=== PATIENT | female | born 1965 | race Hispanic/Latino ===

== ENCOUNTER 2017-09-20 16:29 | Emergency (ER) | payer MEDICARE ==
[~2017-09-20] VITALS: Ht 160 cm; Wt 117.9 kg
[2017-09-20] MEDS ORDERED: METHYLPREDNISOLONE SOD SUCC 125 MG/2ML VIAL IV STA (16:34)
[2017-09-20] MEDS ORDERED: SODIUM CHLORIDE 0.9% 1000ML 1,000 ML IV STA (16:34)
[2017-09-20] MEDS ORDERED: ALBUTEROL/IPRATROPIUM 3 ML NEB NEB ONE (16:45)
[2017-09-20] MEDS ORDERED: ALBUTEROL SULF 0.083% NEB SOLN 3 ML NEB NEB NR (16:45)
[2017-09-20 17:16] LABS: BASOPHILS # (AUTO) 0.1 (0.0-0.1); BASOPHILS % 0.6 % (0.0-1.0); EOSINOPHILS # (AUTO) 0.1 (0.0-0.4); HEMATOCRIT 42.7 % (34.2-44.1); HEMOGLOBIN 13.6 g/dL (12.0-16.0); LYMPHOCYTES # (AUTO) 5.1 (1.0-3.2); LYMPHOCYTES % 44.5 % (18.0-39.1); MEAN CORPUSCULAR HEMOGLOBIN 26.7 pg (28-32); MEAN CORPUSCULAR HGB CONC 31.9 g/dL (31-35); MEAN CORPUSCULAR VOLUME 83.7 fL (81-99); MONOCYTES # (AUTO) 0.9 (0.2-0.8); MONOCYTES % 7.8 % (4.4-11.3); NEUTROPHILS # (AUTO) 5.3 (2.1-6.9); NEUTROPHILS % 45.8 % (38.7-80.0); PLATELET COUNT 332 x10e3/uL (140-360); RED CELL DISTRIBUTION WIDTH 15.5 % (11.7-14.4)
[2017-09-20 17:26] LABS: INR 1.02; PROTHROMBIN TIME 12.6 seconds (11.9-14.5)
[2017-09-20 17:27] LABS: PARTIAL THROMBOPLASTIN TIME 33.5 seconds (23.8-35.5)
[2017-09-20 17:34] LABS: ALANINE AMINOTRANSFERASE 72 IU/L (0-55); ALBUMIN 3.8 g/dL (3.5-5.0); ALBUMIN/GLOBULIN RATIO 0.9 (0.8-2.0); ALKALINE PHOSPHATASE 172 IU/L (40-150); ANION GAP 19.5 mmol/L (8-16); BLOOD UREA NITROGEN 12 mg/dL (7-26); BUN/CREATININE RATIO 13 (6-25); CALCIUM 9.5 mg/dL (8.4-10.2); CARBON DIOXIDE 20 mmol/L (22-29); CHLORIDE 103 mmol/L (98-107); CREATINE KINASE 127 IU/L (29-168); CREATININE, SERUM 0.94 mg/dL (0.57-1.11); EST GLOMERULAR FILTRATION RATE > 60 ML/MIN (60-); GLUCOSE 208 mg/dL (74-118); POTASSIUM 3.5 mmol/L (3.5-5.1); SODIUM 139 mmol/L (136-145)
--- NOTE | 2017-09-20 18:03 | Diagnostic Imaging Report ---
PROCEDURE: A single AP view of the chest. COMPARISON: None. INDICATIONS: SUDDEN ONSET SHORTNESS OF BREATH, HX OF CHF FINDINGS: Lines/tubes: None. Lungs: Limited by body habitus, slight rotation, and low lung volumes. Right midlung linear opacities, likely atelectasis/scaring. Mild central vascular congestion. Pleura: There is no pleural effusion or pneumothorax. Heart and mediastinum: The cardiac silhouette is enlarged on this AP view. Median sternotomy wires. Bones: No acute bony abnormality. IMPRESSION: Limited study as above. Right midlung linear opacities are possibly atelectasis/scarring. Enlarged cardiac silhouette with mild central vascular congestion, accentuated by low lung volumes. Dictated by: Tushar Gonzalez M.D. on 09/20/2017 at 18:07 Electronically approved by: Tushar Gonzalez M.D. on 09/20/2017 at 18:07
[2017-09-20 18:13] LABS: ANISOCYTOSIS SLIGHT; EOSINOPHILS % (MANUAL) 1 % (0-7); LYMPHOCYTES % (MANUAL) 37 % (19-48); MONOCYTES % (MANUAL) 7 % (3.4-9.0); NEUTROPHILS % (MANUAL) 51 % (40-74); PLATELET ESTIMATE ADEQUATE; PLATELET MORPHOLOGY COMMENT NORMAL; POIKILOCYTOSIS SLIGHT; RBC MORPHOLOGY COMMENT NORMAL; STOMATOCYTES SLIGHT
[2017-09-20] MEDS ORDERED: ONDANSETRON HCL INJ 2 MG/ML VIAL IV STA (18:26)
[2017-09-20 19:19] VITALS: BP 130/64
== END 2017-09-20 19:28 | disposition home or self-care (01) ==
LOC: ER 16:33
DX: R06.00 Dyspnea, unspecified (principal); J45.51 Severe persistent asthma with (acute) exacerbation; E11.9 Type 2 diabetes mellitus without complications; I50.9 Heart failure, unspecified; I25.10 Atherosclerotic heart disease of native coronary artery without angina pectoris; Z95.1 Presence of aortocoronary bypass graft
CPT/HCPCS: 36415; 71045; 80053; 82550; 82553; 83880; 84484; 85025; 85610; 85730; 93005; 94640; 99284; J2405; J2930; J7030

== ENCOUNTER 2018-10-21 09:47 | Inpatient (IN) | payer MEDICARE ==
[~2018-10-21] VITALS: Ht 154.9 cm; Wt 106.2 kg
--- OUTSIDE RECORDS SUMMARY | 2018-10-21 09:53 | XMS REPORT | Continuity of Care Document ---
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 Name Role Phone [employer] [facility] Unavailable Unavailable Problems Problem Status Onset Date Classification Date Reported Comments Source Morbid obesity with BMI of 45.0-49.9, adult Active 11/13/2016 Problem 12/13/2017 [facility] Asthma, severe persistent Active 11/13/2016 Problem 12/13/2017 [facility] STEPHEN on CPAP Active 11/13/2016 Problem 12/13/2017 [facility] Controlled type 2 diabetes mellitus without complication, without long-term current use of insulin Active 11/13/2016 Problem 12/13/2017 [facility] Diverticulosis of large intestine without hemorrhage Active 01/23/2016 Problem 11/30/2017 [facility] Diverticulosis of large intestine without hemorrhage Active 01/23/2016 Problem 12/13/2017 [facility] H. pylori infection Active 01/15/2016 Problem 12/13/2017 [facility] Hepatic steatosis Active 07/31/2015 Problem 12/13/2017 [facility] Pleuritic chest pain Active 07/12/2013 Problem 12/13/2017 [facility] ASD , sinus venosus defect - 01/19/2013 Active 08/15/2012 Problem 12/13/2017 [facility] Pulmonary hypertension Active 08/15/2012 Problem 12/13/2017 [facility] CHF Active 08/14/2012 Problem 12/13/2017 [facility] Cardiomyopathy Active 05/27/2012 Problem 12/13/2017 [facility] S/P laparoscopic cholecystectomy Active 10/05/2008 Problem 12/13/2017 [facility] Bronchopulmonary aspergillosis Active Problem 12/13/2017 [facility] Other cirrhosis of liver Active Problem 10/07/2018 [facility] History of heart surgery Active Problem 10/07/2018 [facility] Obstructive sleep apnea (pediatric) Active Problem 10/07/2018 [facility] Congestive heart disease Active Problem 10/07/2018 [facility] RUQ pain Active Diagnosis 06/03/2018 [facility] Claudication Active Problem 10/07/2018 [facility] Pulmonary HTN Active Problem 10/07/2018 [facility] Dependence on other enabling machines and devices Active Problem 10/07/2018 [facility] Severe obesity Active Problem 10/07/2018 [facility] Pancreatitis, recurrent Active Problem 10/07/2018 [facility] Severe persistent asthma without complication Active Problem 10/07/2018 [facility] Pain of left calf Active Diagnosis 06/03/2018 [facility] Rahman''s esophagus without dysplasia Active Problem 10/07/2018 [facility] BMI 45.0-49.9, adult Active Problem 10/07/2018 [facility] Gastroesophageal reflux disease without esophagitis Active Problem 10/07/2018 [facility] Mixed hyperlipidemia Active Problem 10/07/2018 [facility] Chronic obstructive pulmonary disease, unspecified COPD type Active Problem 10/07/2018 [facility] Type 2 diabetes mellitus with diabetic chronic kidney disease Active Problem 10/07/2018 [facility] Intractable vomiting with nausea, unspecified vomiting type Active Problem 10/07/2018 [facility] Left leg pain Active Diagnosis 06/04/2018 [facility] Chest pain, unspecified type Active Diagnosis 06/22/2018 [facility] Abnormal CBC Active Diagnosis 04/09/2018 [facility] Anxiety Active Problem 10/07/2018 [facility] Cough Active Diagnosis 04/21/2018 [facility] Nausea and vomiting, intractability of vomiting not specified, unspecified vomiting type Active Diagnosis 09/08/2018 [facility] Chronic fatigue Active Problem 10/07/2018 [facility] Weakness Active Problem 10/07/2018 [facility] Intractable cyclical vomiting without nausea Active Problem 10/07/2018 [facility] Medications Medication Details Route Status Patient Instructions Ordering Provider Order Date Source Naproxen 1 tablet with food or milk as needed Orally Active 375 MG Orally every 12 hrs PRN David 06/20/2018 [facility] Dicyclomine HCl not defined Oral Active 10 MG Oral [place] 06/17/2018 [facility] PredniSONE TK 2 T PO DAILY Oral Active 20 MG Oral David 06/17/[address] [facility] Keflex 1 capsule Orally Active 500 mg Orally every 12 hrs [place] 06/01/[address] [facility] Medrol (Ruy) as directed Orally Active 4 mg Orally as directed [place] 04/19/[address] [facility] Benzonatate 1 capsule Orally Active 200 MG Orally Q8 PRN [place] 04/19/[address] [facility] Diflucan 1 tablet Orally Active 150 MG Orally [place] 03/25/[address] [facility] Macrobid 1 capsule with food Orally Active 100 mg Orally every 12 hrs [place] 03/22/[address] [facility] Ondansetron 1 tablet on the tongue and allow to dissolve Orally Active 8 MG Orally every 8 hrs PRN [place] 03/16/[address] [facility] Fluticasone Propionate 2 spray in each nostril Nasally Active 50 MCG/ACT Nasally Once a day 12/29/[address] [facility] Metformin 500 Mg Tablet Take 1 tablet by mouth 2 times daily (with meals) Please see PCP for further refills. Oral Active 11/09/2017 [facility] Accu-Chek SmartView as directed In Vitro Active - In Vitro use TID dx: E11.65 10/27/[address] [facility] Accu-Chek FastClix Lancets DRUM in vitro Active - in vitro use tid dx: E11.65 10/27/[address] [facility] Accu-Chek Julia SmartView as directed in vitro Active w/Device in vitro use TID dx: E11.65 10/27/[address] [facility] Novofine 31 as directed SQ, E11.2 Active 31G X 6 MM SQ, E11.2 three times a day (tid) df10/20/[address] [facility] NovoLog Flexpen up to 12 units( per sliding scale), max 36 units a day Subcutaneous Active 100 UNIT/ML Subcutaneous three times a day (tid) [place] 10/19/[address] [facility] Lisinopril 1 tablet by mouth Active 5 MG by mouth Once a day [place] 09/23/[address] [facility] Jardiance 1 tablet Orally Active 10 mg Orally Once a day David 09/23/[address] [facility] Lisinopril 1 tablet Orally Active 2.5 MG Orally Once a day David 09/23/[address] [facility] Digox 125 McG Tablet TAKE 1 TABLET BY MOUTH EVERY DAY FOR HEART Active 09/22/2017 [facility] Amoxicillin 875 Mg-Potassium Clavulanate 125 Mg Tablet Augmentin 875 Mg-125 Mg Tablet Take 1 tablet by mouth 2 times daily for 10 days. Oral No Longer Active 05/28/2017 [facility] Cetirizine 10 Mg Tablet Zyrtec 10 Mg Tablet Take 1 tablet by mouth daily. Oral Active 05/28/2017 [facility] Fluticasone 50 McG/Actuation Nasal [place],Suspension Use 1 [place] in each nostril daily. Active 05/28/2017 [facility] Benzonatate 100 Mg Capsule Tessalon Perles 100 Mg Capsule Take 2 capsules by mouth 3 times daily as needed for up to 7 days for Cough. Oral No Longer Active 05/28/2017 [facility] Ofloxacin 0.3 % Eye Drops Ocuflox 0.3 % Eye Drops Instill 5 drops to each ear daily for 10 days. Ok for pharmacist to dispense eye solution for ear treatment.. Active 05/28/2017 [facility] methylPREDNISolone sodium succinate (SOLU-MEDROL) injection 80 mg IV Push Inactive 05/12/2017 [facility] Albuterol Sulfate 2.5 Mg/3 Ml (0.083 %) Solution For Nebulization Inhalation Inactive 05/12/2017 [facility] Albuterol Sulfate Hfa 90 McG/Actuation Aerosol Inhaler Inhale 2 Puffs by mouth 4 times daily as needed for Wheezing or Shortness of Breath. Inhalation Active 05/12/2017 [facility] Codeine 10 Mg-Guaifenesin 100 Mg/5 Ml Oral Liquid Cheratussin Ac 10 Mg-100 Mg/5 Ml Oral Liquid Take 5 mL by mouth 3 times daily as needed for Cough. Oral Active 05/12/2017 [facility] Montelukast 10 Mg Tablet Singulair 10 Mg Tablet Take 1 tablet by mouth at bedtime nightly. Oral Active 05/12/2017 [facility] Levofloxacin 500 Mg Tablet Levaquin 500 Mg Tablet Take 1 tablet by mouth daily for 10 days. Oral No Longer Active 05/12/2017 [facility] Metformin 500 Mg Tablet TAKE 1 TABLET BY MOUTH TWICE DAILY Active 04/23/2017 [facility] Montelukast 10 Mg Tablet TAKE 1 TABLET BY MOUTH EVERY DAY Active 03/26/2017 [facility] Miscellaneous Medical Supply Misc by [facility]Non-Drug; Combo Route) route Hospital bed. No Longer Active 02/26/2017 [facility] Furosemide 20 Mg Tablet TAKE 2 TABLETS BY MOUTH DAILY Oral Active 02/24/2017 [facility] Albuterol Sulfate Hfa 90 McG/Actuation Aerosol Inhaler Inhale 2 Puffs by mouth 4 times daily as needed for Wheezing. Inhalation Active 02/23/2017 [facility] Amoxicillin 500 Mg-Potassium Clavulanate 125 Mg Tablet Augmentin 500 Mg-125 Mg Tablet Take 1 tablet by mouth 3 times daily for 10 days. Oral No Longer Active 02/23/2017 [facility] Potassium Chloride Er 10 Meq Tablet,Extended Release(Part/Cryst) Klor-Con M10 Meq Tablet,Extended Release Take 1 tablet by mouth daily. Oral Active 02/23/2017 [facility] Furosemide 20 Mg Tablet Lasix 20 Mg Tablet Take 2 tablets by mouth daily. Oral No Longer Active 01/25/2017 [facility] Clotrimazole 1 % Topical Cream Apply to affected area 2 times daily. Topical Inactive 12/31/2016 [facility] Atorvastatin 40 Mg Tablet Lipitor 40 Mg Tablet Take tablet (20mg) by mouth at bedtime nightly. Oral Inactive 12/31/2016 [facility] Furosemide 20 Mg Tablet Lasix 20 Mg Tablet Take 2 tablets by mouth daily. Oral No Longer Active 12/31/2016 [facility] Metformin 500 Mg Tablet Glucophage 500 Mg Tablet Take 1 tablet by mouth 2 times daily (with meals) For diabetes. Oral No Longer Active 11/23/2016 [facility] Furosemide 20 Mg Tablet Lasix 20 Mg Tablet Take 1 tablet by mouth daily. Oral No Longer Active 11/23/2016 [facility] Digoxin 125 McG Tablet Lanoxin 125 McG Tablet Take 1 tablet by mouth daily For heart. Oral No Longer Active 11/23/2016 [facility] Montelukast 10 Mg Tablet Take 1 tablet by mouth daily (autosubstitute from accolate). Oral No Longer Active 11/23/2016 [facility] Advair Diskus 500 McG-50 McG/Dose Powder For Inhalation Inhale 1 Puff by mouth 2 times daily. Inhalation Active 11/23/2016 [facility] Lancets by MISCELLANEOUS route 2 times weekly USE TO CHECK BLOOD SUGARS. Active 11/23/2016 [facility] Blood Sugar Diagnostic Strips Precision Xtra Test Strips use 2 times weekly USE TO CHECK BLOOD SUGARS. Active 11/23/2016 [facility] Tramadol 50 Mg Tablet Ultram 50 Mg Tablet Take 1 tablet by mouth every 8 hours as needed for Pain (MAY CAUSE DROWSINESS). Oral Active 11/23/2016 [facility] Ipratropium [place] 0.02 % Solution For Inhalation Inhalation Inactive 11/13/2016 [facility] methylPREDNISolone sodium succinate (SOLU-MEDROL) injection 125 mg Intramuscular Inactive 11/13/2016 [facility] Albuterol Sulfate 2.5 Mg/3 Ml (0.083 %) Solution For Nebulization Inhalation Inactive 11/13/2016 [facility] Prednisone 20 Mg Tablet One tablet twice daily ( 8 am and 3 pm) x 5 days, then one tablet daily x 5 days. No Longer Active 11/13/2016 [facility] Albuterol Sulfate 2.5 Mg/3 Ml (0.083 %) Solution For Nebulization Inhalation Inactive 10/29/2016 [facility] Prednisone 50 Mg Tablet Take 1 tablet by mouth daily. Oral No Longer Active 10/29/2016 [facility] Benzonatate 100 Mg Capsule Tessalon Perles 100 Mg Capsule Take 1 capsule by mouth 3 times daily as needed for Cough. Oral No Longer Active 10/29/2016 [facility] Miscellaneous Medical Supply Misc by [facility].(Non-Drug; Combo Route) route Sleep studyDx. Obstructive sleep apnea. No Longer Active 10/29/2016 [facility] Ketorolac 30 Mg/Ml (1 Ml) Injection Solution Intramuscular Inactive 10/23/2016 [facility] Tramadol 50 Mg Tablet Ultram 50 Mg Tablet Take 1 tablet by mouth every 8 hours as needed for Pain (MAY CAUSE DROWSINESS). Oral No Longer Active 10/23/2016 [facility] triamcinolone acetonide (KENALOG-40) injection 80 mg Intramuscular Inactive 10/01/2016 [facility] Ketorolac 60 Mg/2 Ml Intramuscular Solution Intramuscular Inactive 10/01/2016 [facility] Nebulizer And Compressor 1 Device by [facility].(Non-Drug; Combo Route) route 4 times daily. Active 10/01/2016 [facility] Albuterol Sulfate 2.5 Mg/3 Ml (0.083 %) Solution For Nebulization Inhale 3 mL by mouth every 4 hours as needed for Wheezing or Shortness of Breath. Inhalation Active 10/01/2016 [facility] Triamcinolone Acetonide 0.1 % Topical Cream Triderm 0.1 % Topical Cream Apply to affected area 2 times daily. Topical Active 08/27/2016 [facility] Fluconazole 150 Mg Tablet Diflucan 150 Mg Tablet 1 tab po weekly x 3 weeks. No Longer Active 08/27/2016 [facility] Pantoprazole 40 Mg Tablet,Delayed Release Protonix 40 Mg Tablet,Delayed Release Take 1 tablet by mouth daily. Oral Active 07/31/2016 [facility] Blood Sugar Diagnostic Strips Precision Xtra Test Strips use 2 times weekly USE TO CHECK BLOOD SUGARS. No Longer Active 07/30/2016 [facility] Lancets by MISCELLANEOUS route 2 times weekly USE TO CHECK BLOOD SUGARS. No Longer Active 07/30/2016 [facility] Metformin 500 Mg Tablet Glucophage 500 Mg Tablet Take 1 tablet by mouth 2 times daily (with meals) For diabetes. Oral No Longer Active 07/30/2016 [facility] Furosemide 20 Mg Tablet Lasix 20 Mg Tablet Take 1 tablet by mouth daily. Oral No Longer Active 07/30/2016 [facility] Digoxin 125 McG Tablet Lanoxin 125 McG Tablet Take 1 tablet by mouth daily For heart. Oral No Longer Active 07/30/2016 [facility] Montelukast 10 Mg Tablet Take 1 tablet by mouth daily (autosubstitute from accolate). Oral No Longer Active 07/30/2016 [facility] Albuterol Sulfate Hfa 90 McG/Actuation Aerosol Inhaler Inhale 2 Puffs by mouth 4 times daily as needed for Wheezing. Inhalation No Longer Active 07/30/2016 [facility] Advair Diskus 500 McG-50 McG/Dose Powder For Inhalation Inhale 1 Puff by mouth 2 times daily. Inhalation No Longer Active 07/30/2016 [facility] Ipratropium [place] 0.02 % Solution For Inhalation Inhale 2.5 mL by mouth 4 times daily. Inhalation Active 07/30/2016 [facility] Benzonatate 100 Mg Capsule Tessalon Perles 100 Mg Capsule Take 1 capsule by mouth 3 times daily as needed for Cough. Oral No Longer Active 07/20/2016 [facility] Azelastine 0.05 % Eye Drops Instill 1 Drop in each eye 2 times daily. No Longer Active 10/28/2015 [facility] Blood-Glucose Meter Precision Xtra Glucometer Use as directed.. No Longer Active 06/10/2015 [facility] Lancets 28 Gauge 2 times weekly. No Longer Active 06/10/2015 [facility] Nebulizer And Compressor 1 Device by [facility].(Non-Drug; Combo Route) route 4 times daily NEEDING NEBULIZER DEVICE FOR REFRACTORY ASTHMA AND EXACERBATION. No Longer Active 04/25/2015 [facility] Polyethylene Glycol 17 grams by mouth Active 1000 by mouth as needed (prn) Trista [facility] Aspirin 1 tablet Orally Active 81 MG Orally Once a day [facility] Furosemide 2 tablets po qd NA Active 20 [facility] Atorvastatin Calcium tk 1/2 t po qhs Oral Active 40 mg [facility] Potassium Chloride [place] [facility] 3 tabs by mouth Active 20 MEQ by mouth Once a day [facility] Cetirizine HCl tk 1 t po qd Oral Active 10 mg [facility] Montelukast Sodium 1 tablet Oral Active 10 mg Oral once a day [facility] Spiriva HandiHaler 1 capsule Inhalation Active 18 MCG Inhalation Once a day [facility] Ventolin HFA INHALE 2 PUFFS PO QID PRN FOR WHEEZING OR SOB Inhalation Active 108 (90 Base) MCG/ACT Inhalation [facility] Metolazone not defined Oral Active 5 MG Oral David [facility] Metformin HCl 2 tablets Oral Active 500 mg Oral bid with meals Trista [facility] Albuterol Sulfate 3 ml as needed Inhalation Active (2.5 MG/3ML) 0.083% Inhalation Three times a day [facility] Pantoprazole Sodium 1 tablet orally Active 40 mg orally twice a day (bid) Nathenpatt [facility] Nasonex 2 sprays in each nostril Nasally Active 50 MCG/ACT Nasally Once a day David [facility] Furosemide TK 2 TS PO QD Oral Active 20 MG Oral David [facility] Montelukast Sodium TK 1 T PO QD Oral Active 10 MG Oral [address] [facility] Ondansetron 1 tablet on the tongue and allow to dissolve as needed Orally Active 4 mg Orally three times a day (tid) Jacob [facility] Potassium Chloride [place] ER TK 2 TS PO D Oral Active 20 MEQ Oral David [facility] Jardiance 1 tablet Orally Active 10 Orally Once a day Trista [facility] Bumetanide as directed Orally Active 1 MG Orally Trista [facility] PredniSONE 1 tablet Orally Active 10 MG Orally Once a day Trista [facility] Ceftin 1 tablet Orally Active 250 MG Orally every [address] [facility] Allergies, Adverse Reactions, Alerts Substance Category Reaction Severity Reaction type Status Date Reported Comments Source Latex Rash Propensity to adverse reactions to drug Active 10/03/2008 [facility] Sulfa (Sulfonamide Antibiotics) Rash Propensity to adverse reactions to drug Active 10/03/2008 [facility] Iodine Adverse Reaction anaphylaxis Adverse Reaction Active 10/03/[address] [facility] cipro Adverse Reaction rash Adverse Reaction Active 10/03/[address] [facility] sulfa Adverse Reaction rash Adverse Reaction Active 10/03/[address] [facility] Immunizations Immunization Date Given Site Status Last Updated Comments Source Influenza, Seasonal, Injectable 05/28/2017 Not Given Deferred: Other - cold symptoms [facility] Influenza Vaccine, Seasonal, Injectable 01/25/2017 Not Given Deferred: Patient already had this immunization [facility] TDap (Tetanus Toxoid, Reduced Diphtheria Toxoid And Acellular Pertussis, Absorbed) 11/23/2016 completed [facility] PNEUMOCOCCAL 23-VALPS VACCINE 25 MCG/0.5 ML INJECTION 07/20/2016 Not Given Deferred: Patient Refused [facility] Influenza Vaccine 05/15/2015 Not Given Deferred: Other - Patient ill in clinic [facility] Pneumococcal 7-valent conj 0.5 mL injection 08/16/2011 completed [facility] Hepatitis B Vaccine 07/21/2011 completed [facility] Results Order Name Results Value Reference Range Date Interpretation Comments Source Activated partial thromboplastin time (aPTT) in platelet poor plasma bycoagulation assay Activated partial thromboplastin time (aPTT) in platelet poor plasma bycoagulation assay 33.5 23.8 - 35.5 09/20/2017 [facility] Automated blood basophil count (count/volume) Automated blood basophil count (count/volume) 0.1 0.0 - 0.1 09/20/2017 [facility] Automated blood basophil count as percentage of total leukocytes Automated blood basophil count as percentage of total leukocytes 0.6 0.0 - 1.0 09/20/2017 [facility] Automated blood eosinophil count Automated blood eosinophil count 0.1 0.0 - 0.4 09/20/2017 [facility] Automated blood eosinophil count as percentage of total leukocytes Automated blood eosinophil count as percentage of total leukocytes 1.0 0.0 - 6.0 09/20/2017 [facility] Automated blood hematocrit (volume fraction) Automated blood hematocrit (volume fraction) 42.7 34.2 - 44.1 09/20/2017 [facility] Automated blood lymphocyte count as percentage ot total leukocytes Automated blood lymphocyte count as percentage ot total leukocytes 44.5 18.0 - 39.1 09/20/2017 [facility] Automated blood monocyte count as percentage of total leukocytes Automated blood monocyte count as percentage of total leukocytes 7.8 4.4 - 11.3 09/20/2017 [facility] Automated blood neutrophil count Automated blood neutrophil count 5.3 2.1 - 6.9 09/20/2017 [facility] Automated blood platelet count (count/volume) Automated blood platelet count (count/volume) 332 140 - 360 09/20/2017 [facility] Automated blood segmented neutrophil count as percentage of total leukocytes Automated blood segmented neutrophil count as percentage of total leukocytes 45.8 38.7 - 80.0 09/20/2017 [facility] Automated erythrocyte mean corpuscular hemoglobin (mass per erythrocyte) Automated erythrocyte mean corpuscular hemoglobin (mass per erythrocyte) 26.7 28 - 32 09/20/2017 [facility] Automated erythrocyte mean corpuscular hemoglobin concentration measurement (mass/volume) Automated erythrocyte mean corpuscular hemoglobin concentration measurement (mass/volume) 31.9 31 - 35 09/20/2017 [facility] Automated erythrocyte mean corpuscular volume Automated erythrocyte mean corpuscular volume 83.7 81 - 99 09/20/2017 [facility] Blood anisocytosis detection by light microscopy Blood anisocytosis detection by light microscopy SLIGHT 09/20/2017 [facility] Blood erythrocytes automated count (number/volume) Blood erythrocytes automated count (number/volume) 5.10 3.6 - 5.1 09/20/2017 [facility] Blood hemoglobin measurement (moles/volume) Blood hemoglobin measurement (moles/volume) 13.6 12.0 - 16.0 09/20/2017 [facility] Blood leukocytes automated count (number/volume) Blood leukocytes automated count (number/volume) 11.44 4.8 - 10.8 09/20/2017 [facility] Blood lymphocytes count (number/volume) Blood lymphocytes count (number/volume) 5.1 1.0 - 3.2 09/20/2017 [facility] Blood lymphocytes variant count (number/volume) Blood lymphocytes variant count (number/volume) 4 09/20/2017 [facility] Blood monocytes automated count (number/volume) Blood monocytes automated count (number/volume) 0.9 0.2 - 0.8 09/20/2017 [facility] Blood platelets count by estimate (number/volume) Blood platelets count by estimate (number/volume) ADEQUATE 09/20/2017 [facility] Blood poikilocytosis detection by light microscopy Blood poikilocytosis detection by light microscopy SLIGHT 09/20/2017 [facility] Blood stomatocytes detection by light microscopy Blood stomatocytes detection by light microscopy SLIGHT 09/20/2017 [facility] Estimated glomerular filtration rate (GFR) determination Estimated glomerular filtration rate (GFR) determination >60 60 09/20/2017 [facility] Glucose measurement Glucose measurement 208 74 - 118 09/20/2017 [facility] INR in Platelet poor plasma by Coagulation assay INR in Platelet poor plasma by Coagulation assay 1.02 09/20/2017 [facility] Manual blood eosinophil count as percentage of total leukocytes Manual blood eosinophil count as percentage of total leukocytes 1 0 - 7 09/20/2017 [facility] Manual blood lymphocytes/100 leukocytes Manual blood lymphocytes/100 leukocytes 37 19 - 48 09/20/2017 [facility] Manual blood monocytes/100 leukocytes Manual blood monocytes/100 leukocytes 7 3.4 - 9.0 09/20/2017 [facility] Manual blood neutrophils/100 leukocytes Manual blood neutrophils/100 leukocytes 51 40 - 74 09/20/2017 [facility] Plasma globulin measurement (mass/volume) Plasma globulin measurement (mass/volume) 4.1 2.3 - 3.5 09/20/2017 [facility] Platelet morphology Platelet morphology NORMAL 09/20/2017 [facility] Prothrombin time (PT) in platelet poor plasma by coagulation assay Prothrombin time (PT) in platelet poor plasma by coagulation assay 12.6 11.9 - 14.5 09/20/2017 [facility] RBC morphology RBC morphology NORMAL 09/20/2017 [facility] Serum or plasma alanine aminotransferase measurement (enzymatic activity/volume) Serum or plasma alanine aminotransferase measurement (enzymatic activity/volume) 72 0 - 55 09/20/2017 [facility] Serum or plasma albumin measurement (mass/volume) Serum or plasma albumin measurement (mass/volume) 3.8 3.5 - 5.0 09/20/2017 [facility] Serum or plasma albumin/globulin mass ratio Serum or plasma albumin/globulin mass ratio 0.9 0.8 - 2.0 09/20/2017 [facility] Serum or plasma alkaline phosphatase measurement (enzymatic activity/volume) Serum or plasma alkaline phosphatase measurement (enzymatic activity/volume) 172 40 - 150 09/20/2017 [facility] Serum or plasma anion gap Serum or plasma anion gap 19.5 8 - 16 09/20/2017 [facility] Serum or plasma calcium measurement (mass/volume) Serum or plasma calcium measurement (mass/volume) 9.5 8.4 - 10.2 09/20/2017 [facility] Serum or plasma carbon dioxide, total measurement (moles/volume) Serum or plasma carbon dioxide, total measurement (moles/volume) 20 22 - 29 09/20/2017 [facility] Serum or plasma chloride measurement (moles/volume) Serum or plasma chloride measurement (moles/volume) 103 98 - 107 09/20/2017 [facility] Serum or plasma creatine kinase MB measurement (mass/volume) Serum or plasma creatine kinase MB measurement (mass/volume) 2.00 0 - 5.0 09/20/2017 [facility] Serum or plasma creatine kinase measurement (enzymatic activity/volume) Serum or plasma creatine kinase measurement (enzymatic activity/volume) 127 29 - 168 09/20/2017 [facility] Serum or plasma creatinine measurement (mass/volume) Serum or plasma creatinine measurement (mass/volume) 0.94 0.57 - 1.11 09/20/2017 [facility] Serum or plasma potassium measurement (moles/volume) Serum or plasma potassium measurement (moles/volume) 3.5 3.5 - 5.1 09/20/2017 [facility] Serum or plasma protein measurement (mass/volume) Serum or plasma protein measurement (mass/volume) 7.9 6.5 - 8.1 09/20/2017 [facility] Serum or plasma sodium measurement (moles/volume) Serum or plasma sodium measurement (moles/volume) 139 136 - 145 09/20/2017 [facility] Serum or plasma total bilirubin measurement (mass/volume) Serum or plasma total bilirubin measurement (mass/volume) 0.7 0.2 - 1.2 09/20/2017 [facility] Serum or plasma urea nitrogen measurement (mass/volume) Serum or plasma urea nitrogen measurement (mass/volume) 12 7 - 26 09/20/2017 [facility] Serum or plasma urea nitrogen/creatinine mass ratio Serum or plasma urea nitrogen/creatinine mass ratio 13 6 - 25 09/20/2017 [facility] Troponin I measurement by highly sensitive enzyme immunoassay Troponin I measurement by highly sensitive enzyme immunoassay 0.006 0 - 0.300 09/20/2017 [facility] Red Cell Distribution Width 15.5 11.7 - 14.4 09/20/2017 [facility] IM GRANULOCYTES % 0.3 0.0 - 1.0 09/20/2017 [facility] Absolute Immature Granulocyte (auto 0.03 0 - 0.1 09/20/2017 [facility] Differential Total Cells Counted 100 09/20/2017 [facility] Aspartate Amino Transf (AST/SGOT) 81 5 - 34 09/20/2017 [facility] B-Type Natriuretic Peptide 48.4 0 - 100 09/20/2017 [facility] DIABETIC FOOT EXAM <p>oLren Gregg NP :14 PM</p><p>Diabetic Foot Exam was performed at 05/28/2017 7:10 PM.Right foot </p><p>sensation is normal, right foot pulses are normal, right foot appearance </p><p>is normal.Left foot sensation is normal,left foot pulses are normal,</p><p>left foot appearance is normal. </p><p> </p><p> </p> Loren Gregg NP :14 PMDiabetic Foot Exam was performed at 05/28/2017 7:10 PM.Right foot sensation is normal, right foot pulses are normal, right foot appearance is normal.Left foot sensation is normal,left foot pulses are normal,left foot appearance is normal. 05/29/2017 [facility] DIABETIC FOOT EXAM <p>Loren Gregg NP :14 PM</p><p>Diabetic Foot Exam was performed at 05/28/2017 7:10 PM.Right foot </p><p>sensation is normal, right foot pulses are normal, right foot appearance </p><p>is normal.Left foot sensation is normal,left foot pulses are normal,</p><p>left foot appearance is normal. </p><p> </p><p> </p> Loren Gregg NP :14 PMDiabetic Foot Exam was performed at 05/28/2017 7:10 PM.Right foot sensation is normal, right foot pulses are normal, right foot appearance is normal.Left foot sensation is normal,left foot pulses are normal,left foot appearance is normal. 05/28/2017 [facility] POC RAPID FLU Rapid Flu A POC Neg Neg 05/12/2017 [facility] POC RAPID FLU Rapid Flu B POC Neg Neg 05/12/2017 [facility] POC RAPID FLU Rapid Flu Con POC Pass Pass 05/12/2017 [facility] POC RAPID FLU Lab Interpretation Normal 05/12/2017 [facility] POC GROUP A STREP SCREEN Group A Strep POC Neg Neg 05/12/2017 [facility] POC GROUP A STREP SCREEN GAS (Contr) Pass Pass 05/12/2017 [facility] POC GROUP A STREP SCREEN Lab Interpretation Normal 05/12/2017 [facility] POC RAPID FLU Rapid Flu A POC Neg Neg 05/12/2017 [facility] POC RAPID FLU Rapid Flu B POC Neg Neg 05/12/2017 [facility] POC RAPID FLU Rapid Flu Con POC Pass Pass 05/12/2017 [facility] POC RAPID FLU Lab Interpretation Normal 05/12/2017 [facility] POC GROUP A STREP SCREEN Group A Strep POC Neg Neg 05/12/2017 [facility] POC GROUP A STREP SCREEN GAS (Contr) Pass Pass 05/12/2017 [facility] POC GROUP A STREP SCREEN Lab Interpretation Normal 05/12/2017 [facility] TREADMILL STRESS-TRACING ONLY Stress Test [facility] Test Date:2017-04-27 Pat Name: NIKKO SULLIVAN Department: : Gender: Female Caul Puller: XANDER :1965 Requested By: Order Number:[place] MD: Sonu Miller Interpretive Statements WORKLOAD: The patient exercised according to the JOHNNIE protocol for 03:32 min:s, achieving a work level of 5.10 METS. HEART RATE/BLOOD PRESSURE: The resting heart rate of 94 bpm carlos to a maximal heart rate of 134 bpm, representing 80% of the maximal, age-predicted heart rate. The resting blood pressure of 145/88 mmHg increased to a maximum blood pressure of 244/91 mmHg. Within 4 minutes of starting the test, the patient started to develop severe shortness of breath associated with wheezing. She was taken off the treadmill and placed on the stretcher sitting up and was administered her home beta-2 agonist rescue inhalers and her symptoms improved along with her blood pressure. TERMINATION OF TEST: The exercise test was stopped at patient request - she became short of breath. ELECTROCARDIOGRAM: Baseline ECG showed normal sinus rhythm with right bundl branch block and non-specific ST-segment and T-wave abnormalities with poor R-wave progression (consider anterior myocardial infarction, old or of indeterminate age). There was no change from the baseline ECG following exercise. ARRHYTHMIAS: No ventricular arrhythmias were detected during exercise or in the recovery period. CONCLUSION: 1. Abnormal exercise stress test due to the development of shortness of breath 2. Exaggerated hemodynamic response following exercise. 3. Non-diagnostic electrographic stress test due to baseline ST-T abnormalities and inability to achieve 85% of maximum predicted heart rate. RECOMMENDATIONS: 1. Consider alternative coronary artery/myocardial perfusion modalities to assess patient for possible myocardial ischemia. Electronically Signed On 04-27-17 18:18:36 [employer] DIRECTOR by Sonu Miller 04/28/2017 [facility] TREADMILL STRESS-TRACING ONLY [facility]:2017-[facility]27 Pat Name: NIKKO SULLIVAN Department: : Gender: Female Caul Puller: XANDER :1965 Requested By: Order Number:Reading MD: Sonu Miller Interpretive Statements WORKLOAD: The patient exercised according to the JOHNNIE protocol for 03:32 min:s, achieving a work level of 5.10 METS. HEART RATE/BLOOD PRESSURE: The resting heart rate of 94 bpm carlos to a maximal heart rate of 134 bpm, representing 80% of the maximal, age-predicted heart rate. The resting blood pressure of 145/88 mmHg increased to a maximum blood pressure of 244/91 mmHg. Within 4 minutes of starting the test, the patient started to develop severe shortness of breath associated with wheezing. She was taken off the treadmill and placed on the stretcher sitting up and was administered her home beta-2 agonist rescue inhalers and her symptoms improved along with her blood pressure. TERMINATION OF TEST: The exercise test was stopped at patient request - she became short of breath. ELECTROCARDIOGRAM: Baseline ECG showed normal sinus rhythm with right bundl branch block and non-specific ST-segment and T-wave abnormalities with poor R-wave progression (consider anterior myocardial infarction, old or of indeterminate age). There was no change from the baseline ECG following exercise. ARRHYTHMIAS: No ventricular arrhythmias were detected during exercise or in the recovery period. CONCLUSION: 1. Abnormal exercise stress test due to the development of shortness of breath 2. Exaggerated hemodynamic response following exercise. 3. Non-diagnostic electrographic stress test due to baseline ST-T abnormalities and inability to achieve 85% of maximum predicted heart rate. RECOMMENDATIONS: 1. Consider alternative coronary artery/myocardial perfusion modalities to assess patient for possible myocardial ischemia. Electronically Signed On 04-27-17 18:18:36 [employer] PROGRAM DIRECTOR by Sonu Miller 04/27/2017 [facility] TTE FOLLOW UP ECHO HEART XTHORACIC,LIMITED Transthoracic Echo Report NIKKO SULLIVAN Age:51 Gender: F :1965 Exam Date: 04/15/2017 10:51 Exam Location: [facility] Echo Ordering Phys: EKERUO AMARILIS A Referring Phys:EKERUO AMARILIS Bryson Reading Phys:Luis M Goodson MD Fellow Phys: Fellow Phys: Physical Metallurgist: Michelle Barreto Reason For Exam: Indications:dyspnea ICD-9 Codes: Exam Type: TTE FOLLOW UP Procedure CPT:36320 Addtional CPT: Ht (in): 63 BSA: 2.38HR: Rhythm: Sinus rhythm Wt (lb): 265BP: 131/ 71 Technical Quality: Very technically difficult study History: MEASUREMENTS(Male / Female) Normal Values 2D ECHO LV Diastolic Diameter PLAX4.2 cm4.2 - 5.9 / 3.9 - 5.3 cm LV Systolic Diameter PLAX 2.7 cm2.1 - 4.0 cm LV Fractional Shortening PLAX 35.1 %25 - 46% IVS Diastolic Thickness 0.9 cm IVS Systolic Thickness1.3 cm LVPW Diastolic Thickness0.93 cm LVPW Systolic Thickness 1.3 cm LV Relative Wall Thickness0.44 LVOT Diameter 2.1 cm Aortic Root Diameter3.3 cm LA Volume 61.2 cm18 - 58 / 22 - 52 cm DOPPLER AV Peak Douynpui292 cm/s AV Peak Gradient8.6 mmHg AV Mean Qcdlksle26.3 cm/s AV Mean Gradient4.2 mmHg AV Velocity Time Integral 30.7 cm LVOT Peak Dobyqhnb502 cm/s LVOT Peak Gradient5.5 mmHg LVOT Mean Bridkvmm40.3 cm/s LVOT Mean Gradient2.9 mmHg LVOT Velocity Time Integral 26.3 cm LVOT Stroke Gelhkp50.1 cm AV Area Cont Eq vti 2.9 cm AV Area Cont Eq pk2.7 cm Mitral E Point Velocity 94.1 cm/s Mitral A Point Velocity 116 cm/s Mitral E to A Ratio 0.81 MV Deceleration [place] 399 cm/s MV Deceleration Nblt184 ms TR Peak Qulmgwmm340 cm/s TR Peak Sibmyxfb84.8 mmHg PV Peak Duuxbboc36.1 cm/s PV Peak Gradient3.9 mmHg PV Mean Ljqfegga12.7 cm/s PV Mean Gradient2.3 mmHg PV Velocity Time Integral 20.6 cm LV E' Lateral Mghhqhap16.2 cm/s Mitral E to LV E' Lateral Ratio 6.6 LV E' Septal Velocity 8.1 cm/s Mitral E to LV E' Septal Ratio11.6 FINDINGS Left Ventricle Ultrasound contrast was used for LV opacification. The left ventricle is normal in size. Upper-normal LV wall thickness. Hyperdynamic left ventricular systolic function. Left ventricular ejection fraction is greater than 70%. Abnormal (paradoxical) septal motion consistent with postoperative state. Otherwise there are no regional wall motion abnormalities.There is impaired LV relaxation for age with normal filling pressures. Right Ventricle Right ventricle not well visualized, but appears at the upper limit of normal in size,grossly normal right ventricular systolic function, by TAPSE 1.7 cm and S' 14 cm/s.. Right Atrium Right atrium not well visualized. Grossly normal right atrial size. Left Atrium Normal left atrial size. Grossly normal left atrial size. IAS Mitral Valve Structurally normal mitral valve without significant stenosis or prolapse. There is no mitral regurgitation. Aortic Valve Aortic valve is not well visualized in the short axis to discern the number of cusps, appears to open well. There is no aortic stenosis or regurgitation by Doppler evaluation. Tricuspid Valve Structurally normal tricuspid valve without significant stenosis. There is trace tricuspid regurgitation.Incomplete TR jet, but estimated pulmonary artery systolic pressure estimated to be at least 32 mmHg plus RA pressure. Pulmonic Valve Pulmonic valve not well visualized. No significant pulmonic stenosis or regurgitation by Doppler assessment. Pericardium No pericardial effusion. Aorta Normal aortic root for body surface area. IVC IVC is not optimally visualized. CONCLUSIONS Very technically difficult study, ultrasound contrast was used for LV opacification. Hyperdynamic left ventricular systolic function, ejection fraction is greater than 70%. Abnormal (paradoxical) septal motion consistent with postoperative state. Otherwise there are no regional wall motion abnormalities. There is impaired LV relaxation for age with normal filling pressures. Right ventricle not well visualized, but appears at the upper limit of normal in size,grossly normal right ventricular systolic function, by TAPSE 1.7 cm and S' 14 cm/s. Grossly normal right and left atria. Incomplete TR jet, but estimated pulmonary artery systolic pressure estimated to be at least 32 mmHg plus RA pressure. atrial size. No other significant abnormalities noted. Compared to the prior study dated1, no significant changes but both studies are technically limited. Luis M Goodson MD (Electronically Signed) Final Date:15 April 2017 14:00 2D ECHO LV Diastolic Diameter PLAX4.2 cm4.2 - 5.9 / 3.9 - 5.3 cm LV Systolic Diameter PLAX 2.7 cm2.1 - 4.0 cm LV Fractional Shortening PLAX 35.1 %25 - 46% IVS Diastolic Thickness 0.9 cm IVS Systolic Thickness1.3 cm LVPW Diastolic Thickness0.93 cm LVPW Systolic Thickness 1.3 cm LV Relative Wall Thickness0.44 LVOT Diameter 2.1 cm Aortic Root Diameter3.3 cm LA Volume 61.2 cm18 - 58 / 22 - 52 cm DOPPLER AV Peak Jvnaekvp443 cm/s AV Peak Gradient8.6 mmHg AV Mean Lsrdytlq35.3 cm/s AV Mean Gradient4.2 mmHg AV Velocity Time Integral 30.7 cm LVOT Peak Hubjeclf733 cm/s LVOT Peak Gradient5.5 mmHg LVOT Mean Jociyyia35.3 cm/s LVOT Mean Gradient2.9 mmHg LVOT Velocity Time Integral 26.3 cm LVOT Stroke Yuercj89.1 cm AV Area Cont Eq vti 2.9 cm AV Area Cont Eq pk2.7 cm Mitral E Point Velocity 94.1 cm/s Mitral A Point Velocity 116 cm/s Mitral E to A Ratio 0.81 MV Deceleration [place] 399 cm/s MV Deceleration Guel292 ms TR Peak Apcwdifv925 cm/s TR Peak Jxneiceg00.8 mmHg PV Peak Zccvsfvp73.1 cm/s PV Peak Gradient3.9 mmHg PV Mean Mbnumkgb78.7 cm/s PV Mean Gradient2.3 mmHg PV Velocity Time Integral 20.6 cm LV E' Lateral Opmjdxpb69.2 cm/s Mitral E to LV E' Lateral Ratio 6.6 LV E' Septal Velocity 8.1 cm/s Mitral E to LV E' Septal Ratio11.6 04/15/2017 [facility] TTE FOLLOW UP ECHO HEART XTHORACIC,LIMITED Transthoracic Echo Report NIKKO SULLIVAN Age:51 Gender: F :1965 Exam Date: 04/15/2017 10:51 Exam Location: [facility] Echo Ordering Phys: AMARILIS AGGARWAL Referring Phys:AMARILIS AGGARWAL Reading Phys:Luis M Goodson MD Fellow Phys: Fellow Phys: Physical Metallurgist: Michelle Barreto Reason For Exam: Indications:dyspnea ICD-9 Codes: Exam Type: TTE FOLLOW UP Procedure CPT:81534 Addtional CPT: Ht (in): 63 BSA: 2.38HR: Rhythm: Sinus rhythm Wt (lb): 265BP: 131/ 71 Technical Quality: Very technically difficult study History: MEASUREMENTS(Male / Female) Normal Values 2D ECHO LV Diastolic Diameter PLAX4.2 cm4.2 - 5.9 / 3.9 - 5.3 cm LV Systolic Diameter PLAX 2.7 cm2.1 - 4.0 cm LV Fractional Shortening PLAX 35.1 %25 - 46% IVS Diastolic Thickness 0.9 cm IVS Systolic Thickness1.3 cm LVPW Diastolic Thickness0.93 cm LVPW Systolic Thickness 1.3 cm LV Relative Wall Thickness0.44 LVOT Diameter 2.1 cm Aortic Root Diameter3.3 cm LA Volume 61.2 cm18 - 58 / 22 - 52 cm DOPPLER AV Peak Cylnwvrz523 cm/s AV Peak Gradient8.6 mmHg AV Mean Momztoci21.3 cm/s AV Mean Gradient4.2 mmHg AV Velocity Time Integral 30.7 cm LVOT Peak Fgnbzjlo538 cm/s LVOT Peak Gradient5.5 mmHg LVOT Mean Zidprqxt00.3 cm/s LVOT Mean Gradient2.9 mmHg LVOT Velocity Time Integral 26.3 cm LVOT Stroke Jgjtma01.1 cm AV Area Cont Eq vti 2.9 cm AV Area Cont Eq pk2.7 cm Mitral E Point Velocity 94.1 cm/s Mitral A Point Velocity 116 cm/s Mitral E to A Ratio 0.81 MV Deceleration [place] 399 cm/s MV Deceleration Kfmj230 ms TR Peak Efkqevgw572 cm/s TR Peak Uzdstrmw05.8 mmHg PV Peak Opyuocfp55.1 cm/s PV Peak Gradient3.9 mmHg PV Mean Zmbxnmmz41.7 cm/s PV Mean Gradient2.3 mmHg PV Velocity Time Integral 20.6 cm LV E' Lateral Axgxiqxz69.2 cm/s Mitral E to LV E' Lateral Ratio 6.6 LV E' Septal Velocity 8.1 cm/s Mitral E to LV E' Septal Ratio11.6 FINDINGS Left Ventricle Ultrasound contrast was used for LV opacification. The left ventricle is normal in size. Upper-normal LV wall thickness. Hyperdynamic left ventricular systolic function. Left ventricular ejection fraction is greater than 70%. Abnormal (paradoxical) septal motion consistent with postoperative state. Otherwise there are no regional wall motion abnormalities.There is impaired LV relaxation for age with normal filling pressures. Right Ventricle Right ventricle not well visualized, but appears at the upper limit of normal in size,grossly normal right ventricular systolic function, by TAPSE 1.7 cm and S' 14 cm/s.. Right Atrium Right atrium not well visualized. Grossly normal right atrial size. Left Atrium Normal left atrial size. Grossly normal left atrial size. IAS Mitral Valve Structurally normal mitral valve without significant stenosis or prolapse. There is no mitral regurgitation. Aortic Valve Aortic valve is not well visualized in the short axis to discern the number of cusps, appears to open well. There is no aortic stenosis or regurgitation by Doppler evaluation. Tricuspid Valve Structurally normal tricuspid valve without significant stenosis. There is trace tricuspid regurgitation.Incomplete TR jet, but estimated pulmonary artery systolic pressure estimated to be at least 32 mmHg plus RA pressure. Pulmonic Valve Pulmonic valve not well visualized. No significant pulmonic stenosis or regurgitation by Doppler assessment. Pericardium No pericardial effusion. Aorta Normal aortic root for body surface area. IVC IVC is not optimally visualized. CONCLUSIONS Very technically difficult study, ultrasound contrast was used for LV opacification. Hyperdynamic left ventricular systolic function, ejection fraction is greater than 70%. Abnormal (paradoxical) septal motion consistent with postoperative state. Otherwise there are no regional wall motion abnormalities. There is impaired LV relaxation for age with normal filling pressures. Right ventricle not well visualized, but appears at the upper limit of normal in size,grossly normal right ventricular systolic function, by TAPSE 1.7 cm and S' 14 cm/s. Grossly normal right and left atria. Incomplete TR jet, but estimated pulmonary artery systolic pressure estimated to be at least 32 mmHg plus RA pressure. atrial size. No other significant abnormalities noted. Compared to the prior study dated1, no significant changes but both studies are technically limited. Luis M Goodson MD (Electronically Signed) Final Date:15 April 2017 14:00 2D ECHO LV Diastolic Diameter PLAX4.2 cm4.2 - 5.9 / 3.9 - 5.3 cm LV Systolic Diameter PLAX 2.7 cm2.1 - 4.0 cm LV Fractional Shortening PLAX 35.1 %25 - 46% IVS Diastolic Thickness 0.9 cm IVS Systolic Thickness1.3 cm LVPW Diastolic Thickness0.93 cm LVPW Systolic Thickness 1.3 cm LV Relative Wall Thickness0.44 LVOT Diameter 2.1 cm Aortic Root Diameter3.3 cm LA Volume 61.2 cm18 - 58 / 22 - 52 cm DOPPLER AV Peak Eqmmkzga214 cm/s AV Peak Gradient8.6 mmHg AV Mean Epyowcff35.3 cm/s AV Mean Gradient4.2 mmHg AV Velocity Time Integral 30.7 cm LVOT Peak Hfqsodge885 cm/s LVOT Peak Gradient5.5 mmHg LVOT Mean Wyegadai18.3 cm/s LVOT Mean Gradient2.9 mmHg LVOT Velocity Time Integral 26.3 cm LVOT Stroke Xyocjb81.1 cm AV Area Cont Eq vti 2.9 cm AV Area Cont Eq pk2.7 cm Mitral E Point Velocity 94.1 cm/s Mitral A Point Velocity 116 cm/s Mitral E to A Ratio 0.81 MV Deceleration [place] 399 cm/s MV Deceleration Rvzi334 ms TR Peak Htrgrjyu679 cm/s TR Peak Zytiymsg27.8 mmHg PV Peak Hwistphk29.1 cm/s PV Peak Gradient3.9 mmHg PV Mean Yzztiskj70.7 cm/s PV Mean Gradient2.3 mmHg PV Velocity Time Integral 20.6 cm LV E' Lateral Aesydkjr96.2 cm/s Mitral E to LV E' Lateral Ratio 6.6 LV E' Septal Velocity 8.1 cm/s Mitral E to LV E' Septal Ratio11.6 04/15/2017 [facility] 12 LEAD EKG 12 LEAD EKG FOR [facility] Test Date:2017-04-05 Pat Name: NIKKO SULLIVAN Department: : Gender: FTechnician: [id number] :1965 Requested By: Order Number:[place] CORTÉS: Sonu Miller Measurements IntervalsAxis Rate: 78 P:10 WV: 154QRS:-13 QRSD: 101T:30 QT: 379 QTc:432 Interpretive Statements SINUS RHYTHM LOW QRS VOLTAGE IN PRECORDIAL LEADS [QRS DEFLECTION < 1.0 mV IN CHEST LEADS] POOR R WAVE PROGRESSION NON SPECIFIC T WAVE ABNORMALITY ABNORMAL ECG Electronically Signed On 04-07-17 14:20:19 [employer] DIRECTOR by Sonu Miller 04/07/2017 [facility] COMPREHENSIVE METABOLIC PANEL(DBIL NOT INCLUDED) Albumin 3.8 3.4 - 5 04/05/2017 [facility] COMPREHENSIVE METABOLIC PANEL(DBIL NOT INCLUDED) Calcium 9.1 8.5 - 10.2 04/05/2017 [facility] COMPREHENSIVE METABOLIC PANEL(DBIL NOT INCLUDED) CO2 27 21 - 32 04/05/2017 [facility] COMPREHENSIVE METABOLIC PANEL(DBIL NOT INCLUDED) Chloride 104 98 - 107 04/05/2017 [facility] COMPREHENSIVE METABOLIC PANEL(DBIL NOT INCLUDED) Creatinine 0.59 0.6 - 1.3 04/05/2017 [facility] COMPREHENSIVE METABOLIC PANEL(DBIL NOT INCLUDED) Glucose 97 70 - 99 04/05/2017 [facility] COMPREHENSIVE METABOLIC PANEL(DBIL NOT INCLUDED) Alk Phos 162 45 - 117 04/05/2017 [facility] COMPREHENSIVE METABOLIC PANEL(DBIL NOT INCLUDED) Potassium 4.2 3.5 - 5.1 04/05/2017 [facility] COMPREHENSIVE METABOLIC PANEL(DBIL NOT INCLUDED) Sodium 140 136 - 145 04/05/2017 [facility] COMPREHENSIVE METABOLIC PANEL(DBIL NOT INCLUDED) ALT 37 12 - 78 04/05/2017 [facility] COMPREHENSIVE METABOLIC PANEL(DBIL NOT INCLUDED) AST 40 15 - 37 04/05/2017 [facility] COMPREHENSIVE METABOLIC PANEL(DBIL NOT INCLUDED) Urea Nitrogen 13 7 - 18 04/05/2017 [facility] COMPREHENSIVE METABOLIC PANEL(DBIL NOT INCLUDED) T Bilirubin 0.4 0.2 - 1 04/05/2017 [facility] COMPREHENSIVE METABOLIC PANEL(DBIL NOT INCLUDED) T Protein 7.6 6.4 - 8.2 04/05/2017 [facility] COMPREHENSIVE METABOLIC PANEL(DBIL NOT INCLUDED) GFR, Estimated >60 mL/min/1.73 m2 04/05/2017 [facility] METABOLIC PANEL(DBIL NOT INCLUDED) GFR, Estim, Afr-Am >60 mL/min/1.73 m2 04/05/2017 [facility] COMPREHENSIVE METABOLIC PANEL(DBIL NOT INCLUDED) Anion Gap 9 04/05/2017 [facility] METABOLIC PANEL(DBIL NOT INCLUDED) Lab Interpretation Abnormal 04/05/2017 [facility] CBC/DIFF WBC 10.7 4.5 - 11 04/05/2017 [facility] CBC/DIFF RBC 4.89 4.20 - 5.40 04/05/2017 [facility] CBC/DIFF Hemoglobin 13.3 12 - 16 04/05/2017 [facility] CBC/DIFF Hematocrit 46.0 37 - 47 04/05/2017 [facility] CBC/DIFF MCV 94 82 - 92 04/05/2017 [facility] CBC/DIFF MCH 27.2 27 - 32 04/05/2017 [facility] CBC/DIFF MCHC 28.9 32 - 36 04/05/2017 [facility] CBC/DIFF RDW 46.8 36.4 - 46.3 04/05/2017 [facility] CBC/DIFF Platelet 300 150 - 400 04/05/2017 [facility] CBC/DIFF Mean Platelet Volume 11.3 9.4 - 12.4 04/05/2017 [facility] CBC/DIFF Percent NRBC 0.0 04/05/2017 [facility] CBC/DIFF Absolute NRBC 0.00 04/05/2017 [facility] CBC/DIFF Neutrophil 57.0 34 - 70 04/05/2017 [facility] CBC/DIFF Lymphocyte 34.6 20 - 50 04/05/2017 [facility] CBC/DIFF Monocyte 6.7 5 - 12 04/05/2017 [facility] CBC/DIFF Eosinophil 0.7 0.7 - 5 04/05/2017 [facility] CBC/DIFF Basophil 0.5 0.1 - 1.2 04/05/2017 [facility] CBC/DIFF Pct Immat Gran 0.5 0.0 - 0.5 04/05/2017 [facility] CBC/DIFF Neutrophil, Abs 6.10 1.56 - 6.13 04/05/2017 [facility] CBC/DIFF Lymphocyte, Abs 3.69 1.18 - 3.74 04/05/2017 [facility] CBC/DIFF Monocyte, Abs 0.71 0.24 - 0.36 04/05/2017 [facility] CBC/DIFF Eosinophil, Abs 0.07 0.04 - 0.36 04/05/2017 [facility] CBC/DIFF Basophil, Abs 0.05 0.01 - 0.08 04/05/2017 [facility] CBC/DIFF Absol Immat Gran 0.05 0 - 0.03 04/05/2017 [facility] CBC/DIFF Lab Interpretation Abnormal 04/05/2017 [facility] CBC/DIFF WBC 10.7 4.5 - 11 04/05/2017 [facility] CBC/DIFF RBC 4.89 M/uL 4.20 - 5.40 04/05/2017 [facility] CBC/DIFF Hemoglobin 13.3 12 - 16 04/05/2017 [facility] CBC/DIFF Hematocrit 46.0 37 - 47 04/05/2017 [facility] CBC/DIFF MCV 94 82 - 92 04/05/2017 High [facility] CBC/DIFF MCH 27.2 27 - 32 04/05/2017 [facility] CBC/DIFF MCHC 28.9 32 - 36 04/05/2017 Low [facility] CBC/DIFF RDW 46.8 36.4 - 46.3 04/05/2017 [facility] CBC/DIFF Platelet 300 150 - 400 04/05/2017 [facility] CBC/DIFF Mean Platelet Volume 11.3 9.4 - 12.4 04/05/2017 [facility] CBC/DIFF Percent NRBC 0.0 04/05/2017 [facility] CBC/DIFF Absolute NRBC 0.00 04/05/2017 [facility] CBC/DIFF Neutrophil 57.0 34 - 70 04/05/2017 [facility] CBC/DIFF Lymphocyte 34.6 20 - 50 04/05/2017 [facility] CBC/DIFF Monocyte 6.7 5 - 12 04/05/2017 [facility] CBC/DIFF Eosinophil 0.7 0.7 - 5 04/05/2017 [facility] CBC/DIFF Basophil 0.5 0.1 - 1.2 04/05/2017 [facility] CBC/DIFF Pct Immat Gran 0.5 0.0 - 0.5 04/05/2017 [facility] CBC/DIFF Neutrophil, Abs 6.10 1.56 - 6.13 04/05/2017 [facility] CBC/DIFF Lymphocyte, Abs 3.69 1.18 - 3.74 04/05/2017 [facility] CBC/DIFF Monocyte, Abs 0.71 0.24 - 0.36 04/05/2017 [facility] CBC/DIFF Eosinophil, Abs 0.07 0.04 - 0.36 04/05/2017 [facility] CBC/DIFF Basophil, Abs 0.05 0.01 - 0.08 04/05/2017 [facility] CBC/DIFF Absol Immat Gran 0.05 0 - 0.03 04/05/2017 [facility] CBC/DIFF Lab Interpretation Abnormal 04/05/2017 [facility] COMPREHENSIVE METABOLIC PANEL(DBIL NOT INCLUDED) Albumin 3.8 3.4 - 5 04/05/2017 [facility] COMPREHENSIVE METABOLIC PANEL(DBIL NOT INCLUDED) Calcium 9.1 8.5 - 10.2 04/05/2017 [facility] COMPREHENSIVE METABOLIC PANEL(DBIL NOT INCLUDED) CO2 27 21 - 32 04/05/2017 [facility] COMPREHENSIVE METABOLIC PANEL(DBIL NOT INCLUDED) Chloride 104 98 - 107 04/05/2017 [facility] COMPREHENSIVE METABOLIC PANEL(DBIL NOT INCLUDED) Creatinine 0.59 0.6 - 1.3 04/05/2017 Low [facility] METABOLIC PANEL(DBIL NOT INCLUDED) Glucose 97 70 - 99 04/05/2017 [facility] COMPREHENSIVE METABOLIC PANEL(DBIL NOT INCLUDED) Alk Phos 162 45 - 117 04/05/2017 High [facility] COMPREHENSIVE METABOLIC PANEL(DBIL NOT INCLUDED) Potassium 4.2 3.5 - 5.1 04/05/2017 [facility] COMPREHENSIVE METABOLIC PANEL(DBIL NOT INCLUDED) Sodium 140 136 - 145 04/05/2017 [facility] COMPREHENSIVE METABOLIC PANEL(DBIL NOT INCLUDED) ALT 37 12 - 78 04/05/2017 [facility] COMPREHENSIVE METABOLIC PANEL(DBIL NOT INCLUDED) AST 40 15 - 37 04/05/2017 High [facility] METABOLIC PANEL(DBIL NOT INCLUDED) Urea Nitrogen 13 7 - 18 04/05/2017 [facility] METABOLIC PANEL(DBIL NOT INCLUDED) T Bilirubin 0.4 0.2 - 1 04/05/2017 [facility] COMPREHENSIVE METABOLIC PANEL(DBIL NOT INCLUDED) T Protein 7.6 6.4 - 8.2 04/05/2017 [facility] METABOLIC PANEL(DBIL NOT INCLUDED) GFR, Estimated >60 mL/min/1.73 m2 04/05/2017 [facility] METABOLIC PANEL(DBIL NOT INCLUDED) GFR, Estim, Afr-Am >60 mL/min/1.73 m2 04/05/2017 [facility] METABOLIC PANEL(DBIL NOT INCLUDED) Anion Gap 9 04/05/2017 [facility] COMPREHENSIVE METABOLIC PANEL(DBIL NOT INCLUDED) Lab Interpretation Abnormal 04/05/2017 [facility] 12 LEAD EKG 12 LEAD EKG FOR [facility] Test Date:2017-04-05 Pat Name: NIKKO SULLIVAN Department: : Gender: FTechnician: [id number] :1965 Requested By: Order Number:[place] CORTÉS: Sonu Miller Measurements IntervalsAxis Rate: 78 P:10 WV: 154QRS:-13 QRSD: 101T:30 QT: 379 QTc:432 Interpretive Statements SINUS RHYTHM LOW QRS VOLTAGE IN PRECORDIAL LEADS [QRS DEFLECTION < 1.0 mV IN CHEST LEADS] POOR R WAVE PROGRESSION NON SPECIFIC T WAVE ABNORMALITY ABNORMAL ECG Electronically Signed On 04-07-17 14:20:19 [employer] PROGRAM DIRECTOR by Sonu Miller 04/05/2017 [facility] B NATRIURETIC PEPT B Natriuretic Pept 100 0 - 100 01/26/2017 [facility] MAGNESIUM Magnesium 2.1 1.8 - 2.4 01/26/2017 [facility] 12 LEAD EKG 12 LEAD EKG FOR [facility] Test Date:2017-01-25 Pat Name: NIKKO SULLIVAN Department: : Gender: FTechnician: [id number] :1965 Requested By: Order Number:[place] MD: Paola Burden M.D. Measurements IntervalsAxis Rate: 78 P:-3 WV: 138QRS:-8 QRSD: 80 T:16 QT: 368 QTc:419 Interpretive Statements Normal sinus rhythm Normal ECG Electronically Signed On 01-25-17 18:59:32 [employer] PROGRAM DIRECTOR by Paola Burden M.D. 01/26/[address] [facility] POC TCO2 POC - 01/25/[address] [facility] POC Chloride POC 106 98 - 107 01/25/[address] [facility] POC Potassium POC 3.4 3.5 - 5.1 01/25/[address] [facility] POC Sodium POC 139 136 - 145 01/25/[address] [facility] POC Glucose POC 138 74 - 106 01/25/[address] [facility] POC Urea Nitrogen POC 11 7 - 18 01/25/[address] [facility] POC Creatinine POC 0.7 0.6 - 1.3 01/25/[address] [facility] POC Ionized Calcium POC 0.99 1.15 - 1.29 01/25/[address] [facility] POC GFR, Estimated >60 mL/min/1.73 m2 01/25/[address] [facility] POC GFR, Estim, Afr-Am >60 mL/min/1.73 m2 01/25/[address] [facility] POC Lab Interpretation Abnormal 01/25/[address] [facility] POC TCO2 POC - 32 01/25/[address] [facility] POC Chloride POC 106 98 - 107 01/25/[address] [facility] POC Potassium POC 3.4 3.5 - 5.1 01/25/[address] [facility] POC Sodium POC 139 136 - 145 01/25/[address] [facility] POC Glucose POC 138 74 - 106 01/25/[address] [facility] POC Urea Nitrogen POC 11 7 - 18 01/25/[address] [facility] POC Creatinine POC 0.7 0.6 - 1.3 01/25/[address] [facility] POC Ionized Calcium POC 0.99 1.15 - 1.29 01/25/[address] [facility] POC GFR, Estimated >60 mL/min/1.73 m2 01/25/[address] [facility] POC GFR, Estim, Afr-Am >60 mL/min/1.73 m2 01/25/[address] [facility] POC Lab Interpretation Abnormal 01/25/2017 [facility] B NATRIURETIC PEPT B Natriuretic Pept 100 0 - 100 01/25/2017 [facility] MAGNESIUM Magnesium 2.1 1.8 - 2.4 01/25/2017 [facility] HEP BE AB Hep Be Ab Negative Reference range: Negative 01/01/2017 [facility] 12 LEAD EKG [facility]:2016-12-30 Pat Name: NIKKO USLLIVAN Department: : Gender: FTechnician: [id number] :1965 Requested By: Order Number:[place] MD: Sonu Miller Measurements IntervalsAxis Rate: 69 P:6 WV: 161QRS:-13 QRSD: 99 T:27 QT: 382 QTc:411 Interpretive Statements SINUS RHYTHM LOW QRS VOLTAGE IN PRECORDIAL LEADS [QRS DEFLECTION < 1.0 mV IN CHEST LEADS] PATTERN CONSISTENT WITH PULMONARY DISEASE POOR R WAVE PROGRESSION ABNORMAL ECG Electronically Signed On 12-31-16 19:10:32 CDT by Sonu Miller 01/01/2017 [facility] BASIC METABOLIC PANEL CO2 29 21 - 32 12/31/2016 [facility] BASIC METABOLIC PANEL Chloride 102 98 - 107 12/31/2016 [facility] BASIC METABOLIC PANEL Potassium 4.1 3.5 - 5.1 12/31/2016 [facility] BASIC METABOLIC PANEL Sodium 140 136 - 145 12/31/2016 [facility] BASIC METABOLIC PANEL Glucose 112 70 - 99 12/31/2016 [facility] BASIC METABOLIC PANEL Urea Nitrogen 15 7 - 18 12/31/2016 [facility] [employer] METABOLIC PANEL Creatinine 0.63 0.6 - 1.3 12/31/2016 [facility] BASIC METABOLIC PANEL Anion Gap 9 12/31/2016 [facility] BASIC METABOLIC PANEL Calcium 9.0 8.5 - 10.2 12/31/2016 [facility] BASIC METABOLIC PANEL GFR, Estimated >60 mL/min/1.73 m2 12/31/2016 [facility] BASIC METABOLIC PANEL GFR, Estim, Afr-Am >60 mL/min/1.73 m2 12/31/2016 [facility] BASIC METABOLIC PANEL Lab Interpretation Abnormal 12/31/2016 [facility] GLUCOSE POC Glucose POC 140 74 - 106 12/31/2016 [facility] GLUCOSE POC Lab Interpretation Abnormal 12/31/2016 [facility] GLUCOSE POC Glucose POC 140 74 - 106 12/31/2016 High [facility] GLUCOSE POC Lab Interpretation Abnormal 12/31/2016 [facility] BASIC METABOLIC PANEL CO2 29 21 - 32 12/31/2016 [facility] BASIC METABOLIC PANEL Chloride 102 98 - 107 12/31/2016 [facility] BASIC METABOLIC PANEL Potassium 4.1 3.5 - 5.1 12/31/2016 [facility] BASIC METABOLIC PANEL Sodium 140 136 - 145 12/31/2016 [facility] BASIC METABOLIC PANEL Glucose 112 70 - 99 12/31/2016 High [facility] BASIC METABOLIC PANEL Urea Nitrogen 15 7 - 18 12/31/2016 [facility] BASIC METABOLIC PANEL Creatinine 0.63 0.6 - 1.3 12/31/2016 [facility] BASIC METABOLIC PANEL Anion Gap 9 12/31/2016 [facility] BASIC METABOLIC PANEL Calcium 9.0 8.5 - 10.2 12/31/2016 [facility] BASIC METABOLIC PANEL GFR, Estimated >60 mL/min/1.73 m2 12/31/2016 [facility] BASIC METABOLIC PANEL GFR, Estim, Afr-Am >60 mL/min/1.73 m2 12/31/2016 [facility] BASIC METABOLIC PANEL Lab Interpretation Abnormal 12/31/2016 [facility] UA CHEMISTRIES Color Juliette 12/30/2016 [facility] UA CHEMISTRIES Clarity Hazy 12/30/2016 [facility] UA CHEMISTRIES Spec Heber 1.028 1.001 - 1.035 12/30/2016 [facility] UA CHEMISTRIES pH 5.0 5 - 8 12/30/2016 [facility] UA CHEMISTRIES Protein 1+ NEG 12/30/2016 [facility] UA CHEMISTRIES Glucose Negative NEG 12/30/2016 [facility] UA CHEMISTRIES Ketone Trace NEG 12/30/2016 [facility] UA CHEMISTRIES Bilirubin Negative NEG 12/30/2016 [facility] UA CHEMISTRIES Nitrate Negative NEG 12/30/2016 [facility] UA CHEMISTRIES Urobilinogen <1.0 0.2 - 1 12/30/2016 [facility] UA CHEMISTRIES Leukocyte Negative NEG 12/30/2016 [facility] UA CHEMISTRIES Blood Negative NEG 12/30/2016 [facility] UA CHEMISTRIES RBC 1 0 - 4 12/30/2016 [facility] UA CHEMISTRIES WBC 2 0 - 5 12/30/2016 [facility] UA CHEMISTRIES Epithelial Cell 8 /HPF 12/30/2016 [facility] UA CHEMISTRIES Mucous Present 12/30/2016 [facility] UA CHEMISTRIES Lab Interpretation Abnormal 12/30/2016 [facility] UA CHEMISTRIES Color Juliette 12/30/2016 [facility] UA CHEMISTRIES Clarity Hazy 12/30/2016 [facility] UA CHEMISTRIES Spec Heber 1.028 1.001 - 1.035 12/30/2016 [facility] UA CHEMISTRIES pH 5.0 5 - 8 12/30/2016 [facility] UA CHEMISTRIES Protein 1+ NEG 12/30/2016 Abnormal [facility] UA CHEMISTRIES Glucose Negative NEG 12/30/2016 [facility] UA CHEMISTRIES Ketone Trace NEG 12/30/2016 Abnormal [facility] UA CHEMISTRIES Bilirubin Negative NEG 12/30/2016 [facility] UA CHEMISTRIES Nitrate Negative NEG 12/30/2016 [facility] UA CHEMISTRIES Urobilinogen <1.0 0.2 - 1 12/30/2016 [facility] UA CHEMISTRIES Leukocyte Negative NEG 12/30/2016 [facility] UA CHEMISTRIES Blood Negative NEG 12/30/2016 [facility] UA CHEMISTRIES RBC 1 /HPF 0 - 4 12/30/2016 [facility] UA CHEMISTRIES WBC 2 /HPF 0 - 5 12/30/2016 [facility] UA CHEMISTRIES Epithelial Cell 8 /HPF 12/30/2016 [facility] UA CHEMISTRIES Mucous Present 12/30/2016 [facility] UA CHEMISTRIES Lab Interpretation Abnormal 12/30/2016 [facility] TRANSTHORACIC ECHO (TTE) TRANSTHORACIC ECHO (TTE) Transthoracic Echo Report NIKKO SULLIVAN Age:51 Gender: F :1965 Exam Date: 12/30/2016 08:50 Exam Location: [facility] Echo Ordering Phys: KEIKO ANDERS Referring Phys: Reading Phys:Sarah Carter Fellow Phys: Fellow Phys: Physical Metallurgist: Vinh Munoz Reason For Exam: Indications:Chest Pain ICD-9 Codes: R06.89 Exam Type: Transthoracic Echo Procedure CPT:41768 Addtional CPT: Ht (in): 63 BSA: 2.35HR: 93 Rhythm: Sinus rhythm Wt (lb): 259BP: 125/ 85 Technical Quality: Technically difficult study History: Previous history of ASD, s/p repair, now chest pain and possible CHF MEASUREMENTS(Male / Female) Normal Values 2D ECHO LV Diastolic Diameter PLAX4.6 cm4.2 - 5.9 / 3.9 - 5.3 cm LV Systolic Diameter PLAX 2.5 cm2.1 - 4.0 cm LV Fractional Shortening PLAX 44.9 %25 - 46% IVS Diastolic Thickness 0.92 cm IVS Systolic Thickness1.3 cm LVPW Diastolic Thickness0.92 cm LVPW Systolic Thickness 1.6 cm LV Relative Wall Thickness0.4 LVOT Diameter 2.1 cm Aortic Root Diameter3.3 cm LA Systolic Diameter LX 4 cm3.0 - 4.0 / 2.7 - 3.8 cm LA Ao Ratio 1.2 LA Area 4C View 12 cm70%. Abnormal septal motion likely consistent with postoperative state. There are no other regional wall motion abnormalities.There is impaired LV relaxation with normal filling pressures. Right Ventricle Right ventricle not optimally visualized.In limited views, the right ventricle is borderline dilated with borderline reduced systolic function. Right Atrium The right atrium is dilated. Left Atrium The left atrium is normal in size. IAS Mitral Valve Structurally normal mitral valve without significant stenosis or prolapse. There is no mitral regurgitation. Aortic Valve The aortic valve is trileaflet and structurally normal. There is no aortic stenosis. There is no aortic regurgitation. Tricuspid Valve Grossly normal tricuspid valve without significant stenosis. There is trace tricuspid regurgitation.Insufficient TR jet to estimate pulmonary artery systolic pressure. Pulmonic Valve Pulmonic valve not well visualized. There is trace pulmonic regurgitation. Pericardium No pericardial effusion. Aorta Normal aortic root for body surface area. IVC IVC is not optimally visualized. CONCLUSIONS Technically difficult study. 1. The left ventricle is normal in size.LV systolic function is hyperdynamic. LVEF is >70%. Abnormal septal motion likely consistent with postoperative state. There are no other regional wall motion abnormalities.There is impaired LV relaxation with normal filling pressures. 2. Right ventricle not optimally visualized.In limited views, the right ventricle is borderline dilated with borderline reduced systolic function. 3. The right atrium is dilated. The left atrium is normal in size. 4. No hemodynamically significant valvular abnormality. 5. Insufficient TR jet to estimate pulmonary artery systolic pressure. 6. No pericardial effusion. Reviewed prior study of July 2013. In both studies rhe RA/ RV are not optimally visualized, hence adequate comparison cannot be made.Grossly, the right atrium and ventricle appear borderline dilated, with borderline reduced RV systolic function in the current study. No other significant changes noted. Sarah Carter (Electronically Signed) Final Date:30 December 2016 10:57 2D ECHO LV Diastolic Diameter PLAX4.6 cm4.2 - 5.9 / 3.9 - 5.3 cm LV Systolic Diameter PLAX 2.5 cm2.1 - 4.0 cm LV Fractional Shortening PLAX 44.9 %25 - 46% IVS Diastolic Thickness 0.92 cm IVS Systolic Thickness1.3 cm LVPW Diastolic Thickness0.92 cm LVPW Systolic Thickness 1.6 cm LV Relative Wall Thickness0.4 LVOT Diameter 2.1 cm Aortic Root Diameter3.3 cm LA Systolic Diameter LX 4 cm3.0 - 4.0 / 2.7 - 3.8 cm LA Ao Ratio 1.2 LA Area 4C View 12 cm<=20 cm LA Length 4C1.1 cm LA Area 2C View 11.3 cm<=20 cm LA Length 2C0.97 cm LA Volume MOD 2C21.9 cm18 - 58 / 22 - 52 cm LA Volume MOD 4C26.7 cm18 - 58 / 22 - 52 cm DOPPLER AV Peak Mqumgqen000 cm/s AV Peak Gradient4.3 mmHg AV Mean Hruxzhoj60.8 cm/s AV Mean Gradient3 mmHg AV Velocity Time Integral 19.8 cm LVOT Peak Cukewodw57 cm/s LVOT Peak Gradient3.2 mmHg LVOT Mean Iyihhqvl98.6 cm/s LVOT Mean Gradient2 mmHg LVOT Velocity Time Integral 16 cm LVOT Stroke Mvdtnv27.4 cm AV Area Cont Eq vti 2.8 cm AV Area Cont Eq pk3 cm Mitral E Point Velocity 70.3 cm/s Mitral A Point Velocity 80.5 cm/s Mitral E to A Ratio 0.87 MV Deceleration [place] 260 cm/s MV Pressure Half Time 79 ms MV Area PHT 2.8 cm PV Peak Sosemqam62.7 cm/s PV Peak Gradient2.2 mmHg RVOT Peak Eskkqsne34 cm/s RVOT Peak Gradient0.96 mmHg LV E' Lateral Velocity7.8 cm/s Mitral E to LV E' Lateral Ratio 9 LV E' Septal Velocity 6 cm/s Mitral E to LV E' Septal Ratio11.8 12/30/2016 [facility] MYOGLOBIN, SER Myoglobin, Ser 33 14 - 106 12/30/2016 [facility] SYPHILIS SCREEN FOR INFECTION Treponemal Ab Negative 12/30/2016 [facility] SYPHILIS SCREEN FOR INFECTION Final Report Negative 12/30/2016 [facility] HEP A VIR AB IGM HAV, IgM Negative NEG 12/30/2016 [facility] HEP A VIRUS AB IGG Hep A Vir Ab IgG Positive NEG 12/30/2016 [facility] HEP A VIRUS AB IGG Lab Interpretation Abnormal 12/30/2016 [facility] HEP B COR AB TOT Hep B Cor Ab Tot Negative NEG 12/30/2016 [facility] HEP B AB AG HBsAg Negative NEG 12/30/2016 [facility] HEP C VIR AB IGG HCV IgG Negative NEG 12/30/2016 [facility] RAPID INFLUENZA SCREEN Spec Description Nasopharyngeal swab 12/30/2016 [facility] RAPID INFLUENZA SCREEN Order Comments None 12/30/2016 [facility] RAPID INFLUENZA SCREEN Direct Exam Negative for Influenza A and B by EIA 12/30/2016 [facility] RAPID INFLUENZA SCREEN Report Status Final 12/30/2016 12/30/2016 [facility] TRANSTHORACIC ECHO (TTE) TRANSTHORACIC ECHO (TTE) Transthoracic Echo Report NIKKO SULLIVAN Age:51 Gender: F :1965 Exam Date: 12/30/2016 08:50 Exam Location: [facility] Echo Ordering Phys: KEIKO ANDERS Referring Phys: Reading Phys:Sarah Carter Fellow Phys: Fellow Phys: Physical Metallurgist: Vinh Munoz Reason For Exam: Indications:Chest Pain ICD-9 Codes: R06.89 Exam Type: Transthoracic Echo Procedure CPT:37003 Addtional CPT: Ht (in): 63 BSA: 2.35HR: 93 Rhythm: Sinus rhythm Wt (lb): 259BP: 125/ 85 Technical Quality: Technically difficult study History: Previous history of ASD, s/p repair, now chest pain and possible CHF MEASUREMENTS(Male / Female) Normal Values 2D ECHO LV Diastolic Diameter PLAX4.6 cm4.2 - 5.9 / 3.9 - 5.3 cm LV Systolic Diameter PLAX 2.5 cm2.1 - 4.0 cm LV Fractional Shortening PLAX 44.9 %25 - 46% IVS Diastolic Thickness 0.92 cm IVS Systolic Thickness1.3 cm LVPW Diastolic Thickness0.92 cm LVPW Systolic Thickness 1.6 cm LV Relative Wall Thickness0.4 LVOT Diameter 2.1 cm Aortic Root Diameter3.3 cm LA Systolic Diameter LX 4 cm3.0 - 4.0 / 2.7 - 3.8 cm LA Ao Ratio 1.2 LA Area 4C View 12 cm70%. Abnormal septal motion likely consistent with postoperative state. There are no other regional wall motion abnormalities.There is impaired LV relaxation with normal filling pressures. Right Ventricle Right ventricle not optimally visualized.In limited views, the right ventricle is borderline dilated with borderline reduced systolic function. Right Atrium The right atrium is dilated. Left Atrium The left atrium is normal in size. IAS Mitral Valve Structurally normal mitral valve without significant stenosis or prolapse. There is no mitral regurgitation. Aortic Valve The aortic valve is trileaflet and structurally normal. There is no aortic stenosis. There is no aortic regurgitation. Tricuspid Valve Grossly normal tricuspid valve without significant stenosis. There is trace tricuspid regurgitation.Insufficient TR jet to estimate pulmonary artery systolic pressure. Pulmonic Valve Pulmonic valve not well visualized. There is trace pulmonic regurgitation. Pericardium No pericardial effusion. Aorta Normal aortic root for body surface area. IVC IVC is not optimally visualized. CONCLUSIONS Technically difficult study. 1. The left ventricle is normal in size.LV systolic function is hyperdynamic. LVEF is >70%. Abnormal septal motion likely consistent with postoperative state. There are no other regional wall motion abnormalities.There is impaired LV relaxation with normal filling pressures. 2. Right ventricle not optimally visualized.In limited views, the right ventricle is borderline dilated with borderline reduced systolic function. 3. The right atrium is dilated. The left atrium is normal in size. 4. No hemodynamically significant valvular abnormality. 5. Insufficient TR jet to estimate pulmonary artery systolic pressure. 6. No pericardial effusion. Reviewed prior study of July 2013. In both studies rhe RA/ RV are not optimally visualized, hence adequate comparison cannot be made.Grossly, the right atrium and ventricle appear borderline dilated, with borderline reduced RV systolic function in the current study. No other significant changes noted. Sarah Carter (Electronically Signed) Final Date:30 December 2016 10:57 2D ECHO LV Diastolic Diameter PLAX4.6 cm4.2 - 5.9 / 3.9 - 5.3 cm LV Systolic Diameter PLAX 2.5 cm2.1 - 4.0 cm LV Fractional Shortening PLAX 44.9 %25 - 46% IVS Diastolic Thickness 0.92 cm IVS Systolic Thickness1.3 cm LVPW Diastolic Thickness0.92 cm LVPW Systolic Thickness 1.6 cm LV Relative Wall Thickness0.4 LVOT Diameter 2.1 cm Aortic Root Diameter3.3 cm LA Systolic Diameter LX 4 cm3.0 - 4.0 / 2.7 - 3.8 cm LA Ao Ratio 1.2 LA Area 4C View 12 cm<=20 cm LA Length 4C1.1 cm LA Area 2C View 11.3 cm<=20 cm LA Length 2C0.97 cm LA Volume MOD 2C21.9 cm18 - 58 / 22 - 52 cm LA Volume MOD 4C26.7 cm18 - 58 / 22 - 52 cm DOPPLER AV Peak Mevtwbbe896 cm/s AV Peak Gradient4.3 mmHg AV Mean Shqjqgwi41.8 cm/s AV Mean Gradient3 mmHg AV Velocity Time Integral 19.8 cm LVOT Peak Aayewhkg67 cm/s LVOT Peak Gradient3.2 mmHg LVOT Mean Egihbhfg41.6 cm/s LVOT Mean Gradient2 mmHg LVOT Velocity Time Integral 16 cm LVOT Stroke Wiunjn37.4 cm AV Area Cont Eq vti 2.8 cm AV Area Cont Eq pk3 cm Mitral E Point Velocity 70.3 cm/s Mitral A Point Velocity 80.5 cm/s Mitral E to A Ratio 0.87 MV Deceleration [place] 260 cm/s MV Pressure Half Time 79 ms MV Area PHT 2.8 cm PV Peak Ljdbgnff10.7 cm/s PV Peak Gradient2.2 mmHg RVOT Peak Pzaogqyp70 cm/s RVOT Peak Gradient0.96 mmHg LV E' Lateral Velocity7.8 cm/s Mitral E to LV E' Lateral Ratio 9 LV E' Septal Velocity 6 cm/s Mitral E to LV E' Septal Ratio11.8 12/30/2016 [facility] CK, TOTAL CK, Total 84 30 - 200 12/30/2016 CKMB not performed if CK <100, if CKMB is required, please notify laboratory
immediately.

[facility] TROPONIN I Troponin I <0.015 0 - 0.045 12/30/2016 [facility] CKMB, REFLEX CK-MB 1.4 0 - 3.6 12/30/2016 [facility] CKMB, REFLEX CKMB Index 1.4 0 - 2.5 12/30/2016 [facility] DIGOXIN Digoxin 0.9 0.8 - 2 12/30/2016 [facility] RAPID INFLUENZA SCREEN Spec Description Nasopharyngeal swab 12/30/2016 [facility] RAPID INFLUENZA SCREEN Order Comments None 12/30/2016 [facility] RAPID INFLUENZA SCREEN Direct Exam Negative for Influenza A and B by EIA 12/30/2016 [facility] RAPID INFLUENZA SCREEN Report Status Final 12/30/2016 12/30/2016 [facility] URINE DRUG SCREEN Amphetamine Negative NEG 12/30/2016 Calibrated Standard: D-Methamphetamine
Positive if urine level >gh=0605 ng/mL

[facility] URINE DRUG SCREEN Barbiturate Negative NEG 12/30/2016 Calibrated Standard: Secobarbital
Positive if urine level is >xd=798 ng/mL

[facility] URINE DRUG SCREEN Benzodiazepine Negative NEG 12/30/2016 Calibrated Standard: Lormethazepam
Positive if urine level is >zg=844 ng/mL

[facility] URINE DRUG SCREEN Cannabinoid Negative NEG 12/30/2016 Calibrated Standard: 11 nor-delta(9)-THC carboxylic a
Positive if urine level >or=50

[facility] URINE DRUG SCREEN Cocaine Negative NEG 12/30/2016 Calibrated Standard: Benzoylecgonine
Positive if urine level >bh=120

[facility] URINE DRUG SCREEN Opiate, Ur Negative NEG 12/30/2016 Calibrated Standard: Morphine
Positive if urine level >rp=509

[facility] URINE DRUG SCREEN PCP Negative NEG 12/30/2016 Calibrated Standard: Phencyclidine
Positive if urine level >or=25
Urine Toxicology Screen results are to be used only for Medical purposes.

[facility] PT/INR PT 12.8 11.8 - 15.0 12/30/2016 [facility] PT/INR INR 1.0 SUGGESTED THERAPEUTIC RANGES: INR 2.0-3.0 for MODERATE INTENSITY ANTICOAGULATION INR 2.5-3.5 for HIGH INTENSITY ANTICOAGULATION 12/30/2016 [facility] PTT PTT 36.5 23.6 - 36.4 12/30/2016 [facility] PTT Lab Interpretation Abnormal 12/30/2016 [facility] CALCIUM, IONIZED Calcium, Ionized 1.08 1.15 - 1.29 12/30/2016 [facility] CALCIUM, IONIZED Lab Interpretation Abnormal 12/30/2016 [facility] CK, TOTAL CK, Total 84 30 - 200 12/30/2016 CKMB not performed if CK <100, if CKMB is required, please notify laboratory
immediately.

[facility] MYOGLOBIN, SER Myoglobin, Ser 33 14 - 106 12/30/2016 [facility] TROPONIN I Troponin I <0.015 0 - 0.045 12/30/2016 [facility] 12 LEAD EKG 12 LEAD [facility]:2016-[facility]29 Pat Name: NIKKO SULLIVAN Department: : Gender: FTechnician: :1965 Requested By: Order Number:Reading MD: Sonu Miller Measurements IntervalsAxis Rate: 86 P:14 WV: 159QRS:-27 QRSD: 84 T:37 QT: 345 QTc:413 Interpretive Statements SINUS RHYTHM POSSIBLE LEFT ATRIAL ENLARGEMENT LOW QRS VOLTAGE IN PRECORDIAL LEADS POOR R WAVE PROGRESSION: POSSIBLE ANTERIOR MYOCARDIAL INFARCTION, PROBABLY OLD ABNORMAL ECG Electronically Signed On 12-29-16 18:48:49 CDT by Sonu Miller 12/30/2016 [facility] CALCIUM, IONIZED Calcium, Ionized 1.08 1.15 - 1.29 12/29/2016 Low [facility] CALCIUM, IONIZED Lab Interpretation Abnormal 12/29/2016 [facility] CKMB, REFLEX CK-MB 1.4 0 - 3.6 12/29/2016 [facility] CKMB, REFLEX CKMB Index 1.4 0 - 2.5 12/29/2016 [facility] DIGOXIN Digoxin 0.9 0.8 - 2 12/29/2016 [facility] HEP A VIR AB IGM HAV, IgM Negative NEG 12/29/2016 [facility] HEP A VIRUS AB IGG Hep A Vir Ab IgG Positive NEG 12/29/2016 Abnormal [facility] HEP A VIRUS AB IGG Lab Interpretation Abnormal 12/29/2016 [facility] HEP B COR AB TOT Hep B Cor Ab Tot Negative NEG 12/29/2016 [facility] HEP B AB AG HBsAg Negative NEG 12/29/2016 [facility] HEP BE AB Hep Be Ab Negative Reference range: Negative 12/29/2016 [facility] HEP C VIR AB IGG HCV IgG Negative NEG 12/29/2016 [facility] PT/INR PT 12.8 Seconds 11.8 - 15.0 12/29/2016 [facility] PT/INR INR 1.0 SUGGESTED THERAPEUTIC RANGES: INR 2.0-3.0 for MODERATE INTENSITY ANTICOAGULATION INR 2.5-3.5 for HIGH INTENSITY ANTICOAGULATION 12/29/2016 [facility] PTT PTT 36.5 Seconds 23.6 - 36.4 12/29/2016 High [facility] PTT Lab Interpretation Abnormal 12/29/2016 [facility] SYPHILIS SCREEN FOR INFECTION Treponemal Ab Negative 12/29/2016 [facility] SYPHILIS SCREEN FOR INFECTION Final Report Negative 12/29/[address] [facility] POC CO2 POC 27 21 - 32 12/29/[address] [facility] POC Chloride POC 105 98 - 107 12/29/[address] [facility] POC Potassium POC 5.2 3.5 - 5.1 12/29/[address] [facility] POC Sodium POC 141 136 - 145 12/29/[address] [facility] POC Glucose POC 115 74 - 106 12/29/[address] [facility] POC Urea Nitrogen POC 17 7 - 18 12/29/[address] [facility] POC Creatinine POC 0.8 0.6 - 1.3 12/29/[address] [facility] POC Calcium Ionized POC 1.03 1.15 - 1.29 12/29/[address] [facility] POC Hemoglobin POC 16.7 12 - 16 12/29/[address] [facility] POC Hematocrit POC 49.0 37 - 47 12/29/[address] [facility] POC GFR, Estimated >60 mL/min/1.73 m2 12/29/[address] [facility] POC GFR, Estim, Afr-Am >60 mL/min/1.73 m2 12/29/[address] [facility] POC Lab Interpretation Abnormal 12/29/2016 [facility] TROPONIN I POC Troponin POC 0.00 0 - 0.08 12/29/2016 [facility] URINE DRUG SCREEN Amphetamine Negative NEG 12/29/2016 Calibrated Standard: D-Methamphetamine
Positive if urine level >sx=3066 ng/mL

[facility] URINE DRUG SCREEN Barbiturate Negative NEG 12/29/2016 Calibrated Standard: Secobarbital
Positive if urine level is >tj=160 ng/mL

[facility] URINE DRUG SCREEN Benzodiazepine Negative NEG 12/29/2016 Calibrated Standard: Lormethazepam
Positive if urine level is >am=174 ng/mL

[facility] URINE DRUG SCREEN Cannabinoid Negative NEG 12/29/2016 Calibrated Standard: 11 nor-delta(9)-THC carboxylic a
Positive if urine level >or=50

[facility] URINE DRUG SCREEN Cocaine Negative NEG 12/29/2016 Calibrated Standard: Benzoylecgonine
Positive if urine level >kf=034

[facility] URINE DRUG SCREEN Opiate, Ur Negative NEG 12/29/2016 Calibrated Standard: Morphine
Positive if urine level >ra=238

[facility] URINE DRUG SCREEN PCP Negative NEG 12/29/2016 Calibrated Standard: Phencyclidine
Positive if urine level >or=25
Urine Toxicology Screen results are to be used only for Medical purposes.

[facility] POC CO2 POC 27 21 - 32 12/29/[address] [facility] POC Chloride POC 105 98 - 107 12/29/[address] [facility] POC Potassium POC 5.2 3.5 - 5.1 12/29/[address] [facility] POC Sodium POC 141 136 - 145 12/29/[address] [facility] POC Glucose POC 115 74 - 106 12/29/2016 [facility] POC Urea Nitrogen POC 17 7 - 18 12/29/[address] [facility] POC Creatinine POC 0.8 0.6 - 1.3 12/29/[address] [facility] POC Calcium Ionized POC 1.03 1.15 - 1.29 12/29/[address] [facility] POC Hemoglobin POC 16.7 12 - 16 12/29/[address] [facility] POC Hematocrit POC 49.0 37 - 47 12/29/[address] [facility] POC GFR, Estimated >60 mL/min/1.73 m2 12/29/[address] [facility] POC GFR, Estim, Afr-Am >60 mL/min/1.73 m2 12/29/[address] [facility] POC Lab Interpretation Abnormal 12/29/2016 [facility] TROPONIN I POC Troponin POC 0.00 0 - 0.08 12/29/2016 [facility] HEMOGLOBIN A1C Hemoglobin A1c 7.2 4.3 - 6.1 11/28/2016 [facility] HEMOGLOBIN A1C Est Average Gluc 159.9 11/28/2016 [facility] HEMOGLOBIN A1C Lab Interpretation Abnormal 11/28/2016 [facility] LIPID PROFILE Cholesterol 172 <200 11/28/2016 REFERENCE RANGE:
Desirable: <200 mg/dL
Borderline: 200-240 mg/dL
High Risk: >240 mg/dL

[facility] LIPID PROFILE Triglyceride 105 <150 11/28/2016 REFERENCE RANGE:
Normal: <150 mg/dL
Borderline High: 150-199 mg/dL
High: 200-499 mg/dL
Very High: >yr=868 mg/dL

[facility] LIPID PROFILE HDL 65 40 - 60 11/28/2016 Increased CHD risk: <40 mg/dL
Decreased CHD risk: >60 mg/dL

[facility] LIPID PROFILE LDL 86 11/28/2016 REFERENCE RANGE:
Optimal: <100 mg/dL
Near Optimal: 100-129 mg/dL
Borderline High: 130-159 mg/dL
High: 160-189 mg/dL
Very High: >ma=041 mg/dL

[facility] LIPID PROFILE Lab Interpretation Abnormal 11/28/2016 [facility] LIVER PROFILE T Protein 7.2 6.4 - 8.2 11/28/2016 [facility] LIVER PROFILE Albumin 3.8 3.4 - 5 11/28/2016 [facility] LIVER PROFILE T Bilirubin 0.5 0.2 - 1 11/28/2016 [facility] LIVER PROFILE Alk Phos 129 45 - 117 11/28/2016 [facility] LIVER PROFILE AST 57 15 - 37 11/28/2016 [facility] LIVER PROFILE ALT 67 12 - 78 11/28/2016 [facility] LIVER PROFILE D Bilirubin 0.2 0 - 0.2 11/28/2016 [facility] LIVER PROFILE Lab Interpretation Abnormal 11/28/2016 [facility] HEMOGLOBIN A1C Hemoglobin A1c 7.2 4.3 - 6.1 11/27/2016 High [facility] HEMOGLOBIN A1C Est Average Gluc 159.9 11/27/2016 [facility] HEMOGLOBIN A1C Lab Interpretation Abnormal 11/27/2016 [facility] LIPID PROFILE Cholesterol 172 <200 11/27/2016 REFERENCE RANGE:
Desirable: <200 mg/dL
Borderline: 200-240 mg/dL
High Risk: >240 mg/dL

[facility] LIPID PROFILE Triglyceride 105 <150 11/27/2016 REFERENCE RANGE:
Normal: <150 mg/dL
Borderline High: 150-199 mg/dL
High: 200-499 mg/dL
Very High: >tl=155 mg/dL

[facility] LIPID PROFILE HDL 65 40 - 60 11/27/2016 High Increased CHD risk: <40 mg/dL
Decreased CHD risk: >60 mg/dL

[facility] LIPID PROFILE LDL 86 11/27/2016 REFERENCE RANGE:
Optimal: <100 mg/dL
Near Optimal: 100-129 mg/dL
Borderline High: 130-159 mg/dL
High: 160-189 mg/dL
Very High: >ue=299 mg/dL

[facility] LIPID PROFILE Lab Interpretation Abnormal 11/27/2016 [facility] LIVER PROFILE T Protein 7.2 6.4 - 8.2 11/27/2016 [facility] LIVER PROFILE Albumin 3.8 3.4 - 5 11/27/2016 [facility] LIVER PROFILE T Bilirubin 0.5 0.2 - 1 11/27/2016 [facility] LIVER PROFILE Alk Phos 129 45 - 117 11/27/2016 High [facility] LIVER PROFILE AST 57 15 - 37 11/27/2016 High [facility] LIVER PROFILE ALT 67 12 - 78 11/27/2016 [facility] LIVER PROFILE D Bilirubin 0.2 0 - 0.2 11/27/2016 [facility] LIVER PROFILE Lab Interpretation Abnormal 11/27/2016 [facility] Pathology Reports No Data Provided for This Section Diagnostic Reports Report Value Date Source XRAY CHEST 2 VIEWS IMPRESSION: Elevation of the right hemidiaphragm with linear opacity of the rightmidlung suggestive of volume loss and scarring, unchanged.No acute thoracic abnormality. A "PRELIMINARY" report was made available via [facility] at the time ofdictation by the resident indicated below. If the report is "FINALIZED"it indicates that the attending/staff radiologist has reviewed theimages and agrees with the resident's interpretation. Dictated By: Shabbir Latham DO, 01/25/2017 1:38 PM I have reviewed the study and agree with the findings in this report. Signed By: Tushar Gonzalez MD, 01/25/2017 4:28 PM EXAMINATION:XRAY CHEST 2 VIEWS INDICATION: chest pain, h/o CHF COMPARISON:Chest x-ray 12/29/2016. FINDINGS:PA and lateral views TUBES and LINES:Median sternotomy wires are intact. HEART AND MEDIASTINUM:The cardiomediastinal silhouette isunremarkable. LUNGS:Linear scarring overlying the right midlung, unchanged sinceprevious exam.Lungs are clear. There is no evidence of pneumonia orpulmonary edema. Unchanged elevation of the right hemidiaphragm. PLEURA:No pleural effusion or pneumothorax. BONES AND SOFT TISSUES:No acute osseous lesion. Mild degenerativechanges of the thoracic spine. Soft tissues are unremarkable. UPPER ABDOMEN: No free air under the diaphragm. Cholecystectomy clipsare seen in the right upper quadrant. Interface, Rad/Mammog In - 01/25/2017 4:33 PM CSTEXAMINATION: XRAY CHEST 2 VIEWS INDICATION: chest pain, h/o CHF COMPARISON: Chest x-ray 12/29/2016. FINDINGS: PA and lateral views TUBES and LINES: Median sternotomy wires are intact. HEART AND MEDIASTINUM: The cardiomediastinal silhouette is unremarkable. LUNGS: Linear scarring overlying the right midlung, unchanged since previous exam. Lungs are clear. There is no evidence of pneumonia or pulmonary edema. Unchanged elevation of the right hemidiaphragm. PLEURA: No pleural effusion or pneumothorax. BONES AND SOFT TISSUES: No acute osseous lesion. Mild degenerative changes of the thoracic spine. Soft tissues are unremarkable. UPPER ABDOMEN: No free air under the diaphragm. Cholecystectomy clips are seen in the right upper quadrant. IMPRESSION IMPRESSION: Elevation of the right hemidiaphragm with linear opacity of the right midlung suggestive of volume loss and scarring, unchanged. No acute thoracic abnormality. A "PRELIMINARY" report was made available via [facility] at the time of dictation by the resident indicated below. If the report is "FINALIZED" it indicates that the attending/staff radiologist has reviewed the images and agrees with the resident's interpretation. Dictated By: Shabbir Latham DO, 01/25/2017 1:38 PM I have reviewed the study and agree with the findings in this report. Signed By: Tushar Gonzalez MD, 01/25/2017 4:28 PM 01/25/2017 [facility] XRAY CHEST 2 VIEWS IMPRESSION: Elevation of the right hemidiaphragm with linear opacity of the rightmidlung suggestive of volume loss and scarring, unchanged.No acute thoracic abnormality. A "PRELIMINARY" report was made available via [facility] at the time ofdictation by the resident indicated below. If the report is "FINALIZED"it indicates that the attending/staff radiologist has reviewed theimages and agrees with the resident's interpretation. Dictated By: Shabbir Latham DO, 01/25/2017 1:38 PM I have reviewed the study and agree with the findings in this report. Signed By: Tushar Gonzalez MD, 01/25/2017 4:28 PM EXAMINATION:XRAY CHEST 2 VIEWS INDICATION: chest pain, h/o CHF COMPARISON:Chest x-ray 12/29/2016. FINDINGS:PA and lateral views TUBES and LINES:Median sternotomy wires are intact. HEART AND MEDIASTINUM:The cardiomediastinal silhouette isunremarkable. LUNGS:Linear scarring overlying the right midlung, unchanged sinceprevious exam.Lungs are clear. There is no evidence of pneumonia orpulmonary edema. Unchanged elevation of the right hemidiaphragm. PLEURA:No pleural effusion or pneumothorax. BONES AND SOFT TISSUES:No acute osseous lesion. Mild degenerativechanges of the thoracic spine. Soft tissues are unremarkable. UPPER ABDOMEN: No free air under the diaphragm. Cholecystectomy clipsare seen in the right upper quadrant. Interface, Rad/Mammog In - 01/25/2017 4:33 PM CSTEXAMINATION: XRAY CHEST 2 VIEWS INDICATION: chest pain, h/o CHF COMPARISON: Chest x-ray 12/29/2016. FINDINGS: PA and lateral views TUBES and LINES: Median sternotomy wires are intact. HEART AND MEDIASTINUM: The cardiomediastinal silhouette is unremarkable. LUNGS: Linear scarring overlying the right midlung, unchanged since previous exam. Lungs are clear. There is no evidence of pneumonia or pulmonary edema. Unchanged elevation of the right hemidiaphragm. PLEURA: No pleural effusion or pneumothorax. BONES AND SOFT TISSUES: No acute osseous lesion. Mild degenerative changes of the thoracic spine. Soft tissues are unremarkable. UPPER ABDOMEN: No free air under the diaphragm. Cholecystectomy clips are seen in the right upper quadrant. IMPRESSION IMPRESSION: Elevation of the right hemidiaphragm with linear opacity of the right midlung suggestive of volume loss and scarring, unchanged. No acute thoracic abnormality. A "PRELIMINARY" report was made available via [facility] at the time of dictation by the resident indicated below. If the report is "FINALIZED" it indicates that the attending/staff radiologist has reviewed the images and agrees with the resident's interpretation. Dictated By: Shabbir Latham DO, 01/25/2017 1:38 PM I have reviewed the study and agree with the findings in this report. Signed By: Tushar Gonzalez MD, 01/25/2017 4:28 PM 01/25/2017 [facility] Consultation Notes No Data Provided for This Section Discharge Summaries No Data Provided for This Section History and Physicals No Data Provided for This Section Vital Signs Vital Sign Value Date Comments Source Weight 225 10/03/2018 [facility] Height 61 10/03/2018 [facility] Heart Rate 95 10/03/2018 [facility] Diastolic (mm Hg) 70 10/03/2018 [facility] Systolic (mm Hg) 100 10/03/2018 [facility] Weight 226 09/07/2018 [facility] Height 61 09/07/2018 [facility] Temperature Oral (F) 98.2 F 09/07/2018 [facility] Heart Rate 108 09/07/2018 [facility] Diastolic (mm Hg) 66 09/07/2018 [facility] Systolic (mm Hg) 90 09/07/2018 [facility] Weight 235 07/20/2018 [facility] Height 61 07/20/2018 [facility] Heart Rate 94 07/20/2018 [facility] Diastolic (mm Hg) 66 07/20/2018 [facility] Systolic (mm Hg) 90 07/20/2018 [facility] Weight 234 06/20/2018 [facility] Height 61 06/20/2018 [facility] Heart Rate 77 06/20/2018 [facility] Diastolic (mm Hg) 72 06/20/2018 [facility] Systolic (mm Hg) 138 06/20/2018 [facility] Weight 235 06/01/2018 [facility] Height 61 06/01/2018 [facility] Heart Rate 94 06/01/2018 [facility] Diastolic (mm Hg) 66 06/01/2018 [facility] Systolic (mm Hg) 102 06/01/2018 [facility] Weight 239 04/19/2018 [facility] Height 61 04/19/2018 [facility] Heart Rate 90 04/19/2018 [facility] Diastolic (mm Hg) 74 04/19/2018 [facility] Systolic (mm Hg) 102 04/19/2018 [facility] Weight 232 03/16/2018 [facility] Height 61 03/16/2018 [facility] Temperature Oral (F) 98.3 F 03/16/2018 [facility] Heart Rate 106 03/16/2018 [facility] Diastolic (mm Hg) 82 03/16/2018 [facility] Systolic (mm Hg) 115 03/16/2018 [facility] Systolic (mm Hg) 116 05/28/2017 [facility] Diastolic (mm Hg) 58 05/28/2017 [facility] Heart Rate 94 05/28/2017 [facility] Temperature Oral (F) 37.17 Lina 05/28/2017 [facility] Respitory Rate 20 05/28/2017 [facility] Height 160 cm 05/28/2017 [facility] Weight 120.203 05/28/2017 [facility] BMI Calculated 46.94 05/28/2017 [facility] Encounters Location Location Details Encounter Type Encounter Number Reason For Visit Attending Provider ADM Date DC Date Status Source Pulmonary [place] Office Visit [id number] Asthmatic bronchitis, severe persistent, with acute exacerbation Asthma exacerbation SOB (shortness of breath) Rib pain on right side Chest wall pain Obstructive sleep apnea syndrome Dario Slater MD 10/01/2016 10/01/2016 [facility] Same Day Same Day [id number] Rib pain on right side Rediate Jake 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 DIRECTOR 10/23/2016 10/23/2016 [facility] [place] Office Visit [id number] Asthma exacerbation Sleep-related breathing disorder Obstructive sleep apnea Acute on chronic congestive heart failure, unspecified congestive heart failure type Type 2 diabetes mellitus without complication, without long-term current use of insulin Dario Sabillon MD 10/29/2016 10/29/2016 [facility] Shyla Larsen Same Day Office Visit [id number] Moderate persistent asthma with acute exacerbation Hearing loss of left ear due to cerumen impaction Dysfunction of Eustachian tube, left Deepthi Johns MD 11/13/2016 11/13/2016 [facility] [place] Office Visit [id number] Type 2 diabetes mellitus without complication, without long-term current use of insulin Need for Tdap vaccination Chronic congestive heart failure, unspecified congestive heart failure type Mild intermittent asthma with acute exacerbation Rib pain on right side Dario Sabillon MD 11/23/2016 11/23/2016 [facility] [place] Telephone [id number] Tori Ruiz PURNIMA 11/30/2016 [facility] Observation [facility] [id number] Chest pain in adult Chronic congestive heart failure, unspecified congestive heart failure type ASD (atrial septal defect), sinus venosus defect Rosi Duran DO 12/29/2016 12/31/2016 [facility] Pharmacy [facility] [id number] 12/31/2016 [facility] Cardiology [facility] Telephone [id number] [place] Caity 01/06/2017 [facility] [place] Office Visit [id number] Chronic congestive heart failure, unspecified congestive heart failure type Flu vaccine need Controlled type 2 diabetes mellitus without complication, without long-term current use of insulin Hospital discharge follow-up Bilateral leg edema Chest pain, unspecified type Ankita Kenny DO 01/25/2017 01/25/2017 [facility] Radiology [place] Ancillary Procedure [id number] Dario Sabillon MD 01/25/2017 01/25/2017 [facility] [place] Refill [id number] Chronic congestive heart failure, unspecified congestive heart failure type Ankita Kenny DO 02/19/2017 [facility] [place] Office Visit [id number] Type 2 diabetes mellitus without complication, without long-term current use of insulin Gastroesophageal reflux disease without esophagitis Chronic congestive heart failure, unspecified congestive heart failure type Mild intermittent asthma with acute exacerbation Acute bronchitis, unspecified organism Sleep apnea, unspecified type Hypokalemia Hyperlipidemia, unspecified hyperlipidemia type Dario Sabillon MD 02/23/2017 02/23/2017 [facility] [place] Clinical Case Mgt [id number] Isrrael Dukes RN 02/24/2017 [facility] [place] Orders Only [id number] Chronic congestive heart failure, unspecified congestive heart failure type Dario Sabillon MD 02/26/2017 [facility] [place] Refill [id number] Mild intermittent asthma with acute exacerbation Dario Sabillon MD 03/26/2017 [facility] Cardiology [facility] [place] Orders Only [id number] Palpitations ASD (atrial septal defect), sinus venosus defect Shortness of breath Amarilis Aggarwal MD 04/05/2017 [facility] [place] [id number] Palpitations ASD (atrial septal defect), sinus venosus defect Shortness of breath Amarilis Aggarwal MD 04/05/2017 04/05/2017 [facility] [place] Hospital En[place] [id number] Palpitations ASD (atrial septal defect), sinus venosus defect Shortness of breath Dario Sabillon MD 04/05/2017 04/06/2017 [facility] CARDIOLOGY [facility] Hospital Encounter [id number] Amarilis Aggarwal MD 04/15/2017 04/16/2017 [facility] [place] Refill [id number] Type 2 diabetes mellitus without complication, without long-term current use of insulin Dario Sabillon MD 04/23/2017 [facility] CARDIOLOGY [facility] Hospital Encounter [id number] Amarilis Aggarwal MD 04/27/2017 04/28/2017 [facility]iology [facility] [place] Office Visit [id number] 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), sinus venosus defect Pulmonary hypertension Amarilis Aggarwal MD 05/03/2017 05/03/2017 [facility] Same Day Same Day [id number] Acute bronchitis, unspecified organism Cough Type 2 diabetes mellitus without complication, without long-term current use of insulin Loren Cristino 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 CHAIN DIRECTOR 05/12/2017 05/12/2017 [facility] Same Day Same Day [id number] Acute sinusitis, recurrence not specified, unspecified location Bilateral acute serous otitis media, recurrence not specified Cough Type 2 diabetes mellitus without complication, without long-term current use of insulin Loren Cristino 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 CHAIN DIRECTOR 05/28/2017 05/28/2017 [facility] [place] Clinical Case Mgt [id number] Jackeline Aranda 07/02/2017 [facility] [place] Telephone [id number] Faith Giles RN 07/02/2017 [facility] [place] Telephone [id number] Faith Giles RN 07/06/2017 [facility] Departed Emergency Room [id number] ANCELMO MELISSA MD 09/20/2017 09/20/2017 [facility] [place] Refill [id number] Chronic congestive heart failure Dario Sabillon MD 09/21/2017 [facility] [place] Refill [id number] Type 2 diabetes mellitus without complication, without long-term current use of insulin Dario Sabillon MD 11/07/2017 [facility] Refill [id number] Rib pain on right side Alicia Forte PASTE UP WORKER 11/11/2017 [facility] Procedures Procedure Code Date Perfomer Comments Source DIABETIC FOOT EXAM 05/29/2017 [facility] POC RAPID FLU 28160 05/12/2017 [facility] POC GROUP A STREP SCREEN 81512 05/12/2017 [facility] TREADMILL STRESS-TRACING ONLY 22899 04/27/2017 [facility] TTE FOLLOW UP 83856 04/15/2017 [facility] COMPREHENSIVE METABOLIC PANEL(DBIL NOT INCLUDED) 30501 04/05/2017 [facility] CBC/DIFF 47776 04/05/2017 [facility] 12 LEAD EKG 17358 04/05/2017 [facility] BMP POC 65096 01/25/2017 [facility] XRAY CHEST 2 VIEWS 65382 01/25/2017 [facility] B NATRIURETIC PEPT 70754 01/25/2017 [facility] MAGNESIUM 51962 01/25/2017 [facility] GLUCOSE POC 94424 12/31/2016 [facility] BASIC METABOLIC PANEL 24060 12/31/2016 [facility] UA CHEMISTRIES 47434 12/30/2016 [facility] TRANSTHORACIC ECHO (TTE) 84322 12/30/2016 [facility] UA CHEMISTRIES 17827 12/30/2016 [facility] RAPID INFLUENZA SCREEN 29269 12/30/2016 [facility] CK, TOTAL 15710 12/30/2016 [facility] TROPONIN I 13724 12/30/2016 [facility] MYOGLOBIN, SER 78789 12/30/2016 [facility] CALCIUM, IONIZED 15065 12/30/2016 [facility] PT/INR 06360 12/30/2016 [facility] PTT 42350 12/30/2016 [facility] HEP A VIR AB IGM 11152 12/30/2016 [facility] HEP A VIRUS AB IGG 65210 12/30/2016 [facility] HEP B COR AB TOT 48831 12/30/2016 [facility] HEP B AB AG 75476 12/30/2016 [facility] [place] [address] 12/30/2016 [facility] HEP C VIR AB IGG 49396 12/30/2016 [facility] SYPHILIS SCREEN FOR INFECTION 39838 12/30/2016 [facility] DIGOXIN 29573 12/30/2016 [facility] CKMB, REFLEX 13755 12/30/2016 [facility] URINE DRUG SCREEN 93959 12/30/2016 [facility] TROPONIN I POC 78459 12/29/2016 [facility] HEMOGLOBIN A1C 55846 11/27/2016 [facility] LIPID PROFILE 20159 11/27/2016 [facility] LIVER PROFILE 77767 11/27/2016 [facility] THRPY PROPH/DX INJ INTRAMUSCLR 94711 11/13/2016 [facility] Assessment and Plan No Data Provided for This Section Plan of Care Plan of Care Date Source Colonoscopy 10yr 01/12/2026 [facility] Cervical Cancer Scrn (3 Yrs) 08/28/2019 [facility] DM Foot Exam (Yearly) 05/28/2018 [facility] DM Microalbumin Urine Scrn (Yearly) 12/30/2017 [facility] DM HGBA1C (Yearly) 11/27/2017 [facility] Discharge Date 09/20/17 7:28pm Disposition HOME, SELF-CARE Condition at Discharge Improved Instructions/Education Provided Asthma - Adult Forms Provided Work/School Excuse Prescriptions See Medication Section Referrals FAITH ESTEBAN DO Order Date: Call for an appointment Address: [id number] [place] [address] [place] [address] Additional Instructions/Education Take medications as directed: -Duo-neb one neb treatment every 4-6hrs as needed for shortness of breath. -Prednisone 20mg three tabs by mouth x2days, then 2tabs by mouth x2days. Follow up with Primary Care Provider. Return to ER as needed. 09/20/2017 [facility] Breast Cancer Scrn (Yearly) 08/27/2017 [facility] DM Retinal Exam (Yearly) 07/30/2017 [facility] Social History Social History Date Source Smoking Status Start Date Stop Date Never Smoker 09/20/2017 [facility] Tobacco UseTypesPacks/DayYears UsedDate Never Smoker Smokeless Tobacco: Never Used Tobacco Cessation: Counseling Given: No Alcohol UseDrinks/Weekoz/WeekComments No Sex Assigned at BirthDate Recorded Not on file 05/28/2017 [facility] Family History Value Date Source Medical HistoryRelationNameComments Diabetes Maternal Aunt x 7 Diabetes Maternal Grandmother Diabetes Mother Diabetes Sister RelationNameStatusComments Father work accident Maternal Aunt Maternal Grandmother Mother Alive Sister 12/13/2017 [facility] Medical HistoryRelationNameComments Diabetes Maternal Aunt x 7 Diabetes Maternal Grandmother Diabetes Mother Diabetes Sister RelationNameStatusComments Father work accident Maternal Aunt Maternal Grandmother Mother Alive Sister 12/09/2017 [facility] Medical HistoryRelationNameComments Diabetes Maternal Aunt x 7 Diabetes Maternal Grandmother Diabetes Mother Diabetes Sister RelationNameStatusComments Father work accident Maternal Aunt Maternal Grandmother Mother Alive Sister 11/30/2017 [facility] Medical HistoryRelationNameComments Diabetes Maternal Aunt x 7 Diabetes Maternal Grandmother Diabetes Mother Diabetes Sister RelationNameStatusComments Father work accident Maternal Aunt Maternal Grandmother Mother Alive Sister 11/23/2017 [facility] Medical HistoryRelationNameComments Diabetes Maternal Aunt x 7 Diabetes Maternal Grandmother Diabetes Mother Diabetes Sister RelationNameStatusComments Father work accident Maternal Aunt Maternal Grandmother Mother Alive Sister 11/12/2017 [facility] Medical HistoryRelationNameComments Diabetes Maternal Aunt x 7 Diabetes Maternal Grandmother Diabetes Mother Diabetes Sister RelationNameStatusComments Father work accident Maternal Aunt Maternal Grandmother Mother Alive Sister 10/29/2017 [facility] Medical HistoryRelationNameComments Diabetes Maternal Aunt x 7 Diabetes Maternal Grandmother Diabetes Mother Diabetes Sister RelationNameStatusComments Father work accident Maternal Aunt Maternal Grandmother Mother Alive Sister 10/14/2017 [facility] Medical HistoryRelationNameComments Diabetes Maternal Aunt x 7 Diabetes Maternal Grandmother Diabetes Mother Diabetes Sister RelationNameStatusComments Father work accident Maternal Aunt Maternal Grandmother Mother Alive Sister 09/29/2017 [facility] Medical HistoryRelationNameComments Diabetes Maternal Aunt x 7 Diabetes Maternal Grandmother Diabetes Mother Diabetes Sister RelationNameStatusComments Father work accident Maternal Aunt Maternal Grandmother Mother Alive Sister 09/27/2017 [facility] Advance Directives Order Name Results Value Date Source Advance Directives Advance Directives Directive Response Recorded Date/Time Does the patient have an advance directive? No 09/20/17 5:13pm If yes, is advance directive on file with [facility]? No 09/20/17 5:14pm If not on file with [facility] will patient provide a copy? No 09/20/17 5:13pm Do you have a Directive to Physician? No 09/20/17 5:13pm Do you have a Medical Power of Telecommunications Technician? No 09/20/17 5:13pm Do you have an out of hospital Do Not Resuscitate Order? No 09/20/17 5:13pm Do you have any special needs we should be aware of? No 09/20/17 5:13pm Do you have a support person here with you today? Yes 09/20/17 5:14pm Did patient receive Notice of Privacy Practices? Yes 09/20/17 5:14pm Did patient receive patient rights and responsibilities? Yes 09/20/17 5:14pm 09/20/2017 [facility] Functional Status No Data Provided for This Section
[2018-10-21] MEDS ORDERED: SODIUM CHLORIDE 0.9% 1000ML 1,000 ML IV STA (09:54)
--- OUTSIDE RECORDS SUMMARY | 2018-10-21 09:54 | XMS REPORT | Clinical Summary ---
Author Author [facility] Organization [facility] Address Unknown Phone Unavailable Care Team Providers Care Chopper Gun Operator Name Role Phone Dario Sabillon MD PCP Allergies Active Allergy Reactions Severity Noted Date Comments Latex Rash 10/03/2008 Sulfa (Sulfonamide Rash 10/03/2008 Antibiotics) Current Medications Prescription Sig. Disp. Refills Start End Date Status Date ipratropium (ATROVENT) Inhale 2.5 mL by mouth 4 250 mL 4 07/31/19 Active 0.02 % nebulizer times daily. 17 solutionIndications: Mild intermittent asthma with acute exacerbation pantoprazole (PROTONIX) Take 1 tablet by mouth 90 tablet 1 08/01/19 Active 40 mg delayed release daily. 17 tabletIndications: Gastroesophageal reflux disease without esophagitis triamcinolone (TRIDERM) Apply to affected area 2 80 g 1 08/28/19 Active 0.1 % topical times daily. 17 creamIndications: Vaginal itching, Intertrigo Nebulizer & Compressor 1 Device by 1 Device 0 10/02/19 Active For Neb DeviIndications: Misc.(Non-Drug; Combo 17 Asthmatic bronchitis, Route) route 4 times severe persistent, with daily. acute exacerbation, Asthma exacerbation albuterol (PROVENTIL) 2.5 Inhale 3 mL by mouth 300 mL 3 10/02/19 Active mg /3 mL (0.083 %) every 4 hours as needed 17 nebulizer for Wheezing or Shortness solutionIndications: of Breath. Asthmatic bronchitis, severe persistent, with acute exacerbation, Asthma exacerbation fluticasone-salmeterol Inhale 1 Puff by mouth 2 180 Each 3 11/24/19 Active (ADVAIR DISKUS) 500-50 times daily. 17 mcg/dose diskus inhalerIndications: Mild intermittent asthma with acute exacerbation lancetsIndications: Type by MISCELLANEOUS route 2 50 Each 5 11/24/19 Active 2 diabetes mellitus times weekly USE TO CHECK 17 without complication, BLOOD SUGARS. without long-term current use of insulin blood glucose (PRECISION use 2 times weekly USE TO 50 Each 5 11/24/19 Active XTRA TEST STRIPS) test CHECK BLOOD SUGARS. 17 stripsIndications: Type 2 diabetes mellitus without complication, without long-term current use of insulin traMADol (ULTRAM) 50 mg Take 1 tablet by mouth 60 tablet 0 11/24/19 Active tabletIndications: Rib every 8 hours as needed 17 pain on right side for Pain (MAY CAUSE DROWSINESS). atorvastatin (LIPITOR) 40 Take tablet (20mg) by 30 tablet 3 01/01/20 Active mg tablet mouth at bedtime nightly. 17 clotrimazole (LOTRIMIN) 1 Apply to affected area 2 30 g 0 01/01/20 Active % topical cream times daily. 17 furosemide (LASIX) 20 mg TAKE 2 TABLETS BY MOUTH 180 tablet 1 02/25/20 Active tabletIndications: DAILY 17 Chronic congestive heart failure, unspecified congestive heart failure type albuterol (VENTOLIN Inhale 2 Puffs by mouth 4 6.7 g 3 02/24/20 Active HFA,PROVENTIL HFA,PROAIR times daily as needed for 17 HFA) 90 mcg/actuation Wheezing. inhalerIndications: Mild intermittent asthma with acute exacerbation potassium chloride Take 1 tablet by mouth 90 tablet 1 02/24/20 Active (KLOR-CON M10) 10 mEq daily. 17 extended release tabletIndications: Chronic congestive heart failure, unspecified congestive heart failure type montelukast (SINGULAIR) TAKE 1 TABLET BY MOUTH 90 tablet 0 03/26/19 Active 10 mg tabletIndications: EVERY DAY 18 Mild intermittent asthma with acute exacerbation metFORMIN (GLUCOPHAGE) TAKE 1 TABLET BY MOUTH 180 tablet 2 04/23/19 Active 500 mg tabletIndications: TWICE DAILY 18 Type 2 diabetes mellitus without complication, without long-term current use of insulin albuterol (VENTOLIN Inhale 2 Puffs by mouth 4 1 Month 0 05/13/19 Active HFA,PROVENTIL HFA,PROAIR times daily as needed for Supply 18 HFA) 90 mcg/actuation Wheezing or Shortness of inhalerIndications: Acute Breath. bronchitis, unspecified organism codeine-guaiFENesin Take 5 mL by mouth 3 120 mL 0 05/13/19 Active (CHERATUSSIN AC) 10-100 times daily as needed for 18 mg/5 mL syrupIndications: Cough. Cough montelukast (SINGULAIR) Take 1 tablet by mouth at 30 tablet 0 05/13/19 Active 10 mg tabletIndications: bedtime nightly. 18 Acute bronchitis, unspecified organism cetirizine (ZYRTEC) 10 mg Take 1 tablet by mouth 30 tablet 0 05/29/19 Active tabletIndications: Acute daily. 18 sinusitis, recurrence not specified, unspecified location fluticasone (FLONASE) 50 Use 1 [place] in each 16 g 0 05/29/19 Active mcg/actuation nasal nostril daily. 18 sprayIndications: Acute sinusitis, recurrence not specified, unspecified location ofloxacin (OCUFLOX) 0.3 % Instill 5 drops to each 5 mL 0 05/29/19 Active ophthalmic ear daily for 10 days. Ok 18 solutionIndications: for pharmacist to Bilateral acute serous dispense eye solution for otitis media, recurrence ear treatment.. not specified DIGOX 125 mcg TAKE 1 TABLET BY MOUTH 90 tablet 0 09/23/19 Active tabletIndications: EVERY DAY FOR HEART 18 Chronic congestive heart failure Nebulizer & Compressor 1 Device by 1 Device 0 04/25/19 10/24/19 Discontin For Neb DeviIndications: Misc.(Non-Drug; Combo 16 17 ued Extrinsic asthma with Route) route 4 times exacerbation, severe daily NEEDING NEBULIZER persistent DEVICE FOR REFRACTORY ASTHMA AND EXACERBATION. blood glucose meter Use as directed.. 1 Kit 0 06/10/19 10/24/19 Discontin (PRECISION XTRA 16 17 ued GLUCOMETER)Indications: Type 2 diabetes mellitus without complication lancets 28 2 times weekly. 100 Each 5 06/10/19 10/24/19 Discontin gaugeIndications: Type 2 16 17 ued diabetes mellitus without complication azelastine (OPTIVAR) 0.05 Instill 1 Drop in each 6 mL 5 10/28/19 04/05/19 Discontin % ophthalmic eye 2 times daily. 16 18 ued solutionIndications: Other chronic allergic conjunctivitis benzonatate (TESSALON Take 1 capsule by mouth 3 45 capsule 0 07/21/19 10/24/19 Discontin PERLES) 100 mg times daily as needed for 17 17 ued capsuleIndications: Cough. Extrinsic asthma with exacerbation, mild intermittent blood glucose (PRECISION use 2 times weekly USE TO 50 Each 5 07/31/19 11/24/19 Discontin XTRA TEST STRIPS) test CHECK BLOOD SUGARS. 17 17 ued stripsIndications: Type 2 diabetes mellitus without complication, without long-term current use of insulin lancetsIndications: Type by MISCELLANEOUS route 2 50 Each 5 07/31/19 11/24/19 Discontin 2 diabetes mellitus times weekly USE TO CHECK 17 17 ued without complication, BLOOD SUGARS. without long-term current use of insulin metFORMIN (GLUCOPHAGE) Take 1 tablet by mouth 2 180 tablet 1 07/31/19 11/24/19 Discontin 500 mg tabletIndications: times daily (with meals) 17 17 ued Type 2 diabetes mellitus For diabetes. without complication, without long-term current use of insulin furosemide (LASIX) 20 mg Take 1 tablet by mouth 90 tablet 2 07/31/19 11/24/19 Discontin tabletIndications: daily. 17 17 ued Chronic congestive heart failure, unspecified congestive heart failure type digoxin (LANOXIN) 125 mcg Take 1 tablet by mouth 90 tablet 1 07/31/19 11/24/19 Discontin tabletIndications: daily For heart. 17 17 ued Chronic congestive heart failure, unspecified congestive heart failure type montelukast (SINGULAIR) Take 1 tablet by mouth 90 tablet 1 07/31/19 11/24/19 Discontin 10 mg tabletIndications: daily (autosubstitute 17 17 ued Mild intermittent asthma from accolate). with acute exacerbation albuterol (VENTOLIN Inhale 2 Puffs by mouth 4 6.7 g 3 07/31/19 02/24/20 Discontin HFA,PROVENTIL HFA,PROAIR times daily as needed for 17 17 ued HFA) 90 mcg/actuation Wheezing. inhalerIndications: Mild intermittent asthma with acute exacerbation fluticasone-salmeterol Inhale 1 Puff by mouth 2 180 Each 3 07/31/19 11/24/19 Discontin (ADVAIR DISKUS) 500-50 times daily. 17 17 ued mcg/dose diskus inhalerIndications: Mild intermittent asthma with acute exacerbation fluconazole (DIFLUCAN) 1 tab po weekly x 3 1 tablet 2 08/28/19 10/30/19 Discontin 150 mg tabletIndications: weeks. 17 17 ued Vaginal itching, Intertrigo traMADol (ULTRAM) 50 mg Take 1 tablet by mouth 60 tablet 0 10/24/19 11/24/19 Discontin tabletIndications: Rib every 8 hours as needed 17 17 ued pain on right side for Pain (MAY CAUSE DROWSINESS). predniSONE (DELTASONE) 50 Take 1 tablet by mouth 5 tablet 0 10/30/19 01/01/20 Discontin mg tablet daily. 17 17 ued benzonatate (TESSALON Take 1 capsule by mouth 3 20 capsule 0 10/30/19 04/05/19 Discontin PERLES) 100 mg capsule times daily as needed for 17 18 ued Cough. Miscellaneous Medical by [facility].(Non-Drug; Combo 1 Each 0 10/30/19 04/05/19 Discontin Supply MiscIndications: Route) route Sleep study 17 18 ued Obstructive sleep apnea Dx. Obstructive sleep apnea. predniSONE (DELTASONE) 20 One tablet twice daily ( 15 tablet 0 11/14/19 01/01/20 Discontin mg tabletIndications: 8 am and 3 pm) x 5 days, 17 17 ued Moderate persistent then one tablet daily x 5 asthma with acute days. exacerbation, Dysfunction of Eustachian tube, left metFORMIN (GLUCOPHAGE) Take 1 tablet by mouth 2 180 tablet 1 11/24/19 04/23/19 Discontin 500 mg tabletIndications: times daily (with meals) 17 18 ued Type 2 diabetes mellitus For diabetes. without complication, without long-term current use of insulin furosemide (LASIX) 20 mg Take 1 tablet by mouth 90 tablet 2 11/24/19 01/01/20 Discontin tabletIndications: daily. 17 17 ued Chronic congestive heart failure, unspecified congestive heart failure type digoxin (LANOXIN) 125 mcg Take 1 tablet by mouth 90 tablet 1 11/24/19 09/22/19 Discontin tabletIndications: daily For heart. 17 18 ued Chronic congestive heart failure, unspecified congestive heart failure type montelukast (SINGULAIR) Take 1 tablet by mouth 90 tablet 1 11/24/19 03/26/19 Discontin 10 mg tabletIndications: daily (autosubstitute 17 18 ued Mild intermittent asthma from accolate). with acute exacerbation clotrimazole (LOTRIMIN) 1 Apply to affected area 2 30 g 0 01/01/20 01/01/20 Discontin % topical cream times daily. 17 17 ued atorvastatin (LIPITOR) 40 Take tablet (20mg) by 30 tablet 3 01/01/20 01/01/20 Discontin mg tablet mouth at bedtime nightly. 17 17 ued furosemide (LASIX) 20 mg Take 2 tablets by mouth 90 tablet 2 01/01/20 01/26/20 Discontin tabletIndications: daily. 17 17 ued Chronic congestive heart failure, unspecified congestive heart failure type furosemide (LASIX) 20 mg Take 2 tablets by mouth 180 tablet 1 01/26/20 02/20/20 Discontin tabletIndications: daily. 17 17 ued Chronic congestive heart failure, unspecified congestive heart failure type amoxicillin-clavulanate Take 1 tablet by mouth 3 30 tablet 0 02/24/20 03/05/20 (AUGMENTIN) 500-125 mg times daily for 10 days. 17 17 per tabletIndications: Acute bronchitis, unspecified organism Miscellaneous Medical by [facility].(Non-Drug; Combo 1 Each 0 02/27/20 04/05/19 Discontin Supply MiscIndications: Route) route Hospital 17 18 ued Chronic congestive heart bed. failure, unspecified congestive heart failure type levoFLOXacin (LEVAQUIN) Take 1 tablet by mouth 10 tablet 0 05/13/19 05/23/19 500 mg tabletIndications: daily for 10 days. 18 18 Acute bronchitis, unspecified organism amoxicillin-clavulanate Take 1 tablet by mouth 2 20 tablet 0 05/29/19 06/08/19 (AUGMENTIN) 875-125 mg times daily for 10 days. 18 18 per tabletIndications: Acute sinusitis, recurrence not specified, unspecified location, Bilateral acute serous otitis media, recurrence not specified benzonatate (TESSALON Take 2 capsules by mouth 20 capsule 0 05/29/19 06/05/19 PERLES) 100 mg 3 times daily as needed 18 18 capsuleIndications: Cough for up to 7 days for Cough. Hospital, Clinic, or Ordered Dose Route Frequency Start End Date Status Other Facility Date Administered Medication triamcinolone acetonide 80 mg IM ONCE 07/27/20 07/27/20 Ended (KENALOG-40) injection 80 17 17 mgIndications: Rib pain on right side, Chest wall pain ketorolac (TORADOL) 60 60 mg IM ONCE 10/02/19 10/02/19 Ended mg/2 mL injection 60 17 17 mgIndications: Rib pain on right side, Chest wall pain ketorolac (TORADOL) 30 mg IM ONCE 10/24/19 10/24/19 Ended injection 30 17 17 mgIndications: Rib pain on right side albuterol (PROVENTIL) 2.5 2.5 mg IN ONCE 10/30/19 10/30/19 Ended mg /3 mL (0.083 %) 17 17 nebulized solution 2.5 mgIndications: Asthma exacerbation ipratropium (ATROVENT) 0.5 mg IN ONCE 11/14/19 11/14/19 Ended nebulized solution 0.5 17 17 mgIndications: Moderate persistent asthma with acute exacerbation methylPREDNISolone sodium 125 mg IM ONCE 11/14/19 11/14/19 Ended succinate (SOLU-MEDROL) 17 17 injection 125 mgIndications: Moderate persistent asthma with acute exacerbation albuterol (PROVENTIL) 2.5 2.5 mg IN ONCE 11/14/19 11/14/19 Ended mg /3 mL (0.083 %) 17 17 nebulized solution 2.5 mgIndications: Moderate persistent asthma with acute exacerbation methylPREDNISolone sodium 80 mg IV PUSH ONCE 05/13/19 05/13/19 Ended succinate (SOLU-MEDROL) 18 18 injection 80 mgIndications: Cough albuterol (PROVENTIL) 2.5 2.5 mg IN ONCE 05/13/19 05/13/19 Ended mg /3 mL (0.083 %) 18 18 nebulized solution 2.5 mgIndications: Cough Active Problems Problem Noted Date Morbid obesity with BMI of 45.0-49.9, adult 11/13/2016 Asthma, severe persistent 11/13/2016 STEPHEN on CPAP 11/13/2016 Controlled type 2 diabetes mellitus without complication, without long-term 11/13/2016 current use of insulin Diverticulosis of large intestine without hemorrhage 01/23/2016 H. pylori infection 01/15/2016 Hepatic steatosis 07/31/2015 Pleuritic chest pain 07/12/2013 ASD (atrial septal defect), sinus venosus defect - 01/19/2013 08/15/2012 Pulmonary hypertension 08/15/2012 CHF (congestive heart failure) 08/14/2012 Cardiomyopathy 05/27/2012 Overview: 05/27/12 - Received request for outside patient service (Heart MRI) from Dr. Paola Burden. Pending approval from grounds caretaker. 05/30/12 - approved by Dr. James Valdez for outsourcing @ [facility]. Physician order, demographics & clinical information faxed to [facility]. Date & time: 2012 @ 10:30 am. 06/17/12 - received MRI report today & being placed in the Media tab of this record. Dr. Burden/Margarita García included in the e-mail. Images to be placed in PACS as soon as obtained from [facility]. Faith Molina RN # [id number] S/P laparoscopic cholecystectomy 10/05/2008 Bronchopulmonary aspergillosis Resolved Problems Problem Noted Date Resolved Date Chest pain in adult 12/29/2016 12/31/2016 Asthma, moderate persistent 11/13/2016 11/13/2016 Type 2 diabetes mellitus without complication 07/31/2015 11/13/2016 Cyanosis 07/12/2013 11/13/2016 Aspiration into lower respiratory tract 07/12/2013 12/29/2016 Cough 12/28/2012 12/29/2016 Chest pain at rest 08/15/2012 11/13/2016 CHF exacerbation 08/14/2012 11/13/2016 Fatigue 07/29/2012 12/29/2016 Obstructive sleep apnea 12/28/2011 11/13/2016 Asthma exacerbation 06/04/2011 11/13/2016 Sleep-related breathing disorder 06/04/2011 12/29/2016 SOB (shortness of breath) 06/01/2011 11/13/2016 Fever 06/01/2011 11/13/2016 Persistent vomiting 05/20/2009 12/29/2016 Encounters Date Type Specialty Care Team Description 09/21/2017 Refill Family Practice Dario Sabillon III, MD Chronic congestive heart failure 07/06/2017 Telephone Family Practice Faith Giles, RN Information Only 07/02/2017 Clinical Case Social Work Jackeline Aranda 07/02/2017 Telephone Family Practice Faith Giles, RN Information Only 05/28/2017 Same Day Family Practice Loren Gregg NP Acute sinusitis, recurrence not specified, unspecified location (Primary Dx); Bilateral acute serous otitis media, recurrence not specified; Cough; Type 2 diabetes mellitus without complication, without long-term current use of insulin 05/12/2017 Same Day [facility] Loren Gregg NP Acute bronchitis, unspecified organism (Primary Dx); Cough; Type 2 diabetes mellitus without complication, without long-term current use of insulin 05/03/2017 Office Visit Cardiology Amarilis Aggarwal MD Partial anomalous pulmonary venous return (PAPVR) (Primary Dx); ASD (atrial septal defect), sinus venosus defect; Pulmonary hypertension 04/27/2017 Hospital Amarilis Aggarwal MD Encounter 04/23/[address] [facility] Dario Sabillon III, MD Type 2 diabetes mellitus without complication, without long-term current use of insulin 04/15/2017 Hospital Amarilis Aggarwal MD Encounter 04/05/2017 Hospital Lab Dario Sabillon III, MD Palpitations; Encounter ASD (atrial septal defect), sinus venosus defect - 01/19/2013; Shortness of breath 04/05/2017 Office Visit Cardiology Amarilis Aggarwal MD Palpitations (Primary Dx); ASD (atrial septal defect), sinus venosus defect - 01/19/2013; Shortness of breath 04/05/2017 Orders Only Cardiology Amarilis Aggarwal MD Palpitations; ASD (atrial septal defect), sinus venosus defect - 01/19/2013; Shortness of breath 03/26/[address] [facility] Dario Sabillon III, MD Mild intermittent asthma with acute exacerbation 02/26/[address] [facility] Dario Sabillon III, MD Chronic congestive heart failure, unspecified congestive heart failure type (Primary Dx) 02/24/2017 Clinical Case Social Work Isrrael Dukes RN Mgt 02/23/[address] [facility] Dario Sabillon III, MD Type 2 diabetes mellitus without complication, without long-term current use of insulin (Primary Dx); Gastroesophageal reflux disease without esophagitis; Chronic congestive heart failure, unspecified congestive heart failure type; Mild intermittent asthma with acute exacerbation; Acute bronchitis, unspecified organism; Sleep apnea, unspecified type; Hypokalemia; Hyperlipidemia, unspecified hyperlipidemia type 02/19/2017 Refill [facility] Ankita Cox Physician Chronic congestive heart failure, unspecified congestive heart failure type 01/25/2017 Ancillary Radiology Dario Sabillon III, MD Procedure 01/25/2017 Office Visit Family [facility] Ankita Cox Physician Chronic congestive heart failure, unspecified congestive heart failure type (Primary Dx); Flu vaccine need; Controlled type 2 diabetes mellitus without complication, without long-term current use of insulin; Hospital discharge follow-up; Bilateral leg edema; Chest pain, unspecified type 01/06/2017 Telephone Cardiology [place] Appointment Related Questions (pt needs appt with neil ) 12/31/2016 Pharmacy Visit 12/29/2016 Emergency Rosi Duran, Chest pain in adult - [facility], (Primary Dx); 12/31/2016 MD [place] Chronic congestive heart failure, unspecified congestive heart failure type; ASD (atrial septal defect), sinus venosus defect - 01/19/2013 11/30/[address] [facility] Tori Ruiz, Information Only COMM[employer]ITY [employer]GAN[employer]ER 11/23/[address] [facility] Dario Sabillon III, MD Type 2 diabetes mellitus Yael Galeana NP without complication, without long-term current use of insulin (Primary Dx); Need for Tdap vaccination; Chronic congestive heart failure, unspecified congestive heart failure type; Mild intermittent asthma with acute exacerbation; Rib pain on right side 11/13/[address] [facility] Deepthi Johns MD Moderate persistent asthma with acute exacerbation (Primary Dx); Hearing loss of left ear due to cerumen impaction; Dysfunction of eustachian tube, left 10/29/[address] [facility] Dario Sabillon III, MD Acute on chronic congestive heart failure, unspecified congestive heart failure type (Primary Dx); Asthma exacerbation; Sleep-related breathing disorder; Obstructive sleep apnea; Type 2 diabetes mellitus without complication, without long-term current use of insulin 10/23/2016 Same Day [facility] Heidi Joseph NP Rib pain on right side (Primary Dx) 10/01/2016 Office Visit Pulmonology Dario Slater MD Asthmatic bronchitis, severe persistent, with acute exacerbation (Primary Dx); Asthma exacerbation; SOB (shortness of breath); Rib pain on right side; Chest wall pain; Obstructive sleep apnea syndrome after 09/28/2016 Immunizations Name Dates Previously Given Next Due Hepatitis B Vaccine 07/21/2011 Influenza Vaccine 05/15/2015 (Deferred: Other - Patient ill in clinic) Influenza Vaccine, 01/25/2017 (Deferred: Patient already had this Seasonal, Injectable immunization) Influenza, Seasonal, 05/28/2017 (Deferred: Other - cold symptoms) Injectable PNEUMOCOCCAL 23-VALPS 07/20/2016 (Deferred: Patient Refused) VACCINE 25 MCG/0.5 ML INJECTION Pneumococcal 7-valent 08/16/2011 conj 0.5 mL injection TDap (Tetanus Toxoid, 11/23/2016 Reduced Diphtheria Toxoid And Acellular Pertussis, Absorbed) Family History Medical History Relation Name Comments Diabetes Maternal Aunt x 7 Diabetes Maternal Grandmother Diabetes Mother Diabetes Sister Relation Name Status Comments Father work accident Maternal Aunt Maternal Grandmother Mother Alive Sister Social History Tobacco Use Types Packs/Day Years Used Date Never Smoker Smokeless Tobacco: Never Used Tobacco Cessation: Counseling Given: No Alcohol Use Drinks/Week oz/Week Comments No Sex Assigned at Date Recorded Not on file Last Filed Vital Signs Vital Sign Reading Time Taken Blood Pressure 116/58 05/28/2017 9:21 AM CDT Pulse 94 05/28/2017 9:21 AM CDT Temperature 37.2 C (98.9 F) 05/28/2017 9:21 AM CDT Respiratory Rate 20 05/28/2017 9:21 AM CDT Oxygen Saturation 97% 05/28/2017 9:21 AM CDT Inhaled Oxygen - - Concentration Weight 120.2 kg (265 lb) 05/28/2017 9:21 AM CDT Height 160 cm (5' 3") 05/28/2017 9:21 AM CDT Body Mass Index 46.94 05/28/2017 9:21 AM CDT Plan of Treatment Health Maintenance Due Date Last Done Comments DM Retinal Exam (Yearly) 07/30/2017 07/30/2016, 06/29/2013 (Declined) Breast Cancer Scrn 08/27/2017 08/27/2016, 05/20/2015, 07/19/2013 (Yearly) DM HGBA1C (Yearly) 11/27/2017 11/27/2016, 07/30/2016, 01/24/2016, Additional history exists DM Microalbumin Urine 12/30/2017 12/30/2016, 12/30/2016, 07/30/2016, Scrn (Yearly) Additional history exists DM Foot Exam (Yearly) 05/28/2018 05/28/2017, 05/12/2017, 11/23/2016, Additional history exists Cervical Cancer Scrn (3 08/28/2019 08/27/2016, 08/15/2013 Yrs) Colonoscopy 10yr 01/12/2026 01/13/2016 Goals Patient Goal Type Goal Recent Progress Patient-Stat Author ed? Diet Reduce salt intake to 2 No [place], grams per day or less Yael Radha, LD Diet Decrease tea intake by No [place], half Yael Radha, LD Diet Have 3 meals a day + HS No [place], Snack Yael Radha, 3 portion controlled, low LD sodium meals + 1 HS snack Procedures Procedure Name Priority Date/Time Associated Diagnosis Comments THRPY PROPH/DX INJ Routine 11/13/2016 Moderate persistent INTRAMUSCLR 11:06 AM CDT asthma with acute exacerbation after 09/28/2016 Results * DIABETIC FOOT EXAM (05/28/2017 7:09 PM) Only the most recent of 4 results within the time period is included. Narrative Loren Gregg, KAIA 05/28/20177:14 PM Diabetic Foot Exam was performed at 05/28/2017 7:10 PM.Right foot sensation is normal, right foot pulses are normal, right foot appearance is normal.Left foot sensation is normal,left foot pulses are normal, left foot appearance is normal. * POC RAPID FLU (05/12/2017 2:15 PM) Component Value Ref Range Rapid Flu A POC Neg Neg - Neg Rapid Flu B POC Neg Neg - Neg Rapid Flu Con POC Pass Pass - Pass Specimen Performing Laboratory Nose * POC GROUP A STREP SCREEN (05/12/2017 2:11 PM) Component Value Ref Range Group A Strep POC Neg Neg - Neg GAS (Contr) Pass Pass - Pass Specimen Performing Laboratory Throat * TREADMILL STRESS-TRACING ONLY (04/27/2017 8:43 AM) Component Value Ref Range Stress Test [facility] Test Date:2017-04-27 Pat Name: MARILEE SULLIVAN Department: : Gender: Female Claims Adjuster: XANDER :1965 Requested By: Order Number: [id number] MD: Sonu Miller Interpretive Statements WORKLOAD: The [...] myocardial ischemia. Electronically Signed On 04-27-17 18:18:36 BRISTLE MACHINE OPERATOR by Sonu Miller Specimen Performing Laboratory SMS * TTE FOLLOW UP (04/15/2017 10:51 AM) Component Value Ref Range ECHO HEART Transthoracic XTHORACIC,LIMITED Echo Report MARILEE SULLIVAN Age:51 Gender: F :1965 Exam Date: 04/15/2017 10:51 Exam Location: [facility] Echo Ordering Phys: AMARILIS AGGARWAL Referring Phys:AMARILIS AGGARWAL Reading Phys:Luis M Goodson MD Fellow Phys: Fellow Phys: Handle Lathe Operator: Michelle Barreto Reason For Exam: Indications:dyspnea ICD-9 Codes: Exam Type: TTE FOLLOW UP Procedure CPT:33048 Addtional CPT: Ht (in): 63 BSA: 2.38HR: [...] 22 - 52 cm DOPPLER AV Peak Pqwkumtt428 cm/s AV Peak Gradient8.6 mmHg AV Mean Ncojunmq48.3 cm/s AV Mean Gradient4.2 mmHg AV Velocity Time Integral 30.7 cm LVOT Peak Wmnotlhd772 cm/s LVOT Peak Gradient5.5 mmHg LVOT Mean Wllhlmsi95.3 cm/s LVOT Mean Gradient2.9 mmHg LVOT Velocity Time Integral 26.3 cm LVOT Stroke Rilixr61.1 cm AV Area Cont Eq vti 2.9 cm AV Area Cont Eq pk2.7 cm Mitral E Point Velocity 94.1 cm/s Mitral A Point Velocity 116 cm/s Mitral E to A Ratio 0.81 MV Deceleration [place] 399 cm/s MV Deceleration Kfuq375 ms TR Peak Crqncxbw305 cm/s TR Peak Pkbeclmg22.8 mmHg PV Peak Ouimtavj47.1 cm/s PV Peak Gradient3.9 mmHg PV Mean Aghysfwo55.7 cm/s PV Mean Gradient2.3 mmHg PV Velocity Time Integral 20.6 cm LV E' Lateral Jickyblu46.2 cm/s Mitral E to LV E' Lateral [...] 22 - 52 cm DOPPLER AV Peak Ouhscmxq817 cm/s AV Peak Gradient8.6 mmHg AV Mean Nobqdmvs87.3 cm/s AV Mean Gradient4.2 mmHg AV Velocity Time Integral 30.7 cm LVOT Peak Zfxhocjy955 cm/s LVOT Peak Gradient5.5 mmHg LVOT Mean Diuajzoh54.3 cm/s LVOT Mean Gradient2.9 mmHg LVOT Velocity Time Integral 26.3 cm LVOT Stroke Ietfra93.1 cm AV Area Cont Eq vti 2.9 cm AV Area Cont Eq pk2.7 cm Mitral E Point Velocity 94.1 cm/s Mitral A Point Velocity 116 cm/s Mitral E to A Ratio 0.81 MV Deceleration [place] 399 cm/s MV Deceleration Orit837 ms TR Peak Joxsunpo417 cm/s TR Peak Pvgxraya46.8 mmHg PV Peak Ixpsdrri06.1 cm/s PV Peak Gradient3.9 mmHg PV Mean Tsdmwfwt04.7 cm/s PV Mean Gradient2.3 mmHg PV Velocity Time Integral 20.6 cm LV E' Lateral Edxxamii68.2 cm/s Mitral E to LV E' Lateral Ratio 6.6 LV E' Septal Velocity 8.1 cm/s Mitral E to LV E' Septal Ratio11.6 Specimen Performing Laboratory SMS * COMPREHENSIVE METABOLIC PANEL(DBIL NOT INCLUDED) (04/05/2017 2:43 PM) Only the most recent of 2 results within the time period is included. Component Value Ref Range Albumin 3.8 3.4 - 5.0 g/dL Calcium 9.1 8.50 - 10.20 mg/dL CO2 27 21 - 32 mmol/L Chloride 104 98 - 107 mmol/L Creatinine 0.59 (L) 0.60 - 1.30 mg/dL Glucose 97 70 - 99 mg/dL Alk Phos 162 (H) 45 - 117 U/L Potassium 4.2 3.50 - 5.10 mmol/L Sodium 140 136 - 145 mmol/L ALT 37 12 - 78 U/L AST 40 (H) 15 - 37 U/L Urea Nitrogen 13 7 - 18 mg/dL T Bilirubin 0.4 0.2 - 1.0 mg/dL T Protein 7.6 6.4 - 8.2 g/dL GFR, Estimated >60 mL/min/1.73 m2 GFR, Estim, Afr-Am >60 mL/min/1.73 m2 Anion Gap 9 Specimen Performing Laboratory Blood MISYS * CBC/DIFF (04/05/2017 2:43 PM) Only the most recent of 4 results within the time period is included. Component Value Ref Range WBC 10.7 4.5 - 11.0 K/uL RBC 4.89 4.20 - 5.40 M/uL Hemoglobin 13.3 12.0 - 16.0 g/dL Hematocrit 46.0 37.0 - 47.0 % MCV 94 (H) 82 - 92 fL MCH 27.2 27.0 - 32.0 pg MCHC 28.9 (L) 32.0 - 36.0 g/dL RDW 46.8 (H) 36.4 - 46.3 fL Platelet 300 150 - 400 K/uL Mean Platelet Volume 11.3 9.4 - 12.4 fL Percent NRBC 0.0 Absolute NRBC 0.00 Neutrophil 57.0 34.0 - 70.0 % Lymphocyte 34.6 20.0 - 50.0 % Monocyte 6.7 5.0 - 12.0 % Eosinophil 0.7 0.7 - 5.0 % Basophil 0.5 0.1 - 1.2 % Pct Immat Gran 0.5 0.0 - 0.5 Neutrophil, Abs 6.10 1.56 - 6.13 K/uL Lymphocyte, Abs 3.69 1.18 - 3.74 K/uL Monocyte, Abs 0.71 (H) 0.24 - 0.36 K/uL Eosinophil, Abs 0.07 0.04 - 0.36 K/uL Basophil, Abs 0.05 0.01 - 0.08 K/uL Absol Immat Gran 0.05 (H) 0.00 - 0.03 K/uL Specimen Performing Laboratory Blood MISYS * 12 LEAD EKG (04/05/2017 1:58 PM) Only the most recent of 4 results within the time period is included. 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1965 Requested By: Order Number: [id number] CORTÉS: Sonu Miller Measurements Intervals [place] Rate: 78 P:10 MS: 154QRS :-13 QRSD: 101T: 30 QT: 379 QTc:432 Interpretive Statements SINUS RHYTHM LOW QRS VOLTAGE IN PRECORDIAL LEADS [QRS DEFLECTION < 1.0 mV IN CHEST LEADS] POOR R WAVE PROGRESSION NON SPECIFIC T WAVE ABNORMALITY ABNORMAL ECG Electronically Signed On 04-07-17 14:20:19 BRISTLE MACHINE OPERATOR by Sonu Miller Specimen Performing Laboratory SMS * BMP POC (01/25/2017 11:43 AM) Component Value Ref Range TCO2 POC 26 21 - 32 mmol/L Chloride POC 106 98 - 107 mmol/L Potassium POC 3.4 (L) 3.50 - 5.10 mmol/L Sodium POC 139 136 - 145 mmol/L Glucose POC 138 (H) 74 - 106 mg/dL Urea Nitrogen POC 11 7 - 18 mg/dL Creatinine POC 0.7 0.6 - 1.3 mg/dL Ionized Calcium POC 0.99 (L) 1.15 - 1.29 mmol/L GFR, Estimated >60 mL/min/1.73 m2 GFR, Estim, Afr-Am >60 mL/min/1.73 m2 Specimen Performing Laboratory MISYS * XRAY CHEST 2 VIEWS (01/25/2017 11:25 AM) Only the most recent of 2 results within the time period is included. Specimen Performing Laboratory SMS Impressions IMPRESSION: Elevation of the right hemidiaphragm with linear opacity of the right midlung suggestive of volume loss and scarring, unchanged. No acute thoracic abnormality. A "PRELIMINARY" report was made available via [employer] at the time of dictation by the resident indicated below. If the report is "FINALIZED" it indicates that the attending/staff radiologist has reviewed the images and agrees with the resident's interpretation. Dictated By: Shabbir Latham DO, 01/25/2017 1:38 PM I have reviewed the study and agree with the findings in this report. Signed By: Tushar Gonzalez MD, 01/25/2017 4:28 PM Narrative EXAMINATION:XRAY CHEST 2 VIEWS INDICATION: chest pain, h/o CHF COMPARISON:Chest x-ray 12/29/2016. FINDINGS:PA and lateral views TUBES and LINES:Median sternotomy wires are intact. HEART AND MEDIASTINUM:The cardiomediastinal silhouette is unremarkable. LUNGS:Linear scarring overlying the right midlung, unchanged since previous exam.Lungs are clear. There is no evidence of pneumonia or pulmonary edema. Unchanged elevation of the right hemidiaphragm. PLEURA:No pleural effusion or pneumothorax. BONES AND SOFT TISSUES:No acute osseous lesion. Mild degenerative changes of the thoracic spine. Soft tissues are unremarkable. UPPER ABDOMEN: No free air under the diaphragm. Cholecystectomy clips are seen in the right upper quadrant. Procedure Note Interface, Rad/Mammog In - 01/25/2017 4:33 PM BRISTLE MACHINE OPERATOR EXAMINATION: XRAY CHEST 2 VIEWS INDICATION: chest pain, [...] A "PRELIMINARY" report was made available via [employer] at the time of dictation by the resident indicated below. If the report is "FINALIZED" it indicates that the attending/staff radiologist has reviewed the images and agrees with the resident's interpretation. Dictated By: Shabbir Latham DO, 01/25/2017 1:38 PM I have reviewed the study and agree with the findings in this report. Signed By: Tushar Gonzalez MD, 01/25/2017 4:28 PM * B NATRIURETIC PEPT (01/25/2017 11:25 AM) Only the most recent of 2 results within the time period is included. Component Value Ref Range B Natriuretic Pept 100 0 - 100 pg/mL Specimen Performing Laboratory Blood MISYS * MAGNESIUM (01/25/2017 11:25 AM) Component Value Ref Range Magnesium 2.1 1.8 - 2.4 mg/dL Specimen Performing Laboratory Blood MISYS * GLUCOSE POC (12/31/2016 7:19 AM) Only the most recent of 7 results within the time period is included. Component Value Ref Range Glucose POC 140 (H) 74 - 106 mg/dL Specimen Performing Laboratory MISYS * BASIC METABOLIC PANEL (12/31/2016 5:00 AM) Only the most recent of 3 results within the time period is included. Component Value Ref Range CO2 29 21 - 32 mmol/L Chloride 102 98 - 107 mmol/L Potassium 4.1 3.50 - 5.10 mmol/L Sodium 140 136 - 145 mmol/L Glucose 112 (H) 70 - 99 mg/dL Urea Nitrogen 15 7 - 18 mg/dL Creatinine 0.63 0.60 - 1.30 mg/dL Anion Gap 9 Calcium 9.0 8.50 - 10.20 mg/dL GFR, Estimated >60 mL/min/1.73 m2 GFR, Estim, Afr-Am >60 mL/min/1.73 m2 Specimen Performing Laboratory Blood MISYS * UA CHEMISTRIES (12/30/2016 4:05 PM) Only the most recent of 2 results within the time period is included. Component Value Ref Range Color [place]te Clarity Hazy Spec [place] 1.028 1.001 - 1.035 pH 5.0 5 - 8 Protein 1+ (A) NEG Glucose Negative NEG Ketone Trace (A) NEG Bilirubin Negative NEG Nitrate Negative NEG Urobilinogen <1.0 0.2 - 1.0 EU/dL Leukocyte Negative NEG Blood Negative NEG RBC 1 0 - 4 /HPF WBC 2 0 - 5 /HPF Epithelial Cell 8 /HPF Mucous Present Specimen Performing Laboratory MISYS * TRANSTHORACIC ECHO (TTE) (12/30/2016 8:50 AM) Component Value Ref Range TRANSTHORACIC ECHO (TTE) Transthoracic Echo Report MARILEE SULLIVAN Age:51 Gender: F :1965 Exam Date: 12/30/2016 08:50 Exam Location: [facility] Echo Ordering Phys: ETIENNE ANDERS Referring Phys: Reading Phys:Sarah Carter Fellow Phys: Fellow Phys: Handle Lathe Operator: Vinh Munoz Reason For Exam: Indications:Chest Pain ICD-9 Codes: R06.89 Exam Type: Transthoracic Echo Procedure CPT:78620 Addtional CPT: Ht (in): 63 BSA: 2.35HR: [...] 22 - 52 cm DOPPLER AV Peak Fbzsrumn162 cm/s AV Peak Gradient4.3 mmHg AV Mean Zhrhsueo54.8 cm/s AV Mean Gradient3 mmHg AV Velocity Time Integral 19.8 cm LVOT Peak Qvkfengd48 cm/s LVOT Peak Gradient3.2 mmHg LVOT Mean Ghfdznol29.6 cm/s LVOT Mean Gradient2 mmHg LVOT Velocity Time Integral 16 cm LVOT Stroke Gfqxfa65.4 cm AV Area Cont Eq vti 2.8 cm AV Area Cont Eq pk3 cm Mitral E Point Velocity 70.3 cm/s Mitral A Point Velocity 80.5 cm/s Mitral E to A Ratio 0.87 MV Deceleration [place] 260 cm/s MV Pressure Half Time 79 ms MV Area PHT 2.8 cm PV Peak Dbmgxhsq27.7 cm/s PV Peak Gradient2.2 mmHg RVOT Peak Vnynkztr81 cm/s RVOT Peak Gradient0.96 mmHg LV E' Lateral Velocity7.8 cm/s Mitral E to LV E' Lateral Ratio 9 LV E' Septal Velocity 6 cm/s Mitral E to LV E' Septal Ratio11.8 FINDINGS Left Ventricle The left ventricle is normal in size. Normal LV wall thickness. LV systolic function is hyperdynamic. LVEF is >70%. [...] 22 - 52 cm DOPPLER AV Peak Siggxovt269 cm/s AV Peak Gradient4.3 mmHg AV Mean Lwhgelcy50.8 cm/s AV Mean Gradient3 mmHg AV Velocity Time Integral 19.8 cm LVOT Peak Vesfruic82 cm/s LVOT Peak Gradient3.2 mmHg LVOT Mean Qsfhgsab83.6 cm/s LVOT Mean Gradient2 mmHg LVOT Velocity Time Integral 16 cm LVOT Stroke Ckrlql42.4 cm AV Area Cont Eq vti 2.8 cm AV Area Cont Eq pk3 cm Mitral E Point Velocity 70.3 cm/s Mitral A Point Velocity 80.5 cm/s Mitral E to A Ratio 0.87 MV Deceleration [place] 260 cm/s MV Pressure Half Time 79 ms MV Area PHT 2.8 cm PV Peak Eppddxuq25.7 cm/s PV Peak Gradient2.2 mmHg RVOT Peak Jooloyzs69 cm/s RVOT Peak Gradient0.96 mmHg LV E' Lateral Velocity7.8 cm/s Mitral E to LV E' Lateral Ratio 9 LV E' Septal Velocity 6 cm/s Mitral E to LV E' Septal Ratio11.8 Specimen Performing Laboratory SMS * RAPID INFLUENZA SCREEN (12/30/2016 3:40 AM) Component Value Ref Range Spec Description Nasopharyngeal swab Order Comments None Direct Exam Negative for Influenza A and B by EIA Report Status Final 12/30/2016 Specimen Performing Laboratory Nasopharyngeal - MISYS Nasopharyngeal Swab * MYOGLOBIN, SER (12/30/2016 2:00 AM) Only the most recent of 2 results within the time period is included. Component Value Ref Range Myoglobin, Ser 33 14 - 106 ng/mL Specimen Performing Laboratory Blood MISYS * TROPONIN I (12/30/2016 2:00 AM) Only the most recent of 2 results within the time period is included. Component Value Ref Range Troponin I <0.015 0.000 - 0.045 ng/mL Specimen Performing Laboratory Blood MISYS * CK, TOTAL (12/30/2016 2:00 AM) Only the most recent of 2 results within the time period is included. Component Value Ref Range CK, Total 84 30 - 200 U/L Comment: CKMB not performed if CK <100, if CKMB is required, please notify laboratory immediately. Specimen Performing Laboratory Blood MISYS * HEP A VIRUS AB IGG (12/29/2016 9:34 PM) Component Value Ref Range Hep A Vir Ab IgG Positive (A) NEG Specimen Performing Laboratory [facility] * SYPHILIS SCREEN FOR INFECTION (12/29/2016 9:34 PM) Component Value Ref Range Treponemal Ab Negative Final Report Negative Specimen Performing Laboratory M[facility] * HEP BE AB (12/29/2016 9:34 PM) Component Value Ref Range Hep Be Ab Negative Reference range: Negative Specimen Performing Laboratory Blood MISYS * HEP B COR AB TOT (12/29/2016 9:34 PM) Component Value Ref Range Hep B Cor Ab Tot Negative NEG Specimen Performing Laboratory Blood MISYS * CKMB, REFLEX (12/29/2016 9:34 PM) Component Value Ref Range CK-MB 1.4 0.0 - 3.6 ng/mL CKMB Index 1.4 0 - 2.5 Specimen Performing Laboratory MIS[facility] * HEP B AB AG (12/29/2016 9:34 PM) Component Value Ref Range HBsAg Negative NEG Specimen Performing Laboratory Blood MISYS * PTT (12/29/2016 9:34 PM) Component Value Ref Range PTT 36.5 (H) 23.6 - 36.4 Seconds Specimen Performing Laboratory Blood MIS[facility] * PT/INR (12/29/2016 9:34 PM) Component Value Ref Range PT 12.8 11.8 - 15.0 Seconds INR 1.0 SUGGESTED THERAPEUTIC RANGES: INR 2.0-3.0 for MODERATE INTENSITY ANTICOAGULATION INR 2.5-3.5 for HIGH INTENSITY ANTICOAGULATION Specimen Performing Laboratory Blood MISYS * CALCIUM, IONIZED (12/29/2016 9:34 PM) Component Value Ref Range Calcium, Ionized 1.08 (L) 1.15 - 1.29 mmol/L Specimen Performing Laboratory Blood MISYS * HEP C VIR AB IGG (12/29/2016 9:34 PM) Component Value Ref Range HCV IgG Negative NEG Specimen Performing Laboratory Blood MIS[facility] * DIGOXIN (12/29/2016 9:34 PM) Component Value Ref Range Digoxin 0.9 0.80 - 2.00 ng/mL Specimen Performing Laboratory M[facility] * HEP A VIR AB IGM (12/29/2016 9:34 PM) Component Value Ref Range HAV, IgM Negative NEG Specimen Performing Laboratory Blood MISYS * URINE DRUG SCREEN (12/29/2016 9:17 PM) Component Value Ref Range Amphetamine Negative NEG Comment: Calibrated Standard: D-Methamphetamine Positive if urine level >ik=9968 ng/mL Barbiturate Negative NEG Comment: Calibrated Standard: Secobarbital Positive if urine level is >cx=318 ng/mL Benzodiazepine Negative NEG Comment: Calibrated Standard: Lormethazepam Positive if urine level is >gy=191 ng/mL Cannabinoid Negative NEG Comment: Calibrated Standard: 11 nor-delta(9)-THC carboxylic a Positive if urine level >or=50 Cocaine Negative NEG Comment: Calibrated Standard: Benzoylecgonine Positive if urine level >bu=236 Opiate, Ur Negative NEG Comment: Calibrated Standard: Morphine Positive if urine level >uj=307 PCP Negative NEG Comment: Calibrated Standard: Phencyclidine Positive if urine level >or=25 Urine Toxicology Screen results are to be used only for Medical purposes. Specimen Performing Laboratory Urine MISYS * BMP POC (12/29/2016 4:12 PM) Component Value Ref Range CO2 POC 27 21 - 32 mmol/L Chloride POC 105 98 - 107 mmol/L Potassium POC 5.2 (H) 3.50 - 5.10 mmol/L Sodium POC 141 136 - 145 mmol/L Glucose POC 115 (H) 74 - 106 mg/dL Urea Nitrogen POC 17 7 - 18 mg/dL Creatinine POC 0.8 0.6 - 1.3 mg/dL Calcium Ionized POC 1.03 (L) 1.15 - 1.29 mmol/L Hemoglobin POC 16.7 (H) 12.0 - 16.0 g/dL Hematocrit POC 49.0 (H) 37.0 - 47.0 % GFR, Estimated >60 mL/min/1.73 m2 GFR, Estim, Afr-Am >60 mL/min/1.73 m2 Specimen Performing Laboratory MISYS * TROPONIN I POC (12/29/2016 4:10 PM) Component Value Ref Range Troponin POC 0.00 0.00 - 0.08 ng/mL Specimen Performing Laboratory M[facility] * HEMOGLOBIN A1C (11/27/2016 8:56 AM) Component Value Ref Range Hemoglobin A1c 7.2 (H) 4.3 - 6.1 % Est Average Gluc 159.9 mg/dL Specimen Performing Laboratory Blood MISYS * LIVER PROFILE (11/27/2016 8:56 AM) Component Value Ref Range T Protein 7.2 6.4 - 8.2 g/dL Albumin 3.8 3.4 - 5.0 g/dL T Bilirubin 0.5 0.2 - 1.0 mg/dL Alk Phos 129 (H) 45 - 117 U/L AST 57 (H) 15 - 37 U/L ALT 67 12 - 78 U/L D Bilirubin 0.2 0.0 - 0.2 mg/dL Specimen Performing Laboratory Blood MISYS * LIPID PROFILE (11/27/2016 8:56 AM) Component Value Ref Range Cholesterol 172 <200 mg/dL Comment: REFERENCE RANGE: Desirable: <200 mg/dL Borderline: 200-240 mg/dL High Risk: >240 mg/dL Triglyceride 105 <150 mg/dL Comment: REFERENCE RANGE: Normal: <150 mg/dL Borderline High: 150-199 mg/dL High: 200-499 mg/dL Very High: >pj=221 mg/dL HDL 65 (H) 40 - 60 mg/dL Comment: Increased CHD risk: <40 mg/dL Decreased CHD risk: >60 mg/dL LDL 86 mg/dL Comment: REFERENCE RANGE: Optimal: <100 mg/dL Near Optimal: 100-129 mg/dL Borderline High: 130-159 mg/dL High: 160-189 mg/dL Very High: >ie=852 mg/dL Specimen Performing Laboratory Blood MISYS after 09/28/2016
--- OUTSIDE RECORDS SUMMARY | 2018-10-21 09:54 | XMS REPORT | Clinical Summary ---
Author Author [facility] Organization [facility] Address Unknown Phone Unavailable Care Team Providers Care Retail Buyer Name Role Phone Dario Sabillon MD PCP [...] unspecified location fluticasone (FLONASE) 50 Use 1 [place] in each 16 g 0 05/29/19 Active [...] 18 ued Cough. Miscellaneous Medical by [facility] [place].(Non-Drug; Combo 1 Each 0 10/30/19 04/05/19 Discontin [...] bronchitis, unspecified organism Miscellaneous Medical by [facility] [place].(Non-Drug; Combo 1 Each 0 02/27/20 04/05/19 Discontin [...] from Dr. Paola Burden. Pending approval from control operator. 05/30/12 - approved by Dr. James Valdez for outsourcing @ [facility]. Physician order, demographics & clinical information faxed to [facility]. Date & time: 2012 @ 10:30 am. 06/17/12 - received MRI report today & being placed in the Media tab of this record. Dr. Burden/Margarita García included in the e-mail. Images to be placed in PACS as soon as obtained from [facility]. Faith Molina RN # [id number] S/P laparoscopic cholecystectomy 10/05/2008 Bronchopulmonary aspergillosis Resolved [...] current use of insulin 05/12/2017 Same Day [facility] Loren Gregg NP Acute bronchitis, unspecified organism (Primary Dx); Cough; Type 2 diabetes mellitus without complication, without long-term current use of insulin 05/03/2017 Office Visit Cardiology Amarilis Aggarwal MD Partial anomalous pulmonary venous return (PAPVR) (Primary Dx); ASD (atrial septal defect), sinus venosus defect; Pulmonary hypertension 04/27/2017 Hospital Amarilis Aggarwal MD Encounter 04/23/2017 Refill [facility] Dario Sabillon III, MD Type 2 diabetes [...] - 01/19/2013; Shortness of breath 03/26/2017 Refill [facility] Dario Sabillon III, MD Mild intermittent asthma with acute exacerbation 02/26/2017 Orders Only [facility] Dario Sabillon III, MD Chronic congestive heart failure, unspecified congestive heart failure type (Primary Dx) 02/24/2017 Clinical Case Social Work Isrrael Dukes RN Mgt 02/23/2017 Office Visit [facility] Dario Sabillon III, MD Type 2 diabetes mellitus without complication, without long-term current use of insulin (Primary Dx); Gastroesophageal reflux disease without esophagitis; Chronic congestive heart failure, unspecified congestive heart failure type; Mild intermittent asthma with acute exacerbation; Acute bronchitis, unspecified organism; Sleep apnea, unspecified type; Hypokalemia; Hyperlipidemia, unspecified hyperlipidemia type 02/19/2017 Refill [facility] Ankita Cox Physician Chronic congestive heart failure, unspecified congestive heart failure type 01/25/2017 Ancillary Radiology Dario Sabillon III, MD Procedure 01/25/2017 Office Visit Family [facility] Ankita Cox Physician Chronic congestive heart [...] Rosi Duran, Chest pain in adult - [facility], (Primary Dx); 12/31/2016 MD Caridad Chronic congestive heart failure, unspecified congestive heart failure type; ASD (atrial septal defect), sinus venosus defect - 01/19/2013 11/30/2016 Telephone [facility] Tori Ruiz, Information Only [facility]TER 11/23/2016 Office Visit [facility] Dario Sabillon III, MD Type 2 diabetes mellitus Yael Galeana NP without complication, without long-term current use of insulin (Primary Dx); Need for Tdap vaccination; Chronic congestive heart failure, unspecified congestive heart failure type; Mild intermittent asthma with acute exacerbation; Rib pain on right side 11/13/2016 Office Visit [facility] Deepthi Johns MD Moderate persistent asthma with acute exacerbation (Primary Dx); Hearing loss of left ear due to cerumen impaction; Dysfunction of eustachian tube, left 10/29/2016 Office Visit [facility] Dario Sabillon III, MD Acute on chronic congestive heart failure, unspecified congestive heart failure type (Primary Dx); Asthma exacerbation; Sleep-related breathing disorder; Obstructive sleep apnea; Type 2 diabetes mellitus without complication, without long-term current use of insulin 10/23/2016 [facility] Heidi Joseph NP Rib pain on right side (Primary Dx) 10/01/2016 Office Visit Pulmonology Dario Slater MD Asthmatic bronchitis, severe persistent, with acute exacerbation (Primary Dx); Asthma exacerbation; SOB (shortness of breath); Rib pain on right side; Chest wall pain; Obstructive sleep apnea syndrome after 09/26/2016 Immunizations Name Dates Previously Given Next Due [...] LD Diet Decrease tea intake by No Duncan, half Yael Radha, LD Diet Have 3 meals a day + HS No Sharmaine, Snack Yael Radha, 3 portion controlled, low LD sodium meals + 1 HS snack Procedures Procedure Name Priority Date/Time Associated Diagnosis Comments THRPY PROPH/DX INJ Routine 11/13/2016 Moderate persistent INTRAMUSCLR 11:06 AM CDT asthma with acute exacerbation after 09/26/2016 Results * DIABETIC FOOT EXAM (05/28/2017 7:09 [...] AM) Component Value Ref Range Stress Test [facility] Test Date:2017-04-27 Pat Name: MARILEE SULLIVAN Department: : Gender: Female Rural Route Carrier: XANDER :1965 Requested By: Order Number: [id number] [...] myocardial ischemia. Electronically Signed On 04-27-17 18:18:36 EAP CONSULTANT by Sonu Miller Specimen Performing Laboratory SMS * TTE FOLLOW UP (04/15/2017 10:51 AM) Component Value Ref Range ECHO HEART Transthoracic XTHORACIC,LIMITED Echo Report MARILEE SULLIVAN Age:51 Gender: F :1965 Exam Date: 04/15/2017 10:51 Exam Location: [facility] Echo Ordering Phys: AMARILIS AGGARWAL Referring Phys:AMARILIS AGGARWAL Reading Phys:Luis M Goodson MD Fellow Phys: Fellow Phys: Charge Account Authorizer: Michelle Barreto Reason For Exam: Indications:dyspnea ICD-9 Codes: Exam Type: TTE FOLLOW UP Procedure CPT:71152 Addtional CPT: Ht (in): 63 BSA: 2.38HR: [...] 22 - 52 cm DOPPLER AV Peak Wxmiinwi497 cm/s AV Peak Gradient8.6 mmHg AV Mean Gkxolsbo87.3 cm/s AV Mean Gradient4.2 mmHg AV Velocity Time Integral 30.7 cm LVOT Peak Yfuymsyg663 cm/s LVOT Peak Gradient5.5 mmHg LVOT Mean Binmvwpd49.3 cm/s LVOT Mean Gradient2.9 mmHg LVOT Velocity Time Integral 26.3 cm LVOT Stroke Dtmmvz53.1 cm AV Area Cont Eq vti 2.9 cm AV Area Cont Eq pk2.7 cm Mitral E Point Velocity 94.1 cm/s Mitral A Point Velocity 116 cm/s Mitral E to A Ratio 0.81 MV Deceleration Motley 399 cm/s MV Deceleration Mkon172 ms TR Peak Qtcingps524 cm/s TR Peak Lzmhvzvi17.8 mmHg PV Peak Ueajljwa16.1 cm/s PV Peak Gradient3.9 mmHg PV Mean Cdzivwue49.7 cm/s PV Mean Gradient2.3 mmHg PV Velocity Time Integral 20.6 cm LV E' Lateral Csmimsku69.2 cm/s Mitral E to LV E' Lateral [...] 22 - 52 cm DOPPLER AV Peak Emhqurwh616 cm/s AV Peak Gradient8.6 mmHg AV Mean Asvthhlw31.3 cm/s AV Mean Gradient4.2 mmHg AV Velocity Time Integral 30.7 cm LVOT Peak Xovgjbme189 cm/s LVOT Peak Gradient5.5 mmHg LVOT Mean Nxyujntx21.3 cm/s LVOT Mean Gradient2.9 mmHg LVOT Velocity Time Integral 26.3 cm LVOT Stroke Ypisza94.1 cm AV Area Cont Eq vti 2.9 cm AV Area Cont Eq pk2.7 cm Mitral E Point Velocity 94.1 cm/s Mitral A Point Velocity 116 cm/s Mitral E to A Ratio 0.81 MV Deceleration Motley 399 cm/s MV Deceleration Wiie433 ms TR Peak Kssnhyot208 cm/s TR Peak Lvwhdarl01.8 mmHg PV Peak Nsclksde36.1 cm/s PV Peak Gradient3.9 mmHg PV Mean Crdhmryb59.7 cm/s PV Mean Gradient2.3 mmHg PV Velocity Time Integral 20.6 cm LV E' Lateral Xcivpnhp55.2 cm/s Mitral E to LV E' Lateral [...] Value Ref Range 12 LEAD EKG FOR [facility] Test Date:2017-04-05 Pat Name: MARILEE SULLIVAN Department: : 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: [id number] :1965 Requested By: Order Number: [id number] CORTÉS: Sonu Miller Measurements Intervals [place] Rate: 78 P:10 FL: 154QRS :-13 QRSD: 101T: 30 QT: 379 QTc:432 Interpretive Statements SINUS RHYTHM LOW QRS VOLTAGE IN PRECORDIAL LEADS [QRS DEFLECTION < 1.0 mV IN CHEST LEADS] POOR R WAVE PROGRESSION NON SPECIFIC T WAVE ABNORMALITY ABNORMAL ECG Electronically Signed On 04-07-17 14:20:19 EAP CONSULTANT by Sonu Miller Specimen Performing Laboratory SMS [...] A "PRELIMINARY" report was made available via [employer] at the time of dictation by the [...] Interface, Rad/Mammog In - 01/25/2017 4:33 PM EAP CONSULTANT EXAMINATION: XRAY CHEST 2 VIEWS INDICATION: chest [...] A "PRELIMINARY" report was made available via [employer] at the time of dictation by the [...] Ref Range Color Juliette Clarity Hazy Spec [place] 1.028 1.001 - 1.035 pH 5.0 5 [...] :1965 Exam Date: 12/30/2016 08:50 Exam Location: [facility] Echo Ordering Phys: ETIENNE ANDERS Referring Phys: Reading Phys:Sarah Carter Fellow Phys: Fellow Phys: Charge Account Authorizer: Vinh Munoz Reason For Exam: Indications:Chest Pain ICD-9 Codes: R06.89 Exam Type: Transthoracic Echo Procedure CPT:43783 Addtional CPT: Ht (in): 63 BSA: 2.35HR: [...] 22 - 52 cm DOPPLER AV Peak Nzwknaqb488 cm/s AV Peak Gradient4.3 mmHg AV Mean Fgzmxmeo84.8 cm/s AV Mean Gradient3 mmHg AV Velocity Time Integral 19.8 cm LVOT Peak Xjrrkpbh62 cm/s LVOT Peak Gradient3.2 mmHg LVOT Mean Sjldtsdg33.6 cm/s LVOT Mean Gradient2 mmHg LVOT Velocity Time Integral 16 cm LVOT Stroke Rhhtqn62.4 cm AV Area Cont Eq vti 2.8 cm AV Area Cont Eq pk3 cm Mitral E Point Velocity 70.3 cm/s Mitral A Point Velocity 80.5 cm/s Mitral E to A Ratio 0.87 MV Deceleration Motley 260 cm/s MV Pressure Half Time 79 ms MV Area PHT 2.8 cm PV Peak Ydksvoab38.7 cm/s PV Peak Gradient2.2 mmHg RVOT Peak Bybndyeh11 cm/s RVOT Peak Gradient0.96 mmHg LV E' [...] 22 - 52 cm DOPPLER AV Peak Fflemziv139 cm/s AV Peak Gradient4.3 mmHg AV Mean Wovyyxfs42.8 cm/s AV Mean Gradient3 mmHg AV Velocity Time Integral 19.8 cm LVOT Peak Vfcgtayl93 cm/s LVOT Peak Gradient3.2 mmHg LVOT Mean Ozdcrgdx57.6 cm/s LVOT Mean Gradient2 mmHg LVOT Velocity Time Integral 16 cm LVOT Stroke Cweyvr04.4 cm AV Area Cont Eq vti 2.8 cm AV Area Cont Eq pk3 cm Mitral E Point Velocity 70.3 cm/s Mitral A Point Velocity 80.5 cm/s Mitral E to A Ratio 0.87 MV Deceleration Motley 260 cm/s MV Pressure Half Time 79 ms MV Area PHT 2.8 cm PV Peak Kejkfhbc45.7 cm/s PV Peak Gradient2.2 mmHg RVOT Peak Xguttshv25 cm/s RVOT Peak Gradient0.96 mmHg LV E' [...] Calibrated Standard: D-Methamphetamine Positive if urine level >cr=1456 ng/mL Barbiturate Negative NEG Comment: Calibrated Standard: Secobarbital Positive if urine level is >hd=353 ng/mL Benzodiazepine Negative NEG Comment: Calibrated Standard: Lormethazepam Positive if urine level is >vk=325 ng/mL Cannabinoid Negative NEG Comment: Calibrated Standard: 11 nor-delta(9)-THC carboxylic a Positive if urine level >or=50 Cocaine Negative NEG Comment: Calibrated Standard: Benzoylecgonine Positive if urine level >hi=678 Opiate, Ur Negative NEG Comment: Calibrated Standard: Morphine Positive if urine level >wz=414 PCP Negative NEG Comment: Calibrated Standard: Phencyclidine [...] 150-199 mg/dL High: 200-499 mg/dL Very High: >ob=208 mg/dL HDL 65 (H) 40 - 60 mg/dL Comment: Increased CHD risk: <40 mg/dL Decreased CHD risk: >60 mg/dL LDL 86 mg/dL Comment: REFERENCE RANGE: Optimal: <100 mg/dL Near Optimal: 100-129 mg/dL Borderline High: 130-159 mg/dL High: 160-189 mg/dL Very High: >tt=858 mg/dL Specimen Performing Laboratory Blood MISYS after 09/26/2016
--- OUTSIDE RECORDS SUMMARY | 2018-10-21 09:55 | XMS REPORT | Clinical Summary ---
Author Author [facility] Organization [facility] Address Unknown Phone Unavailable Care Team Providers Care Electronics Warfare Technician Name Role Phone Dario Sabillon MD PCP [...] unspecified location fluticasone (FLONASE) 50 Use 1 [place] in each 16 g 0 05/29/19 Active [...] FOR HEART 18 Chronic congestive heart failure azelastine (OPTIVAR) 0.05 Instill 1 Drop in each 6 mL 5 10/28/19 04/05/19 Discontin % ophthalmic eye 2 times daily. 16 18 ued solutionIndications: Other chronic allergic conjunctivitis blood glucose (PRECISION use 2 times weekly [...] 17 18 ued Cough. Miscellaneous Medical by [facility] [place]Non-Drug; Combo 1 Each 0 10/30/19 04/05/19 Discontin [...] Acute bronchitis, unspecified organism Miscellaneous Medical by [facility] [place]Non-Drug; Combo 1 Each 0 02/27/20 04/05/19 Discontin [...] Date Status Other Facility Date Administered Medication albuterol (PROVENTIL) 2.5 2.5 mg IN ONCE [...] from Dr. Paola Burden. Pending approval from scout sniper. 05/30/12 - approved by Dr. James Valdez for outsourcing @ [facility]. Physician order, demographics & clinical information faxed to [facility]. Date & time: 2012 @ 10:30 am. 06/17/12 - received MRI report today & being placed in the Media tab of this record. Dr. Burden/Margarita García included in the e-mail. Images to be placed in PACS as soon as obtained from [facility]. Faith Molina RN # [id number] S/P laparoscopic cholecystectomy 10/05/2008 Bronchopulmonary aspergillosis Resolved [...] Type Specialty Care Team Description 09/21/2017 Refill [facility] Dario Sabillon III, MD Chronic congestive heart failure 07/06/2017 Telephone [facility] Faith Giles, RN Information Only 07/02/2017 Clinical Case Social Work Manoj Jackeline Mgmargaret 07/02/2017 Telephone [facility] Faith Giles, RN Information Only 05/28/2017 [facility] Loren Gregg NP Acute sinusitis, recurrence not specified, unspecified location (Primary Dx); Bilateral acute serous otitis media, recurrence not specified; Cough; Type 2 diabetes mellitus without complication, without long-term current use of insulin 05/12/2017 [facility] Loren Gregg NP Acute bronchitis, unspecified organism (Primary Dx); Cough; Type 2 diabetes mellitus without complication, without long-term current use of insulin 05/03/2017 Office Visit Cardiology Amarilis Aggarwal MD Partial anomalous pulmonary venous return (PAPVR) (Primary Dx); ASD (atrial septal defect), sinus venosus defect; Pulmonary hypertension 04/27/2017 Hospital Amarilis Aggarwal MD Encounter 04/23/2017 Refill [facility] Dario Sabillon III, MD Type 2 diabetes mellitus without complication, without long-term current use of insulin 04/15/2017 Amarilis Callejas MD Encounter 04/05/2017 Hospital Lab Dario Sabillon III, MD Palpitations; Encounter ASD (atrial septal defect), sinus venosus defect - 01/19/2013; Shortness of breath 04/05/2017 Office Visit Amarilis Augustine MD Palpitations (Primary Dx); ASD (atrial septal defect), sinus venosus defect - 01/19/2013; Shortness of breath 04/05/2017 Orders Only Cardiology Amarilis Aggarwal MD Palpitations; ASD (atrial septal defect), sinus venosus defect - 01/19/2013; Shortness of breath 03/26/2017 Refill [facility] Dario Sabillon III, MD Mild intermittent asthma with acute exacerbation 02/26/2017 Orders Only [facility] Dario Sabillon III, MD Chronic congestive heart failure, unspecified congestive heart failure type (Primary Dx) 02/24/2017 Clinical Case Social Work Isrrael Dukes, RN Mgt 02/23/2017 Office Visit [facility] Dario Sabillon III, MD Type 2 diabetes mellitus without complication, without long-term current use of insulin (Primary Dx); Gastroesophageal reflux disease without esophagitis; Chronic congestive heart failure, unspecified congestive heart failure type; Mild intermittent asthma with acute exacerbation; Acute bronchitis, unspecified organism; Sleep apnea, unspecified type; Hypokalemia; Hyperlipidemia, unspecified hyperlipidemia type 02/19/2017 Refill [facility] Ankita Cox, Physician Chronic congestive heart failure, unspecified congestive heart failure type 01/25/2017 Ancillary Radiology Dario Sabillon III, MD Procedure 01/25/2017 Office Visit [facility] Ankita Cox, Physician Chronic congestive heart failure, unspecified congestive heart failure type (Primary Dx); Flu vaccine need; Controlled type 2 diabetes mellitus without complication, without long-term current use of insulin; Hospital discharge follow-up; Bilateral leg edema; Chest pain, unspecified type 01/06/2017 Telephone Cardiology [place] Appointment Related Questions (pt needs appt with neil ) 12/31/2016 Pharmacy Visit 12/29/2016 Emergency Rosi Duran DO Chest pain in adult - [facility], (Primary Dx); 12/31/2016 MD Keiko Chronic congestive heart failure, unspecified congestive heart failure type; ASD (atrial septal defect), sinus venosus defect - 01/19/2013 11/30/2016 Telephone [facility] Tori Ruiz, Information Only 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 11/23/2016 Office Visit [facility] Dario Sabillon III, MD Type 2 diabetes mellitus Yael Galeana NP without complication, without long-term current use of insulin (Primary Dx); Need for Tdap vaccination; Chronic congestive heart failure, unspecified congestive heart failure type; Mild intermittent asthma with acute exacerbation; Rib pain on right side 11/13/2016 Office Visit [facility] Deepthi Johns MD Moderate persistent asthma with acute exacerbation (Primary Dx); Hearing loss of left ear due to cerumen impaction; Dysfunction of eustachian tube, left 10/29/2016 Office Visit Family Practice Dario Sabillon III, MD Acute on chronic congestive heart failure, unspecified congestive heart failure type (Primary Dx); Asthma exacerbation; Sleep-related breathing disorder; Obstructive sleep apnea; Type 2 diabetes mellitus without complication, without long-term current use of insulin after 10/28/2016 Immunizations Name Dates Previously Given Next Due [...] Diet Reduce salt intake to 2 No [place], grams per day or less Yael Radha, LD Diet Decrease tea intake by No [place], half Yael Radha, LD Diet Have 3 meals a day + HS No [place], Snack Yael Radha, 3 portion controlled, low LD sodium meals + 1 HS snack Procedures Procedure Name Priority Date/Time Associated Diagnosis Comments DIABETIC FOOT EXAM Routine 05/28/2017 Type 2 diabetes mellitus Results for this 7:09 PM CDT without complication, procedure are in the without long-term current results section. use of insulin POC RAPID FLU Routine 05/12/2017 Cough Results for this 2:15 PM DIGITAL MARKETING ASSOCIATE procedure are in the results section. POC GROUP A STREP SCREEN Routine 05/12/2017 Cough Results for this 2:11 PM DIGITAL MARKETING ASSOCIATE procedure are in the results section. DIABETIC FOOT EXAM Routine 05/12/2017 Type 2 diabetes mellitus Results for this 1:57 PM DIGITAL MARKETING ASSOCIATE without complication, procedure are in the without long-term current results section. use of insulin TREADMILL STRESS-TRACING Routine 04/27/2017 Palpitations Results for this ONLY 8:43 AM DIGITAL MARKETING ASSOCIATE ASD (atrial septal procedure are in the defect), sinus venosus results section. defect - 01/19/2013 Shortness of breath TTE FOLLOW UP Routine 04/15/2017 Palpitations Results for this 10:51 AM DIGITAL MARKETING ASSOCIATE ASD (atrial septal procedure are in the defect), sinus venosus results section. defect - 01/19/2013 Shortness of breath CBC/DIFF Routine 04/05/2017 Palpitations Results for this 2:43 PM DIGITAL MARKETING ASSOCIATE ASD (atrial septal procedure are in the defect), sinus venosus results section. defect - 01/19/2013 Shortness of breath COMPREHENSIVE METABOLIC Routine 04/05/2017 Palpitations Results for this PANEL(DBIL NOT INCLUDED) 2:43 PM DIGITAL MARKETING ASSOCIATE ASD (atrial septal procedure are in the defect), sinus venosus results section. defect - 01/19/2013 Shortness of breath 12 LEAD EKG Routine 04/05/2017 Palpitations Results for this 1:58 PM DIGITAL MARKETING ASSOCIATE procedure are in the results section. 12 LEAD EKG Routine 01/25/2017 Chest pain, unspecified Results for this 11:51 AM DIGITAL MARKETING ASSOCIATE type procedure are in the results section. BMP POC Routine 01/25/2017 Results for this 11:43 AM DIGITAL MARKETING ASSOCIATE procedure are in the results section. XRAY CHEST 2 VIEWS CLEMENTINE 01/25/2017 Chest pain, unspecified Results for this 11:25 AM DIGITAL MARKETING ASSOCIATE type procedure are in the results section. MAGNESIUM Routine 01/25/2017 Chronic congestive heart Results for this 11:25 AM DIGITAL MARKETING ASSOCIATE failure, unspecified procedure are in the congestive heart failure results section. type CBC/DIFF Routine 01/25/2017 Chronic congestive heart Results for this 11:25 AM DIGITAL MARKETING ASSOCIATE failure, unspecified procedure are in the congestive heart failure results section. type B NATRIURETIC PEPT Routine 01/25/2017 Chronic congestive heart Results for this 11:25 AM DIGITAL MARKETING ASSOCIATE failure, unspecified procedure are in the congestive heart failure results section. type GLUCOSE POC Routine 12/31/2016 Results for this 7:19 AM CDT procedure are in the results section. BASIC METABOLIC PANEL Routine 12/31/2016 Results for this 5:00 AM CDT procedure are in the results section. GLUCOSE POC Routine 12/30/2016 Results for this 8:39 PM CDT procedure are in the results section. UA CHEMISTRIES Routine 12/30/2016 Results for this 4:05 PM CDT procedure are in the results section. GLUCOSE POC Routine 12/30/2016 Results for this 4:03 PM CDT procedure are in the results section. GLUCOSE POC Routine 12/30/2016 Results for this 11:16 AM CDT procedure are in the results section. TRANSTHORACIC ECHO (TTE) 12/30/2016 Results for this 8:50 AM CDT procedure are in the results section. GLUCOSE POC Routine 12/30/2016 Results for this 7:12 AM CDT procedure are in the results section. UA CHEMISTRIES Routine 12/30/2016 Results for this 3:50 AM CDT procedure are in the results section. RAPID INFLUENZA SCREEN Routine 12/30/2016 Results for this 3:40 AM CDT procedure are in the results section. 12 LEAD EKG Routine 12/30/2016 Results for this 2:30 AM CDT procedure are in the results section. CBC/DIFF Routine 12/30/2016 Results for this 2:00 AM CDT procedure are in the results section. BASIC METABOLIC PANEL Routine 12/30/2016 Results for this 2:00 AM CDT procedure are in the results section. MYOGLOBIN, SER Routine 12/30/2016 Results for this 2:00 AM CDT procedure are in the results section. TROPONIN I Routine 12/30/2016 Results for this 2:00 AM CDT procedure are in the results section. CK, TOTAL Routine 12/30/2016 Results for this 2:00 AM CDT procedure are in the results section. CKMB, REFLEX Routine 12/29/2016 Results for this 9:34 PM CDT procedure are in the results section. DIGOXIN Routine 12/29/2016 Results for this 9:34 PM CDT procedure are in the results section. SYPHILIS SCREEN FOR Routine 12/29/2016 Results for this INFECTION 9:34 PM CDT procedure are in the results section. HEP C VIR AB IGG Routine 12/29/2016 Results for this 9:34 PM CDT procedure are in the results section. HEP BE AB Routine 12/29/2016 Results for this 9:34 PM CDT procedure are in the results section. HEP B AB AG Routine 12/29/2016 Results for this 9:34 PM CDT procedure are in the results section. HEP B COR AB TOT Routine 12/29/2016 Results for this 9:34 PM CDT procedure are in the results section. HEP A VIRUS AB IGG Routine 12/29/2016 Results for this 9:34 PM CDT procedure are in the results section. HEP A VIR AB IGM Routine 12/29/2016 Results for this 9:34 PM CDT procedure are in the results section. MYOGLOBIN, SER Routine 12/29/2016 Results for this 9:34 PM CDT procedure are in the results section. TROPONIN I Routine 12/29/2016 Results for this 9:34 PM CDT procedure are in the results section. CK, TOTAL Routine 12/29/2016 Results for this 9:34 PM CDT procedure are in the results section. B NATRIURETIC PEPT Routine 12/29/2016 Results for this 9:34 PM CDT procedure are in the results section. PTT Routine 12/29/2016 Results for this 9:34 PM CDT procedure are in the results section. PT/INR Routine 12/29/2016 Results for this 9:34 PM CDT procedure are in the results section. CALCIUM, IONIZED Routine 12/29/2016 Results for this 9:34 PM CDT procedure are in the results section. COMPREHENSIVE METABOLIC Routine 12/29/2016 Results for this PANEL(DBIL NOT INCLUDED) 9:34 PM CDT procedure are in the results section. URINE DRUG SCREEN Routine 12/29/2016 Results for this 9:17 PM CDT procedure are in the results section. GLUCOSE POC Routine 12/29/2016 Results for this 8:50 PM CDT procedure are in the results section. XRAY CHEST 2 VIEWS STAT 12/29/2016 Chest pain in adult Results for this 4:35 PM CDT procedure are in the results section. BMP POC Routine 12/29/2016 Results for this 4:12 PM CDT procedure are in the results section. TROPONIN I POC Routine 12/29/2016 Results for this 4:10 PM CDT procedure are in the results section. CBC/DIFF STAT 12/29/2016 Results for this 4:06 PM CDT procedure are in the results section. 12 LEAD EKG Routine 12/29/2016 Results for this 2:09 PM CDT procedure are in the results section. GLUCOSE POC Routine 12/29/2016 Results for this 2:03 PM CDT procedure are in the results section. LIVER PROFILE Routine 11/27/2016 Type 2 diabetes mellitus Results for this 8:56 AM CDT without complication, procedure are in the without long-term current results section. use of insulin LIPID PROFILE Routine 11/27/2016 Type 2 diabetes mellitus Results for this 8:56 AM CDT without complication, procedure are in the without long-term current results section. use of insulin HEMOGLOBIN A1C Routine 11/27/2016 Type 2 diabetes mellitus Results for this 8:56 AM CDT without complication, procedure are in the without long-term current results section. use of insulin BASIC METABOLIC PANEL Routine 11/27/2016 Type 2 diabetes mellitus Results for this 8:56 AM CDT without complication, procedure are in the without long-term current results section. use of insulin DIABETIC FOOT EXAM Routine 11/23/2016 Type 2 diabetes mellitus Results for this 5:01 PM CDT without complication, procedure are in the without long-term current results section. use of insulin THRPY PROPH/DX INJ Routine 11/13/2016 Moderate persistent INTRAMUSCLR 11:06 AM CDT asthma with acute exacerbation after 10/28/2016 Results * DIABETIC FOOT EXAM (05/28/2017 7:09 PM) Only the most recent of 3 results within the time period is included. Narrative Performed At Loren Gregg NP 05/28/20177:14 PM Diabetic Foot Exam was performed at 05/28/2017 7:10 PM.Right foot sensation is normal, right foot pulses are normal, right foot appearance is normal.Left foot sensation is normal,left foot pulses are normal, left foot appearance is normal. 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 Electronically Signed On 04-27-17 18:18:36 DIGITAL MARKETING ASSOCIATE by Sonu Miller Performing Organization Address City/State/Zipcode Phone Number SMS * TTE FOLLOW UP (04/15/2017 10:51 AM) ECHO HEART Transthoracic SMS XTHORACIC,LIMITED Echo Report MARILEE SULLIVAN Age:51 Gender: F :1965 Exam Date: 04/15/2017 10:51 Exam Location: [facility] Echo Ordering Phys: AMARILIS AGGARWAL Referring Phys:AMARILIS AGGARWAL Reading Phys:Luis M Goodson MD Fellow Phys: Fellow Phys: Early Morning: Michelle Barreto Reason For Exam: Indications: dyspnea ICD-9 Codes: Exam Type: TTE FOLLOW UP Procedure CPT:00126 Addtional CPT: Ht (in): 63 BSA: 2.38HR: Rhythm: Sinus rhythm Wt (lb): 265BP: 131/ 71 Technical Quality: Very technically difficult study History: MEASUREMENTS(Male / Female) Normal Values 2D ECHO LV Diastolic Diameter PLAX4.2 cm 4.2 - 5.9 / 3.9 - 5.3 cm LV Systolic Diameter PLAX 2.7 cm 2.1 - 4.0 cm LV Fractional Shortening PLAX 35.1 % 25 - 46% IVS Diastolic Thickness 0.9 cm IVS Systolic Thickness 1.3 cm LVPW Diastolic Thickness0 .93 cm LVPW Systolic Thickness 1.3 cm LV Relative Wall Thickness0.44 LVOT Diameter 2.1 cm Aortic Root Diameter 3.3 cm LA Volume 61.2 cm 18 - 58 / 22 - 52 cm DOPPLER AV Peak Velocity 146 cm/s AV Peak Gradient 8.6 mmHg AV Mean Velocity 96.3 cm/s AV Mean Gradient 4.2 mmHg AV Velocity Time Integral 30.7 cm LVOT Peak Velocity 117 cm/s LVOT Peak Gradient 5.5 mmHg LVOT Mean Velocity 78.3 cm/s LVOT Mean Gradient 2.9 mmHg LVOT Velocity Time Integral 26.3 cm LVOT Stroke Volume 90.1 cm AV Area Cont Eq vti 2.9 cm AV Area Cont Eq pk 2.7 cm Mitral E Point Velocity 94.1 cm/s Mitral A Point Velocity 116 cm/s Mitral E to A Ratio 0.81 MV Deceleration [place] 399 cm/s MV Deceleration Time 236 ms TR Peak Velocity 286 cm/s TR Peak Gradient 32.8 mmHg PV Peak Velocity 99.1 cm/s PV Peak Gradient 3.9 mmHg PV Mean Velocity 72.7 cm/s PV Mean Gradient 2.3 mmHg PV Velocity Time Integral 20.6 cm LV E' Lateral Velocity 14.2 cm/s Mitral E to LV E' Lateral [...] abnormalities noted. Compared to the prior study date12/30/16, no significant changes but both studies are technically limited. Luis M Goodson MD (Electronically Signed) Final Date:15 April 2017 14:00 2D ECHO LV Diastolic Diameter PLAX4.2 cm 4.2 - 5.9 / 3.9 - 5.3 cm LV Systolic Diameter PLAX 2.7 cm 2.1 - 4.0 cm LV Fractional Shortening PLAX 35.1 % 25 - 46% IVS Diastolic Thickness 0.9 cm IVS Systolic Thickness 1.3 cm LVPW Diastolic Thickness0 .93 cm LVPW Systolic Thickness 1.3 cm LV Relative Wall Thickness0.44 LVOT Diameter 2.1 cm Aortic Root Diameter 3.3 cm LA Volume 61.2 cm 18 - 58 / 22 - 52 cm DOPPLER AV Peak Velocity 146 cm/s AV Peak Gradient 8.6 mmHg AV Mean Velocity 96.3 cm/s AV Mean Gradient 4.2 mmHg AV Velocity Time Integral 30.7 cm LVOT Peak Velocity 117 cm/s LVOT Peak Gradient 5.5 mmHg LVOT Mean Velocity 78.3 cm/s LVOT Mean Gradient 2.9 mmHg LVOT Velocity Time Integral 26.3 cm LVOT Stroke Volume 90.1 cm AV Area Cont Eq vti 2.9 cm AV Area Cont Eq pk 2.7 cm Mitral E Point Velocity 94.1 cm/s Mitral A Point Velocity 116 cm/s Mitral E to A Ratio 0.81 MV Deceleration [place] 399 cm/s MV Deceleration Time 236 ms TR Peak Velocity 286 cm/s TR Peak Gradient 32.8 mmHg PV Peak Velocity 99.1 cm/s PV Peak Gradient 3.9 mmHg PV Mean Velocity 72.7 cm/s PV Mean Gradient 2.3 mmHg PV Velocity Time Integral 20.6 cm LV E' Lateral Velocity 14.2 cm/s Mitral E to LV E' Lateral Ratio 6.6 LV E' Septal Velocity 8.1 cm/s Mitral E to LV E' Septal Ratio11.6 Performing Organization Address [facility] Phone Number SMS * COMPREHENSIVE METABOLIC PANEL(DBIL NOT INCLUDED) (04/05/2017 2:43 PM) Only the most recent of 2 results within the time period is included. Albumin 3.8 3.4 - 5.0 g/dL [facility] Calcium 9.1 8.50 - 10.20 mg/dL [facility] CO2 27 21 - 32 mmol/L [facility] Chloride 104 98 - 107 mmol/L [facility] Creatinine 0.59 (L) 0.60 - 1.30 mg/dL [facility] Glucose 97 70 - 99 mg/dL [facility] Alk Phos 162 (H) 45 - 117 U/L [facility] Potassium 4.2 3.50 - 5.10 mmol/L [facility] Sodium 140 136 - 145 mmol/L [facility] ALT 37 12 - 78 U/L [facility] AST 40 (H) 15 - 37 U/L [facility] Urea Nitrogen 13 7 - 18 mg/dL [facility] T Bilirubin 0.4 0.2 - 1.0 mg/dL [facility] T Protein 7.6 6.4 - 8.2 g/dL [facility] GFR, Estimated >60 mL/min/1.73 m2 [facility] GFR, Estim, Afr-Am >60 mL/min/1.73 m2 [facility] Anion Gap 9 [facility] Specimen Blood Performing Organization Address [facility] Phone Number [facility] * CBC/DIFF (04/05/2017 2:43 PM) Only the most recent of 4 results within the time period is included. WBC 10.7 4.5 - 11.0 K/uL [facility] RBC 4.89 4.20 - 5.40 M/uL [facility] Hemoglobin 13.3 12.0 - 16.0 g/dL [facility] 2 Hematocrit 46.0 37.0 - 47.0 % [facility] 2 MCV 94 (H) 82 - 92 fL [facility] MCH 27.2 27.0 - 32.0 pg [facility] 2 MCHC 28.9 (L) 32.0 - 36.0 g/dL [facility] 2 RDW 46.8 (H) 36.4 - 46.3 fL [facility] 2 Platelet 300 150 - 400 K/uL [facility] 2 Mean Platelet Volume 11.3 9.4 - 12.4 fL [facility] 2 Percent NRBC 0.0 [facility] 2 Absolute NRBC 0.00 [facility] 2 Neutrophil 57.0 34.0 - 70.0 % [facility] 2 Lymphocyte 34.6 20.0 - 50.0 % [facility] Monocyte 6.7 5.0 - 12.0 % [facility] Eosinophil 0.7 0.7 - 5.0 % [facility] Basophil 0.5 0.1 - 1.2 % [facility] Pct Immat Gran 0.5 0.0 - 0.5 [facility] Neutrophil, Abs 6.10 1.56 - 6.13 K/uL [facility] Lymphocyte, Abs 3.69 1.18 - 3.74 K/uL [facility] Monocyte, Abs 0.71 (H) 0.24 - 0.36 K/uL [facility] Eosinophil, Abs 0.07 0.04 - 0.36 K/uL [facility] Basophil, Abs 0.05 0.01 - 0.08 K/uL [facility] 2 Absol Immat Gran 0.05 (H) 0.00 - 0.03 K/uL [facility] 2 Specimen Blood Performing Organization Address City/State/Zipcode Phone Number MISYS [facility] * 12 LEAD EKG (04/05/2017 1:58 PM) [address] 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 :[birth year] Requested By: Order Number: Dasha conner MD: Sonu Miller Measurements Intervals [place] Rate: 78 P:10 MA: 154 QRS: -13 QRSD: 101 T: 30 QT: 379 QTc:432 Interpretive Statements SINUS RHYTHM LOW QRS VOLTAGE IN PRECORDIAL LEADS [QRS DEFLECTION < 1.0 mV IN CHEST LEADS] POOR R WAVE PROGRESSION NON SPECIFIC T WAVE ABNORMALITY ABNORMAL ECG Electronically Signed On 04-07-17 14:20:19 DIGITAL MARKETING ASSOCIATE by Sonu Miller Performing Organization Address City/[facility] Phone Number [facility] * 12 LEAD EKG (01/25/2017 11:51 AM) 12 LEAD EKG FOR [facility] Test Date:2017-01-25 Pat Name: MARILEE SULLIVAN Department: Room: Gender: 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 Measurements Intervals [place] Rate: 78 P:-3 MA: 138 QRS: -8 QRSD: 80 T:16 QT: 368 QTc:419 Interpretive Statements Normal sinus rhythm Normal ECG Electronically Signed On 01-25-17 18:59:32 [employer]ITAL MARKETING ASSOCIATE by Paola Burden M.D. Performing Organization Address City/[facility] Phone Number [facility] * BMP POC (01/25/2017 11:43 AM) TCO2 POC 26 21 - 32 mmol/L [facility] Chloride POC 106 98 - 107 mmol/L [facility] Potassium POC 3.4 (L) 3.50 - 5.10 mmol/L [facility] Sodium POC 139 136 - 145 mmol/L [facility] Glucose POC 138 (H) 74 - 106 mg/dL [facility] Urea Nitrogen POC 11 7 - 18 mg/dL [facility] Creatinine POC 0.7 0.6 - 1.3 mg/dL [facility] Ionized Calcium POC 0.99 (L) 1.15 - 1.29 mmol/L [facility] GFR, Estimated >60 mL/min/1.73 m2 [facility] GFR, Estim, Afr-Am >60 mL/min/1.73 m2 [facility] Performing Organization Address City/State/Zipcode Phone Number ANOOP [facility] * XRAY CHEST 2 VIEWS (01/25/2017 11:25 AM) Only the most recent of 2 results within the time period is included. Impressions Performed At IMPRESSION: SMS Elevation of the right hemidiaphragm with linear opacity of the right midlung suggestive of volume loss and scarring, unchanged. No acute thoracic abnormality. A "PRELIMINARY" report was made available via Helpa at the time of dictation by the resident indicated below. If the report is "FINALIZED" it indicates that the attending/staff radiologist has reviewed the images and agrees with the resident's interpretation. Dictated By: Shabbir Latham DO, 01/25/2017 1:38 PM I have reviewed the study and agree with the findings in this report. Signed By: Tushar Gonzalez MD, 01/25/2017 4:28 PM Narrative Performed At EXAMINATION:XRAY CHEST 2 VIEWS SMS INDICATION: chest pain, h/o CHF COMPARISON:Chest x-ray [...] Interface, Rad/Mammog In - 01/25/2017 4:33 PM DIGITAL MARKETING ASSOCIATE EXAMINATION: XRAY CHEST 2 VIEWS INDICATION: chest [...] A "PRELIMINARY" report was made available via Helpa at the time of dictation by the resident indicated below. If the report is "FINALIZED" it indicates that the attending/staff radiologist has reviewed the images and agrees with the resident's interpretation. Dictated By: Shabbir Latham DO, 01/25/2017 1:38 PM I have reviewed the study and agree with the findings in this report. Signed By: Tushar Gonzalez MD, 01/25/2017 4:28 PM Performing Organization Address [facility] Phone Number SMS * B NATRIURETIC PEPT (01/25/2017 11:25 AM) Only the most recent of 2 results within the time period is included. B Natriuretic Pept 100 0 - 100 pg/mL [facility]IN-ST[facility] 3 Specimen Blood Performing Organization Address [facility] Phone Number MISYS [facility]-ST[facility] 3 * MAGNESIUM (01/25/2017 11:25 AM) Magnesium 2.1 1.8 - 2.4 mg/dL [facility]-ST[facility] 3 Specimen Blood Performing Organization Address [facility] Phone Number [facility] 3 * GLUCOSE POC (12/31/2016 7:19 AM) Only the most recent of 7 results within the time period is included. Glucose POC 140 (H) 74 - 106 mg/dL [facility] MAIN-STATION 1 Performing Organization Address [facility] Phone Number MISYS [facility] MAIN-STATION 1 * BASIC METABOLIC PANEL (12/31/2016 5:00 AM) Only the most recent of 3 results within the time period is included. CO2 29 21 - 32 mmol/L [facility] Chloride 102 98 - 107 mmol/L [facility] Potassium 4.1 3.50 - 5.10 mmol/L [facility] Sodium 140 136 - 145 mmol/L [facility] Glucose 112 (H) 70 - 99 mg/dL [facility] Urea Nitrogen 15 7 - 18 mg/dL [facility] Creatinine 0.63 0.60 - 1.30 mg/dL [facility] Anion Gap 9 [facility] Calcium 9.0 8.50 - 10.20 mg/dL [facility] GFR, Estimated >60 mL/min/1.73 m2 [facility] GFR, Estim, Afr-Am >60 mL/min/1.73 m2 [facility] Specimen Blood Performing Organization Address City/[facility] Phone Number [facility] * UA CHEMISTRIES (12/30/2016 4:05 PM) Only the most recent of 2 results within the time period is included. Color Juliette [facility] 2 Clarity Hazy [facility] 2 Spec [place] 1.028 1.001 - 1.035 [facility] 2 pH 5.0 5 - 8 [facility] 2 Protein 1+ (A) NEG [facility] 2 Glucose Negative NEG [facility] 2 Ketone Trace (A) NEG [facility] 2 Bilirubin Negative NEG [facility] 2 Nitrate Negative NEG [facility] 2 Urobilinogen <1.0 0.2 - 1.0 EU/dL [facility] 2 Leukocyte Negative NEG [facility] 2 Blood Negative NEG [facility] 2 RBC 1 0 - 4 /HPF [facility] 2 WBC 2 0 - 5 /HPF [facility] 2 Epithelial Cell 8 /HPF [facility] 2 Mucous Present [facility] 2 Performing Organization Address [facility] Phone Number MISYS [facility] * TRANSTHORACIC ECHO (TTE) (12/30/2016 8:50 AM) TRANSTHORACIC ECHO (TTE) Transthoracic SMS Echo Report LAURIEMARILEE Age:51 Gender: F :1965 Exam Date: 12/30/2016 08:50 Exam Location: [facility] Echo Ordering Phys: KEIKO ANDERS Referring Phys: Reading Phys:Sarah Carter Fellow Phys: Fellow Phys: Early Morning: Vinh Munoz Reason For Exam: Indications: Chest Pain ICD-9 Codes: R06.89 Exam Type: Transthoracic Echo Procedure CPT:73562 Addtional CPT: Ht (in): 63 BSA: 2.35HR: 93 Rhythm: Sinus rhythm Wt (lb): 259BP: 125/ 85 Technical Quality: Technically difficult study History: Previous history of ASD, s/p repair, now chest pain and possible CHF MEASUREMENTS(Male / Female) Normal Values 2D ECHO LV Diastolic Diameter PLAX4.6 cm 4.2 - 5.9 / 3.9 - 5.3 cm LV Systolic Diameter PLAX 2.5 cm 2.1 - 4.0 cm LV Fractional Shortening PLAX 44.9 % 25 - 46% IVS Diastolic Thickness 0.92 cm IVS Systolic Thickness 1.3 cm LVPW Diastolic Thickness0 .92 cm LVPW Systolic Thickness 1.6 cm LV Relative Wall Thickness0.4 LVOT Diameter 2.1 cm Aortic Root Diameter 3.3 cm LA Systolic Diameter LX 4 cm 3.0 - 4.0 / 2.7 - 3.8 cm LA Ao Ratio 1.2 LA Area 4C View 12 cm <=20 cm LA Length 4C 1.1 cm LA Area 2C View 11.3 cm <=20 cm LA Length 2C 0.97 cm LA Volume MOD 2C 21.9 cm 18 - 58 / 22 - 52 cm LA Volume MOD 4C 26.7 cm 18 - 58 / 22 - 52 cm DOPPLER AV Peak Velocity 104 cm/s AV Peak Gradient 4.3 mmHg AV Mean Velocity 78.8 cm/s AV Mean Gradient 3 mmHg AV Velocity Time Integral 19.8 cm LVOT Peak Velocity 90 cm/s LVOT Peak Gradient 3.2 mmHg LVOT Mean Velocity 56.6 cm/s LVOT Mean Gradient 2 mmHg LVOT Velocity Time Integral 16 cm LVOT Stroke Volume 55.4 cm AV Area Cont Eq vti 2.8 cm AV Area Cont Eq pk 3 cm Mitral E Point Velocity 70.3 cm/s Mitral A Point Velocity 80.5 cm/s Mitral E to A Ratio 0.87 MV Deceleration [place] 260 cm/s MV Pressure Half Time 79 ms MV Area PHT 2.8 cm PV Peak Velocity 74.7 cm/s PV Peak Gradient 2.2 mmHg RVOT Peak Velocity 49 cm/s RVOT Peak Gradient 0.96 mmHg LV E' Lateral Velocity 7.8 cm/s Mitral E to LV E' Lateral [...] 10:57 2D ECHO LV Diastolic Diameter PLAX4.6 cm 4.2 - 5.9 / 3.9 - 5.3 cm LV Systolic Diameter PLAX 2.5 cm 2.1 - 4.0 cm LV Fractional Shortening PLAX 44.9 % 25 - 46% IVS Diastolic Thickness 0.92 cm IVS Systolic Thickness 1.3 cm LVPW Diastolic Thickness0 .92 cm LVPW Systolic Thickness 1.6 cm LV Relative Wall Thickness0.4 LVOT Diameter 2.1 cm Aortic Root Diameter 3.3 cm LA Systolic Diameter LX 4 cm 3.0 - 4.0 / 2.7 - 3.8 cm LA Ao Ratio 1.2 LA Area 4C View 12 cm <=20 cm LA Length 4C 1.1 cm LA Area 2C View 11.3 cm <=20 cm LA Length 2C 0.97 cm LA Volume MOD 2C 21.9 cm 18 - 58 / 22 - 52 cm LA Volume MOD 4C 26.7 cm 18 - 58 / 22 - 52 cm DOPPLER AV Peak Velocity 104 cm/s AV Peak Gradient 4.3 mmHg AV Mean Velocity 78.8 cm/s AV Mean Gradient 3 mmHg AV Velocity Time Integral 19.8 cm LVOT Peak Velocity 90 cm/s LVOT Peak Gradient 3.2 mmHg LVOT Mean Velocity 56.6 cm/s LVOT Mean Gradient 2 mmHg LVOT Velocity Time Integral 16 cm LVOT Stroke Volume 55.4 cm AV Area Cont Eq vti 2.8 cm AV Area Cont Eq pk 3 cm Mitral E Point Velocity 70.3 cm/s Mitral A Point Velocity 80.5 cm/s Mitral E to A Ratio 0.87 MV Deceleration [place] 260 cm/s MV Pressure Half Time 79 ms MV Area PHT 2.8 cm PV Peak Velocity 74.7 cm/s PV Peak Gradient 2.2 mmHg RVOT Peak Velocity 49 cm/s RVOT Peak Gradient 0.96 mmHg LV E' Lateral Velocity 7.8 cm/s Mitral E to LV E' Lateral Ratio 9 LV E' Septal Velocity 6 cm/s Mitral E to LV E' Septal Ratio11.8 Performing Organization Address City/[facility] Phone Number [facility] * RAPID INFLUENZA SCREEN (12/30/2016 3:40 AM) Spec Description Nasopharyngeal swab [facility] Order Comments None [facility] Direct Exam Negative for [facility] Influenza A and B by EIA Report Status Final 12/30/2016 [facility]CRO[facility] Specimen Nasopharyngeal - Nasopharyngeal Swab Performing Organization Address City/[facility] Phone Number MISYS [facility] MAIN-STATION 1 J MAIN-STATION 2 J MICROBIOLOG[facility] * 12 LEAD EKG (12/30/2016 2:30 AM) 12 LEAD [facility] Test Date:2016-12-30 Pat Name: MARILEE SULLIVAN Department: Room: 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 Requested By: Order Number: Dasha conner MD: Sonu Miller Measurements Intervals [place] Rate: 69 P:6 MA: 161 QRS: -13 QRSD: 99 T:27 QT: 382 QTc:411 Interpretive Statements SINUS RHYTHM LOW QRS VOLTAGE IN PRECORDIAL LEADS [QRS DEFLECTION < 1.0 mV IN CHEST LEADS] PATTERN CONSISTENT WITH PULMONARY DISEASE POOR R WAVE PROGRESSION ABNORMAL ECG Electronically Signed On 12-31-16 19:10:32 CDT by Sonu Miller Performing Organization Address [facility] Phone Number SMS * MYOGLOBIN, SER (12/30/2016 2:00 AM) Only the most recent of 2 results within the time period is included. Myoglobin, Ser 33 14 - 106 ng/mL [facility] 3 Specimen Blood Performing Organization Address [facility] Phone Number [facility] 3 * TROPONIN I (12/30/2016 2:00 AM) Only the most recent of 2 results within the time period is included. Troponin I <0.015 0.000 - 0.045 ng/mL [facility] MAIN-STATION 1 Specimen Blood Performing Organization Address [facility] Phone Number [facility]IN-STATION 1 * CK, TOTAL (12/30/2016 2:00 AM) Only the most recent of 2 results within the time period is included. CK, Total 84 30 - 200 U/L [facility] MAIN-STATION 1 Comment: CKMB not performed if CK <100, if CKMB is required, please notify laboratory immediately. Specimen Blood Performing Organization Address [facility] Phone Number MISYS [facility]IN-STATION 1 * HEP A VIRUS AB IGG (12/29/2016 9:34 PM) Hep A Vir Ab IgG Positive (A) NEG [facility]IN[facility]STATION 4 Performing Organization Address [facility] Phone Number [facility]STATION 4 * SYPHILIS SCREEN FOR INFECTION (12/29/2016 9:34 PM) Treponemal Ab Negative [facility] Final Report Negative [facility] Performing Organization Address [facility] Phone Number [facility] * HEP BE AB (12/29/2016 9:34 PM) Hep Be Ab Negative LABORATORY Reference range: Negative [facility] [place] Specimen Blood Performing Organization Address [facility] Phone Number [facility] [address] [place] [address] [place] 145 * HEP B COR AB TOT (12/29/2016 9:34 PM) Hep B Cor Ab Tot Negative NEG [facility]IN-STATION 4 Specimen Blood Performing Organization Address [facility] Phone Number [facility] 4 * CKMB, REFLEX (12/29/2016 9:34 PM) CK-MB 1.4 0.0 - 3.6 ng/mL [facility] MAIN-STATION 2 CKMB Index 1.4 0 - 2.5 [facility] MAIN-STATION 2 Performing Organization Address [facility] Phone Number [facility] MAIN-STATION 2 * HEP B AB AG (12/29/2016 9:34 PM) HBsAg Negative NEG [facility]IN[facility]STATION 4 Specimen Blood Performing Organization Address [facility] Phone Number ANOOP [facility]IN-STATION 4 * PTT (12/29/2016 9:34 PM) PTT 36.5 (H) 23.6 - 36.4 Seconds [facility] MAIN-STATION 2 Specimen Blood Performing Organization Address [facility] Phone Number [facility]IN-STATION 2 * PT/INR (12/29/2016 9:34 PM) PT 12.8 11.8 - 15.0 Seconds [facility] MAIN-STATION 2 INR 1.0 [facility] MAIN-STATION 2 SUGGESTED THERAPEUTIC RANGES: INR 2.0-3.0 for MODERATE INTENSITY ANTICOAGULATION INR 2.5-3.5 for HIGH INTENSITY ANTICOAGULATION Specimen Blood Performing Organization Address [facility] Phone Number [facility] MAIN-STATION 2 * CALCIUM, IONIZED (12/29/2016 9:34 PM) Calcium, Ionized 1.08 (L) 1.15 - 1.29 mmol/L [facility] MAIN-STATION 2 Specimen Blood Performing Organization Address [facility] Phone Number [facility] MAIN-STATION 2 * HEP C VIR AB IGG (12/29/2016 9:34 PM) HCV IgG Negative NEG MAIN-STATION 4 Specimen Blood Performing Organization Address [facility] Phone Number [facility] 4 * DIGOXIN (12/29/2016 9:34 PM) Digoxin 0.9 0.80 - 2.00 ng/mL [facility] MAIN-STATION 2 Performing Organization Address [facility] Phone Number [facility] MAIN-STATION 2 * HEP A VIR AB IGM (12/29/2016 9:34 PM) HAV, IgM Negative NEG [facility]IN-STATION 4 Specimen Blood Performing Organization Address [facility] Phone Number [facility] * URINE DRUG SCREEN (12/29/2016 9:17 PM) Amphetamine Negative NEG [facility] MAIN-STATION 2 Comment: Calibrated Standard: D-Methamphetamine Positive if urine level >xm=0468 ng/mL Barbiturate Negative NEG [facility] MAIN-STATION 2 Comment: Calibrated Standard: Secobarbital Positive if urine level is >jd=359 ng/mL Benzodiazepine Negative NEG [facility] MAIN-STATION 2 Comment: Calibrated Standard: Lormethazepam Positive if urine level is >ox=390 ng/mL Cannabinoid Negative NEG [facility] MAIN-STATION 2 Comment: Calibrated Standard: 11 nor-delta(9)-THC carboxylic a Positive if urine level >or=50 Cocaine Negative NEG [facility] MAIN-STATION 2 Comment: Calibrated Standard: Benzoylecgonine Positive if urine level >yi=444 Opiate, Ur Negative NEG [facility] MAIN-STATION 2 Comment: Calibrated Standard: Morphine Positive if urine level >kb=047 PCP Negative NEG [facility] MAIN-STATION 2 Comment: Calibrated Standard: Phencyclidine Positive if urine level >or=25 Urine Toxicology Screen results are to be used only for Medical purposes. Specimen Urine Performing Organization Address [facility] Phone Number [facility] MAIN-STATION 2 * BMP POC (12/29/2016 4:12 PM) CO2 POC 27 21 - 32 mmol/L [facility] MAIN-STATION 1 Chloride POC 105 98 - 107 mmol/L [facility] MAIN-STATION 1 Potassium POC 5.2 (H) 3.50 - 5.10 mmol/L [facility] MAIN-STATION 1 Sodium POC 141 136 - 145 mmol/L [facility] MAIN-STATION Glucose POC 115 (H) 74 - 106 mg/dL [facility] MAIN-STATION Urea Nitrogen POC 17 7 - 18 mg/dL [facility] 1 Creatinine POC 0.8 0.6 - 1.3 mg/dL [facility] MAIN-STATION 1 Calcium Ionized POC 1.03 (L) 1.15 - 1.29 mmol/L [facility] MAIN-STATION 1 Hemoglobin POC 16.7 (H) 12.0 - 16.0 g/dL [facility] 1 Hematocrit POC 49.0 (H) 37.0 - 47.0 % [facility] MAIN-STATION 1 GFR, Estimated >60 mL/min/1.73 m2 [facility] MAIN-STATION 1 GFR, Estim, Afr-Am >60 mL/min/1.73 m2 [facility] 1 Performing Organization Address [facility] Phone Number MISYS [facility] MAINSTATION 1 * TROPONIN I POC (12/29/2016 4:10 PM) Troponin POC 0.00 0.00 - 0.08 ng/mL [facility] 1 Performing Organization Address [facility] Phone Number MISYS [facility] 1 * 12 LEAD EKG (12/29/2016 2:09 PM) 12 LEAD EKG FOR CHP [facility] Test Date:2016-12-29 Pat Name: MARILEE SULLIVAN Department: Room: 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 Requested By: Order Number: Dasha conner MD: Sonu Miller Measurements Intervals [place] Rate: 86 P:14 MA: 159 QRS: -27 QRSD: 84 T:37 QT: 345 QTc:413 Interpretive Statements SINUS RHYTHM POSSIBLE LEFT ATRIAL ENLARGEMENT LOW QRS VOLTAGE IN PRECORDIAL LEADS POOR R WAVE PROGRESSION: POSSIBLE ANTERIOR MYOCARDIAL INFARCTION, PROBABLY OLD ABNORMAL ECG Electronically Signed On 12-29-16 18:48:49 CDT by Sonu Miller Performing Organization Address City/[facility] Phone Number [facility] * HEMOGLOBIN A1C (11/27/2016 8:56 AM) Hemoglobin A1c 7.2 (H) 4.3 - 6.1 % [facility] Est Average Gluc 159.9 mg/dL [facility] Specimen Blood Performing Organization Address [facility] Phone Number [facility] * LIVER PROFILE (11/27/2016 8:56 AM) T Protein 7.2 6.4 - 8.2 g/dL [facility]IN-STATION 3 Albumin 3.8 3.4 - 5.0 g/dL [facility]IN-STATION 3 T Bilirubin 0.5 0.2 - 1.0 mg/dL [facility]IN-STATION 3 Alk Phos 129 (H) 45 - 117 U/L [facility]IN-STATION 3 AST 57 (H) 15 - 37 U/L [facility]IN-STATION 3 ALT 67 12 - 78 U/L [facility]IN-STATION 3 D Bilirubin 0.2 0.0 - 0.2 mg/dL [facility]IN-STATION 3 Specimen Blood Performing Organization Address [facility] Phone Number MISYS [facility] MAIN-STATION 3 * LIPID PROFILE (11/27/2016 8:56 AM) Cholesterol 172 <200 mg/dL [facility] MAIN-STATION 3 Comment: REFERENCE RANGE: Desirable: <200 mg/dL Borderline: 200-240 mg/dL High Risk: >240 mg/dL Triglyceride 105 <150 mg/dL [facility] MAIN-STATION 3 Comment: REFERENCE RANGE: Normal: <150 mg/dL Borderline High: 150-199 mg/dL High: 200-499 mg/dL Very High: >yh=781 mg/dL HDL 65 (H) 40 - 60 mg/dL [facility] MAIN-STATION 3 Comment: Increased CHD risk: <40 mg/dL Decreased CHD risk: >60 mg/dL LDL 86 mg/dL [facility] MAIN-STATION 3 Comment: REFERENCE RANGE: Optimal: <100 mg/dL Near Optimal: 100-129 mg/dL Borderline High: 130-159 mg/dL High: 160-189 mg/dL Very High: >sz=900 mg/dL Specimen Blood Performing Organization Address [facility] Phone Number MISYS [facility] MAIN-STATION 3 after 10/28/2016
--- OUTSIDE RECORDS SUMMARY | 2018-10-21 09:55 | XMS REPORT | Clinical Summary ---
Author Author [facility] Organization [facility] Address Unknown Phone Unavailable Care Team Providers Care Mass Spectrometry Manager Name Role Phone Dario Sabillon MD PCP [...] unspecified location fluticasone (FLONASE) 50 Use 1 [place] in each 16 g 0 05/29/19 Active [...] 17 18 ued Cough. Miscellaneous Medical by [facility] [place]Non-D[place]; Combo 1 Each 0 10/30/19 04/05/19 Discontin [...] Acute bronchitis, unspecified organism Miscellaneous Medical by [facility] [place]Non-Drug; Combo 1 Each 0 02/27/20 04/05/19 Discontin [...] Date Status Other Facility Date Administered Medication ketorolac (TORADOL) 30 mg IM ONCE 10/24/19 [...] from Dr. Paola Burden. Pending approval from manager of development. 05/30/12 - approved by Dr. aJmes Valdez for outsourcing @ [facility]. Physician order, demographics & clinical information faxed to [facility]. Date & time: 2012 @ 10:30 am. 06/17/12 - received MRI report today & being placed in the Media tab of this record. Dr. Burden/Margarita García included in the e-mail. Images to be placed in PACS as soon as obtained from [facility]. Faith Molina RN # [id number] S/P laparoscopic cholecystectomy 10/05/2008 Bronchopulmonary aspergillosis Resolved [...] MD Chronic congestive heart failure 07/06/2017 Telephone [facility] Faith Giles, RN Information Only 07/02/2017 Clinical Case Social Work Jackeline Aranda Mgmargaret 07/02/2017 Telephone [facility] Faith Giles, RN Information Only 05/28/2017 [facility] Loren Gregg NP Acute sinusitis, recurrence not specified, unspecified location (Primary Dx); Bilateral acute serous otitis media, recurrence not specified; Cough; Type 2 diabetes mellitus without complication, without long-term current use of insulin 05/12/2017 [facility] Loren Gregg NP Acute bronchitis, unspecified organism (Primary Dx); Cough; Type 2 diabetes mellitus without complication, without long-term current use of insulin 05/03/2017 Office Visit Cardiology Amarilis Aggarwal MD Partial anomalous pulmonary venous return (PAPVR) (Primary Dx); ASD (atrial septal defect), sinus venosus defect; Pulmonary hypertension 04/27/2017 Hospital Amarilis Aggarwal MD Encounter 04/23/2017 Refill [facility] Dario Giordano III, MD Type 2 diabetes mellitus without [...] - 01/19/2013; Shortness of breath 03/26/2017 Refill [facility] Dario Giordano III, MD Mild intermittent asthma with acute exacerbation 02/26/2017 Orders Only [facility] Dario Giordano III, MD Chronic congestive heart failure, unspecified congestive heart failure type (Primary Dx) 02/24/2017 Clinical Case Social Work Isrrael Dukes RN Mgt 02/23/2017 Office Visit [facility] Dario Giordano III, MD Type 2 diabetes mellitus without complication, without long-term current use of insulin (Primary Dx); Gastroesophageal reflux disease without esophagitis; Chronic congestive heart failure, unspecified congestive heart failure type; Mild intermittent asthma with acute exacerbation; Acute bronchitis, unspecified organism; Sleep apnea, unspecified type; Hypokalemia; Hyperlipidemia, unspecified hyperlipidemia type 02/19/2017 Refill [facility] Ankita Robertson Physician Chronic congestive heart failure, unspecified congestive heart failure type 01/25/2017 Ancillary Radiology Dario Sabillon III, MD Procedure 01/25/2017 Office Visit [facility] Ankita Robertson Physician Chronic congestive heart failure, unspecified congestive [...] Rosi Duran, Chest pain in adult - [facility], (Primary Dx); 12/31/2016 MD Caridad Chronic congestive heart failure, unspecified congestive heart failure type; ASD (atrial septal defect), sinus venosus defect - 01/19/2013 11/30/2016 Telephone [facility] Tori Ruiz, Information Only 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 Dario Sabillon III, MD Type 2 diabetes mellitus Yael Galeana NP without complication, without long-term current use of insulin (Primary Dx); Need for Tdap vaccination; Chronic congestive heart failure, unspecified congestive heart failure type; Mild intermittent asthma with acute exacerbation; Rib pain on right side 11/13/[address] [facility] Deepthi Johns MD Moderate persistent asthma with acute exacerbation (Primary Dx); Hearing loss of left ear due to cerumen impaction; Dysfunction of eustachian tube, left 10/29/[address] [facility] Dario Sabillon III, MD Acute on chronic congestive heart failure, unspecified congestive heart failure type (Primary Dx); Asthma exacerbation; Sleep-related breathing disorder; Obstructive sleep apnea; Type 2 diabetes mellitus without complication, without long-term current use of insulin 10/23/[address] [facility] Heidi Joseph NP Rib pain on right side (Primary Dx) after 10/13/2016 Immunizations Name Dates Previously Given Next Due [...] No Sharmaine, grams per day or less JEY Vyas Diet Decrease tea intake by No [place], half JEY Vyas Diet Have 3 meals a day + HS No Sharmaine, Snack Yael Garcia, 3 portion controlled, low LD sodium meals + 1 HS snack Procedures Procedure Name Priority Date/Time Associated Diagnosis Comments THRPY PROPH/DX INJ Routine 11/13/2016 Moderate persistent INTRAMUSCLR 11:06 AM CDT asthma with acute exacerbation after 10/13/2016 Results * DIABETIC FOOT EXAM (05/28/2017 7:09 PM) Only the most recent of 4 results within the time period is included. 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 Electronically Signed On 04-27-17 18:18:36 CASH REGISTER REPAIRER by Sonu Miller Specimen Performing Laboratory SMS * TTE FOLLOW UP (04/15/2017 10:51 AM) Component Value Ref Range ECHO HEART Transthoracic XTHORACIC,LIMITED Echo Report MARILEE SULLIVAN Age:51 Gender: F :1965 Exam Date: 04/15/2017 10:51 Exam Location: [facility] Echo Ordering Phys: AMARILIS AGGARWAL Referring Phys:AMARILIS AGGARWAL Reading Phys:Luis M Goodson MD Fellow Phys: Fellow Phys: Barrel Raiser Helper: Michelle Barreto Reason For Exam: Indications:dyspnea ICD-9 Codes: Exam Type: TTE FOLLOW UP Procedure CPT:78654 Addtional CPT: Ht (in): 63 BSA: 2.38HR: [...] 22 - 52 cm DOPPLER AV Peak Klbanjgy658 cm/s AV Peak Gradient8.6 mmHg AV Mean Jupidpaa23.3 cm/s AV Mean Gradient4.2 mmHg AV Velocity Time Integral 30.7 cm LVOT Peak Eulgbkqv573 cm/s LVOT Peak Gradient5.5 mmHg LVOT Mean Vwdutevt01.3 cm/s LVOT Mean Gradient2.9 mmHg LVOT Velocity Time Integral 26.3 cm LVOT Stroke Vvbmmz14.1 cm AV Area Cont Eq vti 2.9 cm AV Area Cont Eq pk2.7 cm Mitral E Point Velocity 94.1 cm/s Mitral A Point Velocity 116 cm/s Mitral E to A Ratio 0.81 MV Deceleration Potter 399 cm/s MV Deceleration Gsbe722 ms TR Peak Sotzjntk758 cm/s TR Peak Oqvfjfrs11.8 mmHg PV Peak Omhvfpcg62.1 cm/s PV Peak Gradient3.9 mmHg PV Mean Flvpxivc37.7 cm/s PV Mean Gradient2.3 mmHg PV Velocity Time Integral 20.6 cm LV E' Lateral Cnghrmcg48.2 cm/s Mitral E to LV E' Lateral [...] 22 - 52 cm DOPPLER AV Peak Wdlsujti021 cm/s AV Peak Gradient8.6 mmHg AV Mean Dwkbuujs43.3 cm/s AV Mean Gradient4.2 mmHg AV Velocity Time Integral 30.7 cm LVOT Peak Ayzfmlya731 cm/s LVOT Peak Gradient5.5 mmHg LVOT Mean Bzzmcgiy89.3 cm/s LVOT Mean Gradient2.9 mmHg LVOT Velocity Time Integral 26.3 cm LVOT Stroke Yqsssr23.1 cm AV Area Cont Eq vti 2.9 cm AV Area Cont Eq pk2.7 cm Mitral E Point Velocity 94.1 cm/s Mitral A Point Velocity 116 cm/s Mitral E to A Ratio 0.81 MV Deceleration Potter 399 cm/s MV Deceleration Lfpr671 ms TR Peak Nrtggsdh519 cm/s TR Peak Hnocmepk91.8 mmHg PV Peak Zvgwjtoh44.1 cm/s PV Peak Gradient3.9 mmHg PV Mean Yrfybmky54.7 cm/s PV Mean Gradient2.3 mmHg PV Velocity Time Integral 20.6 cm LV E' Lateral Fwnpcbcb83.2 cm/s Mitral E to LV E' Lateral [...] Ref Range 12 LEAD EKG FOR [facility] Test Date:2017-04-05 Pat Name: MARILEE SULLIVAN Department: : 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: 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 :1965 Requested By: Order Number: Reading MD: Sonu Miller Measurements Intervals [place] Rate: 78 P:10 AR: 154QRS :-13 QRSD: 101T: 30 QT: 379 QTc:432 Interpretive Statements SINUS RHYTHM LOW QRS VOLTAGE IN PRECORDIAL LEADS [QRS DEFLECTION < 1.0 mV IN CHEST LEADS] POOR R WAVE PROGRESSION NON SPECIFIC T WAVE ABNORMALITY ABNORMAL ECG Electronically Signed On 04-07-17 14:20:19 CASH REGISTER REPAIRER by Sonu Miller Specimen Performing Laboratory SMS [...] A "PRELIMINARY" report was made available via [employer] at the time of dictation by the [...] Interface, Rad/Mammog In - 01/25/2017 4:33 PM CASH REGISTER REPAIRER EXAMINATION: XRAY CHEST 2 VIEWS INDICATION: chest [...] A "PRELIMINARY" report was made available via [employer] at the time of dictation by the [...] Ref Range Color Juliette Clarity Hazy Spec [place] 1.028 1.001 - 1.035 pH 5.0 5 [...] Range TRANSTHORACIC ECHO (TTE) Transthoracic Echo Report LAURIEMARILEE Age:51 Gender: F :1965 Exam Date: 12/30/2016 08:50 Exam Location: [facility] Echo Ordering Phys: ETIENNE ANDERS Referring Phys: Reading Phys:Sarah Carter Fellow Phys: Fellow Phys: Barrel Raiser Helper: Vinh Munoz Reason For Exam: Indications:Chest Pain ICD-9 Codes: R06.89 Exam Type: Transthoracic Echo Procedure CPT:09852 Addtional CPT: Ht (in): 63 BSA: 2.35HR: [...] 22 - 52 cm DOPPLER AV Peak Gosonuzm361 cm/s AV Peak Gradient4.3 mmHg AV Mean Lbdcdlth67.8 cm/s AV Mean Gradient3 mmHg AV Velocity Time Integral 19.8 cm LVOT Peak Vreghxgo99 cm/s LVOT Peak Gradient3.2 mmHg LVOT Mean Bwxmzrme99.6 cm/s LVOT Mean Gradient2 mmHg LVOT Velocity Time Integral 16 cm LVOT Stroke Qmufut23.4 cm AV Area Cont Eq vti 2.8 cm AV Area Cont Eq pk3 cm Mitral E Point Velocity 70.3 cm/s Mitral A Point Velocity 80.5 cm/s Mitral E to A Ratio 0.87 MV Deceleration Potter 260 cm/s MV Pressure Half Time 79 ms MV Area PHT 2.8 cm PV Peak Yxxxnpre18.7 cm/s PV Peak Gradient2.2 mmHg RVOT Peak Drgugzpw29 cm/s RVOT Peak Gradient0.96 mmHg LV E' [...] 22 - 52 cm DOPPLER AV Peak Iiirqtzc928 cm/s AV Peak Gradient4.3 mmHg AV Mean Wyfqpere38.8 cm/s AV Mean Gradient3 mmHg AV Velocity Time Integral 19.8 cm LVOT Peak Bydqjjnr85 cm/s LVOT Peak Gradient3.2 mmHg LVOT Mean Vtaeqgnw35.6 cm/s LVOT Mean Gradient2 mmHg LVOT Velocity Time Integral 16 cm LVOT Stroke Vcpzci40.4 cm AV Area Cont Eq vti 2.8 cm AV Area Cont Eq pk3 cm Mitral E Point Velocity 70.3 cm/s Mitral A Point Velocity 80.5 cm/s Mitral E to A Ratio 0.87 MV Deceleration Potter 260 cm/s MV Pressure Half Time 79 ms MV Area PHT 2.8 cm PV Peak Zwcevyzt40.7 cm/s PV Peak Gradient2.2 mmHg RVOT Peak Wnfjnadi42 cm/s RVOT Peak Gradient0.96 mmHg LV E' [...] Calibrated Standard: D-Methamphetamine Positive if urine level >un=1532 ng/mL Barbiturate Negative NEG Comment: Calibrated Standard: Secobarbital Positive if urine level is >ja=266 ng/mL Benzodiazepine Negative NEG Comment: Calibrated Standard: Lormethazepam Positive if urine level is >id=572 ng/mL Cannabinoid Negative NEG Comment: Calibrated Standard: 11 nor-delta(9)-THC carboxylic a Positive if urine level >or=50 Cocaine Negative NEG Comment: Calibrated Standard: Benzoylecgonine Positive if urine level >kc=983 Opiate, Ur Negative NEG Comment: Calibrated Standard: Morphine Positive if urine level >bp=788 PCP Negative NEG Comment: Calibrated Standard: Phencyclidine [...] 150-199 mg/dL High: 200-499 mg/dL Very High: >um=950 mg/dL HDL 65 (H) 40 - 60 mg/dL Comment: Increased CHD risk: <40 mg/dL Decreased CHD risk: >60 mg/dL LDL 86 mg/dL Comment: REFERENCE RANGE: Optimal: <100 mg/dL Near Optimal: 100-129 mg/dL Borderline High: 130-159 mg/dL High: 160-189 mg/dL Very High: >hb=262 mg/dL Specimen Performing Laboratory Blood MISYS after 10/13/2016
--- OUTSIDE RECORDS SUMMARY | 2018-10-21 09:56 | XMS REPORT | Clinical Summary ---
Author Author [facility] Organization [facility] Address Unknown Phone Unavailable Care Team Providers Care Purse Seiner Name Role Phone Dario Sabillon MD PCP [...] unspecified location fluticasone (FLONASE) 50 Use 1 [place] in each 16 g 0 05/29/19 Active [...] FOR HEART 18 Chronic congestive heart failure metFORMIN (GLUCOPHAGE) Take 1 tablet by mouth 2 60 tablet 0 11/10/19 Active 500 mg tabletIndications: times daily (with meals) 18 Type 2 diabetes mellitus Please see PCP for without complication, further refills. without long-term current use of insulin azelastine (OPTIVAR) 0.05 Instill 1 Drop in [...] inhalerIndications: Mild intermittent asthma with acute exacerbation traMADol (ULTRAM) 50 mg Take 1 tablet [...] 18 ued Cough. Miscellaneous Medical by [facility]Non-Drug; Combo 1 Each 0 10/30/19 04/05/19 Discontin [...] bronchitis, unspecified organism Miscellaneous Medical by [facility]Non-Drug; Combo 1 Each 0 02/27/20 04/05/19 Discontin [...] Date Status Other Facility Date Administered Medication ipratropium (ATROVENT) 0.5 mg IN ONCE 11/14/19 [...] from Dr. Paola Burden. Pending approval from health and safety advisor. 05/30/12 - approved by Dr. James Valdez for outsourcing @ [facility]. Physician order, demographics & clinical information faxed to [facility]. Date & time: 2012 @ 10:30 am. 06/17/12 - received MRI report today & being placed in the Media tab of this record. Dr. Burden/Margarita García included in the e-mail. Images to be placed in PACS as soon as obtained from [facility]. Faith Molina RN # [id number] S/P laparoscopic cholecystectomy 10/05/2008 Bronchopulmonary aspergillosis Resolved [...] Encounters Date Type Specialty Care Team Description 11/11/2017 Refill [facility] Alicia Forte LVN Rib pain on right side 11/07/2017 Refill [facility] Dario Sabillon III, MD Type 2 diabetes mellitus without complication, without long-term current use of insulin 09/21/2017 Refill [facility] Dario Sabillon III, MD Chronic congestive heart failure 07/06/2017 Telephone [facility] Faith Giles, JOE Information Only 07/02/2017 Clinical Case Social Work Manoj Jackeline Mgmargaret 07/02/2017 Telephone [facility] Faith Giles, RN Information Only 05/28/2017 Same Day [facility] Loren Gregg NP Acute sinusitis, recurrence not specified, unspecified location (Primary Dx); Bilateral acute serous otitis media, recurrence not specified; Cough; Type 2 diabetes mellitus without complication, without long-term current use of insulin 05/12/2017 Same Day [facility] Loren Gregg NP Acute bronchitis, unspecified organism (Primary Dx); Cough; Type 2 diabetes mellitus without complication, without long-term current use of insulin 05/03/2017 Office Visit Cardiology Amarilis Aggarwal MD Partial anomalous pulmonary venous return (PAPVR) (Primary Dx); ASD (atrial septal defect), sinus venosus defect; Pulmonary hypertension 04/27/2017 Hospital Amarilis Aggarwal MD Encounter 04/23/2017 Refill [facility] Dario Sabillon III, MD Type 2 [...] - 01/19/2013; Shortness of breath 03/26/2017 Refill [facility] Dario Sabillon III, MD Mild intermittent asthma with acute exacerbation 02/26/2017 Orders Only [facility] Dario Sabillon III, MD Chronic congestive heart failure, unspecified congestive heart failure type (Primary Dx) 02/24/2017 Clinical Case Social Work Isrrael Dukes RN Mgt 02/23/2017 Office Visit [facility] Dario Sabillon III, MD Type 2 diabetes mellitus without complication, without long-term current use of insulin (Primary Dx); Gastroesophageal reflux disease without esophagitis; Chronic congestive heart failure, unspecified congestive heart failure type; Mild intermittent asthma with acute exacerbation; Acute bronchitis, unspecified organism; Sleep apnea, unspecified type; Hypokalemia; Hyperlipidemia, unspecified hyperlipidemia type 02/19/2017 Refill [facility] Ankita Cox, Physician Chronic congestive heart failure, unspecified congestive heart failure type 01/25/2017 Ancillary Radiology Dario Sabillon III, MD Procedure 01/25/2017 Office Visit [facility] Ankita Cox, Physician Chronic congestive heart [...] Rosi Duran DO Chest pain in adult [facility], (Primary Dx); 12/31/2016 MD Keiko Chronic congestive heart failure, unspecified congestive heart failure type; ASD (atrial septal defect), sinus venosus defect - 01/19/2013 11/30/2016 Telephone [facility] Tori Ruiz, Information Only STOP 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 11/23/2016 Office Visit [facility] Dario Giordano III, MD Type 2 diabetes mellitus Yael Galeana NP without complication, without long-term current use of insulin (Primary Dx); Need for Tdap vaccination; Chronic congestive heart failure, unspecified congestive heart failure type; Mild intermittent asthma with acute exacerbation; Rib pain on right side 11/13/2016 Office Visit [facility] Deepthi Johns MD Moderate persistent asthma with acute exacerbation (Primary Dx); Hearing loss of left ear due to cerumen impaction; Dysfunction of eustachian tube, left after 11/11/2016 Immunizations Name Dates Previously Given Next Due [...] LD Diet Decrease tea intake by No Sharmaine, half Yael Radha, LD Diet Have 3 meals a day + HS No [place], Snack Yael Radha, 3 portion controlled, low LD sodium meals + 1 HS snack Procedures Procedure Name Priority Date/Time Associated Diagnosis Comments DIABETIC FOOT EXAM Routine 05/28/2017 Type 2 diabetes mellitus Results for this 7:09 PM CDT without complication, procedure are in the without long-term current results section. use of insulin POC RAPID FLU Routine 05/12/2017 Cough Results for this 2:15 PM [employer] procedure are in the results section. POC GROUP A STREP SCREEN Routine 05/12/2017 Cough Results for this 2:11 PM [employer] procedure are in the results section. DIABETIC FOOT EXAM Routine 05/12/2017 Type 2 diabetes mellitus Results for this 1:57 PM [employer] without complication, procedure are in the without long-term current results section. use of insulin TREADMILL STRESS-TRACING Routine 04/27/2017 Palpitations Results for this ONLY 8:43 AM [employer] ASD (atrial septal procedure are in the defect), sinus venosus results section. defect - 01/19/2013 Shortness of breath TTE FOLLOW UP Routine 04/15/2017 Palpitations Results for this 10:51 AM [employer] ASD (atrial septal procedure are in the defect), sinus venosus results section. defect - 01/19/2013 Shortness of breath CBC/DIFF Routine 04/05/2017 Palpitations Results for this 2:43 PM [employer] ASD (atrial septal procedure are in the defect), sinus venosus results section. defect - 01/19/2013 Shortness of breath COMPREHENSIVE METABOLIC Routine 04/05/2017 Palpitations Results for this PANEL(DBIL NOT INCLUDED) 2:43 PM [employer] ASD (atrial septal procedure are in the defect), sinus venosus results section. defect - 01/19/2013 Shortness of breath 12 LEAD EKG Routine 04/05/2017 Palpitations Results for this 1:58 PM [employer] procedure are in the results section. 12 LEAD EKG Routine 01/25/2017 Chest pain, unspecified Results for this 11:51 AM [employer] type procedure are in the results section. BMP POC Routine 01/25/2017 Results for this 11:43 AM [employer] procedure are in the results section. XRAY CHEST 2 VIEWS CLEMENTINE 01/25/2017 Chest pain, unspecified Results for this 11:25 AM [employer] type procedure are in the results section. MAGNESIUM Routine 01/25/2017 Chronic congestive heart Results for this 11:25 AM [employer] failure, unspecified procedure are in the congestive heart failure results section. type CBC/DIFF Routine 01/25/2017 Chronic congestive heart Results for this 11:25 AM [employer] failure, unspecified procedure are in the congestive heart failure results section. type B NATRIURETIC PEPT Routine 01/25/2017 Chronic congestive heart Results for this 11:25 AM [employer] failure, unspecified procedure are in the congestive [...] AM CDT asthma with acute exacerbation after 11/11/2016 Results * DIABETIC FOOT EXAM (05/28/2017 7:09 [...] STRESS-TRACING ONLY (04/27/2017 8:43 AM) Stress Test [facility] Test Date:2017-04-27 Pat Name: MARILEE SULLIVAN Department: Room: Gender: Female Political Cartoonist: XANDER :1966-0 - Requested By: Order Number: [id number] [email or web address] CORTÉS: Sonu Miller Interpretive Statements WORKLOAD: The patient [...] myocardial ischemia. Electronically Signed On 04-27-17 18:18:36 [employer] HEL[employer] by Sonu Miller Performing Organization Address City/State/Zipcode Phone Number SMS * TTE FOLLOW UP (04/15/2017 10:51 AM) ECHO HEART Transthoracic SMS XTHORACIC,LIMITED Echo Report MARILEE SULLIVAN Age:51 Gender: F :1965 Exam Date: 04/15/2017 10:51 Exam Location: [facility] Echo Ordering Phys: AMARILIS AGGARWAL Referring Phys:AMARILIS AGGARWAL Reading Phys:Luis M Goodson MD Fellow Phys: Fellow Phys: Glass Robot Operator: Michelle Barreto Reason For Exam: Indications: dyspnea ICD-9 Codes: Exam Type: TTE FOLLOW UP Procedure CPT:17608 Addtional CPT: Ht (in): 63 BSA: 2.38HR: [...] E to A Ratio 0.81 MV Deceleration [place] 399 cm/s MV Deceleration Time 236 ms [...] E to A Ratio 0.81 MV Deceleration [place] 399 cm/s MV Deceleration Time 236 ms [...] LV E' Septal Ratio11.6 Performing Organization Address [facility] Phone Number SMS * COMPREHENSIVE METABOLIC PANEL(DBIL NOT INCLUDED) (04/05/2017 2:43 PM) Only the most recent of 2 results within the time period is included. Albumin 3.8 3.4 - 5.0 g/dL [facility] Calcium 9.1 8.50 - 10.20 mg/dL [facility] CO2 27 21 - 32 mmol/L [facility] Chloride 104 98 - 107 mmol/L [facility] Creatinine 0.59 (L) 0.60 - 1.30 mg/dL [facility] Glucose 97 70 - 99 mg/dL [facility] Alk Phos 162 (H) 45 - 117 U/L [facility] Potassium 4.2 3.50 - 5.10 mmol/L [facility] Sodium 140 136 - 145 mmol/L [facility] ALT 37 12 - 78 U/L [facility] AST 40 (H) 15 - 37 U/L [facility] Urea Nitrogen 13 7 - 18 mg/dL [facility] T Bilirubin 0.4 0.2 - 1.0 mg/dL [facility] T Protein 7.6 6.4 - 8.2 g/dL [facility] GFR, Estimated >60 mL/min/1.73 m2 [facility] GFR, Estim, Afr-Am >60 mL/min/1.73 m2 [facility] Anion Gap 9 [facility] Specimen Blood Performing Organization Address [facility] Phone Number MISYS [facility] * CBC/DIFF (04/05/2017 2:43 PM) Only the most recent of 4 results within the time period is included. WBC 10.7 4.5 - 11.0 K/uL [facility] 2 RBC 4.89 4.20 - 5.40 M/uL [facility] 2 Hemoglobin 13.3 12.0 - 16.0 g/dL [facility] 2 Hematocrit 46.0 37.0 - 47.0 % [facility] 2 MCV 94 (H) 82 - 92 fL [facility] MCH 27.2 27.0 - 32.0 pg [facility] 2 MCHC 28.9 (L) 32.0 - 36.0 g/dL [facility] 2 RDW 46.8 (H) 36.4 - 46.3 fL [facility] 2 Platelet 300 150 - 400 K/uL [facility] 2 Mean Platelet Volume 11.3 9.4 - 12.4 fL [facility] 2 Percent NRBC 0.0 [facility] 2 Absolute NRBC 0.00 [facility] 2 Neutrophil 57.0 34.0 - 70.0 % [facility] 2 Lymphocyte 34.6 20.0 - 50.0 % [facility] 2 Monocyte 6.7 5.0 - 12.0 % [facility] 2 Eosinophil 0.7 0.7 - 5.0 % [facility] 2 Basophil 0.5 0.1 - 1.2 % [facility] 2 Pct Immat Gran 0.5 0.0 [...] Performing Organization Address City/State/Zipcode Phone Number MISYS [facility] * 12 LEAD EKG (04/05/2017 1:58 PM) 12 LEAD EKG FOR [facility] Test Date:2017-04-05 Pat Name: MARILEE LAURIE Department: Room: Gender: F Political Cartoonist: [id number] :[birth year] Requested By: Order Number: Dasha conner MD: Sonu Miller Measurements Intervals [place] Rate: 78 P:10 NV: 154 QRS: -13 QRSD: 101 T: 30 QT: 379 QTc:432 Interpretive Statements SINUS RHYTHM LOW QRS VOLTAGE IN PRECORDIAL LEADS [QRS DEFLECTION < 1.0 mV IN CHEST LEADS] POOR R WAVE PROGRESSION NON SPECIFIC T WAVE ABNORMALITY ABNORMAL ECG Electronically Signed On 04-07-17 14:20:19 [employer] HEL[employer] by Sonu Miller Performing Organization Address [facility] Phone Number SMS * 12 LEAD EKG (01/25/2017 11:51 AM) 12 LEAD EKG FOR [facility] Test Date:2017-01-25 Pat Name: MARILEE SULLIVAN Department: Room: Gender: F Political Cartoonist: [id number] :[birth year] Requested By: Order Number: [id number] conner MD: Paola Burden M.D. Measurements Intervals [place] Rate: 78 P:-3 NV: 138 QRS: -8 QRSD: 80 T:16 QT: 368 QTc:419 Interpretive Statements Normal sinus rhythm Normal ECG Electronically Signed On 01-25-17 18:59:32 [employer] P[employer] HELPER by Paola Burden M.D. Performing Organization Address [facility] Phone Number [facility] * BMP POC (01/25/2017 11:43 AM) TCO2 [...] mL/min/1.73 m2 [facility] Performing Organization Address [facility] Phone Number MISYS [facility] * XRAY CHEST 2 VIEWS (01/25/2017 11:25 AM) Only the most recent of 2 results within the time period is included. Impressions Performed At IMPRESSION: SMS Elevation of the right hemidiaphragm with linear opacity of the right midlung suggestive of volume loss and scarring, unchanged. No acute thoracic abnormality. A "PRELIMINARY" report was made available via [employer] at the time of dictation by the [...] Interface, Rad/Mammog In - 01/25/2017 4:33 PM [employer] HELPER EXAMINATION: XRAY CHEST 2 VIEWS INDICATION: chest [...] A "PRELIMINARY" report was made available via [employer] at the time of dictation by the resident indicated below. If the report is "FINALIZED" it indicates that the attending/staff radiologist has reviewed the images and agrees with the resident's interpretation. Dictated By: Shabbir Latham DO, 01/25/2017 1:38 PM I have reviewed the study and agree with the findings in this report. Signed By: Tushar Gonzalez MD, 01/25/2017 4:28 PM Performing Organization Address City/[facility] Phone Number SMS * B NATRIURETIC PEPT (01/25/2017 11:25 AM) Only the most recent of 2 results within the time period is included. B Natriuretic Pept 100 0 - 100 pg/mL [facility] 3 Specimen Blood Performing Organization Address [facility] Phone Number MISYS [facility] * MAGNESIUM (01/25/2017 11:25 AM) Magnesium 2.1 1.8 - 2.4 mg/dL [facility] 3 Specimen Blood Performing Organization Address [facility] Phone Number MISYS [facility] * GLUCOSE POC (12/31/2016 7:19 AM) Only the most recent of 7 results within the time period is included. Glucose POC 140 (H) 74 - 106 mg/dL [facility] 1 Performing Organization Address [facility] Phone Number MISYS [facility] 1 * BASIC METABOLIC PANEL [...] [facility] Specimen Blood Performing Organization Address City/[facility] Phone Number ANOOP [facility] * UA CHEMISTRIES (12/30/2016 4:05 PM) Only the most recent of 2 results within the time period is included. Color Juliette [facility] 2 Clarity Hazy [facility] 2 Spec [place] 1.028 1.001 - 1.035 [facility] [...] Present [facility] 2 Performing Organization Address [facility] Phone Number ANOOP [facility] * TRANSTHORACIC ECHO (TTE) (12/30/2016 8:50 AM) TRANSTHORACIC ECHO (TTE) Transthoracic SMS Echo Report LAURIEMARILEE Age:51 Gender: F :1965 Exam Date: 12/30/2016 08:50 Exam Location: [facility] Echo Ordering Phys: KEIKO ANDERS Referring Phys: Reading Phys:Sarah Carter Fellow Phys: Fellow Phys: Glass Robot Operator: Vinh Munoz Reason For Exam: Indications: Chest Pain ICD-9 Codes: R06.89 Exam Type: Transthoracic Echo Procedure CPT:16311 Addtional CPT: Ht (in): 63 BSA: 2.35HR: [...] E to A Ratio 0.87 MV Deceleration [place] 260 cm/s MV Pressure Half Time 79 [...] E to A Ratio 0.87 MV Deceleration [place] 260 cm/s MV Pressure Half Time 79 ms MV Area PHT 2.8 cm PV Peak Velocity 74.7 cm/s PV Peak Gradient 2.2 mmHg RVOT Peak Velocity 49 cm/s RVOT Peak Gradient 0.96 mmHg LV E' Lateral Velocity 7.8 cm/s Mitral E to LV E' Lateral Ratio 9 LV E' Septal Velocity 6 cm/s Mitral E to LV E' Septal Ratio11.8 Performing Organization Address [facility] Phone Number SMS * RAPID INFLUENZA SCREEN (12/30/2016 3:40 AM) Spec Description Nasopharyngeal swab [facility] Order Comments None [facility] Direct Exam Negative for [facility] Influenza A and B by EIA Report Status Final 12/30/2016 [facility] Specimen Nasopharyngeal - Nasopharyngeal Swab Performing Organization Address [facility] Phone Number MISYS [facility] 1 [facility] 2 [facility] * 12 LEAD EKG (12/30/2016 2:30 AM) 12 LEAD EKG FOR [facility] Test Date:2016-12-30 Pat Name: MARILEE SULLIVAN Department: Room: Gender: F Political Cartoonist: [id number] :1966-0 06-24 Requested By: Order Number: Dasha conner MD: Sonu Miller Measurements Intervals [place] Rate: 69 P:6 NV: 161 QRS: -13 QRSD: 99 T:27 QT: 382 QTc:411 Interpretive Statements SINUS RHYTHM LOW QRS VOLTAGE IN PRECORDIAL LEADS [QRS DEFLECTION < 1.0 mV IN CHEST LEADS] PATTERN CONSISTENT WITH PULMONARY DISEASE POOR R WAVE PROGRESSION ABNORMAL ECG Electronically Signed On 12-31-16 19:10:32 CDT by Sonu Miller Performing Organization Address [facility] Phone Number SMS * MYOGLOBIN, SER (12/30/2016 2:00 AM) Only the most recent of 2 results within the time period is included. Myoglobin, Ser 33 14 - 106 ng/mL [facility] 3 Specimen Blood Performing Organization Address [facility] Phone Number MISYS [facility] * TROPONIN I (12/30/2016 2:00 AM) Only the most recent of 2 results within the time period is included. Troponin I <0.015 0.000 - 0.045 ng/mL [facility] 1 Specimen Blood Performing Organization Address [facility] Phone Number MISYS [facility] 1 * CK, TOTAL (12/30/2016 2:00 AM) Only the most recent of 2 results within the time period is included. CK, Total 84 30 - 200 U/L [facility] 1 Comment: CKMB not performed if CK <100, if CKMB is required, please notify laboratory immediately. Specimen Blood Performing Organization Address [facility] Phone Number MISYS [facility] 1 * HEP A VIRUS AB IGG (12/29/2016 9:34 PM) Hep A Vir Ab IgG Positive (A) NEG [facility] 4 Performing Organization Address [facility] Phone Number MISYS [facility] 4 * SYPHILIS SCREEN FOR INFECTION (12/29/2016 9:34 PM) Treponemal Ab Negative [facility] DIAGNOSTIC IMMUNOLOGY Final Report Negative [facility] DIAGNOSTIC IMMUNOLOGY Performing Organization Address [facility] Phone Number MISYS [facility] DIAGNOSTIC IMMUNOLOGY * HEP BE AB (12/29/2016 9:34 PM) Hep Be Ab Negative LABORATORY Reference range: Negative [facility] [employer] Specimen Blood Performing Organization Address [facility]/Zipcode Phone Number [place] OF [address] [facility] [place] [address] ELIZABETH 145 * HEP B COR AB TOT (12/29/2016 9:34 PM) Hep B Cor Ab Tot Negative NEG [facility] 4 Specimen Blood Performing Organization Address [facility] Phone Number Punctil [facility] 4 * CKMB, REFLEX (12/29/2016 9:34 PM) CK-MB 1.4 0.0 - 3.6 ng/mL [facility] 2 CKMB Index 1.4 0 - 2.5 [facility] 2 Performing Organization Address [facility] Phone Number Punctil [facility] 2 * HEP B AB AG (12/29/2016 9:34 PM) HBsAg Negative NEG BT [facility] 4 Specimen Blood Performing Organization Address [facility] Phone Number Punctil [facility]-STATION 4 * PTT (12/29/2016 9:34 PM) PTT 36.5 (H) 23.6 - 36.4 Seconds [facility] 2 Specimen Blood Performing Organization Address [facility] Phone Number [employer] [facility] 2 * PT/INR (12/29/2016 9:34 PM) PT 12.8 11.8 - 15.0 Seconds [facility] 2 INR 1.0 [facility] 2 SUGGESTED THERAPEUTIC RANGES: INR 2.0-3.0 for MODERATE INTENSITY ANTICOAGULATION INR 2.5-3.5 for HIGH INTENSITY ANTICOAGULATION Specimen Blood Performing Organization Address [facility] Phone Number Punctil [facility] * CALCIUM, IONIZED (12/29/2016 9:34 PM) Calcium, Ionized 1.08 (L) 1.15 - 1.29 mmol/L [facility] 2 Specimen Blood Performing Organization Address [facility] Phone Number Punctil [facility] * HEP C VIR AB IGG (12/29/2016 9:34 PM) HCV IgG Negative NEG BT MAIN-STATION 4 Specimen Blood Performing Organization Address [facility] [place] Number Punct[place] MAIN-STATION 4 * DIGOXIN (12/29/2016 9:34 PM) Digoxin 0.9 0.80 - 2.00 ng/mL [facility] MAIN-STATION 2 Performing Organization Address [facility] Phone [facility] MAIN-STATION 2 * HEP A VIR AB IGM (12/29/2016 9:34 PM) HAV, IgM Negative NEG MAIN-STATION 4 Specimen Blood Performing Organization Address [facility] Phone Number [facility] * URINE DRUG SCREEN (12/29/2016 9:17 PM) Amphetamine Negative NEG [facility] MAIN-STATION 2 Comment: Calibrated Standard: D-Methamphetamine Positive if urine level >lg=2643 ng/mL Barbiturate Negative NEG [facility] 2 Comment: Calibrated Standard: Secobarbital Positive if urine level is >su=938 ng/mL Benzodiazepine Negative NE[facility] Comment: Calibrated Standard: Lormethazepam Positive if urine level is >db=482 ng/mL Cannabinoid Negative NEG [facility] 2 Comment: Calibrated Standard: 11 nor-delta(9)-THC carboxylic a Positive if urine level >or=50 Cocaine Negative NEG [facility] 2 Comment: Calibrated Standard: Benzoylecgonine Positive if urine level >ll=628 Opiate, Ur Negative NEG [facility] 2 Comment: Calibrated Standard: Morphine Positive if urine level >zn=522 PCP Negative NEG [facility] Comment: Calibrated Standard: Phencyclidine Positive if urine level >or=25 Urine Toxicology Screen results are to be used only for Medical purposes. Specimen Urine Performing Organization Address [facility] Phone Number ANOOP [facility] MAIN-STATION 2 * BMP POC (12/29/2016 4:12 PM) CO2 POC 27 21 - 32 mmol/L [facility] MAIN-STATION 1 Chloride POC 105 98 - 107 mmol/L [facility] MAIN-STATION 1 Potassium POC 5.2 (H) 3.50 - 5.10 mmol/L [facility] MAIN-STATION 1 Sodium POC 141 136 - 145 mmol/L [facility] MAIN-STATION 1 Glucose POC 115 (H) 74 - 106 mg/dL [facility] MAIN-STATION 1 Urea Nitrogen POC 17 7 - 18 mg/dL [facility] MAIN-STATION 1 Creatinine POC 0.8 0.6 - 1.3 mg/dL [facility] MAIN-STATION 1 Calcium Ionized POC 1.03 (L) 1.15 - 1.29 mmol/L [facility] MAIN-STATION 1 Hemoglobin POC 16.7 (H) 12.0 - 16.0 g/dL [facility] MAIN-STATION 1 Hematocrit POC 49.0 (H) 37.0 - 47.0 % [facility] MAIN-STATION 1 GFR, Estimated >60 mL/min/1.73 m2 [facility] MAIN-STATION 1 GFR, Estim, Afr-Am >60 mL/min/1.73 m2 [facility] MAIN-STATION 1 Performing Organization Address [facility] Phone [facility] MAIN-STATION 1 * TROPONIN I POC (12/29/2016 4:10 PM) Troponin POC 0.00 0.00 - 0.08 ng/mL [facility] MAIN-STATION 1 Performing Organization Address [facility] Phone Number [facility] MAIN-STATION 1 * 12 LEAD EKG (12/29/2016 2:09 PM) 12 LEAD EKG FOR [facility] Test Date:2016-12-29 Pat Name: MARILEE SULLIVAN Department: Room: Gender: Political Cartoonist: :[id number] - Requested By: Order Number: [id number] [id number] MD: Sonu Miller Measurements Intervals [place] Rate: 86 P:14 NV: 159 QRS: -27 QRSD: 84 T:37 QT: 345 QTc:413 Interpretive Statements SINUS RHYTHM POSSIBLE LEFT ATRIAL ENLARGEMENT LOW QRS VOLTAGE IN PRECORDIAL LEADS POOR R WAVE PROGRESSION: POSSIBLE ANTERIOR MYOCARDIAL INFARCTION, PROBABLY OLD ABNORMAL ECG Electronically Signed On 12-29-16 18:48:49 CDT by Sonu Miller Performing Organization Address [facility] Phone Number SMS * HEMOGLOBIN A1C (11/27/2016 8:56 AM) Hemoglobin A1c 7.2 (H) 4.3 - 6.1 % [facility]NOSTIC IMMUNOLOGY Est Average Gluc 159.9 mg/dL [facility]NO[facility] IMMUNOLOGY Specimen Blood Performing Organization Address [place]/[facility] Phone Number MISYS [facility] DIAGNOSTIC IMMUNOLOGY * [...] MAIN-STATION 3 Specimen Blood Performing Organization Address [facility] Phone Number MISYS BT MAIN-STATION 3 * LIPID PROFILE (11/27/2016 8:56 AM) Cholesterol 172 <200 mg/dL BT MAIN-STATION 3 Comment: REFERENCE RANGE: Desirable: <200 mg/dL Borderline: 200-240 mg/dL High Risk: >240 mg/dL Triglyceride 105 <150 mg/dL BT MAIN-STATION 3 Comment: REFERENCE RANGE: Normal: <150 mg/dL Borderline High: 150-199 mg/dL High: 200-499 mg/dL Very High: >pb=371 mg/dL HDL 65 (H) 40 - 60 mg/dL BT MAIN-STATION 3 Comment: Increased CHD risk: <40 mg/dL Decreased CHD risk: >60 mg/dL LDL 86 mg/dL BT MAIN-STATION 3 Comment: REFERENCE RANGE: Optimal: <100 mg/dL Near Optimal: 100-129 mg/dL Borderline High: 130-159 mg/dL High: 160-189 mg/dL Very High: >fd=372 mg/dL Specimen Blood Performing Organization Address [facility] Phone [place] MISYS BT MAIN-STATION 3 after 11/11/2016
--- OUTSIDE RECORDS SUMMARY | 2018-10-21 09:57 | XMS REPORT | Clinical Summary ---
Author Author [facility] Organization [facility] Address Unknown Phone Unavailable Care Team Providers Care Therapy Manager Name Role Phone Dario Sabillon MD [...] unspecified location fluticasone (FLONASE) 50 Use 1 [facility] in each 16 g 0 05/29/19 Active [...] 17 18 ued Cough. Miscellaneous Medical by [facility].(Non-Drug; Combo 1 Each 0 10/30/19 04/05/19 Discontin [...] Acute bronchitis, unspecified organism Miscellaneous Medical by [facility].(Non-Drug; Combo 1 Each 0 02/27/20 04/05/19 Discontin [...] Date Status Other Facility Date Administered Medication methylPREDNISolone sodium 80 mg IV PUSH ONCE [...] from Dr. Paola Burden. Pending approval from replanting machine operator. 05/30/12 - approved by Dr. James Valdez for outsourcing @ [facility]. Physician order, demographics & clinical information faxed to [facility]. Date & time: 2012 @ 10:30 am. 06/17/12 - received MRI report today & being placed in the Media tab of this record. Dr. Burden/Margarita García included in the e-mail. Images to be placed in PACS as soon as obtained from [facility]. Faith Molina RN # [id number] S/P laparoscopic cholecystectomy 10/05/2008 Bronchopulmonary aspergillosis Resolved Problems Problem Noted Date Resolved Date Chest pain in adult 12/29/2016 12/31/2016 Aspiration into lower respiratory tract 07/12/2013 12/29/2016 Cough 12/28/2012 12/29/2016 Fatigue 07/29/2012 12/29/2016 Sleep-related breathing disorder 06/04/2011 12/29/2016 Persistent vomiting 05/20/2009 12/29/2016 Encounters Date Type Specialty Care Team Description 11/11/2017 Refill Family Practice Alicia Forte LVN Rib pain on right side 11/07/2017 Refill Family Practice Dario Sabillon III, MD Type 2 diabetes mellitus without complication, without long-term current use of insulin 09/21/2017 Refill Family Practice Dario Sabillon III, [...] MD Encounter 04/23/2017 Refill [facility] Dario Sabillon III, MD Type 2 [...] - 01/19/2013; Shortness of breath 03/26/2017 [facility]ill [facility] Dario Giordano III, MD Mild intermittent asthma with acute exacerbation 02/26/2017 Orders Only [facility] Dario Giordano III, MD Chronic congestive heart failure, unspecified congestive heart failure type (Primary Dx) 02/24/2017 Clinical Case Social Work Isrrael Dukes RN Mgt 02/23/2017 Office [facility] Dario Giordano III, MD Type 2 diabetes mellitus without complication, without long-term current use of insulin (Primary Dx); Gastroesophageal reflux disease without esophagitis; Chronic congestive heart failure, unspecified congestive heart failure type; Mild intermittent asthma with acute exacerbation; Acute bronchitis, unspecified organism; Sleep apnea, unspecified type; Hypokalemia; Hyperlipidemia, unspecified hyperlipidemia type 02/19/2017 [facility]ill [facility] Ankita Robertson, Physician Chronic congestive heart failure, unspecified congestive heart failure type 01/25/2017 Ancillary Radiology Dario Sabillon III, MD Procedure 01/25/2017 Office [facility] Ankita Robertson Physician Chronic congestive heart [...] Duran DO Chest pain in adult - [facility], (Primary Dx); 12/31/2016 MD Keiko Chronic congestive heart failure, unspecified congestive heart failure type; ASD (atrial septal defect), sinus venosus defect - 01/19/2013 11/30/2016 Telephone Family Practice Tori Ruiz, Information Only TRANSPORTATION OFFICER 11/23/2016 Office Visit Family Practice Dario Sabillon III, MD Type 2 diabetes mellitus Yael Galeana NP without complication, without long-term current use of insulin (Primary Dx); Need for Tdap vaccination; Chronic congestive heart failure, unspecified congestive heart failure type; Mild intermittent asthma with acute exacerbation; Rib pain on right side after 11/22/2016 Immunizations Name Dates Previously Given Next Due [...] Diet Reduce salt intake to 2 No [place], grams per day or less JEY Vyas Diet Decrease tea intake by No [place], half JEY Vyas Diet Have 3 meals a day + HS No [place], Snack Yael Garcia 3 portion controlled, low LD sodium meals + 1 HS snack Procedures Procedure Name Priority Date/Time Associated Diagnosis Comments DIABETIC FOOT EXAM Routine 05/28/2017 Type 2 diabetes mellitus Results for this 7:09 PM CDT without complication, procedure are in the without long-term current results section. use of insulin POC RAPID FLU Routine 05/12/2017 Cough Results for this 2:15 PM AIRPLANE MECHANIC APPRENTICE procedure are in the results section. POC GROUP A STREP SCREEN Routine 05/12/2017 Cough Results for this 2:11 PM AIRPLANE MECHANIC APPRENTICE procedure are in the results section. DIABETIC FOOT EXAM Routine 05/12/2017 Type 2 diabetes mellitus Results for this 1:57 PM AIRPLANE MECHANIC APPRENTICE without complication, procedure are in the without long-term current results section. use of insulin TREADMILL STRESS-TRACING Routine 04/27/2017 Palpitations Results for this ONLY 8:43 AM AIRPLANE MECHANIC APPRENTICE ASD (atrial septal procedure are in the defect), sinus venosus results section. defect - 01/19/2013 Shortness of breath TTE FOLLOW UP Routine 04/15/2017 Palpitations Results for this 10:51 AM AIRPLANE MECHANIC APPRENTICE ASD (atrial septal procedure are in the defect), sinus venosus results section. defect - 01/19/2013 Shortness of breath CBC/DIFF Routine 04/05/2017 Palpitations Results for this 2:43 PM AIRPLANE MECHANIC APPRENTICE ASD (atrial septal procedure are in the defect), sinus venosus results section. defect - 01/19/2013 Shortness of breath COMPREHENSIVE METABOLIC Routine 04/05/2017 Palpitations Results for this PANEL(DBIL NOT INCLUDED) 2:43 PM AIRPLANE MECHANIC APPRENTICE ASD (atrial septal procedure are in the defect), sinus venosus results section. defect - 01/19/2013 Shortness of breath 12 LEAD EKG Routine 04/05/2017 Palpitations Results for this 1:58 PM AIRPLANE MECHANIC APPRENTICE procedure are in the results section. 12 LEAD EKG Routine 01/25/2017 Chest pain, unspecified Results for this 11:51 AM AIRPLANE MECHANIC APPRENTICE type procedure are in the results section. BMP POC Routine 01/25/2017 Results for this 11:43 AM AIRPLANE MECHANIC APPRENTICE procedure are in the results section. XRAY CHEST 2 VIEWS CLEMENTINE 01/25/2017 Chest pain, unspecified Results for this 11:25 AM AIRPLANE MECHANIC APPRENTICE type procedure are in the results section. MAGNESIUM Routine 01/25/2017 Chronic congestive heart Results for this 11:25 AM AIRPLANE MECHANIC APPRENTICE failure, unspecified procedure are in the congestive heart failure results section. type CBC/DIFF Routine 01/25/2017 Chronic congestive heart Results for this 11:25 AM AIRPLANE MECHANIC APPRENTICE failure, unspecified procedure are in the congestive heart failure results section. type B NATRIURETIC PEPT Routine 01/25/2017 Chronic congestive heart Results for this 11:25 AM AIRPLANE MECHANIC APPRENTICE failure, unspecified procedure are in the congestive [...] long-term current results section. use of insulin after 11/22/2016 Results * DIABETIC FOOT EXAM (05/28/2017 7:09 [...] STRESS-TRACING ONLY (04/27/2017 8:43 AM) Stress Test [facility] Test Date:2017-04-27 Pat Name: MARILEE SULLIVAN Department: Room: Gender: Female Wearing Apparel Folder: XANDER :1966-0 4-19 Requested By: Order Number: Dasha [...] myocardial ischemia. Electronically Signed On 04-27-17 18:18:36 AIRPLANE MECHANIC APPRENTICE by Sonu Miller Performing Organization Address City/State/Zipcode Phone Number SMS * TTE FOLLOW UP (04/15/2017 10:51 AM) ECHO HEART Transthoracic SMS XTHORACIC,LIMITED Echo Report MARILEE SULLIVAN Age:51 Gender: F :1965 Exam Date: 04/15/2017 10:51 Exam Location: [facility] Echo Ordering Phys: AMARILIS AGGARWAL Referring Phys:AMARILIS AGGARWAL Reading Phys:Luis M Goodson MD Fellow Phys: Fellow Phys: Recovery Room Rn: Michelle Barreto Reason For Exam: Indications: dyspnea ICD-9 Codes: Exam Type: TTE FOLLOW UP Procedure CPT:84474 Addtional CPT: Ht (in): 63 BSA: 2.38HR: [...] E to A Ratio 0.81 MV Deceleration Granite 399 cm/s MV Deceleration Time 236 ms [...] E to A Ratio 0.81 MV Deceleration Granite 399 cm/s MV Deceleration Time 236 ms [...] LV E' Septal Ratio11.6 Performing Organization Address City/State/[facility] Phone Number SMS * COMPREHENSIVE METABOLIC PANEL(DBIL NOT INCLUDED) (04/05/2017 2:43 PM) Only the most recent of 2 results within the time period is included. Albumin 3.8 3.4 - 5.0 g/dL [facility] Calcium 9.1 8.50 - 10.20 mg/dL [facility] CO2 27 21 - 32 mmol/L [facility] Chloride 104 98 - 107 mmol/L [facility] Creatinine 0.59 (L) 0.60 - 1.30 mg/dL [facility] Glucose 97 70 - 99 mg/dL [facility] Alk Phos 162 (H) 45 - 117 U/L [facility] Potassium 4.2 3.50 - 5.10 mmol/L [facility] Sodium 140 136 - 145 mmol/L [facility] ALT 37 12 - 78 U/L [facility] AST 40 (H) 15 - 37 U/L [facility] Urea Nitrogen 13 7 - 18 mg/dL [facility] T Bilirubin 0.4 0.2 - 1.0 mg/dL [facility] T Protein 7.6 6.4 - 8.2 g/dL [facility] GFR, Estimated >60 mL/min/1.73 m2 [facility] GFR, Estim, Afr-Am >60 mL/min/1.73 m2 [facility] Anion Gap 9 [facility] Specimen Blood Performing Organization Address City/State/Zipcode Phone Number ANOOP [facility] * CBC/DIFF (04/05/2017 2:43 PM) Only the most recent of 4 results within the time period is included. WBC 10.7 4.5 - 11.0 K/uL [facility] 2 RBC 4.89 4.20 - 5.40 M/uL [facility] Hemoglobin 13.3 12.0 - 16.0 g/dL [facility] Hematocrit 46.0 37.0 - 47.0 % [facility] 2 MCV 94 (H) 82 - 92 fL [facility] MCH 27.2 27.0 - 32.0 pg [facility] MCHC 28.9 (L) 32.0 - 36.0 g/dL [facility] RDW 46.8 (H) 36.4 - 46.3 fL [facility] 2 Platelet 300 150 - 400 K/uL [facility] 2 Mean Platelet Volume 11.3 9.4 - 12.4 fL [facility] 2 Percent NRBC 0.0 [facility] 2 Absolute NRBC 0.00 [facility] 2 Neutrophil 57.0 34.0 - 70.0 % [facility] Lymphocyte 34.6 20.0 - 50.0 % [facility] 2 Monocyte 6.7 5.0 - 12.0 % [facility] 2 Eosinophil 0.7 0.7 - 5.0 % [facility] 2 Basophil 0.5 0.1 - 1.2 % [facility] 2 Pct Immat Gran 0.5 0.0 - 0.5 [facility] 2 Neutrophil, Abs 6.10 1.56 - 6.13 K/uL [facility] 2 Lymphocyte, Abs 3.69 1.18 - 3.74 K/uL [facility] 2 Monocyte, Abs 0.71 (H) 0.24 - 0.36 K/uL [facility] 2 Eosinophil, Abs 0.07 0.04 - 0.36 K/uL [facility] 2 Basophil, Abs 0.05 0.01 - 0.08 K/uL [facility] 2 Absol Immat Gran 0.05 (H) 0.00 - 0.03 K/uL [facility] 2 Specimen Blood Performing Organization Address [facility] [place] Number ANOOP [facility] 2 * 12 LEAD EKG (04/05/2017 1:58 PM) 12 LEAD EKG FOR [facility] Test Date:2017-04-05 Pat Name: MARILEE SULLIVAN Department: Room: Gender: F Wearing Apparel Folder: [id number] :[birth year] Requested By: Order Number: Dasha conner MD: Sonu Miller Measurements Intervals [place] Rate: 78 P:10 IA: 154 QRS: -13 QRSD: 101 T: 30 QT: 379 QTc:432 Interpretive Statements SINUS RHYTHM LOW QRS VOLTAGE IN PRECORDIAL LEADS [QRS DEFLECTION < 1.0 mV IN CHEST LEADS] POOR R WAVE PROGRESSION NON SPECIFIC T WAVE ABNORMALITY ABNORMAL ECG Electronically Signed On 04-07-17 14:20:19 AIRPLANE MECHANIC APPRENTICE by Sonu Miller Performing Organization Address [facility] [place] Phone Number [facility] * 12 LEAD EKG (01/25/2017 11:51 AM) 12 LEAD EKG FOR [facility] Test Date:2017-01-25 Pat Name: MARILEE SULLIVAN Department: Room: Gender: F Wearing Apparel Folder: [id number] :[birth year] Requested By: Order Number: Dasha conner MD: Paola Burden M.D. Measurements Intervals [place] Rate: 78 P:-3 IA: 138 QRS: -8 QRSD: 80 T:16 QT: 368 QTc:419 Interpretive Statements Normal sinus rhythm Normal ECG Electronically Signed On 01-25-17 18:59:32 AIRPLANE MECHANIC APPRENTICE by Paola Burden M.D. Performing Organization Address [facility] Phone Number SMS * BMP POC (01/25/2017 11:43 AM) TCO2 [...] LAB Performing Organization Address City/State/Zipcode Phone Number [facility] * XRAY CHEST 2 VIEWS (01/25/2017 11:25 AM) Only the most recent of 2 results within the time period is included. Impressions Performed At IMPRESSION: SMS Elevation of the right hemidiaphragm with linear opacity of the right midlung suggestive of volume loss and scarring, unchanged. No acute thoracic abnormality. A "PRELIMINARY" report was made available via [employer] at the time of dictation by the [...] Interface, Rad/Mammog In - 01/25/2017 4:33 PM AIRPLANE MECHANIC APPRENTICE EXAMINATION: XRAY CHEST 2 VIEWS INDICATION: chest [...] A "PRELIMINARY" report was made available via [employer] at the time of dictation by the resident indicated below. If the report is "FINALIZED" it indicates that the attending/staff radiologist has reviewed the images and agrees with the resident's interpretation. Dictated By: Shabbir Latham DO, 01/25/2017 1:38 PM I have reviewed the study and agree with the findings in this report. Signed By: Tushar Gonzalez MD, 01/25/2017 4:28 PM Performing Organization Address [facility] [place] Phone Number SMS * B NATRIURETIC PEPT (01/25/2017 11:25 AM) Only the most recent of 2 results within the time period is included. B Natriuretic Pept 100 0 - 100 pg/mL [facility]IN[facility] 3 Specimen Blood Performing Organization Address [facility] [place] Phone Number MISYS [facility] 3 * MAGNESIUM (01/25/2017 11:25 AM) Magnesium 2.1 1.8 - 2.4 mg/dL [facility]IN[facility] 3 Specimen Blood Performing Organization Address [facility] [place] Phone Number MISYS [facility] 3 * GLUCOSE POC (12/31/2016 7:19 AM) Only the most recent of 7 results within the time period is included. Glucose POC 140 (H) 74 - 106 mg/dL [facility] 1 Performing Organization Address [facility] Phone Number MISYS [facility] 1 * BASIC METABOLIC PANEL (12/31/2016 5:00 AM) Only the most recent of 3 results within the time period is included. CO2 29 21 - 32 mmol/L [facility] Chloride 102 98 - 107 mmol/L [facility] Potassium 4.1 3.50 - 5.10 mmol/L [facility] Sodium 140 136 - 145 mmol/L [facility] Glucose 112 (H) 70 - 99 mg/dL [facility] Urea Nitrogen 15 7 - 18 mg/dL [facility] Creatinine 0.63 0.60 - 1.30 mg/dL [facility] Anion Gap 9 [facility] Calcium 9.0 8.50 - 10.20 mg/dL [facility] GFR, Estimated >60 mL/min/1.73 m2 [facility] GFR, Estim, Afr-Am >60 mL/min/1.73 m2 [facility] Specimen Blood Performing Organization Address [facility] [place] Phone Number MISYS [facility] * UA CHEMISTRIES (12/30/2016 4:05 PM) Only the most recent of 2 results within the time period is included. Color Juliette [facility] 2 Clarity Hazy [facility] 2 Spec [place] 1.028 1.001 - 1.035 [facility] [...] Present [facility] 2 Performing Organization Address [facility] Phone Number MISYS [facility] 2 * TRANSTHORACIC ECHO (TTE) (12/30/2016 8:50 AM) TRANSTHORACIC ECHO (TTE) Transthoracic SMS Echo Report MARILEE SULLIVAN Age:51 Gender: F :1965 Exam Date: 12/30/2016 08:50 Exam Location: [facility] Echo Ordering Phys: KEIKO ANDERS Referring Phys: Reading Phys:Sarah Carter Fellow Phys: Fellow Phys: Recovery Room Rn: Vinh Munoz Reason For Exam: Indications: Chest Pain ICD-9 Codes: R06.89 Exam Type: Transthoracic Echo Procedure CPT:47575 Addtional CPT: Ht (in): 63 BSA: 2.35HR: [...] E to A Ratio 0.87 MV Deceleration Granite 260 cm/s MV Pressure Half Time 79 [...] study. No other significant changes noted. Sarah Hirudayaraj (Electronically Signed) Final Date:30 December 2016 10:57 [...] E to A Ratio 0.87 MV Deceleration Granite 260 cm/s MV Pressure Half Time 79 ms MV Area PHT 2.8 cm PV Peak Velocity 74.7 cm/s PV Peak Gradient 2.2 mmHg RVOT Peak Velocity 49 cm/s RVOT Peak Gradient 0.96 mmHg LV E' Lateral Velocity 7.8 cm/s Mitral E to LV E' Lateral Ratio 9 LV E' Septal Velocity 6 cm/s Mitral E to LV E' Septal Ratio11.8 Performing Organization Address City/State/Zipcode Phone Number SMS * RAPID INFLUENZA SCREEN (12/30/2016 3:40 AM) Spec Description Nasopharyngeal swab [facility] Order Comments None [facility] Direct Exam Negative for [facility] Influenza A and B by EIA Report Status Final 12/30/2016 [facility] Specimen Nasopharyngeal - Nasopharyngeal Swab Performing Organization Address [facility] [place] Phone Number MISYS [facility] * 12 LEAD EKG (12/30/2016 2:30 AM) 12 LEAD EKG [facility] Date:2016-12-30 Pat Name: MARILEE SULLIVAN Department: Room: Gender: F Wearing Apparel Folder: [id number] :1966-0 06-24 Requested By: Order Number: Dasha conner MD: Sonu Miller Measurements Intervals [place] Rate: 69 P:6 IA: 161 QRS: -13 QRSD: 99 T:27 QT: 382 QTc:411 Interpretive Statements SINUS RHYTHM LOW QRS VOLTAGE IN PRECORDIAL LEADS [QRS DEFLECTION < 1.0 mV IN CHEST LEADS] PATTERN CONSISTENT WITH PULMONARY DISEASE POOR R WAVE PROGRESSION ABNORMAL ECG Electronically Signed On 12-31-16 19:10:32 CDT by Sonu Miller Performing Organization Address [facility] [place] Phone Number SMS * MYOGLOBIN, SER (12/30/2016 2:00 AM) Only the most recent of 2 results within the time period is included. Myoglobin, Ser 33 14 - 106 ng/mL [facility] 3 Specimen Blood Performing Organization Address [facility] [place] Phone Number MISYS [facility] 3 * TROPONIN I (12/30/2016 2:00 AM) Only the most recent of 2 results within the time period is included. Troponin I <0.015 0.000 - 0.045 ng/mL [facility] 1 Specimen Blood Performing Organization Address [facility] Center[facility]armell Therapeuticsnd Phone Number MISYS [facility]-STATION 1 * CK, TOTAL (12/30/2016 2:00 AM) Only the most recent of 2 results within the time period is included. CK, Total 84 30 - 200 U/L [facility] 1 Comment: CKMB not performed if CK <100, if CKMB is required, please notify laboratory immediately. Specimen Blood Performing Organization Address [facility] [place] Phone Number [facility] 1 * HEP A VIRUS AB IGG (12/29/2016 9:34 PM) Hep A Vir Ab IgG Positive (A) NEG BT [facility]IN-STATION 4 Performing Organization Address [facility] Phone Number [facility] BT MAIN-STATION 4 * SYPHILIS SCREEN FOR INFECTION (12/29/2016 9:34 PM) Treponemal Ab Negative BT DIAGNOSTIC IMMUNOLOGY Final Report Negative BT DIAGNOSTIC IMMUNOLOGY Performing Organization Address [facility] Phone Number [facility]UNOLOGY * HEP BE AB (12/29/2016 9:34 PM) Hep Be Ab Negative LABORATORY Reference range: Negative [employer] Specimen Blood Performing [facility] [place] Phone Number [facility] [address] [address] ELIZ[place]ETH 145 * HEP B COR AB TOT (12/29/2016 9:34 PM) Hep B Cor Ab Tot Negative NEG BT MAIN-STATION 4 Specimen Blood Performing [facility] Phone Number [facility] 4 * CKMB, REFLEX (12/29/2016 9:34 PM) CK-MB 1.4 0.0 - 3.6 ng/mL [facility] MAIN-STATION 2 CKMB Index 1.4 0 - 2.5 [facility] 2 Performing Organization Address [facility] Phone Number [facility] 2 * HEP B AB AG (12/29/2016 9:34 PM) HBsAg Negative NEG BT MAIN-STATION 4 Specimen Blood Performing Organization Address [facility] [place] Phone Number [facility] 4 * PTT (12/29/2016 9:34 PM) PTT 36.5 (H) 23.6 - 36.4 Seconds [facility] 2 Specimen Blood Performing Organization Address [facility] [place] Phone Number [facility] 2 * PT/INR (12/29/2016 9:34 PM) PT 12.8 11.8 - 15.0 Seconds [facility] 2 INR 1.0 [facility] 2 SUGGESTED THERAPEUTIC RANGES: INR 2.0-3.0 for MODERATE INTENSITY ANTICOAGULATION INR 2.5-3.5 for HIGH INTENSITY ANTICOAGULATION Specimen Blood Performing Organization Address [facility] [place] Phone Number [facility] * CALCIUM, IONIZED (12/29/2016 9:34 PM) Calcium, Ionized 1.08 (L) 1.15 - 1.29 mmol/L [facility] 2 Specimen Blood Performing Organization Address [facility] [place] [facility] [place] Phone Number [facility] MAIN-STATION 2 * HEP C VIR AB IGG (12/29/2016 9:34 PM) HCV IgG Negative NEG BT MAIN-STATION 4 Specimen Blood Performing Organization Address [facility] [place] [facility] MAIN-STATION 4 * DIGOXIN (12/29/2016 9:34 PM) Digoxin 0.9 0.80 - 2.00 ng/mL [facility] MAIN-STATION 2 Performing Organization Address [facility] [place] [facility] MAIN-ST[facility] 2 * HEP A VIR AB IGM (12/29/2016 9:34 PM) HAV, IgM Negative NEG BT MAIN-STATION 4 Specimen Blood Performing Organization Address [facility] [place] [facility] MAIN-STATION 4 * URINE DRUG SCREEN (12/29/2016 9:17 PM) Amphetamine Negative NEG [facility] MAIN-STATION 2 Comment: Calibrated Standard: D-Methamphetamine Positive if urine level >bw=7696 ng/mL Barbiturate Negative NEG [facility] MAIN-STATION 2 Comment: Calibrated Standard: Secobarbital Positive if urine level is >or=809 ng/mL Benzodiazepine Negative NEG [facility] MAIN-STATION 2 Comment: Calibrated Standard: Lormethazepam Positive if urine level is >qp=470 ng/mL Cannabinoid Negative NEG [facility] MAIN-STATION 2 Comment: Calibrated Standard: 11 nor-delta(9)-THC carboxylic a Positive if urine level >or=50 Cocaine Negative NEG [facility] MAIN-STATION 2 Comment: Calibrated Standard: Benzoylecgonine Positive if urine level >dd=158 Opiate, Ur Negative NEG [facility] MAIN-STATION 2 Comment: Calibrated Standard: Morphine Positive if urine level >fk=331 PCP Negative NEG [facility] MAIN-STATION 2 Comment: Calibrated Standard: Phencyclidine Positive if urine level >or=25 Urine Toxicology Screen results are to be used only for Medical purposes. Specimen Urine Performing Organization Address [facility] [place] [facility] MAIN-STATION 2 * BMP POC (12/29/2016 4:12 PM) CO2 POC 27 21 - 32 mmol/L [facility] MAIN-STATION 1 Chloride POC 105 98 - 107 mmol/L [facility] MAIN-STATION 1 Potassium POC 5.2 (H) 3.50 - 5.10 mmol/L [facility] MAIN-STATION 1 Sodium POC 141 136 - 145 mmol/L [facility] MAIN-STATION 1 Glucose POC 115 (H) 74 - 106 mg/dL [facility] MAIN-STATION 1 Urea Nitrogen POC 17 7 - 18 mg/dL [facility] MAIN-STATION 1 Creatinine POC 0.8 0.6 - 1.3 mg/dL [facility] MAINSTATION 1 Calcium Ionized POC 1.03 (L) 1.15 - 1.29 mmol/L [facility] MAIN-STATION 1 Hemoglobin POC 16.7 (H) 12.0 - 16.0 g/dL [facility] 1 Hematocrit POC 49.0 (H) 37.0 - 47.0 % [facility] MAIN-STATION 1 GFR, Estimated >60 mL/min/1.73 m2 [facility] MAINSTATION 1 GFR, Estim, Afr-Am >60 mL/min/1.73 m2 [facility] 1 Performing Organization Address [facility] [place] Number [facility] 1 * TROPONIN I POC (12/29/2016 4:10 PM) Troponin POC 0.00 0.00 - 0.08 ng/mL [facility] 1 Performing Organization Address [facility] [place] [facility] MAINSTATION 1 * 12 LEAD EKG (12/29/2016 2:09 PM) 12 LEAD EKG FOR [facility] Test Date:2016-12-29 Pat Name: MARILEE SULLIVAN Department: Room: Gender: F [employer]earing [employer] Folder: :[id number] Requested By: Order Number: [id number] CORTÉS: Sonu Miller Measurements Intervals [place] Rate: 86 P:14 IA: 159 QRS: -27 QRSD: 84 T:37 QT: 345 QTc:413 Interpretive Statements SINUS RHYTHM POSSIBLE LEFT ATRIAL ENLARGEMENT LOW QRS VOLTAGE IN PRECORDIAL LEADS POOR R WAVE PROGRESSION: POSSIBLE ANTERIOR MYOCARDIAL INFARCTION, PROBABLY OLD ABNORMAL ECG Electronically Signed On 12-29-16 18:48:49 CDT by Sonu Miller Performing Organization Address [facility] [place] SMS * HEMOGLOBIN A1C (11/27/2016 8:56 AM) Hemoglobin A1c 7.2 (H) 4.3 - 6.1 % BT DIAGNOSTIC IMMUNOLOGY Est Average Gluc 159.9 mg/dL BT DIAGNOSTIC IMMUNOLOGY Specimen Blood Performing Organization Address [facility] [place] Number [facility] BT DIAGNOSTIC IMMUNOLOGY * [...] MAIN-STATION 3 Specimen Blood Performing Organization Address [facility] [place] Number [facility] MAIN-STATION 3 * LIPID PROFILE (11/27/2016 8:56 AM) Cholesterol 172 <200 mg/dL BT MAIN-STATION 3 Comment: REFERENCE RANGE: Desirable: <200 mg/dL Borderline: 200-240 mg/dL High Risk: >240 mg/dL Triglyceride 105 <150 mg/dL BT MAIN-STATION 3 Comment: REFERENCE RANGE: Normal: <150 mg/dL Borderline High: 150-199 mg/dL High: 200-499 mg/dL Very High: >ej=523 mg/dL HDL 65 (H) 40 - 60 mg/dL BT MAIN-STATION 3 Comment: Increased CHD risk: <40 mg/dL Decreased CHD risk: >60 mg/dL LDL 86 mg/dL BT MAIN-STATION 3 Comment: REFERENCE RANGE: Optimal: <100 mg/dL Near Optimal: 100-129 mg/dL Borderline High: 130-159 mg/dL High: 160-189 mg/dL Very High: >vk=669 mg/dL Specimen Blood Performing Organization Address City/State/Zipcode Phone Number MISYS BT MAIN-STATION 3 after 11/22/2016
--- OUTSIDE RECORDS SUMMARY | 2018-10-21 09:58 | XMS REPORT | Clinical Summary ---
Author Author [facility] Organization [facility] Address Unknown Phone Unavailable Care Team Providers Care Spice Cleaner Name Role Phone Dario Sabillon MD PCP [...] unspecified location fluticasone (FLONASE) 50 Use 1 Ulen in each 16 g 0 05/29/19 Active [...] 18 ued solutionIndications: Other chronic allergic conjunctivitis albuterol (VENTOLIN Inhale 2 Puffs by mouth 4 6.7 g 3 07/31/19 02/24/20 Discontin HFA,PROVENTIL HFA,PROAIR times daily as needed for 17 17 ued HFA) 90 mcg/actuation Wheezing. inhalerIndications: Mild intermittent asthma with acute exacerbation predniSONE (DELTASONE) 50 Take 1 tablet by mouth 5 tablet 0 10/30/19 01/01/20 Discontin mg tablet daily. 17 17 ued benzonatate (TESSALON Take 1 capsule by mouth 3 20 capsule 0 10/30/19 04/05/19 Discontin PERLES) 100 mg capsule times daily as needed for 17 18 ued Cough. Miscellaneous [place] [facility] [place]; Combo 1 Each 0 [...] Acute bronchitis, unspecified organism Miscellaneous Medical [place] [facility] [place]Non[place]; Combo 1 Each 0 [...] from Dr. Paola Burden. 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 05/30/12 - approved by Dr. James Valdez for outsourcing @ [facility] . Physician order, demographics & clinical information faxed to [facility] . Date & time: l 2012 @ 10:30 am. 06/17/12 - received MRI report today & being placed in the Media tab of this record. Dr. Burden/Margarita García included in the e-mail. Images to be placed in PACS as soon as obtained from [facility]. Faith Molina RN # [id number] S/P laparoscopic cholecystectomy 10/05/2008 Bronchopulmonary aspergillosis Resolved [...] side 11/07/2017 Refill Family Practice Dario Sabillon MD Type 2 diabetes mellitus without complication, without long-term current use of insulin 09/21/2017 Refill Family Practice Dario Sabillon MD Chronic congestive heart failure 07/06/2017 Telephone Family Practice Faith Gilse, RN Information Only 07/02/2017 Clinical Case Social Work Jackeline Aranda 07/02/2017 Telephone Family Practice Faith Giles, RN Information Only 05/28/2017 Same Day Family Practice Loren Gregg NP Acute sinusitis, recurrence not specified, unspecified location (Primary Dx); Bilateral acute serous otitis media, recurrence not specified; Cough; Type 2 diabetes mellitus without complication, without long-term current use of insulin 05/12/2017 Same Day [facility] Practice Loren Gregg NP Acute bronchitis, unspecified organism (Primary Dx); Cough; Type 2 diabetes mellitus without complication, without long-term current use of insulin 05/03/2017 Office Visit Cardiology Amarilis Aggarwal MD Partial anomalous pulmonary venous return (PAPVR) (Primary Dx); ASD (atrial septal defect), sinus venosus defect; Pulmonary hypertension 04/27/2017 Hospital Amarilis Aggarwal MD Encounter 04/23/2017 Refill [facility] Draio Sabillon MD Type 2 diabetes mellitus without complication, without long-term current use of insulin 04/15/2017 Hospital Amarilis Aggarwal MD Encounter 04/05/2017 Hospital Lab Dario Sabillon MD Palpitations; Encounter ASD (atrial septal defect), sinus venosus defect - 01/19/2013; Shortness of breath 04/05/2017 Office Visit Cardiology Amarilis Aggarwal MD Palpitations (Primary Dx); ASD (atrial septal defect), sinus venosus defect - 01/19/2013; Shortness of breath 04/05/2017 Orders Only Cardiology Amarilis Aggarwal MD Palpitations; ASD (atrial septal defect), sinus venosus defect - 01/19/2013; Shortness of breath 03/26/2017 Refill [facility] Dario Sabillon MD Mild intermittent asthma with acute exacerbation 02/26/2017 Orders Only [facility] Dario Giordano MD Chronic congestive heart failure, unspecified congestive heart failure type (Primary Dx) 02/24/2017 Clinical Case Social Work Isrrael Dukes RN Mgt 02/23/2017 Office Visit [facility] Dario Giordano MD Type 2 diabetes mellitus without complication, without long-term current use of insulin (Primary Dx); Gastroesophageal reflux disease without esophagitis; Chronic congestive heart failure, unspecified congestive heart failure type; Mild intermittent asthma with acute exacerbation; Acute bronchitis, unspecified organism; Sleep apnea, unspecified type; Hypokalemia; Hyperlipidemia, unspecified hyperlipidemia type 02/19/2017 Refill [facility] Ankita Cox DO Chronic congestive heart failure, unspecified congestive heart failure type 01/25/2017 Ancillary Radiology Dario Sabillon MD Procedure 01/25/2017 Office Visit Family Practice Ankita Cox DO Chronic congestive heart failure, unspecified congestive heart [...] Duran DO Chest pain in adult - [facility], (Primary Dx); 12/31/2016 MD Keiko Chronic congestive heart failure, unspecified congestive heart failure type; ASD (atrial septal defect), sinus venosus defect - 01/19/2013 11/30/2016 Telephone Family Practice Tori Ruiz, Information Only 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 use of insulin POC RAPID FLU Routine 05/12/2017 Cough Results for this 2:15 PM SERVER SECURITY ADMINISTRATOR procedure are in the results section. POC GROUP A STREP SCREEN Routine 05/12/2017 Cough Results for this 2:11 PM SERVER SECURITY ADMINISTRATOR procedure are in the results section. DIABETIC FOOT EXAM Routine 05/12/2017 Type 2 diabetes mellitus Results for this 1:57 PM SERVER SECURITY ADMINISTRATOR without complication, procedure are in the without long-term current results section. use of insulin TREADMILL STRESS-TRACING Routine 04/27/2017 Palpitations Results for this ONLY 8:43 AM SERVER SECURITY ADMINISTRATOR ASD (atrial septal procedure are in the defect), sinus venosus results section. defect - 01/19/2013 Shortness of breath TTE FOLLOW UP Routine 04/15/2017 Palpitations Results for this 10:51 AM SERVER SECURITY ADMINISTRATOR ASD (atrial septal procedure are in the defect), sinus venosus results section. defect - 01/19/2013 Shortness of breath CBC/DIFF Routine 04/05/2017 Palpitations Results for this 2:43 PM SERVER SECURITY ADMINISTRATOR ASD (atrial septal procedure are in the defect), sinus venosus results section. defect - 01/19/2013 Shortness of breath COMPREHENSIVE METABOLIC Routine 04/05/2017 Palpitations Results for this PANEL(DBIL NOT INCLUDED) 2:43 PM SERVER SECURITY ADMINISTRATOR ASD (atrial septal procedure are in the defect), sinus venosus results section. defect - 01/19/2013 Shortness of breath 12 LEAD EKG Routine 04/05/2017 Palpitations Results for this 1:58 PM SERVER SECURITY ADMINISTRATOR procedure are in the results section. 12 LEAD EKG Routine 01/25/2017 Chest pain, unspecified Results for this 11:51 AM SERVER SECURITY ADMINISTRATOR type procedure are in the results section. BMP POC Routine 01/25/2017 Results for this 11:43 AM SERVER SECURITY ADMINISTRATOR procedure are in the results section. XRAY CHEST 2 VIEWS CLEMENTINE 01/25/2017 Chest pain, unspecified Results for this 11:25 AM SERVER SECURITY ADMINISTRATOR type procedure are in the results section. MAGNESIUM Routine 01/25/2017 Chronic congestive heart Results for this 11:25 AM SERVER SECURITY ADMINISTRATOR failure, unspecified procedure are in the congestive heart failure results section. type CBC/DIFF Routine 01/25/2017 Chronic congestive heart Results for this 11:25 AM SERVER SECURITY ADMINISTRATOR failure, unspecified procedure are in the congestive heart failure results section. type B NATRIURETIC PEPT Routine 01/25/2017 Chronic congestive heart Results for this 11:25 AM SERVER SECURITY ADMINISTRATOR failure, unspecified procedure are in the congestive [...] CDT procedure are in the results section. after 11/29/2016 Results * DIABETIC FOOT EXAM (05/28/2017 7:09 PM) Only the most recent of 2 [...] STRESS-TRACING ONLY (04/27/2017 8:43 AM) Stress Test [facility] Test Date:2017-04-27 Pat Name: MARILEE SULLIVAN Department: Room: Gender: Female Aerospace Medicine Physician: XANDER :1966-0 06-24 Requested By: Order Number: Dasha [...] myocardial ischemia. Electronically Signed On 04-27-17 18:18:36 SERVER SECURITY ADMINISTRATOR by Sonu Miller Performing Organization Address City/State/Zipcode Phone Number SMS * TTE FOLLOW UP (04/15/2017 10:51 AM) ECHO HEART Transthoracic SMS XTHORACIC,LIMITED Echo Report MARILEE SLULIVAN Age:51 Gender: F :1965 Exam Date: 04/15/2017 10:51 Exam Location: [facility] Echo Ordering Phys: EKAMARILIS JUSTIN Referring Phys:AMARILIS AGGARWAL Reading Phys:Luis M Goodson MD Fellow Phys: Fellow Phys: Road Conductor: Michelle Barreto Reason For Exam: Indications: dyspnea ICD-9 Codes: Exam Type: TTE FOLLOW UP Procedure CPT:11639 Addtional CPT: Ht (in): 63 BSA: 2.38HR: [...] E to A Ratio 0.81 MV Deceleration [place] 399 cm/s MV Deceleration Time 236 ms [...] E to A Ratio 0.81 MV Deceleration [place] 399 cm/s MV Deceleration Time 236 ms [...] LV E' Septal Ratio11.6 Performing Organization Address [facility] Phone Number SMS * COMPREHENSIVE METABOLIC PANEL(DBIL NOT INCLUDED) (04/05/2017 2:43 PM) Only the most recent of 2 results within the time period is included. Albumin 3.8 3.4 - 5.0 g/dL [facility] Calcium 9.1 8.50 - 10.20 mg/dL [facility] CO2 27 21 - 32 mmol/L [facility] Chloride 104 98 - 107 mmol/L [facility] Creatinine 0.59 (L) 0.60 - 1.30 mg/dL [facility] Glucose 97 70 - 99 mg/dL [facility] Alk Phos 162 (H) 45 - 117 U/L [facility] Potassium 4.2 3.50 - 5.10 mmol/L [facility] Sodium 140 136 - 145 mmol/L [facility] ALT 37 12 - 78 U/L [facility] AST 40 (H) 15 - 37 U/L [facility] Urea Nitrogen 13 7 - 18 mg/dL [facility] T Bilirubin 0.4 0.2 - 1.0 mg/dL [facility] T Protein 7.6 6.4 - 8.2 g/dL [facility] GFR, Estimated >60 mL/min/1.73 m2 [facility] GFR, Estim, Afr-Am >60 mL/min/1.73 m2 [facility] Anion Gap 9 [facility] Specimen Blood Performing Organization Address [facility] Phone Number MISYS [facility] * CBC/DIFF (04/05/2017 2:43 PM) Only the most recent of 4 results within the time period is included. WBC 10.7 4.5 - 11.0 K/uL [facility] RBC 4.89 4.20 - 5.40 M/uL [facility] 2 Hemoglobin 13.3 12.0 - 16.0 g/dL [facility] 2 Hematocrit 46.0 37.0 - 47.0 % [facility] 2 MCV 94 (H) 82 - 92 fL [facility] 2 MCH 27.2 27.0 - 32.0 pg [facility] 2 MCHC 28.9 (L) 32.0 - 36.0 g/dL [facility] 2 RDW 46.8 (H) 36.4 - 46.3 fL [facility] 2 Platelet 300 150 - 400 K/uL [facility] 2 Mean Platelet Volume 11.3 9.4 - 12.4 fL [facility] 2 Percent NRBC 0.0 [facility] 2 Absolute NRBC 0.00 [facility] 2 Neutrophil 57.0 34.0 - 70.0 % [facility] 2 Lymphocyte 34.6 20.0 - 50.0 % [facility] 2 Monocyte 6.7 5.0 - 12.0 % [facility] 2 Eosinophil 0.7 0.7 - 5.0 % [facility] 2 Basophil 0.5 0.1 - 1.2 % [facility] 2 Pct Immat Gran 0.5 0.0 - 0.5 [facility] 2 Neutrophil, Abs 6.10 1.56 - 6.13 K/uL [facility] 2 Lymphocyte, Abs 3.69 1.18 - 3.74 K/uL [facility] 2 Monocyte, Abs 0.71 (H) 0.24 - 0.36 K/uL [facility] 2 Eosinophil, Abs 0.07 0.04 - 0.36 K/uL [facility] 2 Basophil, Abs 0.05 0.01 - 0.08 K/uL [facility] 2 Absol Immat Gran 0.05 (H) 0.00 - 0.03 K/uL [facility] 2 Specimen Blood Performing Organization Address City/State/[facility] Phone Number MISYS [facility] 2 * 12 LEAD EKG (04/05/2017 1:58 PM) 12 LEAD EKG FOR [facility] Test Date:2017-04-05 Pat Name: MARILEE SULLIVAN Department: Room: Gender: F Aerospace Medicine Physician: [id number] :1966-0 - Requested By: Order Number: R ubaldo CORTÉS: Sonu Miller Measurements Intervals [place] Rate: 78 P:10 [place]: 154 QRS: -13 QRSD: 101 T: 30 QT: 379 QTc:432 Interpretive Statements SINUS RHYTHM LOW QRS VOLTAGE IN PRECORDIAL LEADS [QRS DEFLECTION < 1.0 mV IN CHEST LEADS] POOR R WAVE PROGRESSION NON SPECIFIC T WAVE ABNORMALITY ABNORMAL ECG Electronically Signed On 04-07-17 14:20:19 SERVER SECURITY ADMINISTRATOR by Sonu Miller Performing Organization Address [facility] Phone Number SMS * 12 LEAD EKG (01/25/2017 11:51 AM) 12 LEAD EKG FOR [facility] Test Date:2017-01-25 Pat Name: MARILEE SULLIVAN Department: Room: Gender: F Aerospace Medicine Physician: [id number] :1966-0 06-24 Requested By: Order Number: Dasha conner MD: Paola Burden M.D. Measurements Intervals [place] Rate: 78 P:-3 [place]: 138 QRS: -8 QRSD: 80 T:16 QT: 368 QTc:419 Interpretive Statements Normal sinus rhythm Normal ECG Electronically Signed On 01-25-17 18:59:32 SERVER SECURITY ADMINISTRATOR by Paola Burden M.D. Performing Organization Address [facility] Phone Number SMS * BMP POC (01/25/2017 [...] mL/min/1.73 m2 [facility] Performing Organization Address [facility] Phone Number MISYS [facility] * XRAY CHEST 2 VIEWS (01/25/2017 11:25 AM) Only the most recent of 2 results within the time period is included. Impressions Performed At IMPRESSION: SMS Elevation of the right hemidiaphragm with linear opacity of the right midlung suggestive of volume loss and scarring, unchanged. No acute thoracic abnormality. A "PRELIMINARY" report was made available via [employer] at the time of dictation by the [...] Interface, Rad/Mammog In - 01/25/2017 4:33 PM SERVER SECURITY ADMINISTRATOR EXAMINATION: XRAY CHEST 2 VIEWS INDICATION: chest [...] A "PRELIMINARY" report was made available via [employer] at the time of dictation by the resident indicated below. If the report is "FINALIZED" it indicates that the attending/staff radiologist has reviewed the images and agrees with the resident's interpretation. Dictated By: Shabbir Latham DO, 01/25/2017 1:38 PM I have reviewed the study and agree with the findings in this report. Signed By: Tushar Gonzalez MD, 01/25/2017 4:28 PM Performing Organization Address City/[facility]/[employer] Phone Number SMS * B NATRIURETIC PEPT (01/25/2017 11:25 AM) Only the most recent of 2 results within the time period is included. B Natriuretic Pept 100 0 - 100 pg/mL [facility] 3 Specimen Blood Performing Organization Address [facility] Phone Number MISYS [facility] * MAGNESIUM (01/25/2017 11:25 AM) Magnesium 2.1 1.8 - 2.4 mg/dL [facility] 3 Specimen Blood Performing Organization Address [facility] Phone Number MISYS [facility] 3 * GLUCOSE POC (12/31/2016 7:19 AM) Only the most recent of 7 results within the time period is included. Glucose POC 140 (H) 74 - 106 mg/dL [facility] 1 Performing Organization Address [facility] Phone Number MISYS [facility] 1 * BASIC METABOLIC PANEL (12/31/2016 5:00 AM) Only the most recent of 2 [...] [facility] Specimen Blood Performing Organization Address [facility]/State/Zipcode Phone Number MISYS [facility] * UA CHEMISTRIES (12/30/2016 4:05 PM) Only the most recent of 2 results within the time period is included. Color Juliette [facility] 2 Clarity Hazy [facility] 2 Spec [place] 1.028 1.001 - 1.035 [facility] [...] Present [facility] 2 Performing Organization Address City/State/Zipcode Phone Number KATHYS [facility] * TRANSTHORACIC ECHO (TTE) (12/30/2016 8:50 AM) TRANSTHORACIC ECHO (TTE) Transthoracic SMS Echo Report MARILEE SULLIVAN Age:51 Gender: F :1965 Exam Date: 12/30/2016 08:50 Exam Location: [facility] Echo Ordering Phys: KEIKO ANDERS Referring Phys: Reading Phys:Sarah Carter Fellow Phys: Fellow Phys: Road Conductor: Vinh Munoz Reason For Exam: Indications: Chest Pain ICD-9 Codes: R06.89 Exam Type: Transthoracic Echo Procedure CPT:83092 Addtional CPT: Ht (in): 63 BSA: 2.35HR: [...] E to A Ratio 0.87 MV Deceleration Win[place] 260 cm/s MV Pressure Half Time 79 [...] E to A Ratio 0.87 MV Deceleration [place] 260 cm/s MV Pressure Half Time 79 ms MV Area PHT 2.8 cm PV Peak Velocity 74.7 cm/s PV Peak Gradient 2.2 mmHg RVOT Peak Velocity 49 cm/s RVOT Peak Gradient 0.96 mmHg LV E' Lateral Velocity 7.8 cm/s Mitral E to LV E' Lateral Ratio 9 LV E' Septal Velocity 6 cm/s Mitral E to LV E' Septal Ratio11.8 Performing Organization Address [facility] Phone Number SMS * RAPID INFLUENZA SCREEN (12/30/2016 3:40 AM) Spec Description Nasopharyngeal swab [facility] Order Comments None [facility] Direct Exam Negative for [facility] Influenza A and B by EIA Report Status Final 12/30/2016 [facility]CRO[facility] Specimen Nasopharyngeal - Nasopharyngeal Swab Performing Organization Address [facility] Phone Number MISYS [facility] * 12 LEAD EKG (12/30/2016 2:30 AM) 12 LEAD EKG FOR [facility] Test Date:2016-12-30 Pat Name: MARILEE SULLIVAN Department: Room: Gender: F Aerospace Medicine Physician: [id number] :1966-0 06-24 Requested By: Order Number: Dasha conner MD: Sonu Miller Measurements Intervals [place] Rate: 69 P:6 [place]: 161 QRS: -13 QRSD: 99 T:27 QT: 382 QTc:411 Interpretive Statements SINUS RHYTHM LOW QRS VOLTAGE IN PRECORDIAL LEADS [QRS DEFLECTION < 1.0 mV IN CHEST LEADS] PATTERN CONSISTENT WITH PULMONARY DISEASE POOR R WAVE PROGRESSION ABNORMAL ECG Electronically Signed On 12-31-16 19:10:32 CDT by Sonu Miller Performing Organization Address City/[facility] Phone Number SMS * MYOGLOBIN, SER (12/30/2016 2:00 AM) Only the most recent of 2 results within the time period is included. Myoglobin, Ser 33 14 - 106 ng/mL [facility] 3 Specimen Blood Performing Organization Address [facility] Phone [facility] * TROPONIN I (12/30/2016 2:00 AM) Only the most recent of 2 results within the time period is included. Troponin I <0.015 0.000 - 0.045 ng/mL [facility] 1 Specimen Blood Performing Organization Address [facility] Phone Number [facility] * CK, TOTAL (12/30/2016 2:00 AM) Only the most recent of 2 results within the time period is included. CK, Total 84 30 - 200 U/L [facility] 1 Comment: CKMB not performed if CK <100, if CKMB is required, please notify laboratory immediately. Specimen Blood Performing Organization Address [facility] Phone Number [employer]ORAC[employer] [facility] * HEP A VIRUS AB IGG (12/29/2016 9:34 PM) Hep A Vir Ab IgG Positive (A) NEG BT [facility] 4 Performing Organization Address [facility] Phone Number [employer] BT [facility]IN[facility]ST[facility] 4 * SYPHILIS SCREEN FOR INFECTION (12/29/2016 9:34 PM) Treponemal Ab Negative BT DIAGNOSTIC IMMUNOLOGY Final Report Negative BT DIAGNOSTIC IMMUNOLOGY Performing Organization Address [facility] Phone Number [employer] BT DIAGNOSTIC IMMUNOLOGY * HEP BE AB (12/29/2016 9:34 PM) Hep Be Ab Negative LABORATORY Reference range: Negative 51 Auto Specimen Blood Performing Organization Address City/[facility]/Zipcode Phone Number [facility] [address] [facility] [place] [address] ELIZABETH 145 * HEP B COR AB TOT (12/29/2016 9:34 PM) Hep B Cor Ab Tot Negative NEG BT MAIN-STATION 4 Specimen Blood Performing Organization Address [facility] Phone Number [facility] * CKMB, REFLEX (12/29/2016 9:34 PM) CK-MB 1.4 0.0 - 3.6 ng/mL [facility] 2 CKMB Index 1.4 0 - 2.5 [facility] 2 Performing Organization Address City/[facility] Phone Number [facility] 2 * HEP B AB AG (12/29/2016 9:34 PM) HBsAg Negative NEG BT MAIN-STATION 4 Specimen Blood Performing Organization Address [facility] Phone Number [facility] * PTT (12/29/2016 9:34 PM) PTT 36.5 (H) 23.6 - 36.4 Seconds [facility] 2 Specimen Blood Performing Organization Address [facility] Phone Number [facility] 2 * PT/INR (12/29/2016 9:34 PM) PT 12.8 11.8 - 15.0 Seconds [facility] 2 INR 1.0 [facility] 2 SUGGESTED THERAPEUTIC RANGES: INR 2.0-3.0 for MODERATE INTENSITY ANTICOAGULATION INR 2.5-3.5 for HIGH INTENSITY ANTICOAGULATION Specimen Blood Performing Organization Address [facility] Phone Number [facility] * CALCIUM, IONIZED (12/29/2016 9:34 PM) Calcium, Ionized 1.08 (L) 1.15 - 1.29 mmol/L [facility] 2 Specimen Blood Performing Organization Address [facility] Phone [facility] * HEP C VIR AB IGG (12/29/2016 9:34 PM) HCV IgG Negative NEG [facility]IN-[facility]ATION 4 Specimen Blood Performing Organization Address [facility] Phone Number [facility] * DIGOXIN (12/29/2016 9:34 PM) Digoxin 0.9 0.80 - 2.00 ng/mL [facility] 2 Performing Organization Address [facility] Phone Number [facility] * HEP A VIR AB IGM (12/29/2016 9:34 PM) HAV, IgM Negative NEG [facility] 4 Specimen Blood Performing Organization Address [facility] Phone Number ANOOP [facility] 4 * URINE DRUG SCREEN (12/29/2016 9:17 PM) Amphetamine Negative NEG [facility] 2 Comment: Calibrated Standard: D-Methamphetamine Positive if urine level >ka=8725 ng/mL Barbiturate Negative NEG [facility] 2 Comment: Calibrated Standard: Secobarbital Positive if urine level is >nw=941 ng/mL Benzodiazepine Negative NEG [facility] 2 Comment: Calibrated Standard: Lormethazepam Positive if urine level is >vg=063 ng/mL Cannabinoid Negative NEG [facility] 2 Comment: Calibrated Standard: 11 nor-delta(9)-THC carboxylic a Positive if urine level >or=50 Cocaine Negative NEG [facility] Comment: Calibrated Standard: Benzoylecgonine Positive if urine level >ic=653 Opiate, Ur Negative NEG [facility] 2 Comment: Calibrated Standard: Morphine Positive if urine level >ef=418 PCP Negative NEG [facility] 2 Comment: Calibrated Standard: Phencyclidine Positive if urine level >or=25 Urine Toxicology Screen results are to be used only for Medical purposes. Specimen Urine Performing Organization Address [facility] Phone Number ANOOP [facility] 2 * BMP POC (12/29/2016 4:12 PM) CO2 POC 27 21 - 32 mmol/L [facility] 1 Chloride POC 105 98 - 107 mmol/L [facility] 1 Potassium POC 5.2 (H) 3.50 - 5.10 mmol/L [facility] 1 Sodium POC 141 136 - 145 mmol/L [facility] 1 Glucose POC 115 (H) 74 - 106 mg/dL [facility] 1 Urea Nitrogen POC 17 7 - 18 mg/dL [facility] 1 Creatinine POC 0.8 0.6 - 1.3 mg/dL [facility] 1 Calcium Ionized POC 1.03 (L) 1.15 - 1.29 mmol/L [facility] 1 Hemoglobin POC 16.7 (H) 12.0 - 16.0 g/dL [facility] 1 Hematocrit POC 49.0 (H) 37.0 - 47.0 % [facility] 1 GFR, Estimated >60 mL/min/1.73 m2 [facility] 1 GFR, Estim, Afr-Am >60 mL/min/1.73 m2 [facility] 1 Performing Organization Address [place] Phone [facility] 1 * TROPONIN I POC (12/29/2016 4:10 PM) Troponin POC 0.00 0.00 - 0.08 ng/mL [facility] 1 Performing Organization Address [place] Phone [facility] 1 * 12 LEAD EKG (12/29/2016 2:09 PM) 12 LEAD EKG FOR [facility] Test Date:2016-12-29 Pat Name: MARILEE SULLIVAN Department: Room: Gender: F [employer] Physician: :[id number] - Requested By: Order Number: [id number] [id number] MD: Sonu Miller Measurements Intervals [place] Rate: 86 P:14 [place]: 159 QRS: -27 QRSD: 84 T:37 QT: 345 QTc:413 Interpretive Statements SINUS RHYTHM POSSIBLE LEFT ATRIAL ENLARGEMENT LOW QRS VOLTAGE IN PRECORDIAL LEADS POOR R WAVE PROGRESSION: POSSIBLE ANTERIOR MYOCARDIAL INFARCTION, PROBABLY OLD ABNORMAL ECG Electronically Signed On 12-29-16 18:48:49 CDT by Sonu Miller Performing Organization Address [place]/[facility] Phone Number [facility] after 11/29/2016
--- OUTSIDE RECORDS SUMMARY | 2018-10-21 09:59 | XMS REPORT | Clinical Summary ---
Author Author [facility] Organization [facility] Address Unknown Phone Unavailable Care Team Providers Care Loop Sewer Name Role Phone Dario Sabillon MD PCP [...] unspecified location fluticasone (FLONASE) 50 Use 1 [place] in each 16 g 0 05/29/19 Active [...] from Dr. Paola Burden. Pending approval from histotechnologist supervisor. 05/30/12 - approved by Dr. James Valdez for outsourcing @ [facility]. Physician order, demographics & clinical information faxed to [facility]. Date & time: l 2012 @ 10:30 am. 06/17/12 - received MRI report today & being placed in the Media tab of this record. Dr. Burden/Margarita García included in the e-mail. Images to be placed in PACS as soon as obtained from [facility]. Faith Molina RN # [id number] S/P laparoscopic cholecystectomy 10/05/2008 Bronchopulmonary aspergillosis Resolved [...] current use of insulin 05/12/2017 Same Day [facility] Practice Loren Gregg NP Acute bronchitis, unspecified organism (Primary Dx); Cough; Type 2 diabetes mellitus without complication, without long-term current use of insulin 05/03/2017 Office Visit Cardiology Amarilis Aggarwal MD Partial anomalous pulmonary venous return (PAPVR) (Primary Dx); ASD (atrial septal defect), sinus venosus defect; Pulmonary hypertension 04/27/2017 Hospital Amarilis Aggarwal MD Encounter 04/23/[address] [facility] Dario Sabillon MD Type 2 diabetes mellitus [...] 01/19/2013; Shortness of breath 03/26/[address] [facility] Dario Sabillon MD Mild intermittent asthma with acute exacerbation 02/26/2017 Orders Only [facility] Dario Giordano MD Chronic congestive heart failure, unspecified congestive heart failure type (Primary Dx) 02/24/2017 Clinical Case Social Work Isrrael Dukes RN Mgt 02/23/2017 Office Visit [facility] Dario Giordano MD Type 2 diabetes mellitus without complication, without long-term current use of insulin (Primary Dx); Gastroesophageal reflux disease without esophagitis; Chronic congestive heart failure, unspecified congestive heart failure type; Mild intermittent asthma with acute exacerbation; Acute bronchitis, unspecified organism; Sleep apnea, unspecified type; Hypokalemia; Hyperlipidemia, unspecified hyperlipidemia type 02/19/[address] [facility] Ankita Cox DO Chronic congestive heart failure, [...] Duran DO Chest pain in adult - [facility], (Primary Dx); 12/31/2016 MD Keiko Chronic congestive heart failure, unspecified congestive heart failure type; ASD (atrial septal defect), sinus venosus defect - 01/19/2013 after 12/12/2016 Immunizations Name Dates Previously Given Next Due [...] LD Diet Decrease tea intake by No Gregory, half Yael Radha, LD Diet Have 3 meals a day + HS No Gregory, Snack Yael Radha, 3 portion controlled, low LD sodium meals + 1 HS snack Procedures Procedure Name Priority Date/Time Associated Diagnosis Comments DIABETIC FOOT EXAM Routine 05/28/2017 Type 2 diabetes mellitus Results for this 7:09 PM CDT without complication, procedure are in the without long-term current results section. use of insulin POC RAPID FLU Routine 05/12/2017 Cough Results for this 2:15 PM PREFINISH OPERATOR procedure are in the results section. POC GROUP A STREP SCREEN Routine 05/12/2017 Cough Results for this 2:11 PM PREFINISH OPERATOR procedure are in the results section. DIABETIC FOOT EXAM Routine 05/12/2017 Type 2 diabetes mellitus Results for this 1:57 PM PREFINISH OPERATOR without complication, procedure are in the without long-term current results section. use of insulin TREADMILL STRESS-TRACING Routine 04/27/2017 Palpitations Results for this ONLY 8:43 AM PREFINISH OPERATOR ASD (atrial septal procedure are in the defect), sinus venosus results section. defect - 01/19/2013 Shortness of breath TTE FOLLOW UP Routine 04/15/2017 Palpitations Results for this 10:51 AM PREFINISH OPERATOR ASD (atrial septal procedure are in the defect), sinus venosus results section. defect - 01/19/2013 Shortness of breath CBC/DIFF Routine 04/05/2017 Palpitations Results for this 2:43 PM PREFINISH OPERATOR ASD (atrial septal procedure are in the defect), sinus venosus results section. defect - 01/19/2013 Shortness of breath COMPREHENSIVE METABOLIC Routine 04/05/2017 Palpitations Results for this PANEL(DBIL NOT INCLUDED) 2:43 PM PREFINISH OPERATOR ASD (atrial septal procedure are in the defect), sinus venosus results section. defect - 01/19/2013 Shortness of breath 12 LEAD EKG Routine 04/05/2017 Palpitations Results for this 1:58 PM PREFINISH OPERATOR procedure are in the results section. 12 LEAD EKG Routine 01/25/2017 Chest pain, unspecified Results for this 11:51 AM PREFINISH OPERATOR type procedure are in the results section. BMP POC Routine 01/25/2017 Results for this 11:43 AM PREFINISH OPERATOR procedure are in the results section. XRAY CHEST 2 VIEWS CLEMENTINE 01/25/2017 Chest pain, unspecified Results for this 11:25 AM PREFINISH OPERATOR type procedure are in the results section. MAGNESIUM Routine 01/25/2017 Chronic congestive heart Results for this 11:25 AM PREFINISH OPERATOR failure, unspecified procedure are in the congestive heart failure results section. type CBC/DIFF Routine 01/25/2017 Chronic congestive heart Results for this 11:25 AM PREFINISH OPERATOR failure, unspecified procedure are in the congestive heart failure results section. type B NATRIURETIC PEPT Routine 01/25/2017 Chronic congestive heart Results for this 11:25 AM PREFINISH OPERATOR failure, unspecified procedure are in the congestive [...] procedure are in the results section. after 12/12/2016 Results * DIABETIC FOOT EXAM (05/28/2017 7:09 [...] STRESS-TRACING ONLY (04/27/2017 8:43 AM) Stress Test [facility] Test Date:2017-04-27 Pat Name: MARILEE SULLIVAN Department: Room: Gender: Female Tobacco Wrapping Machine Tender: XANDER :1966-0 - Requested By: Order Number: Dasha [...] myocardial ischemia. Electronically Signed On 04-27-17 18:18:36 PREFINISH OPERATOR by Sonu Miller Performing Organization Address City/State/Zipcode Phone Number SMS * TTE FOLLOW UP (04/15/2017 10:51 AM) ECHO HEART Transthoracic SMS XTHORACIC,LIMITED Echo Report MARILEE SULLIVAN Age:51 Gender: F :1965 Exam Date: 04/15/2017 10:51 Exam Location: [facility] Echo Ordering Phys: AMARILIS AGGARWAL Referring Phys:AMARILIS AGGARWAL Reading Phys:Luis M Goodson MD Fellow Phys: Fellow Phys: Record Center Coordinator: Michelle Barreto Reason For Exam: Indications: dyspnea ICD-9 Codes: Exam Type: TTE FOLLOW UP Procedure CPT:78236 Addtional CPT: Ht (in): 63 BSA: 2.38HR: [...] E to A Ratio 0.81 MV Deceleration Ward 399 cm/s MV Deceleration Time 236 ms [...] E to A Ratio 0.81 MV Deceleration Ward 399 cm/s MV Deceleration Time 236 ms [...] Mitral E to LV E' Septal Ratio11.6 [facility] Organization Address City/[facility]/Zipcode Phone Number SMS * COMPREHENSIVE METABOLIC PANEL(DBIL NOT INCLUDED) (04/05/2017 2:43 PM) Only the most recent of 2 results within the time period is included. Albumin 3.8 3.4 - 5.0 g/dL [facility] Calcium 9.1 8.50 - 10.20 mg/dL [facility] CO2 27 21 - 32 mmol/L [facility] Chloride 104 98 - 107 mmol/L [facility] Creatinine 0.59 (L) 0.60 - 1.30 mg/dL [facility] Glucose 97 70 - 99 mg/dL [facility] Alk Phos 162 (H) 45 - 117 U/L [facility] Potassium 4.2 3.50 - 5.10 mmol/L [facility] Sodium 140 136 - 145 mmol/L [facility] ALT 37 12 - 78 U/L [facility] AST 40 (H) 15 - 37 U/L [facility] Urea Nitrogen 13 7 - 18 mg/dL [facility] T Bilirubin 0.4 0.2 - 1.0 mg/dL [facility] T Protein 7.6 6.4 - 8.2 g/dL [facility] GFR, Estimated >60 mL/min/1.73 m2 [facility] GFR, Estim, Afr-Am >60 mL/min/1.73 m2 [facility] Anion Gap 9 [facility] Specimen Blood Performing Organization Address City/[facility] Phone Number MISYS [facility] * CBC/DIFF (04/05/2017 2:43 PM) Only the most recent of 4 results within the time period is included. WBC 10.7 4.5 - 11.0 K/uL [facility] 2 RBC 4.89 4.20 - 5.40 M/uL [facility] 2 Hemoglobin 13.3 12.0 - 16.0 g/dL [facility] 2 Hematocrit 46.0 37.0 - 47.0 % [facility] 2 MCV 94 (H) 82 - 92 fL [facility] 2 MCH 27.2 27.0 - 32.0 pg [facility] 2 MCHC 28.9 (L) 32.0 - 36.0 g/dL [facility] 2 RDW 46.8 (H) 36.4 - 46.3 fL [facility] 2 Platelet 300 150 - 400 K/uL [facility] 2 Mean Platelet Volume 11.3 9.4 - 12.4 fL [facility] 2 Percent NRBC 0.0 [facility] 2 Absolute NRBC 0.00 [facility] 2 Neutrophil 57.0 34.0 - 70.0 % [facility] 2 Lymphocyte 34.6 20.0 - 50.0 % [facility] 2 Monocyte 6.7 5.0 - 12.0 % [facility] 2 Eosinophil 0.7 0.7 - 5.0 % [facility] 2 Basophil 0.5 0.1 - 1.2 % [facility] 2 Pct Immat Gran 0.5 0.0 - 0.5 [facility] 2 Neutrophil, Abs 6.10 1.56 - 6.13 K/uL [facility] 2 Lymphocyte, Abs 3.69 1.18 - 3.74 K/uL [facility] 2 Monocyte, Abs 0.71 (H) 0.24 - 0.36 K/uL [facility] 2 Eosinophil, Abs 0.07 0.04 - 0.36 K/uL [facility] 2 Basophil, Abs 0.05 0.01 - 0.08 K/uL [facility] 2 Absol Immat Gran 0.05 (H) 0.00 - 0.03 K/uL [facility] 2 Specimen Blood Performing Organization Address City/State/Zipcode Phone Number MISYS [facility] 2 * 12 LEAD EKG (04/05/2017 1:58 PM) 12 LEAD EKG FOR CHP [facility] Test Date:2017-04-05 Pat Name: MARILEE SULLIVAN Department: Room: Gender: F Tobacco Wrapping Machine Tender: [id number] :1966-0 06-24 Requested By: Order Number: Dasha conner MD: Sonu Miller Measurements Intervals [place] Rate: 78 P:10 LA: 154 QRS: -13 QRSD: 101 T: 30 QT: 379 QTc:432 Interpretive Statements SINUS RHYTHM LOW QRS VOLTAGE IN PRECORDIAL LEADS [QRS DEFLECTION < 1.0 mV IN CHEST LEADS] POOR R WAVE PROGRESSION NON SPECIFIC T WAVE ABNORMALITY ABNORMAL ECG Electronically Signed On 04-07-17 14:20:19 PREFINISH OPERATOR by Sonu Miller Performing Organization Address City/[facility] Phone Number SMS * 12 LEAD EKG (01/25/2017 11:51 AM) 12 LEAD EKG FOR [facility] Test Date:2017-01-25 Pat Name: MARILEE SULLIVAN Department: Room: Gender: F Tobacco Wrapping Machine Tender: [id number] :1966-0 06-24 Requested By: Order Number: Dasha conner MD: Paola Burden M.D. Measurements Intervals [place] Rate: 78 P:-3 LA: 138 QRS: -8 QRSD: 80 T:16 QT: 368 QTc:419 Interpretive Statements Normal sinus rhythm Normal ECG Electronically Signed On 01-25-17 18:59:32 PREFINISH OPERATOR by Paola Burden M.D. Performing Organization Address [facility] Phone Number SMS * BMP POC (01/25/2017 [...] mL/min/1.73 m2 [facility] Performing Organization Address [facility] Phone Number MISYS [facility] * XRAY CHEST 2 VIEWS (01/25/2017 11:25 AM) Only the most recent of 2 results within the time period is included. Impressions Performed At IMPRESSION: SMS Elevation of the right hemidiaphragm with linear opacity of the right midlung suggestive of volume loss and scarring, unchanged. No acute thoracic abnormality. A "PRELIMINARY" report was made available via [employer] at the time of dictation by the [...] Interface, Rad/Mammog In - 01/25/2017 4:33 PM PREFINISH OPERATOR EXAMINATION: XRAY CHEST 2 VIEWS INDICATION: [...] A "PRELIMINARY" report was made available via [employer] at the time of dictation by the resident indicated below. If the report is "FINALIZED" it indicates that the attending/staff radiologist has reviewed the images and agrees with the resident's interpretation. Dictated By: Shabbir Latham DO, 01/25/2017 1:38 PM I have reviewed the study and agree with the findings in this report. Signed By: Tushar Gonzalez MD, 01/25/2017 4:28 PM Performing Organization Address City/[facility] Phone Number SMS * B NATRIURETIC PEPT (01/25/2017 11:25 AM) Only the most recent of 2 results within the time period is included. B Natriuretic Pept 100 0 - 100 pg/mL [facility] 3 Specimen Blood Performing Organization Address [facility] Phone Number MISYS [facility] * MAGNESIUM (01/25/2017 11:25 AM) Magnesium 2.1 1.8 - 2.4 mg/dL [facility] 3 Specimen Blood Performing Organization Address [facility] Phone Number MISYS [facility] 3 * GLUCOSE POC (12/31/2016 7:19 AM) Only the most recent of 7 results within the time period is included. Glucose POC 140 (H) 74 - 106 mg/dL [facility] 1 Performing Organization Address City/[facility] Phone Number MISYS [facility] * BASIC METABOLIC PANEL (12/31/2016 [...] [facility] Specimen Blood Performing Organization Address City/[facility] Phone Number MISYS [facility]CROBIOLOG[facility] * UA CHEMISTRIES (12/30/2016 4:05 PM) Only the most recent of 2 results within the time period is included. Color Juliette [facility] Clarity Hazy [facility] Spec [place] 1.028 1.001 - 1.035 [facility] [...] 2 Performing Organization Address City/State/Zipcode Phone Number MISYS [facility] * TRANSTHORACIC ECHO (TTE) (12/30/2016 8:50 AM) TRANSTHORACIC ECHO (TTE) Transthoracic SMS Echo Report MARILEE SULLIVAN Age:51 Gender: F :1965 Exam Date: 12/30/2016 08:50 Exam Location: [facility] Echo Ordering Phys: KEIKO ANDERS Referring Phys: Reading Phys:Sarah Carter Fellow Phys: Fellow Phys: Record Center Coordinator: Vinh Munoz Reason For Exam: Indications: Chest Pain ICD-9 Codes: R06.89 Exam Type: Transthoracic Echo Procedure CPT:14804 Addtional CPT: Ht (in): 63 BSA: 2.35HR: [...] E to A Ratio 0.87 MV Deceleration Ward 260 cm/s MV Pressure Half Time 79 [...] E to A Ratio 0.87 MV Deceleration Ward 260 cm/s MV Pressure Half Time 79 ms MV Area PHT 2.8 cm PV Peak Velocity 74.7 cm/s PV Peak Gradient 2.2 mmHg RVOT Peak Velocity 49 cm/s RVOT Peak Gradient 0.96 mmHg LV E' Lateral Velocity 7.8 cm/s Mitral E to LV E' Lateral Ratio 9 LV E' Septal Velocity 6 cm/s Mitral E to LV E' Septal Ratio11.8 Performing Organization Address City/[facility] Phone Number SMS * RAPID INFLUENZA SCREEN (12/30/2016 3:40 AM) Spec Description Nasopharyngeal swab [facility] Order Comments None [facility] Direct Exam Negative for [facility] Influenza A and B by EIA Report Status Final 12/30/2016 [facility] Specimen Nasopharyngeal - Nasopharyngeal Swab Performing Organization Address City/[facility] Phone Number MISYS [facility] * 12 LEAD EKG (12/30/2016 2:30 AM) 12 LEAD EKG FOR CHP [facility] Test Date:2016-12-30 Pat Name: MARILEE SULLIVAN Department: Room: Gender: F Tobacco Wrapping Machine Tender: [id number] :1966-0 06-24 Requested By: Order Number: Dasha conner MD: Sonu Miller Measurements Intervals [place] Rate: 69 P:6 LA: 161 QRS: -13 QRSD: 99 T:27 QT: 382 QTc:411 Interpretive Statements SINUS RHYTHM LOW QRS VOLTAGE IN PRECORDIAL LEADS [QRS DEFLECTION < 1.0 mV IN CHEST LEADS] PATTERN CONSISTENT WITH PULMONARY DISEASE POOR R WAVE PROGRESSION ABNORMAL ECG Electronically Signed On 12-31-16 19:10:32 CDT by Sonu Miller Performing Organization Address [facility] Phone Number SMS * MYOGLOBIN, SER (12/30/2016 2:00 AM) Only the most recent of 2 results within the time period is included. Myoglobin, Ser 33 14 - 106 ng/mL [facility] 3 Specimen Blood Performing Organization Address [facility] Phone Number [facility] * TROPONIN I (12/30/2016 2:00 AM) Only the most recent of 2 results within the time period is included. Troponin I <0.015 0.000 - 0.045 ng/mL [facility] 1 Specimen Blood Performing Organization Address [facility] Phone Number [facility] * CK, TOTAL (12/30/2016 2:00 AM) Only the most recent of 2 results within the time period is included. CK, Total 84 30 - 200 U/L [facility] Comment: CKMB not performed if CK <100, if CKMB is required, please notify laboratory immediately. Specimen Blood Performing Organization Address [facility] Phone Number MISYS [facility] * HEP A VIRUS AB IGG (12/29/2016 9:34 PM) Hep A Vir Ab IgG Positive (A) NEG [facility] 4 Performing Organization Address [facility] Phone Number MISYS [facility] 4 * SYPHILIS SCREEN FOR INFECTION (12/29/2016 9:34 PM) Treponemal Ab Negative [facility] DIAGNOSTIC IMMUNOLOGY Final Report Negative [facility] DIAGNOSTIC IMMUNOLOGY Performing Organization Address [facility] Phone Number MISYS [facility] DIAGNOSTIC IMMUNOLOGY * HEP BE AB (12/29/2016 9:34 PM) Hep Be Ab Negative LABORATORY Reference range: Negative Artaic Specimen Blood Performing Organization Address [facility] Phone Number [facility] [address] [facility] [address] [facility] [place], [place] [id number] ELIZABETH 145 * HEP B COR AB TOT (12/29/2016 9:34 PM) Hep B Cor Ab Tot Negative NEG [facility] 4 Specimen Blood Performing Organization Address [facility] Phone Number [facility] 4 * CKMB, REFLEX (12/29/2016 9:34 PM) CK-MB 1.4 0.0 - 3.6 ng/mL [facility] 2 CKMB Index 1.4 0 - 2.5 [facility] 2 Performing Organization Address [facility] Phone Number [facility] * HEP B AB AG (12/29/2016 9:34 PM) HBsAg Negative NEG [facility] 4 Specimen Blood Performing Organization Address [facility] Phone Number [facility] 4 * PTT (12/29/2016 9:34 PM) PTT 36.5 (H) 23.6 - 36.4 Seconds [facility] 2 Specimen Blood Performing Organization Address [facility] Phone Number [facility] * PT/INR (12/29/2016 9:34 PM) PT 12.8 11.8 - 15.0 Seconds [facility] 2 INR 1.0 [facility] 2 SUGGESTED THERAPEUTIC RANGES: INR 2.0-3.0 for MODERATE INTENSITY ANTICOAGULATION INR 2.5-3.5 for HIGH INTENSITY ANTICOAGULATION Specimen Blood Performing Organization Address [facility] Phone Number [facility] * CALCIUM, IONIZED (12/29/2016 9:34 PM) Calcium, Ionized 1.08 (L) 1.15 - 1.29 mmol/L [facility] 2 Specimen Blood Performing Organization Address [facility] Phone Number [facility] * HEP C VIR AB IGG (12/29/2016 9:34 PM) HCV IgG Negative NEG [facility] 4 Specimen Blood Performing Organization Address [facility] Phone Number [facility] 4 * DIGOXIN (12/29/2016 9:34 PM) Digoxin 0.9 0.80 - 2.00 ng/mL [facility] 2 Performing Organization Address [facility] Phone Number [facility] * HEP A VIR AB IGM (12/29/2016 9:34 PM) HAV, IgM Negative NEG [facility] 4 Specimen Blood Performing Organization Address [facility] Phone Number ANOOP [facility] 4 * URINE DRUG SCREEN (12/29/2016 9:17 PM) Amphetamine Negative NEG [facility] 2 Comment: Calibrated Standard: D-Methamphetamine Positive if urine level >qw=1747 ng/mL Barbiturate Negative NEG [facility] 2 Comment: Calibrated Standard: Secobarbital Positive if urine level is >zt=848 ng/mL Benzodiazepine Negative NEG [facility] 2 Comment: Calibrated Standard: Lormethazepam Positive if urine level is >pe=257 ng/mL Cannabinoid Negative NEG [facility] 2 Comment: Calibrated Standard: 11 nor-delta(9)-THC carboxylic a Positive if urine level >or=50 Cocaine Negative NEG [facility] 2 Comment: Calibrated Standard: Benzoylecgonine Positive if urine level >oc=961 Opiate, Ur Negative NEG [facility] 2 Comment: Calibrated Standard: Morphine Positive if urine level >lj=147 PCP Negative NEG [facility] 2 Comment: Calibrated Standard: Phencyclidine Positive if urine level >or=25 Urine Toxicology Screen results are to be used only for Medical purposes. Specimen Urine Performing Organization Address [facility] Phone Number ANOOP [facility] 2 * BMP POC (12/29/2016 4:12 PM) CO2 POC 27 21 - 32 mmol/L [facility] 1 Chloride POC 105 98 - 107 mmol/L [facility] 1 Potassium POC 5.2 (H) 3.50 - 5.10 mmol/L [facility] 1 Sodium POC 141 136 - 145 mmol/L [facility] 1 Glucose POC 115 (H) 74 - 106 mg/dL [facility] 1 Urea Nitrogen POC 17 7 - 18 mg/dL [facility] Creatinine POC 0.8 0.6 - 1.3 mg/dL [facility] 1 Calcium Ionized POC 1.03 (L) 1.15 - 1.29 mmol/L [facility] 1 Hemoglobin POC 16.7 (H) 12.0 - 16.0 g/dL [facility] 1 Hematocrit POC 49.0 (H) 37.0 - 47.0 % [facility] 1 GFR, Estimated >60 mL/min/1.73 m2 [facility] 1 GFR, Estim, Afr-Am >60 mL/min/1.73 m2 [facility] 1 Performing Organization Address [facility] [place] Number MIS[facility] * TROPONIN I POC (12/29/2016 4:10 PM) Troponin POC 0.00 0.00 - 0.08 ng/mL [facility] Performing Organization Address [facility] Phone Number MISYS [facility] * 12 LEAD EKG (12/29/2016 2:09 PM) 12 LEAD EKG FOR [facility] Test Date:2016-12-29 Pat Name: MARILEE SULLIVAN Department: Room: Gender: [employer] Tender: :[id number] - Requested By: Order Number: [id number] CORTÉS: Sonu Miller Measurements Intervals [place] Rate: 86 P:14 LA: 159 QRS: -27 QRSD: 84 T:37 QT: 345 QTc:413 Interpretive Statements SINUS RHYTHM POSSIBLE LEFT ATRIAL ENLARGEMENT LOW QRS VOLTAGE IN PRECORDIAL LEADS POOR R WAVE PROGRESSION: POSSIBLE ANTERIOR MYOCARDIAL INFARCTION, PROBABLY OLD ABNORMAL ECG Electronically Signed On 12-29-16 18:48:49 CDT by Sonu Miller Performing Organization Address [facility] Phone Number [facility] after 12/12/2016
--- OUTSIDE RECORDS SUMMARY | 2018-10-21 09:59 | XMS REPORT | Clinical Summary ---
Author Author [facility] Organization [facility] Address Unknown Phone Unavailable Care Team Providers Care Drill Operator Pneumatic Name Role Phone Dario Sabillon MD PCP [...] unspecified location fluticasone (FLONASE) 50 Use 1 [place] in each 16 g 0 05/29/19 Active [...] 17 18 ued Cough. Miscellaneous Medical by [facility].(Non-Drug; Combo 1 Each 0 10/30/19 04/05/19 Discontin [...] Acute bronchitis, unspecified organism Miscellaneous Medical by [facility].(Non-Drug; Combo 1 Each 0 02/27/20 04/05/19 Discontin [...] from Dr. Paola Burden. Pending approval from nipping machine operator. 05/30/12 - approved by Dr. James Valdez for outsourcing @ [facility]. Physician order, demographics & clinical information faxed to [facility]. Date & time: l 2012 @ 10:30 am. 06/17/12 - received MRI report today & being placed in the Media tab of this record. Dr. Burden/Margarita García included in the e-mail. Images to be placed in PACS as soon as obtained from [facility]. Faith Molina RN # [id number] S/P laparoscopic cholecystectomy 10/05/2008 Bronchopulmonary aspergillosis Resolved [...] current use of insulin 05/12/2017 Same Day [facility] Practice Loren Gregg NP Acute bronchitis, unspecified organism (Primary Dx); Cough; Type 2 diabetes mellitus without complication, without long-term current use of insulin 05/03/2017 Office Visit Cardiology Amarilis Aggarwal MD Partial anomalous pulmonary venous return (PAPVR) (Primary Dx); ASD (atrial septal defect), sinus venosus defect; Pulmonary hypertension 04/27/2017 Hospital Amarilis Aggarwal MD Encounter 04/23/2017 Refill [facility] Dario Sabillon MD Type 2 diabetes mellitus [...] - 01/19/2013; Shortness of breath 03/26/2017 Refill [facility] Dario Sabillon MD Mild intermittent asthma with acute exacerbation 02/26/2017 Orders Only [facility] Dario Giordano MD Chronic congestive heart failure, unspecified congestive heart failure type (Primary Dx) 02/24/2017 Clinical Case Social Work Isrrael Dukes RN Mgt 02/23/2017 Office Visit [facility] Dario Giordano MD Type 2 diabetes mellitus without complication, without long-term current use of insulin (Primary Dx); Gastroesophageal reflux disease without esophagitis; Chronic congestive heart failure, unspecified congestive heart failure type; Mild intermittent asthma with acute exacerbation; Acute bronchitis, unspecified organism; Sleep apnea, unspecified type; Hypokalemia; Hyperlipidemia, unspecified hyperlipidemia type 02/19/2017 Refill [facility] Ankita Cox DO Chronic congestive heart [...] Duran DO Chest pain in adult - [facility], (Primary Dx); 12/31/2016 MD Keiko Chronic congestive heart failure, unspecified congestive heart failure type; ASD (atrial septal defect), sinus venosus defect - 01/19/2013 after 12/08/2016 Immunizations Name Dates Previously Given Next Due [...] LD Diet Decrease tea intake by No [place], half Yael Radha, LD Diet Have 3 meals a day + HS No [place], Snack Yael Radha, 3 portion controlled, low LD sodium meals + 1 HS snack Procedures Procedure Name Priority Date/Time Associated Diagnosis Comments DIABETIC FOOT EXAM Routine 05/28/2017 Type 2 diabetes mellitus Results for this 7:09 PM CDT without complication, procedure are in the without long-term current results section. use of insulin POC RAPID FLU Routine 05/12/2017 Cough Results for this 2:15 PM [employer] procedure are in the results section. POC GROUP A STREP SCREEN Routine 05/12/2017 Cough Results for this 2:11 PM [employer] procedure are in the results section. DIABETIC FOOT EXAM Routine 05/12/2017 Type 2 diabetes mellitus Results for this 1:57 PM [employer] without complication, procedure are in the without long-term current results section. use of insulin TREADMILL STRESS-TRACING Routine 04/27/2017 Palpitations Results for this ONLY 8:43 AM [employer] ASD (atrial septal procedure are in the defect), sinus venosus results section. defect - 01/19/2013 Shortness of breath TTE FOLLOW UP Routine 04/15/2017 Palpitations Results for this 10:51 AM [employer] ASD (atrial septal procedure are in the defect), sinus venosus results section. defect - 01/19/2013 Shortness of breath CBC/DIFF Routine 04/05/2017 Palpitations Results for this 2:43 PM [employer] ASD (atrial septal procedure are in the defect), sinus venosus results section. defect - 01/19/2013 Shortness of breath COMPREHENSIVE METABOLIC Routine 04/05/2017 Palpitations Results for this PANEL(DBIL NOT INCLUDED) 2:43 PM [employer] ASD (atrial septal procedure are in the defect), sinus venosus results section. defect - 01/19/2013 Shortness of breath 12 LEAD EKG Routine 04/05/2017 Palpitations Results for this 1:58 PM [employer] procedure are in the results section. 12 LEAD EKG Routine 01/25/2017 Chest pain, unspecified Results for this 11:51 AM [employer] type procedure are in the results section. BMP POC Routine 01/25/2017 Results for this 11:43 AM [employer] procedure are in the results section. XRAY CHEST 2 VIEWS CLEMENTINE 01/25/2017 Chest pain, unspecified Results for this 11:25 AM [employer] type procedure are in the results section. MAGNESIUM Routine 01/25/2017 Chronic congestive heart Results for this 11:25 AM [employer] failure, unspecified procedure are in the congestive heart failure results section. type CBC/DIFF Routine 01/25/2017 Chronic congestive heart Results for this 11:25 AM [employer] failure, unspecified procedure are in the congestive heart failure results section. type B NATRIURETIC PEPT Routine 01/25/2017 Chronic congestive heart Results for this 11:25 AM [employer] failure, unspecified procedure are in the congestive [...] procedure are in the results section. after 12/08/2016 Results * DIABETIC FOOT EXAM (05/28/2017 7:09 [...] STRESS-TRACING ONLY (04/27/2017 8:43 AM) Stress Test [facility] Test Date:2017-04-27 Pat Name: MARILEE SULLIVAN Department: Room: Gender: Female Network Control Supervisor: XANDER :1966-0 - Requested By: Order Number: [...] myocardial ischemia. Electronically Signed On 04-27-17 18:18:36 [employer] by Sonu Miller Performing Organization Address City/State/Zipcode Phone Number SMS * TTE FOLLOW UP (04/15/2017 10:51 AM) ECHO HEART Transthoracic SMS XTHORACIC,LIMITED Echo Report MARILEE SULLIVAN Age:51 Gender: F :1965 Exam Date: 04/15/2017 10:51 Exam Location: [facility] Echo Ordering Phys: AMARILIS AGGARWAL Referring Phys:AMARILIS AGGARWAL Reading Phys:Luis M Goodson MD Fellow Phys: Fellow Phys: Psychologist Social: Michelle Barreto Reason For Exam: Indications: dyspnea ICD-9 Codes: Exam Type: TTE FOLLOW UP Procedure CPT:62993 Addtional CPT: Ht (in): 63 BSA: 2.38HR: [...] E to A Ratio 0.81 MV Deceleration Kings 399 cm/s MV Deceleration Time 236 ms [...] E to A Ratio 0.81 MV Deceleration Kings 399 cm/s MV Deceleration Time 236 ms [...] Mitral E to LV E' Septal Ratio11.6 [facility] Organization Address City/[facility]/Zipcode Phone Number SMS * COMPREHENSIVE METABOLIC PANEL(DBIL NOT INCLUDED) (04/05/2017 2:43 PM) Only the most recent of 2 results within the time period is included. Albumin 3.8 3.4 - 5.0 g/dL [facility] Calcium 9.1 8.50 - 10.20 mg/dL [facility] CO2 27 21 - 32 mmol/L [facility] Chloride 104 98 - 107 mmol/L [facility] Creatinine 0.59 (L) 0.60 - 1.30 mg/dL [facility] Glucose 97 70 - 99 mg/dL [facility] Alk Phos 162 (H) 45 - 117 U/L [facility] Potassium 4.2 3.50 - 5.10 mmol/L [facility] Sodium 140 136 - 145 mmol/L [facility] ALT 37 12 - 78 U/L [facility] AST 40 (H) 15 - 37 U/L [facility] Urea Nitrogen 13 7 - 18 mg/dL [facility] T Bilirubin 0.4 0.2 - 1.0 mg/dL [facility] T Protein 7.6 6.4 - 8.2 g/dL [facility] GFR, Estimated >60 mL/min/1.73 m2 [facility] GFR, Estim, Afr-Am >60 mL/min/1.73 m2 [facility] Anion Gap 9 [facility] Specimen Blood Performing Organization Address [facility] Phone Number MISYS [facility] * CBC/DIFF (04/05/2017 2:43 PM) Only the most recent of 4 results within the time period is included. WBC 10.7 4.5 - 11.0 K/uL [facility] 2 RBC 4.89 4.20 - 5.40 M/uL [facility] 2 Hemoglobin 13.3 12.0 - 16.0 g/dL [facility] 2 Hematocrit 46.0 37.0 - 47.0 % [facility] 2 MCV 94 (H) 82 - 92 fL [facility] 2 MCH 27.2 27.0 - 32.0 pg [facility] 2 MCHC 28.9 (L) 32.0 - 36.0 g/dL [facility] 2 RDW 46.8 (H) 36.4 - 46.3 fL [facility] 2 Platelet 300 150 - 400 K/uL [facility] 2 Mean Platelet Volume 11.3 9.4 - 12.4 fL [facility] 2 Percent NRBC 0.0 [facility] 2 Absolute NRBC 0.00 [facility] 2 Neutrophil 57.0 34.0 - 70.0 % [facility] 2 Lymphocyte 34.6 20.0 - 50.0 % [facility] 2 Monocyte 6.7 5.0 - 12.0 % [facility] 2 Eosinophil 0.7 0.7 - 5.0 % [facility] 2 Basophil 0.5 0.1 - 1.2 % [facility] 2 Pct Immat Gran 0.5 0.0 - 0.5 [facility] 2 Neutrophil, Abs 6.10 1.56 - 6.13 K/uL [facility] 2 Lymphocyte, Abs 3.69 1.18 - 3.74 K/uL [facility] 2 Monocyte, Abs 0.71 (H) 0.24 - 0.36 K/uL [facility] 2 Eosinophil, Abs 0.07 0.04 - 0.36 K/uL [facility] 2 Basophil, Abs 0.05 0.01 - 0.08 K/uL [facility] 2 Absol Immat Gran 0.05 (H) 0.00 - 0.03 K/uL [facility] 2 Specimen Blood Performing Organization Address City/State/Zipcode Phone Number MISYS [facility] 2 * 12 LEAD EKG (04/05/2017 1:58 PM) 12 LEAD EKG FOR [facility] Test Date:2017-04-05 Pat Name: MARILEE SULLIVAN Department: Room: Gender: F Network Control Supervisor: [id number] :1966-0 06-24 Requested By: Order Number: Dasha conner MD: Sonu Miller Measurements Intervals [place] Rate: 78 P:10 [place]: 154 QRS: -13 QRSD: 101 T: 30 QT: 379 QTc:432 Interpretive Statements SINUS RHYTHM LOW QRS VOLTAGE IN PRECORDIAL LEADS [QRS DEFLECTION < 1.0 mV IN CHEST LEADS] POOR R WAVE PROGRESSION NON SPECIFIC T WAVE ABNORMALITY ABNORMAL ECG Electronically Signed On 04-07-17 14:20:19 [employer] by Sonu Miller Performing Organization Address City/[facility] Phone Number SMS * 12 LEAD EKG (01/25/2017 11:51 AM) 12 LEAD EKG FOR [facility] Test Date:2017-01-25 Pat Name: MARILEE SULLIVAN Department: Room: Gender: F Network Control Supervisor: [id number] :[phone] 06-24 Requested By: Order Number: Dasha conner MD: Paola Burden M.D. Measurements Intervals [place] Rate: 78 P:-3 WY: 138 QRS: -8 QRSD: 80 T:16 QT: 368 QTc:419 Interpretive Statements Normal sinus rhythm Normal ECG Electronically Signed On 01-25-17 18:59:32 [employer] by Paola Burden M.D. Performing Organization Address [facility] Phone Number SMS * BMP POC [...] [facility] Performing Organization Address [facility] Phone Number [facility] * XRAY CHEST 2 VIEWS (01/25/2017 11:25 AM) Only the most recent of 2 results within the time period is included. Impressions Performed At IMPRESSION: SMS Elevation of the right hemidiaphragm with linear opacity of the right midlung suggestive of volume loss and scarring, unchanged. No acute thoracic abnormality. A "PRELIMINARY" report was made available via Veenome at the time of dictation by the [...] Interface, Rad/Mammog In - 01/25/2017 4:33 PM [employer] EXAMINATION: XRAY CHEST 2 VIEWS INDICATION: chest [...] A "PRELIMINARY" report was made available via Veenome at the time of dictation by the resident indicated below. If the report is "FINALIZED" it indicates that the attending/staff radiologist has reviewed the images and agrees with the resident's interpretation. Dictated By: Shabbir Latham DO, 01/25/2017 1:38 PM I have reviewed the study and agree with the findings in this report. Signed By: Tushar Gonzalez MD, 01/25/2017 4:28 PM Performing Organization Address City[facility] Phone Number SMS * B NATRIURETIC PEPT (01/25/2017 11:25 AM) Only the most recent of 2 results within the time period is included. B Natriuretic Pept 100 0 - 100 pg/mL [facility] 3 Specimen Blood Performing Organization Address [facility] Phone Number MISYS [facility] 3 * MAGNESIUM (01/25/2017 11:25 AM) Magnesium 2.1 1.8 - 2.4 mg/dL [facility] 3 Specimen Blood Performing Organization Address [facility] Phone Number MISYS [facility] 3 * GLUCOSE POC (12/31/2016 7:19 AM) Only the most recent of 7 results within the time period is included. Glucose POC 140 (H) 74 - 106 mg/dL [facility] 1 Performing Organization Address City/[facility] Phone Number MISYS [facility] * [...] [facility] Specimen Blood Performing Organization Address City/[facility] Phone Number MISYS [facility] MICROBIOLOG[facility] * UA CHEMISTRIES (12/30/2016 4:05 PM) Only the most recent of 2 results within the time period is included. Color Juliette [facility] 2 Clarity Hazy [facility] 2 Spec Mallie 1.028 1.001 - 1.035 [facility] [...] :1965 Exam Date: 12/30/2016 08:50 Exam Location: [facility] Echo Ordering Phys: KEIKO ANDERS Referring Phys: Reading Phys:Sarah Carter Fellow Phys: Fellow Phys: Psychologist Social: Vinh Munoz Reason For Exam: Indications: Chest Pain ICD-9 Codes: R06.89 Exam Type: Transthoracic Echo Procedure CPT:37687 Addtional CPT: Ht (in): 63 BSA: 2.35HR: [...] E to A Ratio 0.87 MV Deceleration Kings 260 cm/s MV Pressure Half Time 79 [...] E to A Ratio 0.87 MV Deceleration Kings 260 cm/s MV Pressure Half Time 79 ms MV Area PHT 2.8 cm PV Peak Velocity 74.7 cm/s PV Peak Gradient 2.2 mmHg RVOT Peak Velocity 49 cm/s RVOT Peak Gradient 0.96 mmHg LV E' Lateral Velocity 7.8 cm/s Mitral E to LV E' Lateral Ratio 9 LV E' Septal Velocity 6 cm/s Mitral E to LV E' Septal Ratio11.8 Performing Organization Address City/[facility] Phone Number SMS * RAPID INFLUENZA SCREEN (12/30/2016 3:40 AM) Spec Description Nasopharyngeal swab [facility] Order Comments None [facility] Direct Exam Negative for [facility] Influenza A and B by EIA Report Status Final 12/30/2016 [facility] MICRO[facility]OLOG[facility] Specimen Nasopharyngeal - Nasopharyngeal Swab Performing Organization Address City/[facility] [place] Phone Number MISYS [facility] * 12 LEAD EKG (12/30/2016 2:30 AM) 12 LEAD EKG FOR [facility] Test Date:2016-12-30 Pat Name: MARILEE SULLIVAN Department: Room: Gender: F Network Control Supervisor: [id number] :1966-0 06-24 Requested By: Order Number: Dasha conner MD: Sonu Miller Measurements Intervals [place] Rate: 69 P:6 WY: 161 QRS: -13 QRSD: 99 T:27 QT: 382 QTc:411 Interpretive Statements SINUS RHYTHM LOW QRS VOLTAGE IN PRECORDIAL LEADS [QRS DEFLECTION < 1.0 mV IN CHEST LEADS] PATTERN CONSISTENT WITH PULMONARY DISEASE POOR R WAVE PROGRESSION ABNORMAL ECG Electronically Signed On 12-31-16 19:10:32 CDT by Sonu Miller Performing Organization Address [facility] [place] [facility] Phone Number SMS * MYOGLOBIN, SER (12/30/2016 2:00 AM) Only the most recent of 2 results within the time period is included. Myoglobin, Ser 33 14 - 106 ng/mL [facility] 3 Specimen Blood Performing Organization Address [facility] Phone Number [facility] * TROPONIN I (12/30/2016 2:00 AM) Only the most recent of 2 results within the time period is included. Troponin I <0.015 0.000 - 0.045 ng/mL [facility] 1 Specimen Blood Performing Organization Address [facility] Phone Number [facility] * CK, TOTAL (12/30/2016 2:00 AM) Only the most recent of 2 results within the time period is included. CK, Total 84 30 - 200 U/L [facility] 1 Comment: CKMB not performed if CK <100, if CKMB is required, please notify laboratory immediately. Specimen Blood Performing Organization Address [facility] Phone Number MISYS [facility] 1 * HEP A VIRUS AB IGG (12/29/2016 9:34 PM) Hep A Vir Ab IgG Positive (A) NEG [facility] 4 Performing Organization Address [facility] Phone Number MISYS [facility] 4 * SYPHILIS SCREEN FOR INFECTION (12/29/2016 9:34 PM) Treponemal Ab Negative [facility] DIAGNOSTIC IMMUNOLOGY Final Report Negative [facility] DIAGNOSTIC IMMUNOLOGY Performing Organization Address [facility] Phone Number MISYS [facility] DIAGNOSTIC IMMUNOLOGY * HEP BE AB (12/29/2016 9:34 PM) Hep Be Ab Negative LABORATORY Reference range: Negative [employer] Specimen Blood Performing Organization Address [facility] Phone Number [facility] [address] [facility] [facility] [place], [place] [id number] ELIZABETH 145 * HEP B COR AB TOT (12/29/2016 9:34 PM) Hep B Cor Ab Tot Negative NEG [facility]IN-STATION 4 Specimen Blood Performing Organization Address [facility] Phone Number [facility]IN-STATION 4 * CKMB, REFLEX (12/29/2016 9:34 PM) CK-MB 1.4 0.0 - 3.6 ng/mL [facility] 2 CKMB Index 1.4 0 - 2.5 [facility] 2 Performing Organization Address [facility] Phone Number [facility] * HEP B AB AG (12/29/2016 9:34 PM) HBsAg Negative NEG [facility]IN-[facility]ATION 4 Specimen Blood Performing Organization Address [facility] Phone Number [facility] MAIN-STATION 4 * PTT (12/29/2016 9:34 PM) PTT 36.5 (H) 23.6 - 36.4 Seconds [facility] 2 Specimen Blood Performing Organization Address [facility] Phone Number [facility] * PT/INR (12/29/2016 9:34 PM) PT 12.8 11.8 - 15.0 Seconds [facility] MAIN-[facility] 2 INR 1.0 [facility] 2 SUGGESTED THERAPEUTIC RANGES: INR 2.0-3.0 for MODERATE INTENSITY ANTICOAGULATION INR 2.5-3.5 for HIGH INTENSITY ANTICOAGULATION Specimen Blood Performing Organization Address [facility] Phone Number [facility] * CALCIUM, IONIZED (12/29/2016 9:34 PM) Calcium, Ionized 1.08 (L) 1.15 - 1.29 mmol/L [facility] 2 Specimen Blood Performing Organization Address [facility] Phone Number [facility] * HEP C VIR AB IGG (12/29/2016 9:34 PM) HCV IgG Negative NEG MAIN-STATION 4 Specimen Blood Performing Organization Address [facility] Phone Number [facility] MAIN-STATION 4 * DIGOXIN (12/29/2016 9:34 PM) Digoxin 0.9 0.80 - 2.00 ng/mL [facility] 2 Performing Organization Address [facility] [place] Phone Number [facility] * HEP A VIR AB IGM (12/29/2016 9:34 PM) HAV, IgM Negative NEG MAIN-STATION 4 Specimen Blood Performing Organization Address [facility] Phone Number ANOOP [facility] 4 * URINE DRUG SCREEN (12/29/2016 9:17 PM) Amphetamine Negative NEG [facility] 2 Comment: Calibrated Standard: D-Methamphetamine Positive if urine level >nu=7201 ng/mL Barbiturate Negative NEG [facility] 2 Comment: Calibrated Standard: Secobarbital Positive if urine level is >ya=539 ng/mL Benzodiazepine Negative NEG [facility] 2 Comment: Calibrated Standard: Lormethazepam Positive if urine level is >vo=006 ng/mL Cannabinoid Negative NEG [facility] 2 Comment: Calibrated Standard: 11 nor-delta(9)-THC carboxylic a Positive if urine level >or=50 Cocaine Negative NEG [facility] 2 Comment: Calibrated Standard: Benzoylecgonine Positive if urine level >vl=505 Opiate, Ur Negative NEG [facility] 2 Comment: Calibrated Standard: Morphine Positive if urine level >yd=915 PCP Negative NEG [facility] 2 Comment: Calibrated Standard: Phencyclidine Positive if urine level >or=25 Urine Toxicology Screen results are to be used only for Medical purposes. Specimen Urine Performing Organization Address [facility] Phone Number ANOOP [facility] 2 * BMP POC (12/29/2016 4:12 PM) CO2 POC 27 21 - 32 mmol/L [facility] 1 Chloride POC 105 98 - 107 mmol/L [facility] 1 Potassium POC 5.2 (H) 3.50 - 5.10 mmol/L [facility] 1 Sodium POC 141 136 - 145 mmol/L [facility] 1 Glucose POC 115 (H) 74 - 106 mg/dL [facility] 1 Urea Nitrogen POC 17 7 - 18 mg/dL [facility] Creatinine POC 0.8 0.6 - 1.3 mg/dL [facility] 1 Calcium Ionized POC 1.03 (L) 1.15 - 1.29 mmol/L [facility] 1 Hemoglobin POC 16.7 (H) 12.0 - 16.0 g/dL [facility] 1 Hematocrit POC 49.0 (H) 37.0 - 47.0 % [facility] 1 GFR, Estimated >60 mL/min/1.73 m2 [facility] 1 GFR, Estim, Afr-Am >60 mL/min/1.73 m2 [facility] 1 Performing Organization Address [facility] Phone Number MISYS [facility] MAIN-STATION 1 * TROPONIN I POC (12/29/2016 4:10 PM) Troponin POC 0.00 0.00 - 0.08 ng/mL [facility] MAIN-STATION 1 Performing Organization Address [facility] [place] Phone Number MISYS [facility] MAIN-STATION 1 * 12 LEAD EKG (12/29/2016 2:09 PM) 12 LEAD EKG FOR [facility] Test Date:2016-12-29 Pat Name: MARILEE SULLIVAN Department: Room: Gender: Network Control Supervisor: :[id number] - Requested By: Order Number: [id number] CORTÉS: Sonu Miller Measurements Intervals [place] Rate: 86 P:14 [place]: 159 QRS: -27 QRSD: 84 T:37 QT: 345 QTc:413 Interpretive Statements SINUS RHYTHM POSSIBLE LEFT ATRIAL ENLARGEMENT LOW QRS VOLTAGE IN PRECORDIAL LEADS POOR R WAVE PROGRESSION: POSSIBLE ANTERIOR MYOCARDIAL INFARCTION, PROBABLY OLD ABNORMAL ECG Electronically Signed On 12-29-16 18:48:49 CDT by Sonu Miller Performing Organization Address [facility] [place] Phone Number [facility] after 12/08/2016
[2018-10-21] MEDS ORDERED: ONDANSETRON HCL INJ 2MG/ML 2ML 2 MG/ML VIAL IV PRN (10:00)
--- OUTSIDE RECORDS SUMMARY | 2018-10-21 10:00 | XMS REPORT ---
Author Author Lisa Hernandez Organization e[employer] Address Unknown Phone Unavailable Care Team Providers Care Change Management Administrator Name Role Phone Lisa Hernandez CP Unavailable Allergies No Known Allergies Problems Problem Type Condition Code Onset Dates Condition Status Problem Pancreatitis, recurrent K86.1 Active Problem BMI 40.0-44.9, adult Z68.41 Active Problem Severe obesity (BMI >=40) E66.01 Active Problem Chronic fatigue R53.82 Active Problem Severe persistent asthma without complication J45.50 Active Problem Intractable vomiting with nausea, unspecified vomiting type R11.2 Active Problem 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 Active Problem Weakness R53.1 Active Problem Claudication I73.9 Active Problem Congestive heart disease I50.9 Active Problem Intractable cyclical vomiting without nausea G43.A1 Active Problem Anxiety F41.9 Active Problem Type 2 diabetes mellitus with diabetic chronic kidney disease E11.22 Active Problem Other cirrhosis of liver K74.69 Active Problem BMI 45.0-49.9, adult Z68.42 Active Problem Mixed hyperlipidemia E78.2 Active Problem Dependence on other enabling machines and devices Z99.89 Active Problem History of heart surgery Z98.890 Active Problem Gastroesophageal reflux disease without esophagitis K21.9 Active Problem Obstructive sleep apnea (adult) (pediatric) G47.33 Active Problem Chronic obstructive pulmonary disease, unspecified COPD type J44.9 Active Problem Pulmonary HTN I27.20 Active Medications No Known Medications Results No Known Results Summary Purpose eClinicalWorks Submission
--- OUTSIDE RECORDS SUMMARY | 2018-10-21 10:00 | XMS REPORT ---
Author Author Ghulam James Organization [employer] Address Unknown Phone Unavailable Care Team Providers Care Duck Bill Operator Name Role Phone Ghulam James CP Unavailable Allergies No Known Allergies Problems Problem Type Condition Code Onset Dates Condition Status Problem Other cirrhosis of liver K74.69 Active Problem Chronic obstructive pulmonary disease, unspecified COPD type J44.9 Active Problem Gastroesophageal reflux disease without esophagitis K21.9 Active Problem Severe obesity (BMI >=40) E66.01 Active Problem Pancreatitis, recurrent K86.1 Active Problem BMI 40.0-44.9, adult Z68.41 Active Problem Obstructive sleep apnea (adult) (pediatric) G47.33 Active Problem Dependence on other enabling machines and devices Z99.89 Active Problem History of heart surgery Z98.890 Active Problem Pulmonary HTN I27.20 Active Problem Severe persistent asthma without complication J45.50 Active Problem BMI 45.0-49.9, adult Z68.42 Active Problem Type 2 diabetes mellitus with diabetic chronic kidney disease E11.22 Active Problem 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 57284775995 100 mg Orally every 12 hrs Mar 22, 2018 Mar 29, 2018 Active 1 capsule with food Results No Known Results Summary Purpose eClinicalWorks Submission
--- OUTSIDE RECORDS SUMMARY | 2018-10-21 10:00 | XMS REPORT ---
Author Author Lisa Hernandez Organization [employer] Address Unknown Phone Unavailable Care Team Providers Care Junior Sales Assistant Name Role Phone Lisa Hernandez CP Unavailable Allergies, Adverse Reactions, Alerts Substance Reaction Event Type Iodine anaphylaxis Drug Allergy cipro rash Non Drug Allergy sulfa rash Non Drug Allergy Problems Problem Type Condition Code Onset Dates Condition Status Problem Other cirrhosis of liver K74.69 Active Problem History of heart surgery Z98.890 Active Problem Obstructive sleep apnea (adult) (pediatric) G47.33 Active Problem Congestive heart disease I50.9 Active Assessment RUQ pain R10.11 Active Problem BMI 40.0-44.9, adult Z68.41 Active Assessment Other cirrhosis of liver K74.69 Active Problem Claudication I73.9 Active Problem Pulmonary HTN I27.20 Active Problem Dependence on other enabling machines and devices Z99.89 Active Problem Severe obesity (BMI >=40) E66.01 Active Problem Pancreatitis, recurrent K86.1 Active Problem Severe persistent asthma without complication J45.50 Active Assessment Claudication I73.9 Active Assessment Pain of left calf M79.662 Active Problem 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 Active Problem BMI 45.0-49.9, adult Z68.42 Active Problem Gastroesophageal reflux disease without esophagitis K21.9 Active Problem Mixed hyperlipidemia E78.2 Active Problem Chronic obstructive pulmonary disease, unspecified COPD type J44.9 Active Problem Type 2 diabetes mellitus with diabetic chronic kidney disease E11.22 Active Medications Medication Code System Code Instructions Start Date End Date Status Dosage Keflex [facility] [address]-64 500 mg Orally every 12 hrs June 01, 2018 June 11, 2018 Active 1 capsule Polyethylene Glycol [facility] [address]-40 1000 by mouth as needed (prn) Active 17 grams Aspirin ND 38781166150 81 MG Orally Once a day Active 1 tablet Furosemide ND 59775123379 20 Active 2 tablets po qd Accu-Chek SmartView [facility] 29823330403 - In Vitro use TID dx: E11.65 Oct 27, 2017 Active as directed Atorvastatin Calcium ND 44503162248 40 mg Oral daily Active tk 1/2 t po qhs Potassium Chloride Olive ER ND 64062976267 20 MEQ by mouth Once a day Active 3 tabs Fluticasone Propionate ND 07644486404 50 MCG/ACT Nasally Once a day Dec 29, 2017 Active 2 spray in each nostril Lisinopril ND 71479328039 5 MG by mouth Once a day September 23, 2017 Active 1 tablet Novofine 31 NDC 0 31G X 6 MM SQ, E11.2 three times a day (tid) Oct 20, 2017 Active as directed Cetirizine HCl ND 48823868119 10 mg Oral Active tk 1 t po qd Accu-Chek FastClix Lancets ND 74331906339 - in vitro use tid dx: E11.Oct 27, 2017 Active DRUM Medrol (Ruy) NDC 0 4 mg Orally as directed Apr 19, 2018 Active as directed Montelukast Sodium ND 78439408207 10 mg Oral once a day Active 1 tablet Spiriva HandiHaler ND 86832892627 18 MCG Inhalation Once a day Active 1 capsule Ventolin HFA ND 18483663938 108 (90 Base) MCG/ACT Inhalation Active INHALE 2 PUFFS PO QID PRN FOR WHEEZING OR SOB Ondansetron ND 69052343689 8 MG Orally every 12 hrs Mar 16, 2018 Active 1 tablet on the tongue and allow to dissolve Furosemide ND 21880593453 20 mg by mouth every morning Active TK 2 TS PO QD Jardiance ND 30444913863 10 mg Orally Once a day September 23, 2017 September 18, 2018 Active 1 tablet Accu-Chek Julia SmartView ND 60556788734 w/Device in vitro use TID dx: E11.65 Oct 27, 2017 Active as directed NovoLog Flexpen ND 42193469549 100 UNIT/ML Subcutaneous three times a day (tid) Oct 19, 2017 Active up to 12 units( per sliding scale), max 36 units a day Metolazone ND 58996754783 5 MG Oral Active not defined Metformin HCl ND 76798590520 500 mg Oral bid with meals Active 2 tablets Albuterol Sulfate ND 33745697792 (2.5 MG/3ML) 0.083% Inhalation Three times a day Active 3 ml as needed Pantoprazole Sodium [facility] 41555660329 40 mg orally twice a day (bid) Active 1 tablet Nasonex [facility] 94033974880 50 MCG/ACT Nasally Once a day Active 2 sprays in each nostril Vital Signs Date/Time: June 01, 2018 BMI 44.40 Index Weight 235 lbs Height 61 in Cardiac Monitoring Heart Rate 94 /min Blood Pressure Diastolic 66 mm Hg Blood Pressure Systolic 102 mm Hg Results Name Result Date Reference Range Unit Abnormality Flag CBC ----Platelets 604h [id number] ----NEUTROPHILS MID-1.0,GRA-8.7 20180601 ----MCHC 32.3 20180601 ----MCH 26.2L 20180601 ----MCV 81.2 20180601 ----WBC 13.6h 20180601 ----RDW 16.6H 20180601 ----RBC 5.30 20180601 ----Hemoglobin 13.9 20180601 ----Hematocrit 43.0 20180601 Summary Purpose eClinicalWorks Submission
--- OUTSIDE RECORDS SUMMARY | 2018-10-21 10:00 | XMS REPORT ---
Author Author Lisa Hernandez Organization e[employer] Address Unknown Phone Unavailable Care Team Providers Care Senior Corporate Recruiter Name Role Phone Lisa Hernandez CP Unavailable Allergies No Known Allergies Problems Problem Type Condition Code Onset Dates Condition Status Problem Other cirrhosis of liver K74.69 Active Problem History of heart surgery Z98.890 Active Problem Obstructive sleep apnea (adult) (pediatric) G47.33 Active Problem Congestive heart disease I50.9 Active Problem BMI 40.0-44.9, adult Z68.41 Active Problem Claudication I73.9 Active Problem Pulmonary HTN I27.20 Active Problem Dependence on other enabling machines and devices Z99.89 Active Problem Severe obesity (BMI >=40) E66.01 Active Problem Pancreatitis, recurrent K86.1 Active Problem Severe persistent asthma without complication J45.50 Active Assessment Left leg pain M79.605 Active Problem 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 Active Problem BMI 45.0-49.9, adult Z68.42 Active Problem Gastroesophageal reflux disease without esophagitis K21.9 Active Problem Mixed hyperlipidemia E78.2 Active Problem Chronic obstructive pulmonary disease, unspecified COPD type J44.9 Active Problem Type 2 diabetes mellitus with diabetic chronic kidney disease E11.22 Active Medications No Known Medications Results No Known Results Summary Purpose eClinicalWorks Submission
--- OUTSIDE RECORDS SUMMARY | 2018-10-21 10:00 | XMS REPORT ---
Author Author Lisa Hernandez Organization [employer] Address Unknown Phone Unavailable Care Team Providers Care Ux Developer Designer Name Role Phone Lisa Hernandez CP Unavailable [...] persistent asthma without complication J45.50 Active Assessment Intractable vomiting with nausea, unspecified vomiting type [...] Instructions Start Date End Date Status Dosage Ondansetron [facility] 59616468131 8 MG Orally every 8 hrs PRN Mar 16, 2018 Active 1 tablet on the tongue and allow to dissolve Results No Known Results Summary Purpose eClinicalWorks Submission
--- OUTSIDE RECORDS SUMMARY | 2018-10-21 10:00 | XMS REPORT ---
Author Author Lisa Hernandez [facility] eClinicalWorks Address Unknown Phone Unavailable Care Team Providers Care Film Archivist Name Role Phone Lisa Hernandez CP Unavailable Allergies, Adverse Reactions, Alerts Substance Reaction Event Type Iodine anaphylaxis Drug Allergy sulfa rash Non Drug Allergy cipro rash Non Drug Allergy Problems Problem Type Condition Code Onset Dates Condition Status Problem Pulmonary HTN I27.20 Active Problem Dependence on other enabling machines and devices Z99.89 Active Problem History of heart surgery Z98.890 Active Problem Claudication I73.9 Active Assessment Pulmonary HTN I27.20 Active Problem Congestive heart disease I50.9 Active Assessment Type 2 diabetes mellitus with diabetic chronic kidney disease E11.22 Active Problem Anxiety F41.9 Active Problem Pancreatitis, recurrent K86.1 Active Problem Obstructive sleep apnea (adult) (pediatric) G47.33 Active Problem BMI 40.0-44.9, adult Z68.41 Active Problem Severe obesity (BMI >=40) E66.01 Active Problem Type 2 diabetes mellitus with diabetic chronic kidney disease E11.22 Active Problem BMI 45.0-49.9, adult Z68.42 Active Assessment Nausea and vomiting, intractability of vomiting not specified, unspecified vomiting type R11.2 Active Problem Gastroesophageal reflux disease without esophagitis K21.9 Active Problem Chronic obstructive pulmonary disease, unspecified COPD type J44.9 Active Problem Mixed hyperlipidemia E78.2 Active Problem 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 Active Problem Other cirrhosis of liver K74.69 Active Problem Severe persistent asthma without complication J45.50 Active Medications Medication Code System Code Instructions Start Date End Date Status Dosage Aspirin ND 30585553209 81 MG Orally Once a day Active 1 tablet Potassium Chloride Olive ER ND 14953617257 20 MEQ by mouth Once a day Active 3 tabs Furosemide ND 76932793026 20 Active 2 tablets po qd Fluticasone Propionate ND 44033295884 50 MCG/ACT Nasally Once a day Dec 29, 2017 Active 2 spray in each nostril Montelukast Sodium ND 26036623586 10 mg Oral once a day Active 1 tablet Accu-Chek Julia SmartView [facility] 80822277417 w/Device in vitro use TID dx: E11Oct 27, 2017 Active as directed Cetirizine HCl ND 78531214757 10 mg Oral Active tk 1 t po qd Lisinopril ND 65637191872 5 MG by mouth Once a day September 23, 2017 Active 1 tablet Jardiance ND 75691905733 10 Orally Once a day Active 1 tablet Novofine 31 ND 0 31G X 6 MM SQ, E11.2 three times a day (tid) Oct 20, 2017 Active as directed Ventolin HFA ND 83501385797 108 (90 Base) MCG/ACT Inhalation Active INHALE 2 PUFFS PO QID PRN FOR WHEEZING OR SOB Accu-Chek FastClix Lancets [facility] 04845567328 - in vitro use tid dx: E11Oct 27, 2017 Active DRUM Accu-Chek SmartView ND 26812143055 - In Vitro use TID dx: E11Oct 27, 2017 Active as directed Ondansetron ND 59518914929 8 MG Orally every 8 hrs PRN Mar 16, 2018 Active 1 tablet on the tongue and allow to dissolve Albuterol Sulfate ND 09341173637 (2.5 MG/3ML) 0.083% Inhalation Three times a day Active 3 ml as needed Atorvastatin Calcium ND 33595037288 40 mg Oral daily Active tk 1/2 t po qhs Metformin HCl ND 99324708283 500 mg Oral bid with meals Active 2 tablets Pantoprazole Sodium ND 95043363671 40 mg orally twice a day (bid) Active 1 tablet NovoLog Flexpen ND 09307616303 100 UNIT/ML Subcutaneous three times a day (tid) Oct 19, 2017 Active up to 12 units( per sliding scale), max 36 units a day Polyethylene Glycol [facility] [address]-23 1000 by mouth as needed (prn) Active 17 grams Spiriva HandiHaler ND 23757926904 18 MCG Inhalation Once a day Active 1 capsule Dicyclomine HCl ND 81186499057 10 MG Oral June 17, 2018 Active not defined Vital Signs Date/Time: September 07, 2018 BMI 42.70 Index Weight 226 lbs Height 61 in Temperature 98.2 F Cardiac Monitoring Heart Rate 108 /min Blood Pressure Diastolic 66 mm Hg Blood Pressure Systolic 90 mm Hg Results Name Result Date Reference Range Unit Abnormality Flag CBC ----Platelets 397 [id number] ----NEUTROPHILS MID-0.8,GRA-6.9 20180907 ----MCHC 30.7L 20180907 ----MCH 25.6L 20180907 ----MCV 83.5 20180907 ----WBC 11.3h 20180907 ----RDW 16.9H 20180907 ----RBC 5.51 20180907 ----Hemoglobin 14.1 20180907 ----Hematocrit 46.0 20180907 GLUCOSE FINGER STICK ----GLUCOSE 127 20180907 Summary Purpose eClinicalWorks Submission
--- OUTSIDE RECORDS SUMMARY | 2018-10-21 10:00 | XMS REPORT ---
Author Author Ghulam James Organization [employer] Address Unknown Phone Unavailable Care Team Providers Care Tannery Gummer Name Role Phone Ghulam James CP Unavailable Allergies, Adverse Reactions, Alerts Substance [...] Problem Severe obesity (BMI >=40) E66.01 Active Assessment Severe persistent asthma without complication J45.50 Active Problem Pancreatitis, recurrent K86.1 Active Problem BMI 40.0-44.9, adult Z68.41 Active Problem Obstructive sleep apnea (adult) (pediatric) G47.33 Active Problem Dependence on other enabling machines and devices Z99.89 Active Problem History of heart surgery Z98.890 Active Problem Pulmonary HTN I27.20 Active Assessment Pancreatitis, recurrent K86.1 Active Assessment Intractable vomiting with nausea, unspecified vomiting type R11.2 Active Assessment Mixed hyperlipidemia E78.2 Active Assessment Type 2 diabetes mellitus with diabetic chronic kidney disease E11.22 Active Problem Severe persistent asthma without complication J45.50 Active Problem BMI 45.0-49.9, adult Z68.42 Active Problem Type 2 diabetes mellitus with diabetic chronic kidney disease E11.22 Active Problem 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 Active Problem Mixed hyperlipidemia E78.2 Active Medications Medication Code System Code Instructions Start Date End Date Status Dosage Metolazone ND 20358707169 5 MG Oral Active not defined Metformin HCl ND 77254575086 500 mg Oral bid with meals Active 2 tablets Jardiance ND 79875825791 10 mg Orally Once a day September 23, 2017 September 18, 2018 Active 1 tablet Furosemide ND 63707098827 20 MG Oral Active TK 2 TS PO QD Ondansetron ND 43477215487 8 MG Orally every 12 hrs Mar 16, 2018 Active 1 tablet on the tongue and allow to dissolve Spiriva HandiHaler ND 10779677981 18 MCG Inhalation Once a day Active 1 capsule Nasonex ND 87137254341 50 MCG/ACT Nasally Once a day Active 2 sprays in each nostril Novofine 31 NDC 0 31G X 6 MM SQ, E11.2 three times a day (tid) Oct 20, 2017 Active as directed Aspirin ND 08956628909 81 MG Orally Once a day Active 1 tablet Lisinopril ND 03005458283 2.5 MG Orally Once a day September 23, 2017 Active 1 tablet Accu-Chek Julia SmartView ND 12533612829 w/Device in vitro use TID dx: E11Oct 27, 2017 Active as directed Ventolin HFA ND 42096674961 108 (90 Base) MCG/ACT Inhalation Active INHALE 2 PUFFS PO QID PRN FOR WHEEZING OR SOB Accu-Chek FastClix Lancets ND 33058076132 - in vitro use tid dx: E11Oct 27, 2017 Active DRUM Cetirizine HCl ND 92404180290 10 mg Oral Active tk 1 t po qd Atorvastatin Calcium ND 74843634258 40 mg Oral daily Active tk 1/2 t po qhs NovoLog Flexpen ND 67695582957 100 UNIT/ML Subcutaneous three times a day (tid) Oct 19, 2017 Active up to 12 units( per sliding scale), max 36 units a day Montelukast Sodium ND 15381369093 10 MG Oral Active TK 1 T PO QD Polyethylene Glycol [facility] [address]-06 1000 by mouth as needed (prn) Active 17 grams Pantoprazole Sodium ND 61032533412 40 mg orally twice a day (bid) Active 1 tablet Accu-Chek SmartView ND 97456272805 - In Vitro use TID dx: E11Oct 27, 2017 Active as directed Ondansetron ND 11786986228 4 mg Orally three times a day (tid) Inactive 1 tablet on the tongue and allow to dissolve as needed Potassium Chloride Olive ER ND 47658501896 20 MEQ Oral Active TK 2 TS PO D Fluticasone Propionate ND 43506880255 50 MCG/ACT Nasally Once a day Dec 29, 2017 Active 2 spray in each nostril Albuterol Sulfate [facility] 89279841033 (2.5 MG/3ML) 0.083% Inhalation Three times a day Active 3 ml as needed Vital Signs Date/Time: Mar 16, 2018 BMI 43.83 Index Weight 232 lbs Height 61 in Temperature 98.3 F Cardiac Monitoring Heart Rate 106 /min Blood Pressure Diastolic 82 mm Hg Blood Pressure Systolic 115 mm Hg Results Name Result Date Reference Range Unit Abnormality Flag GLUCOSE FINGER STICK ----GLUCOSE 132 [id number] URINE AUTO W/O SCOPE ----Bili NEG 20180316 ----Glucose 2 OR MORE 20180316 ----Urobilinogen 0.2 20180316 ----Ketones NEG 20180316 ----Spec Dwarf 1.015 20180316 ----pH 5.0 20180316 ----Turbidity CLEAR 20180316 ----Protein NEG 20180316 ----Blood MODERATE 20180316 ----Leuk Est NEG 20180316 ----Nitrite NEG 20180316 ----Color YELLOW 20180316 Summary Purpose eClinicalWorks Submission
--- OUTSIDE RECORDS SUMMARY | 2018-10-21 10:00 | XMS REPORT ---
Author Author Lisa Hernandez Organization eClinicalWorks Address Unknown Phone Unavailable Care Team Providers Care Cattle Tester Name Role Phone Lisa Hernandez CP Unavailable [...] persistent asthma without complication J45.50 Active Problem 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 [...]
--- OUTSIDE RECORDS SUMMARY | 2018-10-21 10:01 | XMS REPORT ---
Author Author Ghulam James Organization e[employer] Address Unknown Phone Unavailable Care Team Providers Care Paper Baler Name Role Phone Ghulam James CP Unavailable [...] Active Problem Pulmonary HTN I27.20 Active Assessment Abnormal CBC R79.89 Active Problem Severe persistent asthma without complication J45.50 Active Problem BMI 45.0-49.9, adult Z68.42 Active Problem Type 2 diabetes mellitus with diabetic chronic kidney disease E11.22 Active Problem 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 Active Problem Mixed hyperlipidemia E78.2 Active Medications No Known Medications Results No Known Results Summary Purpose eClinicalWorks Submission
--- OUTSIDE RECORDS SUMMARY | 2018-10-21 10:01 | XMS REPORT ---
Author Author [facility] Address Unknown Phone Unavailable Care Team Providers Care General Service Technician Name Role Phone Dayan MELISSA Unavailable Unavailable Payers Payer Name Policy Type Policy Number Effective Date Expiration Date Problems This patient has no known problems. Allergies, Adverse Reactions, Alerts Allergy Name Allergy Type Status Severity Reaction(s) Onset Date Inactive Date Treating Clinician Comments Sulfa (Sulfonamide Antibiotics) DA Active U 2018-02-14 00:00:00 iodine DA Active MO 2018-02-14 00:00:00 latex DA Active U 2018-02-14 00:00:00 iodine DA Active MO 2017-09-18 00:00:00 Sulfa (Sulfonamide Antibiotics) DA Active U 2016-03-12 00:00:00 latex DA Active U 2016-03-12 00:00:00 Medications This patient has no known medications. Encounters Start Date/Time End Date/Time Encounter Type Admission Type Attending [facility] Care Facility Care Department Encounter ID 2018-10-11 01:14:00 2018-10-10 22:56:00 Inpatient [facility] [id number] 2018-10-03 16:27:00 2018-10-03 11:39:00 Inpatient [facility] [id number] 2018-09-26 14:12:00 2018-09-26 13:12:00 Inpatient [facility] [id number] 2018-09-26 09:34:00 2018-09-26 09:34:00 Outpatient [facility]UL [id number] 2018-09-11 14:55:00 2018-09-11 14:55:00 Outpatient [facility] [id number] 2018-09-07 16:56:00 2018-09-07 16:56:00 Outpatient [facility] [id number] 2018-08-21 11:01:00 2018-08-21 11:01:00 Emergency E [facility] [id number] 2018-08-16 06:16:00 2018-08-16 06:16:00 Outpatient [facility] [id number] 2018-07-30 10:00:00 2018-07-30 10:00:00 Emergency E [facility] [id number] 2018-07-02 14:47:00 2018-07-02 10:07:00 Inpatient [facility] [id number] 2018-06-15 12:21:00 2018-06-15 12:21:00 Emergency E [facility] [id number] 2017-07-02 00:00:00 2017-07-02 00:00:00 Outpatient [facility] [id number] 2017-06-07 00:00:00 2017-06-07 00:00:00 Outpatient [facility] [id number] 2017-05-28 09:19:10 2017-05-28 09:19:10 Outpatient [facility] [id number] 2017-05-12 13:50:04 2017-05-12 13:50:04 Outpatient [facility] [id number] 2017-05-12 00:00:00 2017-05-12 00:00:00 Outpatient [facility] [id number] 2017-05-04 00:00:00 2017-05-04 00:00:00 Outpatient [facility] [id number] 2017-05-03 12:41:52 2017-05-03 12:41:52 Outpatient [facility] [id number] 2017-04-27 07:40:23 2017-04-27 07:40:23 Outpatient [facility] [id number] 2017-04-26 00:00:00 2017-04-26 00:00:00 Outpatient [facility] [id number] 2017-04-15 09:33:47 2017-04-15 09:33:47 Outpatient [facility] [id number] 2017-04-05 14:32:51 2017-04-05 14:32:51 Outpatient [facility] [id number] 2017-04-05 12:55:05 2017-04-05 12:55:05 Outpatient [facility] [id number] 2017-02-24 00:00:00 2017-02-24 00:00:00 Outpatient [facility] [id number] 2017-02-23 13:48:32 2017-02-23 13:48:32 Outpatient [facility] [id number] 2017-01-25 11:31:20 2017-01-25 11:31:20 Outpatient [facility] [id number] 2017-01-25 11:10:45 2017-01-25 11:10:45 Outpatient [facility] [id number] 2017-01-25 10:13:43 2017-01-25 10:13:43 Outpatient [facility] [id number] 2017-01-13 00:00:00 2017-01-13 00:00:00 Outpatient [facility] [id number] 2016-12-30 06:19:23 2016-12-30 06:19:23 Outpatient [facility] [id number] 2016-12-29 16:09:40 2016-12-29 16:09:40 Emergency [facility] [id number] 2016-12-29 15:10:26 2016-12-29 15:10:26 Outpatient [facility] [id number] 2016-12-29 00:00:00 2016-12-29 00:00:00 Outpatient [facility] [id number] 2016-11-27 08:59:58 2016-11-27 08:59:58 Outpatient [facility] [id number] 2016-11-23 15:48:08 2016-11-23 15:48:08 Outpatient [facility] [id number] 2016-11-13 10:39:43 2016-11-13 10:39:43 Outpatient [facility] [id number] 2016-10-29 00:00:00 2016-10-29 00:00:00 Outpatient [facility] [id number] 2016-10-23 17:11:25 2016-10-23 17:11:25 Outpatient [facility] [id number] 2016-10-01 14:32:21 2016-10-01 14:32:21 Outpatient [facility] [id number] 2016-08-27 10:13:39 2016-08-27 10:13:39 Outpatient [facility] [id number] 2016-08-27 09:38:28 2016-08-27 09:38:28 Outpatient [facility] [id number] 2016-07-30 13:35:24 2016-07-30 13:35:24 Outpatient [facility] [id number] 2016-07-30 13:30:38 2016-07-30 13:30:38 Outpatient [facility] [id number] 2016-07-30 12:00:03 2016-07-30 12:00:03 Outpatient [facility] [id number] 2016-07-30 10:31:56 2016-07-30 10:31:56 Outpatient [facility] [id number] 2016-07-20 15:37:07 2016-07-20 15:37:07 Outpatient [facility] [id number] Results Test Description Test Time Test Comments Text Results Atomic Results Result Comments CHEST SINGLE (PORTABLE) 2017-09-20 18:07:00 [place] [id number] Patient Name: NIKKO SULLIVAN MR #: [id number] : 1965 Age/Sex: 52/F Req #: [id number] Adm Physician: Ordered by: ANCELMO MELISSA MD Report #: [id number] Location: ER Room/Bed: Procedure: [id number] DX/CHEST SINGLE (PORTABLE) Exam Date: 09/20/17 Exam Time: 1740 REPORT STATUS: Signed PROCEDURE: A single AP view of the chest. COMPARISON: None. INDICATIONS: SUDDEN ONSET SHORTNESS OF BREATH, HX OF CHF FINDINGS: Lines/tubes: None. Lungs: Limited by body habitus, slight rotation, and low lung volumes. Right midlung linear opacities, likely atelectasis/scaring. Mild central vascular congestion. Pleura: There is no pleural effusion or pneumothorax. Heart and mediastinum: The cardiac silhouette is enlarged on this AP view. Median sternotomy wires. Bones: No acute bony abnormality. IMPRESSION: Limited study as above. Right midlung linear opacities are possibly atelectasis/scarring. Enlarged cardiac silhouette with mild central vascular congestion, accentuated by low lung volumes. Dictated by: Tushar Christianson M.D. on 09/20/2017 at 18:07 Electronically approved by: Tushar Christianson M.D. on 09/20/2017 at 18:07 Dictated By: TUSHAR CHRISTIANSON MD 06 Transcribed By: KIP on 09/20/171806 COPY TO: ANCELMO MELISSA MD
--- OUTSIDE RECORDS SUMMARY | 2018-10-21 10:01 | XMS REPORT ---
Author Author Faith Lloyd Organization [employer] Address Unknown Phone Unavailable Care Team Providers Care Bathing Suit Maker Name Role Phone Faith Lloyd CP Unavailable Allergies No Known Allergies Problems Problem Type Condition Code Onset Dates Condition Status Problem Pulmonary HTN I27.20 Active Problem Dependence on other enabling machines and devices Z99.89 Active Problem History of heart surgery Z98.890 Active Problem Claudication I73.9 Active Problem Congestive heart disease I50.9 Active Problem Anxiety F41.9 Active Problem Pancreatitis, [...] persistent asthma without complication J45.50 Active Medications No Known Medications Results No Known Results Summary Purpose [employer] Submission
--- OUTSIDE RECORDS SUMMARY | 2018-10-21 10:01 | XMS REPORT ---
Author Author Ghulam James Organization [employer] Address Unknown Phone Unavailable Care Team Providers Care Hoop Riveter Name Role Phone Ghulam James CP Unavailable [...] Start Date End Date Status Dosage Macrobid [facility] 77700093617 100 mg Orally every 12 hrs Mar 22, 2018 Mar 28, 2018 Active 1 capsule with food Diflucan [facility] 10721065716 150 MG Orally Mar 25, 2018 Mar 26, 2018 Active 1 tablet Results No Known Results Summary Purpose [employer] Submission
--- OUTSIDE RECORDS SUMMARY | 2018-10-21 10:01 | XMS REPORT ---
Author Author Lisa Hernandez Organization [employer] Address Unknown Phone Unavailable Care Team Providers Care Admissions Counselor Name Role Phone Lisa Hernandez CP Unavailable Allergies, Adverse Reactions, Alerts Substance Reaction Event Type Iodine anaphylaxis Drug Allergy cipro rash Non Drug Allergy sulfa rash Non Drug Allergy Problems Problem Type Condition Code Onset Dates Condition Status Problem Type 2 diabetes mellitus with diabetic chronic kidney disease E11.22 Active Problem Obstructive sleep apnea (adult) (pediatric) G47.33 Active Problem Other cirrhosis of liver K74.69 Active Problem BMI 40.0-44.9, adult Z68.41 Active Assessment Severe persistent asthma without complication J45.50 Active Problem Severe obesity (BMI >=40) E66.01 Active Assessment Congestive heart disease I50.9 Active Problem Congestive heart disease I50.9 Active Problem Dependence on other enabling machines and devices Z99.89 Active Problem History of heart surgery Z98.890 Active Problem Pancreatitis, recurrent K86.1 Active Problem Pulmonary HTN I27.20 Active Assessment Cough R05 Active Assessment Chronic obstructive pulmonary disease, unspecified COPD type J44.9 Active Assessment Pulmonary HTN I27.20 Active Problem Chronic obstructive pulmonary disease, unspecified COPD type J44.9 Active Problem 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 Active Problem Severe persistent asthma without complication J45.50 Active Problem BMI 45.0-49.9, adult Z68.42 Active Problem Gastroesophageal reflux disease without esophagitis K21.9 Active Problem Mixed hyperlipidemia E78.2 Active Medications Medication Code System Code Instructions Start Date End Date Status Dosage Metformin HCl ND 73903669075 500 mg Oral bid with meals Active 2 tablets Potassium Chloride Olive ER ND 66866587623 20 MEQ Oral Active TK 2 TS PO D Accu-Chek Julia SmartView ND 12379518376 w/Device in vitro use TID dx: E11.65 Oct 27, 2017 Active as directed NovoLog Flexpen ND 17550866462 100 UNIT/ML Subcutaneous three times a day (tid) Oct 19, 2017 Active up to 12 units( per sliding scale), max 36 units a day Jardiance ND 06319306537 10 mg Orally Once a day September 23, 2017 September 18, 2018 Active 1 tablet Pantoprazole Sodium ND 98644890291 40 mg orally twice a day (bid) Active 1 tablet Albuterol Sulfate ND 44950060241 (2.5 MG/3ML) 0.083% Inhalation Three times a day Active 3 ml as needed Atorvastatin Calcium ND 26373273832 40 mg Oral daily Active tk 1/2 t po qhs Accu-Chek FastClix Lancets [facility] 07862369168 - in vitro use tid dx: E11.65 Oct 27, 2017 Active DRUM Metolazone ND 95780976660 5 MG Oral Active not defined Aspirin ND 02815858822 81 MG Orally Once a day Active 1 tablet Polyethylene Glycol [facility] [address]-58 1000 by mouth as needed (prn) Active 17 grams Spiriva HandiHaler ND 86219621396 18 MCG Inhalation Once a day Active 1 capsule Fluticasone Propionate ND 74028025495 50 MCG/ACT Nasally Once a day Dec 29, 2017 Active 2 spray in each nostril Cetirizine HCl ND 04313637259 10 mg Oral Active tk 1 t po qd Nasonex ND 51823005235 50 MCG/ACT Nasally Once a day Active 2 sprays in each nostril Ventolin HFA ND 18040426262 108 (90 Base) MCG/ACT Inhalation Active INHALE 2 PUFFS PO QID PRN FOR WHEEZING OR SOB Accu-Chek SmartView ND 93575252706 - In Vitro use TID dx: E11.65 Oct 27, 2017 Active as directed Novofine 31 NDC 0 31G X 6 MM SQ, E11.2 three times a day (tid) Oct 20, 2017 Active as directed Montelukast Sodium ND 88771315597 10 mg Oral once a day Active 1 tablet Benzonatate ND 24514887696 200 MG Orally Q8 PRN Apr 19, 2018 Apr 27, 2018 Active 1 capsule Lisinopril ND 45540270389 2.5 MG Orally Once a day September 23, 2017 Active 1 tablet Ondansetron ND 55944862729 8 MG Orally every 12 hrs Mar 16, 2018 Active 1 tablet on the tongue and allow to dissolve Medrol (Ruy) NDC 0 4 mg Orally as directed Apr 19, 2018 Active as directed Furosemide NDC 61722248997 20 MG Oral Active TK 2 TS PO QD Vital Signs Date/Time: Apr 19, 2018 BMI 45.15 Index Weight 239 lbs Height 61 in Cardiac Monitoring Heart Rate 90 /min Blood Pressure Diastolic 74 mm Hg Blood Pressure Systolic 102 mm Hg Results Name Result Date Reference Range Unit Abnormality Flag CBC ----Platelets 300 20180419 ----NEUTROPHILS MID-0.6,GRA-3.9 20180419 ----MCHC 30.5L 20180419 ----MCH 25.0L 20180419 ----MCV 82.3 20180419 ----WBC 8.3 20180419 ----RDW 15.6H 20180419 ----RBC 5.23 20180419 ----Hemoglobin 13.1 20180419 ----Hematocrit 43.0 20180419 Chest 2 views- Xray Summary Purpose eClinicalWorks Submission
--- OUTSIDE RECORDS SUMMARY | 2018-10-21 10:01 | XMS REPORT ---
Author Author Lisa Hernandez Organization [employer] Address Unknown Phone Unavailable Care Team Providers Care Internal Medicine Nurse Practitioner Name Role Phone Lisa Hernandez CP Unavailable Allergies No Known Allergies Problems Problem Type Condition Code Onset Dates Condition Status Problem Type 2 diabetes mellitus with diabetic chronic kidney disease E11.22 Active Problem Obstructive sleep apnea (adult) (pediatric) G47.33 Active Problem Other cirrhosis of liver K74.69 Active Problem BMI 40.0-44.9, adult Z68.41 Active Problem Severe obesity (BMI >=40) E66.01 Active Problem Congestive heart disease I50.9 Active Problem Dependence on other enabling machines and devices Z99.89 Active Problem History of heart surgery Z98.890 Active Problem Pancreatitis, recurrent K86.1 Active Problem Pulmonary HTN I27.20 Active Problem Chronic obstructive [...]
--- OUTSIDE RECORDS SUMMARY | 2018-10-21 10:01 | XMS REPORT ---
Author Author Lisa Hernandez [facility] [employer] Address Unknown Phone Unavailable Care Team Providers Care Promotions Team Leader Name Role Phone Lisa Hernandez CP Unavailable [...] Problem Congestive heart disease I50.9 Active Assessment Gastroesophageal reflux disease without esophagitis K21.9 Active Problem BMI 40.0-44.9, adult Z68.41 Active Assessment Type 2 diabetes mellitus with diabetic chronic kidney disease E11.22 Active Problem Claudication I73.9 Active Problem Pulmonary HTN I27.20 Active Problem Dependence on other enabling machines and devices Z99.89 Active Problem Severe obesity (BMI >=40) E66.01 Active Problem Pancreatitis, recurrent K86.1 Active Problem Severe persistent asthma without complication J45.50 Active Assessment Other cirrhosis of liver K74.69 Active Assessment Chest pain, unspecified type R07.9 Active Problem 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 Active Problem BMI 45.0-49.9, adult Z68.42 Active Problem Gastroesophageal reflux disease without esophagitis K21.9 Active Problem Mixed hyperlipidemia E78.2 Active Problem Chronic obstructive pulmonary disease, unspecified COPD type J44.9 Active Problem Type 2 diabetes mellitus with diabetic chronic kidney disease E11.22 Active Medications Medication Code System Code Instructions Start Date End Date Status Dosage Novofine 31 NDC 0 31G X 6 MM SQ, E11.2 three times a day (tid) Oct 20, 2017 Active as directed Pantoprazole Sodium ND 05296396899 40 mg orally twice a day (bid) Active 1 tablet Polyethylene Glycol [facility] [address]-86 1000 by mouth as needed (prn) Active 17 grams Albuterol Sulfate ND 82901185771 (2.5 MG/3ML) 0.083% Inhalation Three times a day Active 3 ml as needed Furosemide ND 51594051449 20 Active 2 tablets po qd Medrol (Ruy) NDC 0 4 mg Orally as directed Apr 19, 2018 Active as directed Dicyclomine HCl ND 90414950855 10 MG Oral June 17, 2018 Active not defined Accu-Chek FastClix Lancets [facility] 25444551193 - in vitro use tid dx: E11Oct 27, 2017 Active DRUM Spiriva HandiHaler ND 17660389419 18 MCG Inhalation Once a day Active 1 capsule Cetirizine HCl ND 43886136629 10 mg Oral Active tk 1 t po qd PredniSONE ND 51029732401 20 MG Oral June 17, 2018 Active TK 2 T PO DAILY NovoLog Flexpen ND 82725502167 100 UNIT/ML Subcutaneous three times a day (tid) Oct 19, 2017 Active up to 12 units( per sliding scale), max 36 units a day Metolazone ND 80837397983 5 MG Oral Active not defined Furosemide ND 86824672797 20 mg by mouth every morning Active TK 2 TS PO QD Accu-Chek Julia SmartView [facility] 27915049893 w/Device in vitro use TID dx: E11Oct 27, 2017 Active as directed Accu-Chek SmartView [facility] 24674703251 - In Vitro use TID dx: E11Oct 27, 2017 Active as directed Aspirin ND 73427725161 81 MG Orally Once a day Active 1 tablet Nasonex ND 83498220636 50 MCG/ACT Nasally Once a day Active 2 sprays in each nostril Ventolin HFA ND 12124606861 108 (90 Base) MCG/ACT Inhalation Active INHALE 2 PUFFS PO QID PRN FOR WHEEZING OR SOB Fluticasone Propionate ND 99795248636 50 MCG/ACT Nasally Once a day Dec 29, 2017 Active 2 spray in each nostril Naproxen ND 62911187601 375 MG Orally every 12 hrs PRN June 20, 2018 July 05, 2018 Active 1 tablet with food or milk as needed Potassium Chloride Olive ER ND 60417707954 20 MEQ by mouth Once a day Active 3 tabs Atorvastatin Calcium ND 31399523521 40 mg Oral daily Active tk 1/2 t po qhs Lisinopril [facility] 44277254251 5 MG by mouth Once a day September 23, 2017 Active 1 tablet Ondansetron [facility] 38304284975 8 MG Orally every 8 hrs PRN Mar 16, 2018 Active 1 tablet on the tongue and allow to dissolve Montelukast Sodium [facility] 39622191393 10 mg Oral once a day Active 1 tablet Metformin HCl [facility] 60636411852 500 mg Oral bid with meals Active 2 tablets Jardiance [facility] 58968876382 10 mg Orally Once a day September 23, 2017 July 20, 2018 Active 1 tablet Vital Signs Date/Time: June 20, 2018 BMI 44.21 Index Weight 234 lbs Height 61 in Cardiac Monitoring Heart Rate 77 /min Blood Pressure Diastolic 72 mm Hg Blood Pressure Systolic 138 mm Hg Results No Known Results Summary Purpose eClinicalWorks Submission
--- OUTSIDE RECORDS SUMMARY | 2018-10-21 10:01 | XMS REPORT ---
Author Author Ghulam James Organization [employer] Address Unknown Phone Unavailable Care Team Providers Care Library Consultant Name Role Phone Ghulam James CP Unavailable [...] Instructions Start Date End Date Status Dosage Montelukast Sodium [facility] 70232346918 10 mg Oral once a day Active 1 tablet Results No Known Results Summary Purpose eClinicalWorks Submission
--- OUTSIDE RECORDS SUMMARY | 2018-10-21 10:01 | XMS REPORT ---
Author Author Lisa Hernandez [facility] [employer] Address Unknown Phone Unavailable Care Team Providers Care Director Of Financial Reporting Name Role Phone Lisa Hernandez CP Unavailable [...] Problem BMI 45.0-49.9, adult Z68.42 Active Assessment Anxiety F41.9 Active Problem Gastroesophageal reflux disease without esophagitis K21.9 Active Problem Chronic obstructive pulmonary disease, unspecified COPD type J44.9 Active Problem Mixed hyperlipidemia E78.2 Active Problem 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 Active Problem Other cirrhosis of liver K74.69 Active Problem Severe persistent asthma without complication J45.50 Active Medications Medication Code System Code Instructions Start Date End Date Status Dosage Polyethylene Glycol [facility] [address]-97 1000 by mouth as needed (prn) Active 17 grams Fluticasone Propionate ND 16178745759 50 MCG/ACT Nasally Once a day Dec 29, 2017 Active 2 spray in each nostril Accu-Chek SmartView [facility] 56770439956 - In Vitro use TID dx: E11.65 Oct 27, 2017 Active as directed Albuterol Sulfate ND 68800373265 (2.5 MG/3ML) 0.083% Inhalation Three times a day Active 3 ml as needed Accu-Chek FastClix Lancets [facility] 17505220028 - in vitro use tid dx: E11.65 Oct 27, 2017 Active DRUM Potassium Chloride Olive ER ND 40809075393 20 MEQ by mouth Once a day Active 3 tabs Jardiance ND 84382316886 10 mg Orally Once a day September 23, 2017 July 20, 2018 Active 1 tablet PredniSONE ND 98381048066 20 MG Oral June 17, 2018 Active TK 2 T PO DAILY Ventolin HFA ND 32593901256 108 (90 Base) MCG/ACT Inhalation Active INHALE 2 PUFFS PO QID PRN FOR WHEEZING OR SOB Novofine 31 NDC 0 31G X 6 MM SQ, E11.2 three times a day (tid) Oct 20, 2017 Active as directed Aspirin ND 11894917686 81 MG Orally Once a day Active 1 tablet Atorvastatin Calcium ND 99642832937 40 mg Oral daily Active tk 1/2 t po qhs Jardiance [facility] 19138737903 10 Orally Once a day Active 1 tablet NovoLog Flexpen ND 55184491714 100 UNIT/ML Subcutaneous three times a day (tid) Oct 19, 2017 Active up to 12 units( per sliding scale), max 36 units a day Montelukast Sodium ND 24797572688 10 mg Oral once a day Active 1 tablet Furosemide ND 53650484333 20 Active 2 tablets po qd Pantoprazole Sodium ND 65900503740 40 mg orally twice a day (bid) Active 1 tablet Accu-Chek Julia SmartView [facility] 38815785918 w/Device in vitro use TID dx: E11.65 Oct 27, 2017 Active as directed Ondansetron ND 48084512439 8 MG Orally every 8 hrs PRN Mar 16, 2018 Active 1 tablet on the tongue and allow to dissolve Lisinopril ND 97609348833 5 MG by mouth Once a day September 23, 2017 Active 1 tablet Metformin HCl ND 23406165529 500 mg Oral bid with meals Active 2 tablets Spiriva HandiHaler ND 90650440873 18 MCG Inhalation Once a day Active 1 capsule Cetirizine HCl ND 49054191627 10 mg Oral Active tk 1 t po qd Dicyclomine HCl ND 32620582474 10 MG Oral June 17, 2018 Active not defined Vital Signs Date/Time: July 20, 2018 BMI 44.40 Index Weight 235 lbs Height 61 in Cardiac Monitoring Heart Rate 94 /min Blood Pressure Diastolic 66 mm Hg Blood Pressure Systolic 90 mm Hg Results No Known Results Summary Purpose eClinicalWorks Submission
--- OUTSIDE RECORDS SUMMARY | 2018-10-21 10:09 | XMS REPORT | Continuity of Care Document ---
Author Author [email or web address] Address Unknown Phone Unavailable Care Team Providers Care Ranch Manager Name Role Phone [employer] Unavailable Unavailable Problems Problem Status Onset Date Classification Date Reported Comments Source Morbid obesity with BMI of 45.0-49.9, adult Active 11/13/2016 Problem 12/13/2017 [facility] Asthma, severe persistent Active 11/13/2016 Problem 12/13/2017 [facility] STEPHEN on CPAP Active 11/13/2016 Problem 12/13/2017 [facility] Controlled type 2 diabetes mellitus without complication, without long-term current use of insulin Active 11/13/2016 Problem 12/13/2017 [facility] Diverticulosis of large intestine without hemorrhage Active 01/23/2016 Problem 11/30/2017 [facility] Diverticulosis of large intestine without hemorrhage Active 01/23/2016 Problem 12/13/2017 [facility] H. 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 Active 08/15/2012 Problem 12/13/2017 [facility] Pulmonary hypertension Active 08/15/2012 Problem 12/13/2017 [facility] CHF Active 08/14/2012 Problem 12/13/2017 [facility] Cardiomyopathy Active 05/27/2012 Problem 12/13/2017 [facility] S/P laparoscopic cholecystectomy Active 10/05/2008 Problem 12/13/2017 [facility] Bronchopulmonary aspergillosis Active Problem 12/13/2017 [facility] Other cirrhosis of liver Active Problem 10/07/2018 [...] Orally every 12 hrs PRN David 06/20/2018 [facility] Dicyclomine HCl not defined Oral Active 10 MG Oral [place] 06/17/2018 [facility] PredniSONE TK 2 T PO DAILY Oral Active 20 MG Oral David 06/17/2018 [facility] Keflex 1 capsule Orally Active 500 mg Orally every 12 hrs [place] 06/01/2018 [facility] Medrol (Ruy) as directed Orally Active 4 mg Orally as directed [place] 04/19/2018 [facility] Benzonatate 1 capsule Orally Active 200 MG Orally Q8 PRN [place] 04/19/2018 [facility] Diflucan 1 tablet Orally Active 150 MG Orally [place] 03/25/2018 [facility] Macrobid 1 capsule with food Orally Active 100 mg Orally every 12 hrs [place] 03/22/2018 [facility] Ondansetron 1 tablet on the tongue and allow to dissolve Orally Active 8 MG Orally every 8 hrs PRN [place] 03/16/2018 [facility] Fluticasone Propionate 2 spray in each nostril Nasally Active 50 MCG/ACT Nasally Once a day 12/29/2017 [facility] Metformin 500 Mg Tablet Take 1 tablet by mouth 2 times daily (with meals) Please see PCP for further refills. Oral Active 11/09/2017 [facility] [employer] Accu-Chek SmartView as directed In Vitro Active - In Vitro use TID dx: E11.65 10/27/2017 [facility] Accu-Chek FastClix Lancets DRUM in vitro Active - in vitro use tid dx: E11.65 10/27/2017 [facility] Accu-Chek Julia SmartView as directed in vitro Active w/Device in vitro use TID dx: E11.65 10/27/2017 [facility] Novofine 31 as directed SQ, E11.2 Active 31G X 6 MM SQ, E11.2 three times a day (tid) df10/20/2017 [facility] NovoLog Flexpen up to 12 units( per sliding scale), max 36 units a day Subcutaneous Active 100 UNIT/ML Subcutaneous three times a day (tid) Gladf 10/19/2017 [facility] Lisinopril 1 tablet by mouth Active 5 MG by mouth Once a day [place] 09/23/2017 [facility] Jardiance 1 tablet Orally Active 10 mg Orally Once a day David 09/23/2017 [facility] Lisinopril 1 tablet Orally Active 2.5 MG Orally Once a day David 09/23/2017 [facility] Digox 125 McG Tablet TAKE 1 TABLET BY MOUTH EVERY DAY FOR HEART Active 09/22/2017 [facility] Amoxicillin 875 Mg-Potassium Clavulanate 125 Mg Tablet Augmentin 875 Mg-125 Mg Tablet Take 1 tablet by mouth 2 times daily for 10 days. Oral No Longer Active 05/28/2017 [facility] Cetirizine 10 Mg Tablet Zyrtec 10 Mg Tablet Take 1 tablet by mouth daily. Oral Active 05/28/2017 [facility] Fluticasone 50 McG/Actuation Nasal [place],Suspension Use 1 [place] in each nostril daily. Active 05/28/2017 [facility] Benzonatate 100 Mg Capsule Tessalon Perles 100 Mg Capsule Take 2 capsules by mouth 3 times daily as needed for up to 7 days for Cough. Oral No Longer Active 05/28/2017 [facility] Ofloxacin 0.3 % Eye Drops Ocuflox 0.3 % Eye Drops Instill 5 drops to each ear daily for 10 days. Ok for pharmacist to dispense eye solution for ear treatment.. Active 05/28/2017 [facility] methylPREDNISolone sodium succinate (SOLU-MEDROL) injection 80 mg IV Push Inactive 05/12/2017 [facility] Albuterol Sulfate 2.5 Mg/3 Ml (0.083 %) Solution For Nebulization Inhalation Inactive 05/12/2017 [facility] Albuterol Sulfate Hfa 90 McG/Actuation Aerosol Inhaler Inhale 2 Puffs by mouth 4 times daily as needed for Wheezing or Shortness of Breath. Inhalation Active 05/12/2017 [facility] Codeine 10 Mg-Guaifenesin 100 Mg/5 Ml Oral Liquid Cheratussin Ac 10 Mg-100 Mg/5 Ml Oral Liquid Take 5 mL by mouth 3 times daily as needed for Cough. Oral Active 05/12/2017 [facility] Montelukast 10 Mg Tablet Singulair 10 Mg Tablet Take 1 tablet by mouth at bedtime nightly. Oral Active 05/12/2017 [facility] Levofloxacin 500 Mg Tablet Levaquin 500 Mg Tablet Take 1 tablet by mouth daily for 10 days. Oral No Longer Active 05/12/2017 [facility] Metformin 500 Mg Tablet TAKE 1 TABLET BY MOUTH TWICE DAILY Active 04/23/2017 [facility] Montelukast 10 Mg Tablet TAKE 1 TABLET BY MOUTH EVERY DAY Active 03/26/2017 [facility] Miscellaneous Medical Supply Misc by [facility].(Non-Drug; Combo Route) route Hospital bed. No Longer Active 02/26/2017 [facility] Furosemide 20 Mg Tablet TAKE 2 TABLETS BY MOUTH DAILY Oral Active 02/24/2017 [facility] Albuterol Sulfate Hfa 90 McG/Actuation Aerosol Inhaler Inhale 2 Puffs by mouth 4 times daily as needed for Wheezing. Inhalation Active 02/23/2017 [facility] Amoxicillin 500 Mg-Potassium Clavulanate 125 Mg Tablet Augmentin 500 Mg-125 Mg Tablet Take 1 tablet by mouth 3 times daily for 10 days. Oral No Longer Active 02/23/2017 [facility] Potassium Chloride Er 10 Meq Tablet,Extended Release(Part/Cryst) Klor-Con M10 Meq Tablet,Extended Release Take 1 tablet by mouth daily. Oral Active 02/23/2017 [facility] Furosemide 20 Mg Tablet Lasix 20 Mg Tablet Take 2 tablets by mouth daily. Oral No Longer Active 01/25/2017 [facility] Clotrimazole 1 % Topical Cream Apply to affected area 2 times daily. Topical Inactive 12/31/2016 [facility] Atorvastatin 40 Mg Tablet Lipitor 40 Mg Tablet Take tablet (20mg) by mouth at bedtime nightly. Oral Inactive 12/31/2016 [facility] Furosemide 20 Mg Tablet Lasix 20 Mg Tablet Take 2 tablets by mouth daily. Oral No Longer Active 12/31/2016 [facility] Metformin 500 Mg Tablet Glucophage 500 Mg Tablet Take 1 tablet by mouth 2 times daily (with meals) For diabetes. Oral No Longer Active 11/23/2016 [facility] Furosemide 20 Mg Tablet Lasix 20 Mg Tablet Take 1 tablet by mouth daily. Oral No Longer Active 11/23/2016 [facility] Digoxin 125 McG Tablet Lanoxin 125 McG Tablet Take 1 tablet by mouth daily For heart. Oral No Longer Active 11/23/2016 [facility] Montelukast 10 Mg Tablet Take 1 tablet by mouth daily (autosubstitute from accolate). Oral No Longer Active 11/23/2016 [facility] Advair Diskus 500 McG-50 McG/Dose Powder For Inhalation Inhale 1 Puff by mouth 2 times daily. Inhalation Active 11/23/2016 [facility] Lancets by MISCELLANEOUS route 2 times weekly USE TO CHECK BLOOD SUGARS. Active 11/23/2016 [facility] Blood Sugar Diagnostic Strips Precision Xtra Test Strips use 2 times weekly USE TO CHECK BLOOD SUGARS. Active 11/23/2016 [facility] Tramadol 50 Mg Tablet Ultram 50 Mg Tablet Take 1 tablet by mouth every 8 hours as needed for Pain (MAY CAUSE DROWSINESS). Oral Active 11/23/2016 [facility] Ipratropium [place] 0.02 % Solution For Inhalation Inhalation Inactive 11/13/2016 [facility] methylPREDNISolone sodium succinate (SOLU-MEDROL) injection 125 mg Intramuscular Inactive 11/13/2016 [facility] Albuterol Sulfate 2.5 Mg/3 Ml (0.083 %) Solution For Nebulization Inhalation Inactive 11/13/2016 [facility] Prednisone 20 Mg Tablet One tablet twice daily ( 8 am and 3 pm) x 5 days, then one tablet daily x 5 days. No Longer Active 11/13/2016 [facility] Albuterol Sulfate 2.5 Mg/3 Ml (0.083 %) Solution For Nebulization Inhalation Inactive 10/29/2016 [facility] Prednisone 50 Mg Tablet Take 1 tablet by mouth daily. Oral No Longer Active 10/29/2016 [facility] Benzonatate 100 Mg Capsule Tessalon Perles 100 Mg Capsule Take 1 capsule by mouth 3 times daily as needed for Cough. Oral No Longer Active 10/29/2016 [facility] Miscellaneous Medical Supply Misc by [facility].(Non-Drug; Combo Route) route Sleep studyDx. Obstructive sleep apnea. No Longer Active 10/29/2016 [facility] Ketorolac 30 Mg/Ml (1 Ml) Injection Solution Intramuscular Inactive 10/23/2016 [facility] Tramadol 50 Mg Tablet Ultram 50 Mg Tablet Take 1 tablet by mouth every 8 hours as needed for Pain (MAY CAUSE DROWSINESS). Oral No Longer Active 10/23/2016 [facility] triamcinolone acetonide (KENALOG-40) injection 80 mg Intramuscular Inactive 10/01/2016 [facility] Ketorolac 60 Mg/2 Ml Intramuscular Solution Intramuscular Inactive 10/01/2016 [facility] Nebulizer And Compressor 1 Device by [facility].(Non-Drug; Combo Route) route 4 times daily. Active 10/01/2016 [facility] Albuterol Sulfate 2.5 Mg/3 Ml (0.083 %) Solution For Nebulization Inhale 3 mL by mouth every 4 hours as needed for Wheezing or Shortness of Breath. Inhalation Active 10/01/2016 [facility] Triamcinolone Acetonide 0.1 % Topical Cream Triderm 0.1 % Topical Cream Apply to affected area 2 times daily. Topical Active 08/27/2016 [facility] Fluconazole 150 Mg Tablet Diflucan 150 Mg Tablet 1 tab po weekly x 3 weeks. No Longer Active 08/27/2016 [facility] Pantoprazole 40 Mg Tablet,Delayed Release Protonix 40 Mg Tablet,Delayed Release Take 1 tablet by mouth daily. Oral Active 07/31/2016 [facility] Blood Sugar Diagnostic Strips Precision Xtra Test Strips use 2 times weekly USE TO CHECK BLOOD SUGARS. No Longer Active 07/30/2016 [facility] Lancets by MISCELLANEOUS route 2 times weekly USE TO CHECK BLOOD SUGARS. No Longer Active 07/30/2016 [facility] Metformin 500 Mg Tablet Glucophage 500 Mg Tablet Take 1 tablet by mouth 2 times daily (with meals) For diabetes. Oral No Longer Active 07/30/2016 [facility] Furosemide 20 Mg Tablet Lasix 20 Mg Tablet Take 1 tablet by mouth daily. Oral No Longer Active 07/30/2016 [facility] Digoxin 125 McG Tablet Lanoxin 125 McG Tablet Take 1 tablet by mouth daily For heart. Oral No Longer Active 07/30/2016 [facility] Montelukast 10 Mg Tablet Take 1 tablet by mouth daily (autosubstitute from accolate). Oral No Longer Active 07/30/2016 [facility] Albuterol Sulfate Hfa 90 McG/Actuation Aerosol Inhaler Inhale 2 Puffs by mouth 4 times daily as needed for Wheezing. Inhalation No Longer Active 07/30/2016 [facility] Advair Diskus 500 McG-50 McG/Dose Powder For Inhalation Inhale 1 Puff by mouth 2 times daily. Inhalation No Longer Active 07/30/2016 [facility] Ipratropium [place] 0.02 % Solution For Inhalation Inhale 2.5 mL by mouth 4 times daily. Inhalation Active 07/30/2016 [facility] Benzonatate 100 Mg Capsule Tessalon Perles 100 Mg Capsule Take 1 capsule by mouth 3 times daily as needed for Cough. Oral No Longer Active 07/20/2016 [facility] Azelastine 0.05 % Eye Drops Instill 1 Drop in each eye 2 times daily. No Longer Active 10/28/2015 [facility] Blood-Glucose Meter Precision Xtra Glucometer Use as directed.. No Longer Active 06/10/2015 [facility] Lancets 28 Gauge 2 times weekly. No Longer Active 06/10/2015 [facility] Nebulizer And Compressor 1 Device by [facility].(Non-Drug; Combo Route) route 4 times daily NEEDING NEBULIZER DEVICE FOR REFRACTORY ASTHMA AND EXACERBATION. No Longer Active 04/25/2015 [facility] Polyethylene Glycol 17 grams by mouth Active 1000 by mouth as needed (prn) Trista [facility] Aspirin 1 tablet Orally Active 81 MG Orally Once a day [facility] Furosemide 2 tablets po qd NA Active 20 [facility] Atorvastatin Calcium tk 1/2 t po qhs Oral Active 40 mg Oral daily [facility] Potassium Chloride [place] 3 tabs by mouth Active 20 MEQ by mouth Once a day [facility] Cetirizine HCl tk 1 t po qd Oral Active 10 mg Oral [facility] Montelukast Sodium 1 tablet Oral Active 10 mg Oral once a day [facility] Spiriva HandiHaler 1 capsule Inhalation Active 18 MCG Inhalation Once a day [facility] Ventolin HFA INHALE 2 PUFFS PO QID PRN FOR WHEEZING OR SOB Inhalation Active 108 (90 Base) MCG/ACT Inhalation [facility] Metolazone not defined Oral Active 5 MG Oral David [facility] Metformin HCl 2 tablets Oral Active 500 mg Oral bid with meals [place]ista [facility] Albuterol Sulfate 3 ml as needed Inhalation Active (2.5 MG/3ML) 0.083% Inhalation Three times a day [facility] Pantoprazole Sodium 1 tablet orally Active 40 mg orally twice a day (bid) [facility] Nasonex 2 sprays in each nostril Nasally Active 50 MCG/ACT Nasally Once a day David [facility] Furosemide TK 2 TS PO QD Oral Active 20 MG Oral David [facility] Montelukast Sodium TK 1 T PO QD Oral Active 10 MG Oral Jacob [facility] Ondansetron 1 tablet on the tongue and allow to dissolve as needed Orally Active 4 mg Orally three times a day (tid) Jacob [facility] Potassium Chloride [place] TK 2 TS PO D Oral Active 20 MEQ Oral David [facility] Jardiance 1 tablet Orally Active 10 Orally Once a day Trista [facility] Bumetanide as directed Orally Active 1 MG Orally Trista [facility] PredniSONE 1 tablet Orally Active 10 MG Orally Once a day Trista [facility] Ceftin 1 tablet Orally Active 250 MG Orally every 12 hrs [place] [facility] Allergies, Adverse Reactions, Alerts Substance Category Reaction Severity Reaction type Status Date Reported Comments Source Latex Rash Propensity to adverse reactions to drug Active 10/03/2008 [facility] Sulfa (Sulfonamide Antibiotics) Rash Propensity to adverse reactions to drug Active 10/03/2008 [facility] Iodine Adverse Reaction anaphylaxis Adverse Reaction Active 10/03/2018 [facility] cipro Adverse Reaction rash Adverse Reaction Active 10/03/2018 [facility] sulfa Adverse Reaction rash Adverse Reaction Active 10/03/2018 [facility] Immunizations Immunization Date Given Site Status Last Updated Comments Source Influenza, Seasonal, Injectable 05/28/2017 Not Given Deferred: Other - cold symptoms [facility] Influenza Vaccine, Seasonal, Injectable 01/25/2017 Not Given Deferred: Patient already had this immunization [facility] TDap (Tetanus Toxoid, Reduced Diphtheria Toxoid And Acellular Pertussis, Absorbed) 11/23/2016 completed [facility] PNEUMOCOCCAL 23-VALPS VACCINE 25 MCG/0.5 ML INJECTION 07/20/2016 Not Given Deferred: Patient Refused [facility] Influenza Vaccine 05/15/2015 Not Given Deferred: Other - Patient ill in clinic [facility] Pneumococcal 7-valent conj 0.5 mL injection 08/16/2011 completed [facility] Hepatitis B Vaccine 07/21/2011 completed [facility] Results Order Name Results Value Reference Range Date Interpretation Comments Source Activated partial thromboplastin time (aPTT) in platelet poor plasma bycoagulation assay Activated partial thromboplastin time (aPTT) in platelet poor plasma bycoagulation assay 33.5 23.8 - 35.5 09/20/2017 [facility] Automated blood basophil count (count/volume) Automated blood basophil count (count/volume) 0.1 0.0 - 0.1 09/20/2017 [facility] Automated blood basophil count as percentage of total leukocytes Automated blood basophil count as percentage of total leukocytes 0.6 0.0 - 1.0 09/20/2017 [facility] Automated blood eosinophil count Automated blood eosinophil count 0.1 0.0 - 0.4 09/20/2017 [facility] Automated blood eosinophil count as percentage of total leukocytes Automated blood eosinophil count as percentage of total leukocytes 1.0 0.0 - 6.0 09/20/2017 [facility] Automated blood hematocrit (volume fraction) Automated blood hematocrit (volume fraction) 42.7 34.2 - 44.1 09/20/2017 [facility] Automated blood lymphocyte count as percentage ot total leukocytes Automated blood lymphocyte count as percentage ot total leukocytes 44.5 18.0 - 39.1 09/20/2017 [facility] Automated blood monocyte count as percentage of total leukocytes Automated blood monocyte count as percentage of total leukocytes 7.8 4.4 - 11.3 09/20/2017 [facility] Automated blood neutrophil count Automated blood neutrophil count 5.3 2.1 - 6.9 09/20/2017 [facility] Automated blood platelet count (count/volume) Automated blood platelet count (count/volume) 332 140 - 360 09/20/2017 [facility] Automated blood segmented neutrophil count as percentage of total leukocytes Automated blood segmented neutrophil count as percentage of total leukocytes 45.8 38.7 - 80.0 09/20/2017 [facility] Automated erythrocyte mean corpuscular hemoglobin (mass per erythrocyte) Automated erythrocyte mean corpuscular hemoglobin (mass per erythrocyte) 26.7 28 - 32 09/20/2017 [facility] Automated erythrocyte mean corpuscular hemoglobin concentration measurement (mass/volume) Automated erythrocyte mean corpuscular hemoglobin concentration measurement (mass/volume) 31.9 31 - 35 09/20/2017 [facility] Automated erythrocyte mean corpuscular volume Automated erythrocyte mean corpuscular volume 83.7 81 - 99 09/20/2017 [facility] Blood anisocytosis detection by light microscopy Blood anisocytosis detection by light microscopy SLIGHT 09/20/2017 [facility] Blood erythrocytes automated count (number/volume) Blood erythrocytes automated count (number/volume) 5.10 3.6 - 5.1 09/20/2017 [facility] Blood hemoglobin measurement (moles/volume) Blood hemoglobin measurement (moles/volume) 13.6 12.0 - 16.0 09/20/2017 [facility] Blood leukocytes automated count (number/volume) Blood leukocytes automated count (number/volume) 11.44 4.8 - 10.8 09/20/2017 [facility] Blood lymphocytes count (number/volume) Blood lymphocytes count (number/volume) 5.1 1.0 - 3.2 09/20/2017 [facility] Blood lymphocytes variant count (number/volume) Blood lymphocytes variant count (number/volume) 4 09/20/2017 [facility] Blood monocytes automated count (number/volume) Blood monocytes automated count (number/volume) 0.9 0.2 - 0.8 09/20/2017 [facility] Blood platelets count by estimate (number/volume) Blood platelets count by estimate (number/volume) ADEQUATE 09/20/2017 [facility] Blood poikilocytosis detection by light microscopy Blood poikilocytosis detection by light microscopy SLIGHT 09/20/2017 [facility] Blood stomatocytes detection by light microscopy Blood stomatocytes detection by light microscopy SLIGHT 09/20/2017 [facility] Estimated glomerular filtration rate (GFR) determination Estimated glomerular filtration rate (GFR) determination >60 60 09/20/2017 [facility] Glucose measurement Glucose measurement 208 74 - 118 09/20/2017 [facility] INR in Platelet poor plasma by Coagulation assay INR in Platelet poor plasma by Coagulation assay 1.02 09/20/2017 [facility] Manual blood eosinophil count as percentage of total leukocytes Manual blood eosinophil count as percentage of total leukocytes 1 0 - 7 09/20/2017 [facility] Manual blood lymphocytes/100 leukocytes Manual blood lymphocytes/100 leukocytes 37 19 - 48 09/20/2017 [facility] Manual blood monocytes/100 leukocytes Manual blood monocytes/100 leukocytes 7 3.4 - 9.0 09/20/2017 [facility] Manual blood neutrophils/100 leukocytes Manual blood neutrophils/100 leukocytes 51 40 - 74 09/20/2017 [facility] Plasma globulin measurement (mass/volume) Plasma globulin measurement (mass/volume) 4.1 2.3 - 3.5 09/20/2017 [facility] Platelet morphology Platelet morphology NORMAL 09/20/2017 [facility] Prothrombin time (PT) in platelet poor plasma by coagulation assay Prothrombin time (PT) in platelet poor plasma by coagulation assay 12.6 11.9 - 14.5 09/20/2017 [facility] RBC morphology RBC morphology NORMAL 09/20/2017 [facility] Serum or plasma alanine aminotransferase measurement (enzymatic activity/volume) Serum or plasma alanine aminotransferase measurement (enzymatic activity/volume) 72 0 - 55 09/20/2017 [facility] Serum or plasma albumin measurement (mass/volume) Serum or plasma albumin measurement (mass/volume) 3.8 3.5 - 5.0 09/20/2017 [facility] Serum or plasma albumin/globulin mass ratio Serum or plasma albumin/globulin mass ratio 0.9 0.8 - 2.0 09/20/2017 [facility] Serum or plasma alkaline phosphatase measurement (enzymatic activity/volume) Serum or plasma alkaline phosphatase measurement (enzymatic activity/volume) 172 40 - 150 09/20/2017 [facility] Serum or plasma anion gap Serum or plasma anion gap 19.5 8 - 16 09/20/2017 [facility] Serum or plasma calcium measurement (mass/volume) Serum or plasma calcium measurement (mass/volume) 9.5 8.4 - 10.2 09/20/2017 [facility] Serum or plasma carbon dioxide, total measurement (moles/volume) Serum or plasma carbon dioxide, total measurement (moles/volume) 20 22 - 29 09/20/2017 [facility] Serum or plasma chloride measurement (moles/volume) Serum or plasma chloride measurement (moles/volume) 103 98 - 107 09/20/2017 [facility] Serum or plasma creatine kinase MB measurement (mass/volume) Serum or plasma creatine kinase MB measurement (mass/volume) 2.00 0 - 5.0 09/20/2017 [facility] Serum or plasma creatine kinase measurement (enzymatic activity/volume) Serum or plasma creatine kinase measurement (enzymatic activity/volume) 127 29 - 168 09/20/2017 [facility] Serum or plasma creatinine measurement (mass/volume) Serum or plasma creatinine measurement (mass/volume) 0.94 0.57 - 1.11 09/20/2017 [facility] Serum or plasma potassium measurement (moles/volume) Serum or plasma potassium measurement (moles/volume) 3.5 3.5 - 5.1 09/20/2017 [facility] Serum or plasma protein measurement (mass/volume) Serum or plasma protein measurement (mass/volume) 7.9 6.5 - 8.1 09/20/2017 [facility] Serum or plasma sodium measurement (moles/volume) Serum or plasma sodium measurement (moles/volume) 139 136 - 145 09/20/2017 [facility] Serum or plasma total bilirubin measurement (mass/volume) Serum or plasma total bilirubin measurement (mass/volume) 0.7 0.2 - 1.2 09/20/2017 [facility] Serum or plasma urea nitrogen measurement (mass/volume) Serum or plasma urea nitrogen measurement (mass/volume) 12 7 - 26 09/20/2017 [facility] Serum or plasma urea nitrogen/creatinine mass ratio Serum or plasma urea nitrogen/creatinine mass ratio 13 6 - 25 09/20/2017 [facility] Troponin I measurement by highly sensitive enzyme immunoassay Troponin I measurement by highly sensitive enzyme immunoassay 0.006 0 - 0.300 09/20/2017 [facility] Red Cell Distribution Width 15.5 11.7 - 14.4 09/20/2017 [facility] IM GRANULOCYTES % 0.3 0.0 - 1.0 09/20/2017 [facility] Absolute Immature Granulocyte (auto 0.03 0 - 0.1 09/20/2017 [facility] Differential Total Cells Counted 100 09/20/2017 [facility] Aspartate Amino Transf (AST/SGOT) 81 5 - 34 09/20/2017 [facility] B-Type Natriuretic Peptide 48.4 0 - 100 09/20/2017 [facility] DIABETIC FOOT EXAM <p>Loren Gregg NP :14 [...] are normal,left foot appearance is normal. 05/29/2017 [facility] DIABETIC FOOT EXAM <p>Loren Gregg NP [...] are normal,left foot appearance is normal. 05/28/2017 [facility] POC RAPID FLU Rapid Flu A POC Neg Neg 05/12/2017 [facility] POC RAPID FLU Rapid Flu B POC Neg Neg 05/12/2017 [facility] POC RAPID FLU Rapid Flu Con POC Pass Pass 05/12/2017 [facility] POC RAPID FLU Lab Interpretation Normal 05/12/2017 [facility] POC GROUP A STREP SCREEN Group A Strep POC Neg Neg 05/12/2017 [facility] POC GROUP A STREP SCREEN GAS (Contr) Pass Pass 05/12/2017 [facility] POC GROUP A STREP SCREEN Lab Interpretation Normal 05/12/2017 [facility] POC RAPID FLU Rapid Flu A POC Neg Neg 05/12/2017 [facility] POC RAPID FLU Rapid Flu B POC Neg Neg 05/12/2017 [facility] POC RAPID FLU Rapid Flu Con POC Pass Pass 05/12/2017 [facility] POC RAPID FLU Lab Interpretation Normal 05/12/2017 [facility] POC GROUP A STREP SCREEN Group A Strep POC Neg Neg 05/12/2017 [facility] POC GROUP A STREP SCREEN GAS (Contr) Pass Pass 05/12/2017 [facility] POC GROUP A STREP SCREEN Lab Interpretation Normal 05/12/2017 [facility] TREADMILL STRESS-TRACING ONLY Stress Test [facility] Test Date:2017-04-27 Pat Name: NIKKO SULLIVAN Department: : Gender: Female 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 Electronically Signed On 04-27-17 18:18:36 INFORMATION TECHNOLOGY ASSISTANT by Sonu Miller 04/27/2017 [facility] TTE FOLLOW UP ECHO HEART XTHORACIC,LIMITED Transthoracic Echo Report NIKKO SULLIVAN Age:51 Gender: F :1965 Exam Date: 04/15/2017 10:51 Exam Location: [facility] Echo Ordering Phys: EKERUO AMARILIS A Referring Phys:EKERUO AMARILIS Bryson Reading Phys:Luis M Goodson MD Fellow Phys: Fellow Phys: Steward/Stewardess Tourist Class: Michelle Barreto Reason For Exam: Indications:dyspnea ICD-9 Codes: Exam Type: TTE FOLLOW UP Procedure CPT:15823 Addtional CPT: Ht (in): 63 BSA: 2.38HR: [...] 22 - 52 cm DOPPLER AV Peak Gigmdkzt117 cm/s AV Peak Gradient8.6 mmHg AV Mean Udjtomts21.3 cm/s AV Mean Gradient4.2 mmHg AV Velocity Time Integral 30.7 cm LVOT Peak Jrqhdeoi151 cm/s LVOT Peak Gradient5.5 mmHg LVOT Mean Oadgaefw72.3 cm/s LVOT Mean Gradient2.9 mmHg LVOT Velocity Time Integral 26.3 cm LVOT Stroke Hduykl04.1 cm AV Area Cont Eq vti 2.9 cm AV Area Cont Eq pk2.7 cm Mitral E Point Velocity 94.1 cm/s Mitral A Point Velocity 116 cm/s Mitral E to A Ratio 0.81 MV Deceleration Conway 399 cm/s MV Deceleration Xyvu422 ms TR Peak Ffysqgwo833 cm/s TR Peak Ywtvedac12.8 mmHg PV Peak Tszskkey08.1 cm/s PV Peak Gradient3.9 mmHg PV Mean Jzjdtyai91.7 cm/s PV Mean Gradient2.3 mmHg PV Velocity Time Integral 20.6 cm LV E' Lateral Fzladbld88.2 cm/s Mitral E to LV E' Lateral [...] 22 - 52 cm DOPPLER AV Peak Zwselqgr132 cm/s AV Peak Gradient8.6 mmHg AV Mean Avpolwca68.3 cm/s AV Mean Gradient4.2 mmHg AV Velocity Time Integral 30.7 cm LVOT Peak Mesotvlw082 cm/s LVOT Peak Gradient5.5 mmHg LVOT Mean Fhzysigb27.3 cm/s LVOT Mean Gradient2.9 mmHg LVOT Velocity Time Integral 26.3 cm LVOT Stroke Dizsxs62.1 cm AV Area Cont Eq vti 2.9 cm AV Area Cont Eq pk2.7 cm Mitral E Point Velocity 94.1 cm/s Mitral A Point Velocity 116 cm/s Mitral E to A Ratio 0.81 MV Deceleration Conway 399 cm/s MV Deceleration Cfmt688 ms TR Peak Qdppqtgg110 cm/s TR Peak Juzxtxkg59.8 mmHg PV Peak Quoieqby21.1 cm/s PV Peak Gradient3.9 mmHg PV Mean Nktklshs77.7 cm/s PV Mean Gradient2.3 mmHg PV Velocity Time Integral 20.6 cm LV E' Lateral Vjstieax19.2 cm/s Mitral E to LV E' Lateral Ratio 6.6 LV E' Septal Velocity 8.1 cm/s Mitral E to LV E' Septal Ratio11.6 04/15/2017 [facility] TTE FOLLOW UP ECHO HEART XTHORACIC,LIMITED Transthoracic Echo Report NIKKO USLLIVAN Age:51 Gender: F :1965 Exam Date: 04/15/2017 10:51 Exam Location: [facility] Echo Ordering Phys: AMARILIS AGGARWAL Referring Phys:AMARILIS AGGARWAL Reading Phys:Luis M Goodson MD Fellow Phys: Fellow Phys: Steward/Stewardess Tourist Class: Michelle Barreto Reason For Exam: Indications:dyspnea ICD-9 Codes: Exam Type: TTE FOLLOW UP Procedure CPT:28965 Addtional CPT: Ht (in): 63 BSA: 2.38HR: [...] 22 - 52 cm DOPPLER AV Peak Npqrjxag639 cm/s AV Peak Gradient8.6 mmHg AV Mean Jrnqvoyn97.3 cm/s AV Mean Gradient4.2 mmHg AV Velocity Time Integral 30.7 cm LVOT Peak Btwmbeto446 cm/s LVOT Peak Gradient5.5 mmHg LVOT Mean Xwqbsxwx50.3 cm/s LVOT Mean Gradient2.9 mmHg LVOT Velocity Time Integral 26.3 cm LVOT Stroke Otjxwg87.1 cm AV Area Cont Eq vti 2.9 cm AV Area Cont Eq pk2.7 cm Mitral E Point Velocity 94.1 cm/s Mitral A Point Velocity 116 cm/s Mitral E to A Ratio 0.81 MV Deceleration Conway 399 cm/s MV Deceleration Rxwt735 ms TR Peak Gwxyzgwg261 cm/s TR Peak Rsvpbjhl76.8 mmHg PV Peak Yyrtmrhj61.1 cm/s PV Peak Gradient3.9 mmHg PV Mean Gxdcevkk32.7 cm/s PV Mean Gradient2.3 mmHg PV Velocity Time Integral 20.6 cm LV E' Lateral Nhvfbnen78.2 cm/s Mitral E to LV E' Lateral [...] 22 - 52 cm DOPPLER AV Peak Zqcwbvck146 cm/s AV Peak Gradient8.6 mmHg AV Mean Hjgntgvh73.3 cm/s AV Mean Gradient4.2 mmHg AV Velocity Time Integral 30.7 cm LVOT Peak Joxzjqlx716 cm/s LVOT Peak Gradient5.5 mmHg LVOT Mean Uecpecnp70.3 cm/s LVOT Mean Gradient2.9 mmHg LVOT Velocity Time Integral 26.3 cm LVOT Stroke Hcnqdd22.1 cm AV Area Cont Eq vti 2.9 cm AV Area Cont Eq pk2.7 cm Mitral E Point Velocity 94.1 cm/s Mitral A Point Velocity 116 cm/s Mitral E to A Ratio 0.81 MV Deceleration Conway 399 cm/s MV Deceleration Llab648 ms TR Peak Xhodzivn455 cm/s TR Peak Vaqzcmni88.8 mmHg PV Peak Qqeylsdz56.1 cm/s PV Peak Gradient3.9 mmHg PV Mean Hcdlqvtw61.7 cm/s PV Mean Gradient2.3 mmHg PV Velocity Time Integral 20.6 cm LV E' Lateral Ctwmixhm33.2 cm/s Mitral E to LV E' Lateral Ratio 6.6 LV E' Septal Velocity 8.1 cm/s Mitral E to LV E' Septal Ratio11.6 04/15/2017 [facility] 12 LEAD EKG 12 LEAD EKG FOR [facility] Test Date:2017-04-05 Pat Name: NIKKO SULLIVAN Department: : Gender: FTechnician: [id number] :1965 Requested By: Order Number:[place] CORTÉS: Sonu Miller Measurements IntervalsAxis Rate: 78 P:10 UT: 154QRS:-13 QRSD: 101T:30 QT: 379 QTc:432 Interpretive Statements SINUS RHYTHM LOW QRS VOLTAGE IN PRECORDIAL LEADS [QRS DEFLECTION < 1.0 mV IN CHEST LEADS] POOR R WAVE PROGRESSION NON SPECIFIC T WAVE ABNORMALITY ABNORMAL ECG Electronically Signed On 04-07-17 14:20:19 INFORMATION TECHNOLOGY ASSISTANT by Sonu Miller 04/07/2017 [facility] COMPREHENSIVE METABOLIC PANEL(DBIL NOT INCLUDED) Albumin 3.8 3.4 - 5 04/05/2017 [facility] COMPREHENSIVE METABOLIC PANEL(DBIL NOT INCLUDED) Calcium 9.1 8.5 - 10.2 04/05/2017 [facility] COMPREHENSIVE METABOLIC PANEL(DBIL NOT INCLUDED) CO2 27 21 - 32 04/05/2017 [facility] COMPREHENSIVE METABOLIC PANEL(DBIL NOT INCLUDED) Chloride 104 98 - 107 04/05/2017 [facility] COMPREHENSIVE METABOLIC PANEL(DBIL NOT INCLUDED) Creatinine 0.59 0.6 - 1.3 04/05/2017 [facility] COMPREHENSIVE METABOLIC PANEL(DBIL NOT INCLUDED) Glucose 97 70 - 99 04/05/2017 [facility] COMPREHENSIVE METABOLIC PANEL(DBIL NOT INCLUDED) Alk Phos 162 45 - 117 04/05/2017 [facility] COMPREHENSIVE METABOLIC PANEL(DBIL NOT INCLUDED) Potassium 4.2 3.5 - 5.1 04/05/2017 [facility] COMPREHENSIVE METABOLIC PANEL(DBIL NOT INCLUDED) Sodium 140 136 - 145 04/05/2017 [facility] COMPREHENSIVE METABOLIC PANEL(DBIL NOT INCLUDED) ALT 37 12 - 78 04/05/2017 [facility] COMPREHENSIVE METABOLIC PANEL(DBIL NOT INCLUDED) AST 40 15 - 37 04/05/2017 [facility] COMPREHENSIVE METABOLIC PANEL(DBIL NOT INCLUDED) Urea Nitrogen 13 7 - 18 04/05/2017 [facility] COMPREHENSIVE METABOLIC PANEL(DBIL NOT INCLUDED) T Bilirubin 0.4 0.2 - 1 04/05/2017 [facility] COMPREHENSIVE METABOLIC PANEL(DBIL NOT INCLUDED) T Protein 7.6 6.4 - 8.2 04/05/2017 [facility] COMPREHENSIVE METABOLIC PANEL(DBIL NOT INCLUDED) GFR, Estimated >60 mL/min/1.73 m2 04/05/2017 [facility] METABOLIC PANEL(DBIL NOT INCLUDED) GFR, Estim, Afr-Am >60 mL/min/1.73 m2 04/05/2017 [facility] COMPREHENSIVE METABOLIC PANEL(DBIL NOT INCLUDED) Anion Gap 9 04/05/2017 [facility] METABOLIC PANEL(DBIL NOT INCLUDED) Lab Interpretation Abnormal 04/05/2017 [facility] CBC/DIFF WBC 10.7 4.5 - 11 04/05/2017 [facility] CBC/DIFF RBC 4.89 4.20 - 5.40 04/05/2017 [facility] CBC/DIFF Hemoglobin 13.3 12 - 16 04/05/2017 [facility] CBC/DIFF Hematocrit 46.0 37 - 47 04/05/2017 [facility] CBC/DIFF MCV 94 82 - 92 04/05/2017 [facility] CBC/DIFF MCH 27.2 27 - 32 04/05/2017 [facility] CBC/DIFF MCHC 28.9 32 - 36 04/05/2017 [facility] CBC/DIFF RDW 46.8 36.4 - 46.3 04/05/2017 [facility] CBC/DIFF Platelet 300 150 - 400 04/05/2017 [facility] CBC/DIFF Mean Platelet Volume 11.3 9.4 - 12.4 04/05/2017 [facility] CBC/DIFF Percent NRBC 0.0 04/05/2017 [facility] CBC/DIFF Absolute NRBC 0.00 04/05/2017 [facility] CBC/DIFF Neutrophil 57.0 34 - 70 04/05/2017 [facility] CBC/DIFF Lymphocyte 34.6 20 - 50 04/05/2017 [facility] CBC/DIFF Monocyte 6.7 5 - 12 04/05/2017 [facility] CBC/DIFF Eosinophil 0.7 0.7 - 5 04/05/2017 [facility] CBC/DIFF Basophil 0.5 0.1 - 1.2 04/05/2017 [facility] CBC/DIFF Pct Immat Gran 0.5 0.0 - 0.5 04/05/2017 [facility] CBC/DIFF Neutrophil, Abs 6.10 1.56 - 6.13 04/05/2017 [facility] CBC/DIFF Lymphocyte, Abs 3.69 1.18 - 3.74 04/05/2017 [facility] CBC/DIFF Monocyte, Abs 0.71 0.24 - 0.36 04/05/2017 [facility] CBC/DIFF Eosinophil, Abs 0.07 0.04 - 0.36 04/05/2017 [facility] CBC/DIFF Basophil, Abs 0.05 0.01 - 0.08 04/05/2017 [facility] CBC/DIFF Absol Immat Gran 0.05 0 - 0.03 04/05/2017 [facility] CBC/DIFF Lab Interpretation Abnormal 04/05/2017 [facility] CBC/DIFF WBC 10.7 4.5 - 11 04/05/2017 [facility] CBC/DIFF RBC 4.89 M/uL 4.20 - 5.40 04/05/2017 [facility] CBC/DIFF Hemoglobin 13.3 12 - 16 04/05/2017 [facility] CBC/DIFF Hematocrit 46.0 37 - 47 04/05/2017 [facility] CBC/DIFF MCV 94 82 - 92 04/05/2017 High [facility] CBC/DIFF MCH 27.2 27 - 32 04/05/2017 [facility] CBC/DIFF MCHC 28.9 32 - 36 04/05/2017 Low [facility] CBC/DIFF RDW 46.8 36.4 - 46.3 04/05/2017 [facility] CBC/DIFF Platelet 300 150 - 400 04/05/2017 [facility] CBC/DIFF Mean Platelet Volume 11.3 9.4 - 12.4 04/05/2017 [facility] CBC/DIFF Percent NRBC 0.0 04/05/2017 [facility] CBC/DIFF Absolute NRBC 0.00 04/05/2017 [facility] CBC/DIFF Neutrophil 57.0 34 - 70 04/05/2017 [facility] CBC/DIFF Lymphocyte 34.6 20 - 50 04/05/2017 [facility] CBC/DIFF Monocyte 6.7 5 - 12 04/05/2017 [facility] CBC/DIFF Eosinophil 0.7 0.7 - 5 04/05/2017 [facility] CBC/DIFF Basophil 0.5 0.1 - 1.2 04/05/2017 [facility] CBC/DIFF Pct Immat Gran 0.5 0.0 - 0.5 04/05/2017 [facility] CBC/DIFF Neutrophil, Abs 6.10 1.56 - 6.13 04/05/2017 [facility] CBC/DIFF Lymphocyte, Abs 3.69 1.18 - 3.74 04/05/2017 [facility] CBC/DIFF Monocyte, Abs 0.71 0.24 - 0.36 04/05/2017 [facility] CBC/DIFF Eosinophil, Abs 0.07 0.04 - 0.36 04/05/2017 [facility] CBC/DIFF Basophil, Abs 0.05 0.01 - 0.08 04/05/2017 [facility] CBC/DIFF Absol Immat Gran 0.05 0 - 0.03 04/05/2017 [facility] CBC/DIFF Lab Interpretation Abnormal 04/05/2017 [facility] COMPREHENSIVE METABOLIC PANEL(DBIL NOT INCLUDED) Albumin 3.8 3.4 - 5 04/05/2017 [facility] COMPREHENSIVE METABOLIC PANEL(DBIL NOT INCLUDED) Calcium 9.1 8.5 - 10.2 04/05/2017 [facility] COMPREHENSIVE METABOLIC PANEL(DBIL NOT INCLUDED) CO2 27 21 - 32 04/05/2017 [facility] COMPREHENSIVE METABOLIC PANEL(DBIL NOT INCLUDED) Chloride 104 98 - 107 04/05/2017 [facility] COMPREHENSIVE METABOLIC PANEL(DBIL NOT INCLUDED) Creatinine 0.59 0.6 - 1.3 04/05/2017 Low [facility] METABOLIC PANEL(DBIL NOT INCLUDED) Glucose 97 70 - 99 04/05/2017 [facility] COMPREHENSIVE METABOLIC PANEL(DBIL NOT INCLUDED) Alk Phos 162 45 - 117 04/05/2017 High [facility] COMPREHENSIVE METABOLIC PANEL(DBIL NOT INCLUDED) Potassium 4.2 3.5 - 5.1 04/05/2017 [facility] COMPREHENSIVE METABOLIC PANEL(DBIL NOT INCLUDED) Sodium 140 136 - 145 04/05/2017 [facility] COMPREHENSIVE METABOLIC PANEL(DBIL NOT INCLUDED) ALT 37 12 - 78 04/05/2017 [facility] COMPREHENSIVE METABOLIC PANEL(DBIL NOT INCLUDED) AST 40 15 - 37 04/05/2017 High [facility] METABOLIC PANEL(DBIL NOT INCLUDED) Urea Nitrogen 13 7 - 18 04/05/2017 [facility] METABOLIC PANEL(DBIL NOT INCLUDED) T Bilirubin 0.4 0.2 - 1 04/05/2017 [facility] COMPREHENSIVE METABOLIC PANEL(DBIL NOT INCLUDED) T Protein 7.6 6.4 - 8.2 04/05/2017 [facility] METABOLIC PANEL(DBIL NOT INCLUDED) GFR, Estimated >60 mL/min/1.73 m2 04/05/2017 [facility] METABOLIC PANEL(DBIL NOT INCLUDED) GFR, Estim, Afr-Am >60 mL/min/1.73 m2 04/05/2017 [facility] METABOLIC PANEL(DBIL NOT INCLUDED) Anion Gap 9 04/05/2017 [facility] COMPREHENSIVE METABOLIC PANEL(DBIL NOT INCLUDED) Lab Interpretation Abnormal 04/05/2017 [facility] 12 LEAD EKG 12 LEAD EKG FOR [facility] Test Date:2017-04-05 Pat Name: NIKKO SULLIVAN Department: : Gender: FTechnician: [id number] :1965 Requested By: Order Number:[place] CORTÉS: Sonu Miller Measurements IntervalsAxis Rate: 78 P:10 UT: 154QRS:-13 QRSD: 101T:30 QT: 379 QTc:432 Interpretive Statements SINUS RHYTHM LOW QRS VOLTAGE IN PRECORDIAL LEADS [QRS DEFLECTION < 1.0 mV IN CHEST LEADS] POOR R WAVE PROGRESSION NON SPECIFIC T WAVE ABNORMALITY ABNORMAL ECG Electronically Signed On 04-07-17 14:20:19 INFORMATION TECHNOLOGY ASSISTANT by Sonu Miller 04/05/2017 [facility] B NATRIURETIC PEPT B Natriuretic Pept 100 0 - 100 01/26/2017 [facility] MAGNESIUM Magnesium 2.1 1.8 - 2.4 01/26/2017 [facility] 12 LEAD EKG 12 LEAD EKG FOR [facility] Test Date:2017-01-25 Pat Name: NIKKO SULLIVAN Department: : Gender: FTechnician: [id number] :1965 Requested By: Order Number:[place] MD: Paola Burden M.D. Measurements IntervalsAxis Rate: 78 P:-3 UT: 138QRS:-8 QRSD: 80 T:16 QT: 368 QTc:419 Interpretive Statements Normal sinus rhythm Normal ECG Electronically Signed On 01-25-17 18:59:32 INFORMATION TECHNOLOGY ASSISTANT by Paola Burden M.D. 01/26/2017 [facility] POC TCO2 POC - 01/25/2017 [facility] POC Chloride POC 106 98 - 107 01/25/2017 [facility] POC Potassium POC 3.4 3.5 - 5.1 01/25/2017 [facility] POC Sodium POC 139 136 - 145 01/25/2017 [facility] POC Glucose POC 138 74 - 106 01/25/2017 [facility] POC Urea Nitrogen POC 11 7 - 18 01/25/2017 [facility] POC Creatinine POC 0.7 0.6 - 1.3 01/25/2017 [facility] POC Ionized Calcium POC 0.99 1.15 - 1.29 01/25/2017 [facility] POC GFR, Estimated >60 mL/min/1.73 m2 01/25/2017 [facility] POC GFR, Estim, Afr-Am >60 mL/min/1.73 m2 01/25/2017 [facility] POC Lab Interpretation Abnormal 01/25/2017 [facility] POC TCO2 POC - 32 01/25/2017 [facility] POC Chloride POC 106 98 - 107 01/25/2017 [facility] POC Potassium POC 3.4 3.5 - 5.1 01/25/2017 [facility] POC Sodium POC 139 136 - 145 01/25/2017 [facility] POC Glucose POC 138 74 - 106 01/25/2017 [facility] POC Urea Nitrogen POC 11 7 - 18 01/25/2017 [facility] POC Creatinine POC 0.7 0.6 - 1.3 01/25/2017 [facility] POC Ionized Calcium POC 0.99 1.15 - 1.29 01/25/2017 [facility] POC GFR, Estimated >60 mL/min/1.73 m2 01/25/2017 [facility] POC GFR, Estim, Afr-Am >60 mL/min/1.73 m2 01/25/2017 [facility] POC Lab Interpretation Abnormal 01/25/2017 [facility] B NATRIURETIC PEPT B Natriuretic Pept 100 0 - 100 01/25/2017 [facility] MAGNESIUM Magnesium 2.1 1.8 - 2.4 01/25/2017 [facility] HEP BE AB Hep Be Ab Negative Reference range: Negative 01/01/2017 [facility] 12 LEAD EKG [facility] Test Date:2016-12-30 Pat Name: NIKKO SULLIVAN Department: : Gender: FTechnician: [id number] :1965 Requested By: Order Number:[place] MD: Sonu Miller Measurements IntervalsAxis Rate: 69 P:6 UT: 161QRS:-13 QRSD: 99 T:27 QT: 382 QTc:411 Interpretive Statements SINUS RHYTHM LOW QRS VOLTAGE IN PRECORDIAL LEADS [QRS DEFLECTION < 1.0 mV IN CHEST LEADS] PATTERN CONSISTENT WITH PULMONARY DISEASE POOR R WAVE PROGRESSION ABNORMAL ECG Electronically Signed On 12-31-16 19:10:32 CDT by Sonu Miller 01/01/2017 [facility] BASIC METABOLIC PANEL CO2 29 21 - 32 12/31/2016 [facility] BASIC METABOLIC PANEL Chloride 102 98 - 107 12/31/2016 [facility] BASIC METABOLIC PANEL Potassium 4.1 3.5 - 5.1 12/31/2016 [facility] BASIC METABOLIC PANEL Sodium 140 136 - 145 12/31/2016 [facility] BASIC METABOLIC PANEL Glucose 112 70 - 99 12/31/2016 [facility] BASIC METABOLIC PANEL Urea Nitrogen 15 7 - 18 12/31/2016 [facility] [employer] METABOLIC PANEL Creatinine 0.63 0.6 - 1.3 12/31/2016 [facility] BASIC METABOLIC PANEL Anion Gap 9 12/31/2016 [facility] BASIC METABOLIC PANEL Calcium 9.0 8.5 - 10.2 12/31/2016 [facility] BASIC METABOLIC PANEL GFR, Estimated >60 mL/min/1.73 m2 12/31/2016 [facility] BASIC METABOLIC PANEL GFR, Estim, Afr-Am >60 mL/min/1.73 m2 12/31/2016 [facility] BASIC METABOLIC PANEL Lab Interpretation Abnormal 12/31/2016 [facility] GLUCOSE POC Glucose POC 140 74 - 106 12/31/2016 [facility] GLUCOSE POC Lab Interpretation Abnormal 12/31/2016 [facility] GLUCOSE POC Glucose POC 140 74 - 106 12/31/2016 [facility] GLUCOSE POC Lab Interpretation Abnormal 12/31/2016 [facility] BASIC METABOLIC PANEL CO2 29 21 - 32 12/31/2016 [facility] BASIC METABOLIC PANEL Chloride 102 98 - 107 12/31/2016 [facility] BASIC METABOLIC PANEL Potassium 4.1 3.5 - 5.1 12/31/2016 [facility] BASIC METABOLIC PANEL Sodium 140 136 - 145 12/31/2016 [facility] BASIC METABOLIC PANEL Glucose 112 70 - 99 12/31/2016 High [facility] BASIC METABOLIC PANEL Urea Nitrogen 15 7 - 18 12/31/2016 [facility] BASIC METABOLIC PANEL Creatinine 0.63 0.6 - 1.3 12/31/2016 [facility] BASIC METABOLIC PANEL Anion Gap 9 12/31/2016 [facility] BASIC METABOLIC PANEL Calcium 9.0 8.5 - 10.2 12/31/2016 [facility] BASIC METABOLIC PANEL GFR, Estimated >60 mL/min/1.73 m2 12/31/2016 [facility] BASIC METABOLIC PANEL GFR, Estim, Afr-Am >60 mL/min/1.73 m2 12/31/2016 [facility] BASIC METABOLIC PANEL Lab Interpretation Abnormal 12/31/2016 [facility] UA CHEMISTRIES Color Juliette 12/30/2016 [facility] UA CHEMISTRIES Clarity Hazy 12/30/2016 [facility] UA CHEMISTRIES Spec Sidney 1.028 1.001 - 1.035 12/30/2016 [facility] UA CHEMISTRIES pH 5.0 5 - 8 12/30/2016 [facility] UA CHEMISTRIES Protein 1+ NEG 12/30/2016 [facility] UA CHEMISTRIES Glucose Negative NEG 12/30/2016 [facility] UA CHEMISTRIES Ketone Trace NEG 12/30/2016 [facility] UA CHEMISTRIES Bilirubin Negative NEG 12/30/2016 [facility] UA CHEMISTRIES Nitrate Negative NEG 12/30/2016 [facility] UA CHEMISTRIES Urobilinogen <1.0 0.2 - 1 12/30/2016 [facility] UA CHEMISTRIES Leukocyte Negative NEG 12/30/2016 [facility] UA CHEMISTRIES Blood Negative NEG 12/30/2016 [facility] UA CHEMISTRIES RBC 1 0 - 4 12/30/2016 [facility] UA CHEMISTRIES WBC 2 0 - 5 12/30/2016 [facility] UA CHEMISTRIES Epithelial Cell 8 /HPF 12/30/2016 [facility] UA CHEMISTRIES Mucous Present 12/30/2016 [facility] UA CHEMISTRIES Lab Interpretation Abnormal 12/30/2016 [facility] UA CHEMISTRIES Color Juliette 12/30/2016 [facility] UA CHEMISTRIES Clarity Hazy 12/30/2016 [facility] UA CHEMISTRIES Spec Sidney 1.028 1.001 - 1.035 12/30/2016 [facility] UA CHEMISTRIES pH 5.0 5 - 8 12/30/2016 [facility] UA CHEMISTRIES Protein 1+ NEG 12/30/2016 Abnormal [facility] UA CHEMISTRIES Glucose Negative NEG 12/30/2016 [facility] UA CHEMISTRIES Ketone Trace NEG 12/30/2016 Abnormal [facility] UA CHEMISTRIES Bilirubin Negative NEG 12/30/2016 [facility] UA CHEMISTRIES Nitrate Negative NEG 12/30/2016 [facility] UA CHEMISTRIES Urobilinogen <1.0 0.2 - 1 12/30/2016 [facility] UA CHEMISTRIES Leukocyte Negative NEG 12/30/2016 [facility] UA CHEMISTRIES Blood Negative NEG 12/30/2016 [facility] UA CHEMISTRIES RBC 1 /HPF 0 - 4 12/30/2016 [facility] UA CHEMISTRIES WBC 2 /HPF 0 - 5 12/30/2016 [facility] UA CHEMISTRIES Epithelial Cell 8 /HPF 12/30/2016 [facility] UA CHEMISTRIES Mucous Present 12/30/2016 [facility] UA CHEMISTRIES Lab Interpretation Abnormal 12/30/2016 [facility] TRANSTHORACIC ECHO (TTE) TRANSTHORACIC ECHO (TTE) Transthoracic Echo Report NIKKO SULLIVAN Age:51 Gender: F :1965 Exam Date: 12/30/2016 08:50 Exam Location: [facility] Echo Ordering Phys: KEIKO ANDERS Referring Phys: Reading Phys:Sarah Carter Fellow Phys: Fellow Phys: Steward/Stewardess Tourist Class: Vinh Munoz Reason For Exam: Indications:Chest Pain ICD-9 Codes: R06.89 Exam Type: Transthoracic Echo Procedure CPT:76350 Addtional CPT: Ht (in): 63 BSA: 2.35HR: [...] 22 - 52 cm DOPPLER AV Peak Dsngzvsg875 cm/s AV Peak Gradient4.3 mmHg AV Mean Mrmpcqzx01.8 cm/s AV Mean Gradient3 mmHg AV Velocity Time Integral 19.8 cm LVOT Peak Vucjdope44 cm/s LVOT Peak Gradient3.2 mmHg LVOT Mean Xyohpzxe87.6 cm/s LVOT Mean Gradient2 mmHg LVOT Velocity Time Integral 16 cm LVOT Stroke Xfqcyl30.4 cm AV Area Cont Eq vti 2.8 cm AV Area Cont Eq pk3 cm Mitral E Point Velocity 70.3 cm/s Mitral A Point Velocity 80.5 cm/s Mitral E to A Ratio 0.87 MV Deceleration Conway 260 cm/s MV Pressure Half Time 79 ms MV Area PHT 2.8 cm PV Peak Cjciiedo44.7 cm/s PV Peak Gradient2.2 mmHg RVOT Peak Luxmlbzj83 cm/s RVOT Peak Gradient0.96 mmHg LV E' Lateral Velocity7.8 cm/s Mitral E to LV E' Lateral Ratio 9 LV E' Septal Velocity 6 cm/s Mitral E to LV E' Septal Ratio11.8 12/30/2016 [facility] MYOGLOBIN, SER Myoglobin, Ser 33 14 - 106 12/30/2016 [facility] SYPHILIS SCREEN FOR INFECTION Treponemal Ab Negative 12/30/2016 [facility] SYPHILIS SCREEN FOR INFECTION Final Report Negative 12/30/2016 [facility] HEP A VIR AB IGM HAV, IgM Negative NEG 12/30/2016 [facility] HEP A VIRUS AB IGG Hep A Vir Ab IgG Positive NEG 12/30/2016 [facility] HEP A VIRUS AB IGG Lab Interpretation Abnormal 12/30/2016 [facility] HEP B COR AB TOT Hep B Cor Ab Tot Negative NEG 12/30/2016 [facility] HEP B AB AG HBsAg Negative NEG 12/30/2016 [facility] HEP C VIR AB IGG HCV IgG Negative NEG 12/30/2016 [facility] RAPID INFLUENZA SCREEN Spec Description Nasopharyngeal swab 12/30/2016 [facility] RAPID INFLUENZA SCREEN Order Comments None 12/30/2016 [facility] RAPID INFLUENZA SCREEN Direct Exam Negative for Influenza A and B by EIA 12/30/2016 [facility] RAPID INFLUENZA SCREEN Report Status Final 12/30/2016 12/30/2016 [facility] TRANSTHORACIC ECHO (TTE) TRANSTHORACIC ECHO (TTE) Transthoracic Echo Report NIKKO SULLIVAN Age:51 Gender: F :1965 Exam Date: 12/30/2016 08:50 Exam Location: [facility] Echo Ordering Phys: KEIKO ANDERS Referring Phys: Reading Phys:Sarah Carter Fellow Phys: Fellow Phys: Steward/Stewardess Tourist Class: Vinh Munoz Reason For Exam: Indications:Chest Pain ICD-9 Codes: R06.89 Exam Type: Transthoracic Echo Procedure CPT:79995 Addtional CPT: Ht (in): 63 BSA: 2.35HR: [...] 22 - 52 cm DOPPLER AV Peak Cfjpdsug598 cm/s AV Peak Gradient4.3 mmHg AV Mean Qfdorkhn20.8 cm/s AV Mean Gradient3 mmHg AV Velocity Time Integral 19.8 cm LVOT Peak Ipmeiobm93 cm/s LVOT Peak Gradient3.2 mmHg LVOT Mean Rvzpwmfp37.6 cm/s LVOT Mean Gradient2 mmHg LVOT Velocity Time Integral 16 cm LVOT Stroke Xiidvj39.4 cm AV Area Cont Eq vti 2.8 cm AV Area Cont Eq pk3 cm Mitral E Point Velocity 70.3 cm/s Mitral A Point Velocity 80.5 cm/s Mitral E to A Ratio 0.87 MV Deceleration Conway 260 cm/s MV Pressure Half Time 79 ms MV Area PHT 2.8 cm PV Peak Fblvkajd38.7 cm/s PV Peak Gradient2.2 mmHg RVOT Peak Hancauox61 cm/s RVOT Peak Gradient0.96 mmHg LV E' Lateral Velocity7.8 cm/s Mitral E to LV E' Lateral Ratio 9 LV E' Septal Velocity 6 cm/s Mitral E to LV E' Septal Ratio11.8 12/30/2016 [facility] CK, TOTAL CK, Total 84 30 - 200 12/30/2016 CKMB not performed if CK <100, if CKMB is required, please notify laboratory
immediately.

[facility] TROPONIN I Troponin I <0.015 0 - 0.045 12/30/2016 [facility] CKMB, REFLEX CK-MB 1.4 0 - 3.6 12/30/2016 [facility] CKMB, REFLEX CKMB Index 1.4 0 - 2.5 12/30/2016 [facility] DIGOXIN Digoxin 0.9 0.8 - 2 12/30/2016 [facility] RAPID INFLUENZA SCREEN Spec Description Nasopharyngeal swab 12/30/2016 [facility] RAPID INFLUENZA SCREEN Order Comments None 12/30/2016 [facility] RAPID INFLUENZA SCREEN Direct Exam Negative for Influenza A and B by EIA 12/30/2016 [facility] RAPID INFLUENZA SCREEN Report Status Final 12/30/2016 12/30/2016 [facility] URINE DRUG SCREEN Amphetamine Negative NEG 12/30/2016 Calibrated Standard: D-Methamphetamine
Positive if urine level >fx=8227 ng/mL

[facility] URINE DRUG SCREEN Barbiturate Negative NEG 12/30/2016 Calibrated Standard: Secobarbital
Positive if urine level is >av=102 ng/mL

[facility] URINE DRUG SCREEN Benzodiazepine Negative NEG 12/30/2016 Calibrated Standard: Lormethazepam
Positive if urine level is >ky=117 ng/mL

[facility] URINE DRUG SCREEN Cannabinoid Negative NEG 12/30/2016 Calibrated Standard: 11 nor-delta(9)-THC carboxylic a
Positive if urine level >or=50

[facility] URINE DRUG SCREEN Cocaine Negative NEG 12/30/2016 Calibrated Standard: Benzoylecgonine
Positive if urine level >vj=634

[facility] URINE DRUG SCREEN Opiate, Ur Negative NEG 12/30/2016 Calibrated Standard: Morphine
Positive if urine level >lc=498

[facility] URINE DRUG SCREEN PCP Negative NEG 12/30/2016 Calibrated Standard: Phencyclidine
Positive if urine level >or=25
Urine Toxicology Screen results are to be used only for Medical purposes.

[facility] PT/INR PT 12.8 11.8 - 15.0 12/30/2016 [facility] PT/INR INR 1.0 SUGGESTED THERAPEUTIC RANGES: INR 2.0-3.0 for MODERATE INTENSITY ANTICOAGULATION INR 2.5-3.5 for HIGH INTENSITY ANTICOAGULATION 12/30/2016 [facility] PTT PTT 36.5 23.6 - 36.4 12/30/2016 [facility] PTT Lab Interpretation Abnormal 12/30/2016 [facility] CALCIUM, IONIZED Calcium, Ionized 1.08 1.15 - 1.29 12/30/2016 [facility] CALCIUM, IONIZED Lab Interpretation Abnormal 12/30/2016 [facility] CK, TOTAL CK, Total 84 30 - 200 12/30/2016 CKMB not performed if CK <100, if CKMB is required, please notify laboratory
immediately.

[facility] MYOGLOBIN, SER Myoglobin, Ser 33 14 - 106 12/30/2016 [facility] TROPONIN I Troponin I <0.015 0 - 0.045 12/30/2016 [facility] 12 LEAD EKG 12 LEAD [facility] Pat Name: NIKKO SLULIVAN Department: : Gender: FTechnician: :1965 Requested By: Order Number:Reading MD: Sonu Miller Measurements IntervalsAxis Rate: 86 P:14 UT: 159QRS:-27 QRSD: 84 T:37 QT: 345 QTc:413 Interpretive Statements SINUS RHYTHM POSSIBLE LEFT ATRIAL ENLARGEMENT LOW QRS VOLTAGE IN PRECORDIAL LEADS POOR R WAVE PROGRESSION: POSSIBLE ANTERIOR MYOCARDIAL INFARCTION, PROBABLY OLD ABNORMAL ECG Electronically Signed On 12-29-16 18:48:49 CDT by Sonu Miller 12/30/2016 [facility] CALCIUM, IONIZED Calcium, Ionized 1.08 1.15 - 1.29 12/29/2016 Low [facility] CALCIUM, IONIZED Lab Interpretation Abnormal 12/29/2016 [facility] CKMB, REFLEX CK-MB 1.4 0 - 3.6 12/29/2016 [facility] CKMB, REFLEX CKMB Index 1.4 0 - 2.5 12/29/2016 [facility] DIGOXIN Digoxin 0.9 0.8 - 2 12/29/2016 [facility] HEP A VIR AB IGM HAV, IgM Negative NEG 12/29/2016 [facility] HEP A VIRUS AB IGG Hep A Vir Ab IgG Positive NEG 12/29/2016 Abnormal [facility] HEP A VIRUS AB IGG Lab Interpretation Abnormal 12/29/2016 [facility] HEP B COR AB TOT Hep B Cor Ab Tot Negative NEG 12/29/2016 [facility] HEP B AB AG HBsAg Negative NEG 12/29/2016 [facility] HEP BE AB Hep Be Ab Negative Reference range: Negative 12/29/2016 [facility] HEP C VIR AB IGG HCV IgG Negative NEG 12/29/2016 [facility] PT/INR PT 12.8 Seconds 11.8 - 15.0 12/29/2016 [facility] PT/INR INR 1.0 SUGGESTED THERAPEUTIC RANGES: INR 2.0-3.0 for MODERATE INTENSITY ANTICOAGULATION INR 2.5-3.5 for HIGH INTENSITY ANTICOAGULATION 12/29/2016 [facility] PTT PTT 36.5 Seconds 23.6 - 36.4 12/29/2016 High [facility] PTT Lab Interpretation Abnormal 12/29/2016 [facility] SYPHILIS SCREEN FOR INFECTION Treponemal Ab Negative 12/29/2016 [facility] SYPHILIS SCREEN FOR INFECTION Final Report Negative 12/29/2016 [facility] POC CO2 POC 27 21 - 32 12/29/2016 [facility] POC Chloride POC 105 98 - 107 12/29/2016 [facility] POC Potassium POC 5.2 3.5 - 5.1 12/29/2016 [facility] POC Sodium POC 141 136 - 145 12/29/2016 [facility] POC Glucose POC 115 74 - 106 12/29/2016 [facility] POC Urea Nitrogen POC 17 7 - 18 12/29/2016 [facility] POC Creatinine POC 0.8 0.6 - 1.3 12/29/2016 [facility] POC Calcium Ionized POC 1.03 1.15 - 1.29 12/29/2016 [facility] POC Hemoglobin POC 16.7 12 - 16 12/29/2016 [facility] POC Hematocrit POC 49.0 37 - 47 12/29/2016 [facility] POC GFR, Estimated >60 mL/min/1.73 m2 12/29/2016 [facility] POC GFR, Estim, Afr-Am >60 mL/min/1.73 m2 12/29/2016 [facility] POC Lab Interpretation Abnormal 12/29/2016 [facility] TROPONIN I POC Troponin POC 0.00 0 - 0.08 12/29/2016 [facility] URINE DRUG SCREEN Amphetamine Negative NEG 12/29/2016 Calibrated Standard: D-Methamphetamine
Positive if urine level >kb=8890 ng/mL

[facility] URINE DRUG SCREEN Barbiturate Negative NEG 12/29/2016 Calibrated Standard: Secobarbital
Positive if urine level is >gk=684 ng/mL

[facility] URINE DRUG SCREEN Benzodiazepine Negative NEG 12/29/2016 Calibrated Standard: Lormethazepam
Positive if urine level is >zq=013 ng/mL

[facility] URINE DRUG SCREEN Cannabinoid Negative NEG 12/29/2016 Calibrated Standard: 11 nor-delta(9)-THC carboxylic a
Positive if urine level >or=50

[facility] URINE DRUG SCREEN Cocaine Negative NEG 12/29/2016 Calibrated Standard: Benzoylecgonine
Positive if urine level >ir=057

[facility] URINE DRUG SCREEN Opiate, Ur Negative NEG 12/29/2016 Calibrated Standard: Morphine
Positive if urine level >zq=732

[facility] URINE DRUG SCREEN PCP Negative NEG 12/29/2016 Calibrated Standard: Phencyclidine
Positive if urine level >or=25
Urine Toxicology Screen results are to be used only for Medical purposes.

[facility] POC CO2 POC 27 21 - 32 12/29/2016 [facility] POC Chloride POC 105 98 - 107 12/29/2016 [facility] POC Potassium POC 5.2 3.5 - 5.1 12/29/2016 [facility] POC Sodium POC 141 136 - 145 12/29/2016 [facility] POC Glucose POC 115 74 - 106 12/29/[address] [facility] POC Urea Nitrogen POC 17 7 - 18 12/29/2016 [facility] POC Creatinine POC 0.8 0.6 - 1.3 12/29/2016 [facility] POC Calcium Ionized POC 1.03 1.15 - 1.29 12/29/2016 [facility] POC Hemoglobin POC 16.7 12 - 16 12/29/2016 [facility] POC Hematocrit POC 49.0 37 - 47 12/29/2016 [facility] POC GFR, Estimated >60 mL/min/1.73 m2 12/29/2016 [facility] POC GFR, Estim, Afr-Am >60 mL/min/1.73 m2 12/29/2016 [facility] POC Lab Interpretation Abnormal 12/29/2016 [facility] TROPONIN I POC Troponin POC 0.00 0 - 0.08 12/29/2016 [facility] HEMOGLOBIN A1C Hemoglobin A1c 7.2 4.3 - 6.1 11/28/2016 [facility] HEMOGLOBIN A1C Est Average Gluc 159.9 11/28/2016 [facility] HEMOGLOBIN A1C Lab Interpretation Abnormal 11/28/2016 [facility] LIPID PROFILE Cholesterol 172 <200 11/28/2016 REFERENCE RANGE:
Desirable: <200 mg/dL
Borderline: 200-240 mg/dL
High Risk: >240 mg/dL

[facility] LIPID PROFILE Triglyceride 105 <150 11/28/2016 REFERENCE RANGE:
Normal: <150 mg/dL
Borderline High: 150-199 mg/dL
High: 200-499 mg/dL
Very High: >oi=979 mg/dL

[facility] LIPID PROFILE HDL 65 40 - 60 11/28/2016 Increased CHD risk: <40 mg/dL
Decreased CHD risk: >60 mg/dL

[facility] LIPID PROFILE LDL 86 11/28/2016 REFERENCE RANGE:
Optimal: <100 mg/dL
Near Optimal: 100-129 mg/dL
Borderline High: 130-159 mg/dL
High: 160-189 mg/dL
Very High: >ef=441 mg/dL

[facility] LIPID PROFILE Lab Interpretation Abnormal 11/28/2016 [facility] LIVER PROFILE T Protein 7.2 6.4 - 8.2 11/28/2016 [facility] LIVER PROFILE Albumin 3.8 3.4 - 5 11/28/2016 [facility] LIVER PROFILE T Bilirubin 0.5 0.2 - 1 11/28/2016 [facility] LIVER PROFILE Alk Phos 129 45 - 117 11/28/2016 [facility] LIVER PROFILE AST 57 15 - 37 11/28/2016 [facility] LIVER PROFILE ALT 67 12 - 78 11/28/2016 [facility] LIVER PROFILE D Bilirubin 0.2 0 - 0.2 11/28/2016 [facility] LIVER PROFILE Lab Interpretation Abnormal 11/28/2016 [facility] HEMOGLOBIN A1C Hemoglobin A1c 7.2 4.3 - 6.1 11/27/2016 High [facility] HEMOGLOBIN A1C Est Average Gluc 159.9 11/27/2016 [facility] HEMOGLOBIN A1C Lab Interpretation Abnormal 11/27/2016 [facility] LIPID PROFILE Cholesterol 172 <200 11/27/2016 REFERENCE RANGE:
Desirable: <200 mg/dL
Borderline: 200-240 mg/dL
High Risk: >240 mg/dL

[facility] LIPID PROFILE Triglyceride 105 <150 11/27/2016 REFERENCE RANGE:
Normal: <150 mg/dL
Borderline High: 150-199 mg/dL
High: 200-499 mg/dL
Very High: >ao=939 mg/dL

[facility] LIPID PROFILE HDL 65 40 - 60 11/27/2016 High Increased CHD risk: <40 mg/dL
Decreased CHD risk: >60 mg/dL

[facility] LIPID PROFILE LDL 86 11/27/2016 REFERENCE RANGE:
Optimal: <100 mg/dL
Near Optimal: 100-129 mg/dL
Borderline High: 130-159 mg/dL
High: 160-189 mg/dL
Very High: >yx=977 mg/dL

[facility] LIPID PROFILE Lab Interpretation Abnormal 11/27/2016 [facility] LIVER PROFILE T Protein 7.2 6.4 - 8.2 11/27/2016 [facility] LIVER PROFILE Albumin 3.8 3.4 - 5 11/27/2016 [facility] LIVER PROFILE T Bilirubin 0.5 0.2 - 1 11/27/2016 [facility] LIVER PROFILE Alk Phos 129 45 - 117 11/27/2016 High [facility] LIVER PROFILE AST 57 15 - 37 11/27/2016 High [facility] LIVER PROFILE ALT 67 12 - 78 11/27/2016 [facility] LIVER PROFILE D Bilirubin 0.2 0 - 0.2 11/27/2016 [facility] LIVER PROFILE Lab Interpretation Abnormal 11/27/2016 [facility] Pathology Reports No Data Provided for This Section Diagnostic Reports Report Value Date Source XRAY CHEST 2 VIEWS IMPRESSION: Elevation of the right hemidiaphragm with linear opacity of the rightmidlung suggestive of volume loss and scarring, unchanged.No acute thoracic abnormality. A "PRELIMINARY" report was made available via [employer] at the time ofdictation by the resident [...] A "PRELIMINARY" report was made available via [employer] at the time of dictation by the resident indicated below. If the report is "FINALIZED" it indicates that the attending/staff radiologist has reviewed the images and agrees with the resident's interpretation. Dictated By: Shabbir Latham DO, 01/25/2017 1:38 PM I have reviewed the study and agree with the findings in this report. Signed By: Tushar Gonzalez MD, 01/25/2017 4:28 PM 01/25/2017 [facility] XRAY CHEST 2 VIEWS IMPRESSION: Elevation of the right hemidiaphragm with linear opacity of the rightmidlung suggestive of volume loss and scarring, unchanged.No acute thoracic abnormality. A "PRELIMINARY" report was made available via [employer] at the time ofdictation by the resident [...] A "PRELIMINARY" report was made available via [employer] at the time of dictation by the resident indicated below. If the report is "FINALIZED" it indicates that the attending/staff radiologist has reviewed the images and agrees with the resident's interpretation. Dictated By: Shabbir Latham DO, 01/25/2017 1:38 PM I have reviewed the study and agree with the findings in this report. Signed By: Tushar Gonzalez MD, 01/25/2017 4:28 PM 01/25/2017 [facility] Consultation Notes No Data Provided for This [...] Assoc Temperature Oral (F) 98.3 F 03/16/2018 [facility] Heart Rate 106 03/16/2018 [facility] Diastolic (mm Hg) 82 03/16/2018 [facility] Systolic (mm Hg) 115 03/16/2018 [facility] Systolic (mm Hg) 116 05/28/2017 [facility] Diastolic (mm Hg) 58 05/28/2017 [facility] Heart Rate 94 05/28/2017 [facility] Temperature Oral (F) 37.17 Lina 05/28/2017 [facility] Respitory Rate 20 05/28/2017 [facility] Height 160 cm 05/28/2017 [facility] Weight 120.203 05/28/2017 [facility] BMI Calculated 46.94 05/28/2017 [facility] Encounters Location Location Details Encounter Type Encounter Number Reason For Visit Attending Provider ADM Date DC Date Status Source [facility] [place] Office Visit [id number] Asthmatic bronchitis, severe persistent, with acute exacerbation Asthma exacerbation SOB (shortness of breath) Rib pain on right side Chest wall pain Obstructive sleep apnea syndrome Dario Slater MD 10/01/2016 10/01/2016 [facility] Same Day Same Day [id number] Rib pain on right side Rediate Jake [employer] 10/23/2016 10/23/2016 [facility] [place] Office Visit [id number] Asthma exacerbation Sleep-related breathing disorder Obstructive sleep apnea Acute on chronic congestive heart failure, unspecified congestive heart failure type Type 2 diabetes mellitus without complication, without long-term current use of insulin Dario Sabillon MD 10/29/2016 10/29/2016 [facility] Shyla Larsen Same Day Office Visit [id number] Moderate persistent asthma with acute exacerbation Hearing loss of left ear due to cerumen impaction Dysfunction of Eustachian tube, left Deepthi Johns MD 11/13/2016 11/13/2016 [facility] [place] Office Visit [id number] Type 2 diabetes mellitus without complication, without long-term current use of insulin Need for Tdap vaccination Chronic congestive heart failure, unspecified congestive heart failure type Mild intermittent asthma with acute exacerbation Rib pain on right side Dario Sabillon MD 11/23/2016 11/23/2016 [facility] [place] Telephone [id number] Tori Ruiz PURNIMA 11/30/2016 [facility] [id number] Chest pain in adult Chronic congestive heart failure, unspecified congestive heart failure type ASD (atrial septal defect), sinus venosus defect Rosi Duran DO 12/29/2016 12/31/2016 [facility] Pharmacy [facility] Visit [id number] 12/31/2016 [facility] [place] Telephone [id number] [place] Caity 01/06/2017 [facility] [place] Office Visit [id number] Chronic congestive heart failure, unspecified congestive heart failure type Flu vaccine need Controlled type 2 diabetes mellitus without complication, without long-term current use of insulin Hospital discharge follow-up Bilateral leg edema Chest pain, unspecified type Ankita Kenny DO 01/25/2017 01/25/2017 [facility] Radiology [place] Ancillary Procedure [id number] Dario Sabillon MD 01/25/2017 01/25/2017 [facility] [place] Refill [id number] Chronic congestive heart failure, unspecified congestive heart failure type Ankita Kenny DO 02/19/2017 [facility] [place] Office Visit [id number] Type 2 diabetes mellitus without complication, without long-term current use of insulin Gastroesophageal reflux disease without esophagitis Chronic congestive heart failure, unspecified congestive heart failure type Mild intermittent asthma with acute exacerbation Acute bronchitis, unspecified organism Sleep apnea, unspecified type Hypokalemia Hyperlipidemia, unspecified hyperlipidemia type Dario Sabillon MD 02/23/2017 02/23/2017 [facility] [place] Clinical Case Mgt [id number] Isrrael Dukes RN 02/24/2017 [facility] [place] Orders Only [id number] Chronic congestive heart failure, unspecified congestive heart failure type Dario Sabillon MD 02/26/2017 [facility] [place] Refill [id number] Mild intermittent asthma with acute exacerbation Dario Sabillon MD 03/26/2017 [facility] [place] Orders Only [id number] Palpitations ASD (atrial septal defect), sinus venosus defect Shortness of breath Amarilis Aggarwal MD 04/05/2017 [facility] [place] [id number] Palpitations ASD (atrial septal defect), sinus venosus defect Shortness of breath Amarilis Aggarwal MD 04/05/2017 04/05/2017 [facility] [place] [facility] En[place] [id number] Palpitations ASD (atrial septal defect), sinus venosus defect Shortness of breath Dario Sabillon MD 04/05/2017 04/06/2017 [facility] CARDIOLOGY [facility] Hospital Encounter [id number] Amarilis Aggarwal MD 04/15/2017 04/16/2017 [facility] [place] Refill [id number] Type 2 diabetes mellitus without complication, without long-term current use of insulin Dario Sabillon MD 04/23/2017 [facility] CARDIOLOGY [facility] Hospital Encounter [id number] Amarilis Aggarwal MD 04/27/2017 04/28/2017 [facility] [place] Office Visit [id number] 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), sinus venosus defect Pulmonary hypertension Amarilis Aggarwal MD 05/03/2017 05/03/2017 [facility] Same Day Same Day [id number] Acute bronchitis, unspecified organism Cough Type 2 diabetes mellitus without complication, without long-term current use of insulin Loren Cristino MEAT COUNTER WORKER 05/12/2017 05/12/2017 [facility] Same Day Same Day [id number] Acute sinusitis, recurrence not specified, unspecified location Bilateral acute serous otitis media, recurrence not specified Cough Type 2 diabetes mellitus without complication, without long-term current use of insulin Loren Cristino MEAT COUNTER WORKER 05/28/2017 05/28/2017 [facility] [place] Clinical Case Mgt [id number] Jackeline Aranda 07/02/2017 [facility] [place] Telephone [id number] Faith Giles RN 07/02/2017 [facility] [place] Telephone [id number] Faith Giles RN 07/06/2017 [facility] Departed Emergency Room [id number] ANCELMO MELISSA MD 09/20/2017 09/20/2017 [facility] [place] Refill [id number] Chronic congestive heart failure Dario Sabillon MD 09/21/2017 [facility] [place] Refill [id number] Type 2 diabetes mellitus without complication, without long-term current use of insulin Dario Sabillon MD 11/07/2017 [facility] [place] Refill [id number] Rib pain on right side Alicia Forte PRINT MACHINE OPERATOR 11/11/2017 [facility] Procedures Procedure Code Date Perfomer Comments Source DIABETIC FOOT EXAM 05/29/[address] [facility] POC RAPID FLU 91115 05/12/[address] [facility] POC GROUP A STREP SCREEN 42117 05/12/[address] [facility] TREADMILL STRESS-TRACING ONLY 57143 04/27/2017 [facility] TTE FOLLOW UP 68633 04/15/2017 [facility] COMPREHENSIVE METABOLIC PANEL(DBIL NOT INCLUDED) 60458 04/05/2017 [facility] CBC/DIFF 78077 04/05/2017 [facility] 12 LEAD EKG 98607 04/05/2017 [facility] BMP POC 36334 01/25/2017 [facility] XRAY CHEST 2 VIEWS 17179 01/25/2017 [facility] B NATRIURETIC PEPT 32715 01/25/2017 [facility] MAGNESIUM 58408 01/25/2017 [facility] GLUCOSE POC 51639 12/31/2016 [facility] BASIC METABOLIC PANEL 65439 12/31/2016 [facility] UA CHEMISTRIES 98514 12/30/2016 [facility] TRANSTHORACIC ECHO (TTE) 86509 12/30/2016 [facility] UA CHEMISTRIES 76478 12/30/2016 [facility] RAPID INFLUENZA SCREEN 32498 12/30/2016 [facility] CK, TOTAL 61033 12/30/2016 [facility] TROPONIN I 99174 12/30/2016 [facility] MYOGLOBIN, SER 37832 12/30/2016 [facility] CALCIUM, IONIZED 06639 12/30/2016 [facility] PT/INR 90722 12/30/2016 [facility] PTT 40083 12/30/2016 [facility] HEP A VIR AB IGM 48088 12/30/2016 [facility] HEP A VIRUS AB IGG 31704 12/30/2016 [facility] HEP B COR AB TOT 44626 12/30/2016 [facility] HEP B [place] AG 94032 12/30/2016 [facility] [place] [address] 12/30/2016 [facility] HEP C VIR AB IGG 73613 12/30/2016 [facility] SYPHILIS SCREEN FOR INFECTION 11335 12/30/2016 [facility] DIGOXIN 30795 12/30/2016 [facility] CKMB, REFLEX 73581 12/30/2016 [facility] URINE DRUG SCREEN 46163 12/30/2016 [facility] TROPONIN I POC 76412 12/29/2016 [facility] HEMOGLOBIN A1C 64618 11/27/2016 [facility] LIPID PROFILE 84587 11/27/2016 [facility] LIVER PROFILE 19068 11/27/2016 [facility] THRPY PROPH/DX INJ INTRAMUSCLR 04775 11/13/2016 [facility] Assessment and Plan No Data Provided for This Section Plan of Care Plan of Care Date Source Colonoscopy 10yr 01/12/2026 [facility] Cervical Cancer Scrn (3 Yrs) 08/28/2019 [facility] DM Foot Exam (Yearly) 05/28/2018 [facility] DM Microalbumin Urine Scrn (Yearly) 12/30/2017 [facility] DM HGBA1C (Yearly) 11/27/2017 [facility] Discharge Date 09/20/17 7:28pm Disposition HOME, SELF-CARE Condition at Discharge Improved Instructions/Education Provided Asthma - Adult Forms Provided Work/School Excuse Prescriptions See Medication Section Referrals FAITH ESTEBAN DO Order Date: Call for an appointment Address: [id number] [place] [address] [address] [place] [address] Additional Instructions/Education Take medications as directed: -Duo-neb one neb treatment every 4-6hrs as needed for shortness of breath. -Prednisone 20mg three tabs by mouth x2days, then 2tabs by mouth x2days. Follow up with Primary Care Provider. Return to ER as needed. 09/20/2017 [facility] Breast Cancer Scrn (Yearly) 08/27/2017 [facility] DM Retinal Exam (Yearly) 07/30/2017 [facility] Social History Social History Date Source Smoking Status Start Date Stop Date Never Smoker 09/20/2017 [facility] Tobacco UseTypesPacks/DayYears UsedDate Never Smoker Smokeless Tobacco: Never Used Tobacco Cessation: Counseling Given: No Alcohol UseDrinks/Weekoz/WeekComments No Sex Assigned at BirthDate Recorded Not on file 05/28/2017 [facility] Family History Value Date Source Medical HistoryRelationNameComments Diabetes Maternal Aunt x 7 Diabetes Maternal Grandmother Diabetes Mother Diabetes Sister RelationNameStatusComments Father work accident Maternal Aunt Maternal Grandmother Mother Alive Sister 12/13/2017 [facility] Medical HistoryRelationNameComments Diabetes Maternal Aunt x 7 Diabetes Maternal Grandmother Diabetes Mother Diabetes Sister RelationNameStatusComments Father work accident Maternal Aunt Maternal Grandmother Mother Alive Sister 12/09/2017 [facility] Medical HistoryRelationNameComments Diabetes Maternal Aunt x 7 Diabetes Maternal Grandmother Diabetes Mother Diabetes Sister RelationNameStatusComments Father work accident Maternal Aunt Maternal Grandmother Mother Alive Sister 11/30/2017 [facility] Medical HistoryRelationNameComments Diabetes Maternal Aunt x 7 Diabetes Maternal Grandmother Diabetes Mother Diabetes Sister RelationNameStatusComments Father work accident Maternal Aunt Maternal Grandmother Mother Alive Sister 11/23/2017 [facility] Medical HistoryRelationNameComments Diabetes Maternal Aunt x 7 Diabetes Maternal Grandmother Diabetes Mother Diabetes Sister RelationNameStatusComments Father work accident Maternal Aunt Maternal Grandmother Mother Alive Sister 11/12/2017 [facility] Medical HistoryRelationNameComments Diabetes Maternal Aunt x 7 Diabetes Maternal Grandmother Diabetes Mother Diabetes Sister RelationNameStatusComments Father work accident Maternal Aunt Maternal Grandmother Mother Alive Sister 10/29/2017 [facility] Medical HistoryRelationNameComments Diabetes Maternal Aunt x 7 Diabetes Maternal Grandmother Diabetes Mother Diabetes Sister RelationNameStatusComments Father work accident Maternal Aunt Maternal Grandmother Mother Alive Sister 10/14/2017 [facility] Medical HistoryRelationNameComments Diabetes Maternal Aunt x 7 Diabetes Maternal Grandmother Diabetes Mother Diabetes Sister RelationNameStatusComments Father work accident Maternal Aunt Maternal Grandmother Mother Alive Sister 09/29/2017 [facility] Medical HistoryRelationNameComments Diabetes Maternal Aunt x 7 Diabetes Maternal Grandmother Diabetes Mother Diabetes Sister RelationNameStatusComments Father work accident Maternal Aunt Maternal Grandmother Mother Alive Sister 09/27/2017 [facility] Advance Directives Order Name Results Value Date Source Advance Directives Advance Directives Directive Response Recorded Date/Time Does the patient have an advance directive? No 09/20/17 5:13pm If yes, is advance directive on file with [facility]? No 09/20/17 5:14pm If not on file with [facility] will patient provide a copy? No 09/20/17 5:13pm Do you have a Directive to Physician? No 09/20/17 5:13pm Do you have a Medical Power of Traffic Circuit Engineer? No 09/20/17 5:13pm Do you have an [...] rights and responsibilities? Yes 09/20/17 5:14pm 09/20/2017 [facility] Functional Status No Data Provided for This Section
[2018-10-21 10:11] LABS: BASOPHILS # (AUTO) 0.1 (0.0-0.1); BASOPHILS % 0.6 % (0.0-1.0); EOSINOPHILS # (AUTO) 0.1 (0.0-0.4); EOSINOPHILS % 0.6 % (0.0-6.0); HEMATOCRIT 43.4 % (34.2-44.1); HEMOGLOBIN 13.6 g/dL (12.0-16.0); LYMPHOCYTES # (AUTO) 3.7 (1.0-3.2); LYMPHOCYTES % 33.9 % (18.0-39.1); MEAN CORPUSCULAR HGB CONC 31.3 g/dL (31-35); MONOCYTES # (AUTO) 1.1 (0.2-0.8); MONOCYTES % 10.2 % (4.4-11.3); NEUTROPHILS # (AUTO) 5.9 (2.1-6.9); NEUTROPHILS % 54.5 % (38.7-80.0); PLATELET COUNT 386 x10e3/uL (140-360); RED BLOOD COUNT 5.23 x10e6/uL (3.6-5.1); RED CELL DISTRIBUTION WIDTH 16.2 % (11.7-14.4)
[2018-10-21 10:29] LABS: ALBUMIN 4.1 g/dL (3.5-5.0); ALBUMIN/GLOBULIN RATIO 1.2 (0.8-2.0); ANION GAP 20.2 mmol/L (8-16); CALCIUM 9.4 mg/dL (8.4-10.2); POTASSIUM 3.2 mmol/L (3.5-5.1)
[2018-10-21] MEDS ORDERED: KETOROLAC TROMETHAMINE 30 MG/ML VIAL IV ONE (10:30)
[2018-10-21] MEDS ORDERED: FAMOTIDINE 20 MG/2 ML VIAL IV ONE ×2 (10:30)
[2018-10-21] MEDS ORDERED: IPRATROPIUM BROMIDE 0.02% 2.5 ML NEB NEB ONE (10:30)
[2018-10-21] MEDS ORDERED: ALBUTEROL SULF 0.083% NEB SOLN 3 ML NEB NEB ONE (10:30)
[2018-10-21] MEDS ORDERED: METHYLPREDNISOLONE SOD SUCC 125 MG/2ML VIAL IV ONE (10:30)
[2018-10-21] MEDS ORDERED: MORPHINE SULFATE INJ 4 MG/ML INJ 1ML IV ONE (10:30)
[2018-10-21 10:35] LABS: CREATINE KINASE MB 1.7 ng/mL (0-5.0)
--- NOTE | 2018-10-21 10:41 | Diagnostic Imaging Report ---
Chest, 1 view, 10/21/2018. History: Shortness of breath. Comparison: None available. Findings: The cardiomediastinal silhouette and pulmonary vasculature are within normal limits for a portable exam. There is no focal consolidation or pleural effusion. Linear opacity is present in the right upper lobe. There are no acute osseous or soft tissue abnormalities. Impression: Right upper lobe linear scarring. No acute cardiopulmonary abnormality. Signed by: Cal Hartman on 10/21/2018 10:38 AM
--- NOTE | 2018-10-21 11:33 | NUR ---
PATIENT RESTING QUIETLY AT THIS TIME; APPEARS IN NO DISTRESS, RESP EVEN AND UNLABORED.
[2018-10-21] MEDS ORDERED: CLONIDINE HCL 0.2 MG TAB PO PRN (12:30)
[2018-10-21] MEDS ORDERED: AZITHROMYCIN 500MG/SOD CHL 0.9% 250ML BAG IV SCH (12:30)
[2018-10-21] MEDS ORDERED: IBUPROFEN 200 MG TAB PO PRN (12:30)
[2018-10-21] MEDS ORDERED: ACETAMINOPHEN 325 MG TAB PO PRN (12:30)
[2018-10-21] MEDS ORDERED: DIPHENHYDRAMINE HCL INJ 50 MG/ML VIAL IV PRN (12:30)
[2018-10-21] MEDS ORDERED: ENALAPRILAT IV INJ 1.25 MG/ML VIAL IV PRN (12:30)
[2018-10-21] MEDS ORDERED: SODIUM CHLORIDE FLUSH 10 ML SYR INJ PRN (12:30)
--- OUTSIDE RECORDS SUMMARY | 2018-10-21 12:44 | XMS REPORT | Continuity of Care Document ---
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 Name Role Phone [facility] [employer] Unavailable Unavailable Problems Problem Status Onset Date Classification Date Reported Comments Source Morbid obesity with BMI of 45.0-49.9, adult Active 11/13/2016 Problem 12/13/2017 [facility] Asthma, severe persistent Active 11/13/2016 Problem 12/13/2017 [facility] STEPHEN on CPAP Active 11/13/2016 Problem 12/13/2017 [facility] Controlled type 2 diabetes mellitus without complication, without long-term current use of insulin Active 11/13/2016 Problem 12/13/2017 [facility] Diverticulosis of large intestine without hemorrhage Active 01/23/2016 Problem 11/30/2017 [facility] Diverticulosis of large intestine without hemorrhage Active 01/23/2016 Problem 12/13/2017 [facility] H. 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 Active 08/15/2012 Problem 12/13/2017 [facility] Pulmonary hypertension Active 08/15/2012 Problem 12/13/2017 [facility] CHF Active 08/14/2012 Problem 12/13/2017 [facility] Cardiomyopathy Active 05/27/2012 Problem 12/13/2017 [facility] S/P laparoscopic cholecystectomy Active 10/05/2008 Problem 12/13/2017 [facility] Bronchopulmonary aspergillosis Active Problem 12/13/2017 [facility] Other cirrhosis of liver Active Problem [...] Orally every 12 hrs PRN David 06/20/2018 [facility] Dicyclomine HCl not defined Oral Active 10 MG Oral [place] 06/17/2018 [facility] PredniSONE TK 2 T PO DAILY Oral Active 20 MG Oral David 06/17/2018 [facility] Keflex 1 capsule Orally Active 500 mg Orally every 12 hrs [place] 06/01/2018 [facility] Medrol (Ruy) as directed Orally Active 4 mg Orally as directed [place] 04/19/2018 [facility] Benzonatate 1 capsule Orally Active 200 MG Orally Q8 PRN [place] 04/19/2018 [facility] Diflucan 1 tablet Orally Active 150 MG Orally [place] 03/25/2018 [facility] Macrobid 1 capsule with food Orally Active 100 mg Orally every 12 hrs [place] 03/22/2018 [facility] Ondansetron 1 tablet on the tongue and allow to dissolve Orally Active 8 MG Orally every 8 hrs PRN [place] 03/16/2018 [facility] Fluticasone Propionate 2 spray in each nostril Nasally Active 50 MCG/ACT Nasally Once a day 12/29/2017 [facility] Metformin 500 Mg Tablet Take 1 tablet by mouth 2 times daily (with meals) Please see PCP for further refills. Oral Active 11/09/2017 [facility] Accu-Chek SmartView as directed In Vitro Active - In Vitro use TID dx: E11.65 10/27/2017 [facility] Accu-Chek FastClix Lancets DRUM in vitro Active - in vitro use tid dx: E11.65 10/27/2017 [facility] Accu-Chek Julia SmartView as directed in vitro Active w/Device in vitro use TID dx: E11.65 10/27/2017 [facility] Novofine 31 as directed SQ, E11.2 Active 31G X 6 MM SQ, E11.2 three times a day (tid) df10/20/2017 [facility] NovoLog Flexpen up to 12 units( per sliding scale), max 36 units a day Subcutaneous Active 100 UNIT/ML Subcutaneous three times a day (tid) [place] 10/19/2017 [facility] Lisinopril 1 tablet by mouth Active 5 MG by mouth Once a day [place] 09/23/2017 [facility] Jardiance 1 tablet Orally Active 10 mg Orally Once a day [place] 09/23/2017 [facility] Lisinopril 1 tablet Orally Active 2.5 MG Orally Once a day David 09/23/2017 [facility] Digox 125 McG Tablet TAKE 1 TABLET BY MOUTH EVERY DAY FOR HEART Active 09/22/2017 [facility] Amoxicillin 875 Mg-Potassium Clavulanate 125 Mg Tablet Augmentin 875 Mg-125 Mg Tablet Take 1 tablet by mouth 2 times daily for 10 days. Oral No Longer Active 05/28/2017 [facility] Cetirizine 10 Mg Tablet Zyrtec 10 Mg Tablet Take 1 tablet by mouth daily. Oral Active 05/28/2017 [facility] Fluticasone 50 McG/Actuation Nasal Mcewen,Suspension Use 1 Mcewen in each nostril daily. Active 05/28/2017 [facility] Benzonatate 100 Mg Capsule Tessalon Perles 100 Mg Capsule Take 2 capsules by mouth 3 times daily as needed for up to 7 days for Cough. Oral No Longer Active 05/28/2017 [facility] Ofloxacin 0.3 % Eye Drops Ocuflox 0.3 % Eye Drops Instill 5 drops to each ear daily for 10 days. Ok for pharmacist to dispense eye solution for ear treatment.. Active 05/28/2017 [facility] methylPREDNISolone sodium succinate (SOLU-MEDROL) injection 80 mg IV Push Inactive 05/12/2017 [facility] Albuterol Sulfate 2.5 Mg/3 Ml (0.083 %) Solution For Nebulization Inhalation Inactive 05/12/2017 [facility] Albuterol Sulfate Hfa 90 McG/Actuation Aerosol Inhaler Inhale 2 Puffs by mouth 4 times daily as needed for Wheezing or Shortness of Breath. Inhalation Active 05/12/2017 [facility] Codeine 10 Mg-Guaifenesin 100 Mg/5 Ml Oral Liquid Cheratussin Ac 10 Mg-100 Mg/5 Ml Oral Liquid Take 5 mL by mouth 3 times daily as needed for Cough. Oral Active 05/12/2017 [facility] Montelukast 10 Mg Tablet Singulair 10 Mg Tablet Take 1 tablet by mouth at bedtime nightly. Oral Active 05/12/2017 [facility] Levofloxacin 500 Mg Tablet Levaquin 500 Mg Tablet Take 1 tablet by mouth daily for 10 days. Oral No Longer Active 05/12/2017 [facility] Metformin 500 Mg Tablet TAKE 1 TABLET BY MOUTH TWICE DAILY Active 04/23/2017 [facility] Montelukast 10 Mg Tablet TAKE 1 TABLET BY MOUTH EVERY DAY Active 03/26/2017 [facility] Miscellaneous Medical Supply Misc by [facility]Non-Drug; Combo Route) route Hospital bed. No Longer Active 02/26/2017 [facility] Furosemide 20 Mg Tablet TAKE 2 TABLETS BY MOUTH DAILY Oral Active 02/24/2017 [facility] Albuterol Sulfate Hfa 90 McG/Actuation Aerosol Inhaler Inhale 2 Puffs by mouth 4 times daily as needed for Wheezing. Inhalation Active 02/23/2017 [facility] Amoxicillin 500 Mg-Potassium Clavulanate 125 Mg Tablet Augmentin 500 Mg-125 Mg Tablet Take 1 tablet by mouth 3 times daily for 10 days. Oral No Longer Active 02/23/2017 [facility] Potassium Chloride Er 10 Meq Tablet,Extended Release(Part/Cryst) Klor-Con M10 Meq Tablet,Extended Release Take 1 tablet by mouth daily. Oral Active 02/23/2017 [facility] Furosemide 20 Mg Tablet Lasix 20 Mg Tablet Take 2 tablets by mouth daily. Oral No Longer Active 01/25/2017 [facility] Clotrimazole 1 % Topical Cream Apply to affected area 2 times daily. Topical Inactive 12/31/2016 [facility] Atorvastatin 40 Mg Tablet Lipitor 40 Mg Tablet Take tablet (20mg) by mouth at bedtime nightly. Oral Inactive 12/31/2016 [facility] Furosemide 20 Mg Tablet Lasix 20 Mg Tablet Take 2 tablets by mouth daily. Oral No Longer Active 12/31/2016 [facility] Metformin 500 Mg Tablet Glucophage 500 Mg Tablet Take 1 tablet by mouth 2 times daily (with meals) For diabetes. Oral No Longer Active 11/23/2016 [facility] Furosemide 20 Mg Tablet Lasix 20 Mg Tablet Take 1 tablet by mouth daily. Oral No Longer Active 11/23/2016 [facility] Digoxin 125 McG Tablet Lanoxin 125 McG Tablet Take 1 tablet by mouth daily For heart. Oral No Longer Active 11/23/2016 [facility] Montelukast 10 Mg Tablet Take 1 tablet by mouth daily (autosubstitute from accolate). Oral No Longer Active 11/23/2016 [facility] Advair Diskus 500 McG-50 McG/Dose Powder For Inhalation Inhale 1 Puff by mouth 2 times daily. Inhalation Active 11/23/2016 [facility] Lancets by MISCELLANEOUS route 2 times weekly USE TO CHECK BLOOD SUGARS. Active 11/23/2016 [facility] Blood Sugar Diagnostic Strips Precision Xtra Test Strips use 2 times weekly USE TO CHECK BLOOD SUGARS. Active 11/23/2016 [facility] Tramadol 50 Mg Tablet Ultram 50 Mg Tablet Take 1 tablet by mouth every 8 hours as needed for Pain (MAY CAUSE DROWSINESS). Oral Active 11/23/2016 [facility] Ipratropium [place] 0.02 % Solution For Inhalation Inhalation Inactive 11/13/2016 [facility] methylPREDNISolone sodium succinate (SOLU-MEDROL) injection 125 mg Intramuscular Inactive 11/13/2016 [facility] Albuterol Sulfate 2.5 Mg/3 Ml (0.083 %) Solution For Nebulization Inhalation Inactive 11/13/2016 [facility] Prednisone 20 Mg Tablet One tablet twice daily ( 8 am and 3 pm) x 5 days, then one tablet daily x 5 days. No Longer Active 11/13/2016 [facility] Albuterol Sulfate 2.5 Mg/3 Ml (0.083 %) Solution For Nebulization Inhalation Inactive 10/29/2016 [facility] Prednisone 50 Mg Tablet Take 1 tablet by mouth daily. Oral No Longer Active 10/29/2016 [facility] Benzonatate 100 Mg Capsule Tessalon Perles 100 Mg Capsule Take 1 capsule by mouth 3 times daily as needed for Cough. Oral No Longer Active 10/29/2016 [facility] Miscellaneous Medical Supply Misc by [facility].(Non-Drug; Combo Route) route Sleep studyDx. Obstructive sleep apnea. No Longer Active 10/29/2016 [facility] Ketorolac 30 Mg/Ml (1 Ml) Injection Solution Intramuscular Inactive 10/23/2016 [facility] Tramadol 50 Mg Tablet Ultram 50 Mg Tablet Take 1 tablet by mouth every 8 hours as needed for Pain (MAY CAUSE DROWSINESS). Oral No Longer Active 10/23/2016 [facility] triamcinolone acetonide (KENALOG-40) injection 80 mg Intramuscular Inactive 10/01/2016 [facility] Ketorolac 60 Mg/2 Ml Intramuscular Solution Intramuscular Inactive 10/01/2016 [facility] Nebulizer And Compressor 1 Device by [facility].(Non-Drug; Combo Route) route 4 times daily. Active 10/01/2016 [facility] Albuterol Sulfate 2.5 Mg/3 Ml (0.083 %) Solution For Nebulization Inhale 3 mL by mouth every 4 hours as needed for Wheezing or Shortness of Breath. Inhalation Active 10/01/2016 [facility] Triamcinolone Acetonide 0.1 % Topical Cream Triderm 0.1 % Topical Cream Apply to affected area 2 times daily. Topical Active 08/27/2016 [facility] Fluconazole 150 Mg Tablet Diflucan 150 Mg Tablet 1 tab po weekly x 3 weeks. No Longer Active 08/27/2016 [facility] Pantoprazole 40 Mg Tablet,Delayed Release Protonix 40 Mg Tablet,Delayed Release Take 1 tablet by mouth daily. Oral Active 07/31/2016 [facility] Blood Sugar Diagnostic Strips Precision Xtra Test Strips use 2 times weekly USE TO CHECK BLOOD SUGARS. No Longer Active 07/30/2016 [facility] Lancets by MISCELLANEOUS route 2 times weekly USE TO CHECK BLOOD SUGARS. No Longer Active 07/30/2016 [facility] Metformin 500 Mg Tablet Glucophage 500 Mg Tablet Take 1 tablet by mouth 2 times daily (with meals) For diabetes. Oral No Longer Active 07/30/2016 [facility] Furosemide 20 Mg Tablet Lasix 20 Mg Tablet Take 1 tablet by mouth daily. Oral No Longer Active 07/30/2016 [facility] Digoxin 125 McG Tablet Lanoxin 125 McG Tablet Take 1 tablet by mouth daily For heart. Oral No Longer Active 07/30/2016 [facility] Montelukast 10 Mg Tablet Take 1 tablet by mouth daily (autosubstitute from accolate). Oral No Longer Active 07/30/2016 [facility] Albuterol Sulfate Hfa 90 McG/Actuation Aerosol Inhaler Inhale 2 Puffs by mouth 4 times daily as needed for Wheezing. Inhalation No Longer Active 07/30/2016 [facility] Advair Diskus 500 McG-50 McG/Dose Powder For Inhalation Inhale 1 Puff by mouth 2 times daily. Inhalation No Longer Active 07/30/2016 [facility] Ipratropium [place] 0.02 % Solution For Inhalation Inhale 2.5 mL by mouth 4 times daily. Inhalation Active 07/30/2016 [facility] Benzonatate 100 Mg Capsule Tessalon Perles 100 Mg Capsule Take 1 capsule by mouth 3 times daily as needed for Cough. Oral No Longer Active 07/20/2016 [facility] Azelastine 0.05 % Eye Drops Instill 1 Drop in each eye 2 times daily. No Longer Active 10/28/2015 [facility] Blood-Glucose Meter Precision Xtra Glucometer Use as directed.. No Longer Active 06/10/2015 [facility] Lancets 28 Gauge 2 times weekly. No Longer Active 06/10/2015 [facility] Nebulizer And Compressor 1 Device by [facility].(Non-Drug; Combo Route) route 4 times daily NEEDING NEBULIZER DEVICE FOR REFRACTORY ASTHMA AND EXACERBATION. No Longer Active 04/25/2015 [facility] Polyethylene Glycol 17 grams by mouth Active 1000 by mouth as needed (prn) [facility] Aspirin 1 tablet Orally Active 81 MG Orally Once a day [facility] Furosemide 2 tablets po qd NA Active 20 [facility] Atorvastatin Calcium tk 1/2 t po qhs Oral Active 40 mg Oral daily [facility] Potassium Chloride [place] [facility] 3 tabs by mouth Active 20 MEQ by mouth Once a day [facility] Cetirizine HCl tk 1 t po qd Oral Active 10 mg [address] [facility] Montelukast Sodium 1 tablet Oral Active 10 mg Oral once a day [facility] Spiriva HandiHaler 1 capsule Inhalation Active 18 MCG Inhalation Once a day [facility] Ventolin HFA INHALE 2 PUFFS PO QID PRN FOR WHEEZING OR SOB Inhalation Active 108 (90 Base) MCG/ACT Inhalation [facility] Metolazone not defined Oral Active [address] [facility] Metformin HCl 2 tablets Oral Active 500 mg Oral bid with meals [facility] Albuterol Sulfate 3 ml as needed Inhalation Active (2.5 MG/3ML) 0.083% Inhalation Three times a day [facility] Pantoprazole Sodium 1 tablet orally Active 40 mg orally twice a day (bid) [facility] Nasonex 2 sprays in each nostril Nasally Active 50 MCG/ACT Nasally Once a day [facility] Furosemide TK 2 TS PO QD Oral Active [address] [facility] Montelukast Sodium TK 1 T PO QD Oral Active [address] [facility] Ondansetron 1 tablet on the tongue and allow to dissolve as needed Orally Active 4 mg Orally three times a day (tid) Jacob [facility] Potassium Chloride [place] ER TK 2 TS PO D Oral Active [address] [facility] Jardiance 1 tablet Orally Active 10 Orally Once a day [facility] Bumetanide as directed Orally Active [address] [facility] PredniSONE 1 tablet Orally Active 10 MG Orally Once a day [facility] Ceftin 1 tablet Orally Active 250 MG Orally every [address] [facility] Allergies, Adverse Reactions, Alerts Substance Category Reaction Severity Reaction type Status Date Reported Comments Source Latex Rash Propensity to adverse reactions to drug Active 10/03/2008 [facility] Sulfa (Sulfonamide Antibiotics) Rash Propensity to adverse reactions to drug Active 10/03/2008 [facility] Iodine Adverse Reaction anaphylaxis Adverse Reaction Active 10/03/2018 [facility] cipro Adverse Reaction rash Adverse Reaction Active 10/03/2018 [facility] sulfa Adverse Reaction rash Adverse Reaction Active 10/03/2018 [facility] Immunizations Immunization Date Given Site Status Last Updated Comments Source Influenza, Seasonal, Injectable 05/28/2017 Not Given Deferred: Other - cold symptoms [facility] Influenza Vaccine, Seasonal, Injectable 01/25/2017 Not Given Deferred: Patient already had this immunization [facility] TDap (Tetanus Toxoid, Reduced Diphtheria Toxoid And Acellular Pertussis, Absorbed) 11/23/2016 completed [facility] PNEUMOCOCCAL 23-VALPS VACCINE 25 MCG/0.5 ML INJECTION 07/20/2016 Not Given Deferred: Patient Refused [facility] Influenza Vaccine 05/15/2015 Not Given Deferred: Other - Patient ill in clinic [facility] Pneumococcal 7-valent conj 0.5 mL injection 08/16/2011 completed [facility] Hepatitis B Vaccine 07/21/2011 completed [facility] Results Order Name Results Value Reference Range Date Interpretation Comments Source Activated partial thromboplastin time (aPTT) in platelet poor plasma bycoagulation assay Activated partial thromboplastin time (aPTT) in platelet poor plasma bycoagulation assay 33.5 23.8 - 35.5 09/20/2017 [facility] Automated blood basophil count (count/volume) Automated blood basophil count (count/volume) 0.1 0.0 - 0.1 09/20/2017 [facility] Automated blood basophil count as percentage of total leukocytes Automated blood basophil count as percentage of total leukocytes 0.6 0.0 - 1.0 09/20/2017 [facility] Automated blood eosinophil count Automated blood eosinophil count 0.1 0.0 - 0.4 09/20/2017 [facility] Automated blood eosinophil count as percentage of total leukocytes Automated blood eosinophil count as percentage of total leukocytes 1.0 0.0 - 6.0 09/20/2017 [facility] Automated blood hematocrit (volume fraction) Automated blood hematocrit (volume fraction) 42.7 34.2 - 44.1 09/20/2017 [facility] Automated blood lymphocyte count as percentage ot total leukocytes Automated blood lymphocyte count as percentage ot total leukocytes 44.5 18.0 - 39.1 09/20/2017 [facility] Automated blood monocyte count as percentage of total leukocytes Automated blood monocyte count as percentage of total leukocytes 7.8 4.4 - 11.3 09/20/2017 [facility] Automated blood neutrophil count Automated blood neutrophil count 5.3 2.1 - 6.9 09/20/2017 [facility] Automated blood platelet count (count/volume) Automated blood platelet count (count/volume) 332 140 - 360 09/20/2017 [facility] Automated blood segmented neutrophil count as percentage of total leukocytes Automated blood segmented neutrophil count as percentage of total leukocytes 45.8 38.7 - 80.0 09/20/2017 [facility] Automated erythrocyte mean corpuscular hemoglobin (mass per erythrocyte) Automated erythrocyte mean corpuscular hemoglobin (mass per erythrocyte) 26.7 28 - 32 09/20/2017 [facility] Automated erythrocyte mean corpuscular hemoglobin concentration measurement (mass/volume) Automated erythrocyte mean corpuscular hemoglobin concentration measurement (mass/volume) 31.9 31 - 35 09/20/2017 [facility] Automated erythrocyte mean corpuscular volume Automated erythrocyte mean corpuscular volume 83.7 81 - 99 09/20/2017 [facility] Blood anisocytosis detection by light microscopy Blood anisocytosis detection by light microscopy SLIGHT 09/20/2017 [facility] Blood erythrocytes automated count (number/volume) Blood erythrocytes automated count (number/volume) 5.10 3.6 - 5.1 09/20/2017 [facility] Blood hemoglobin measurement (moles/volume) Blood hemoglobin measurement (moles/volume) 13.6 12.0 - 16.0 09/20/2017 [facility] Blood leukocytes automated count (number/volume) Blood leukocytes automated count (number/volume) 11.44 4.8 - 10.8 09/20/2017 [facility] Blood lymphocytes count (number/volume) Blood lymphocytes count (number/volume) 5.1 1.0 - 3.2 09/20/2017 [facility] Blood lymphocytes variant count (number/volume) Blood lymphocytes variant count (number/volume) 4 09/20/2017 [facility] Blood monocytes automated count (number/volume) Blood monocytes automated count (number/volume) 0.9 0.2 - 0.8 09/20/2017 [facility] Blood platelets count by estimate (number/volume) Blood platelets count by estimate (number/volume) ADEQUATE 09/20/2017 [facility] Blood poikilocytosis detection by light microscopy Blood poikilocytosis detection by light microscopy SLIGHT 09/20/2017 [facility] Blood stomatocytes detection by light microscopy Blood stomatocytes detection by light microscopy SLIGHT 09/20/2017 [facility] Estimated glomerular filtration rate (GFR) determination Estimated glomerular filtration rate (GFR) determination >60 60 09/20/2017 [facility] Glucose measurement Glucose measurement 208 74 - 118 09/20/2017 [facility] INR in Platelet poor plasma by Coagulation assay INR in Platelet poor plasma by Coagulation assay 1.02 09/20/2017 [facility] Manual blood eosinophil count as percentage of total leukocytes Manual blood eosinophil count as percentage of total leukocytes 1 0 - 7 09/20/2017 [facility] Manual blood lymphocytes/100 leukocytes Manual blood lymphocytes/100 leukocytes 37 19 - 48 09/20/2017 [facility] Manual blood monocytes/100 leukocytes Manual blood monocytes/100 leukocytes 7 3.4 - 9.0 09/20/2017 [facility] Manual blood neutrophils/100 leukocytes Manual blood neutrophils/100 leukocytes 51 40 - 74 09/20/2017 [facility] Plasma globulin measurement (mass/volume) Plasma globulin measurement (mass/volume) 4.1 2.3 - 3.5 09/20/2017 [facility] Platelet morphology Platelet morphology NORMAL 09/20/2017 [facility] Prothrombin time (PT) in platelet poor plasma by coagulation assay Prothrombin time (PT) in platelet poor plasma by coagulation assay 12.6 11.9 - 14.5 09/20/2017 [facility] RBC morphology RBC morphology NORMAL 09/20/2017 [facility] Serum or plasma alanine aminotransferase measurement (enzymatic activity/volume) Serum or plasma alanine aminotransferase measurement (enzymatic activity/volume) 72 0 - 55 09/20/2017 [facility] Serum or plasma albumin measurement (mass/volume) Serum or plasma albumin measurement (mass/volume) 3.8 3.5 - 5.0 09/20/2017 [facility] Serum or plasma albumin/globulin mass ratio Serum or plasma albumin/globulin mass ratio 0.9 0.8 - 2.0 09/20/2017 [facility] Serum or plasma alkaline phosphatase measurement (enzymatic activity/volume) Serum or plasma alkaline phosphatase measurement (enzymatic activity/volume) 172 40 - 150 09/20/2017 [facility] Serum or plasma anion gap Serum or plasma anion gap 19.5 8 - 16 09/20/2017 [facility] Serum or plasma calcium measurement (mass/volume) Serum or plasma calcium measurement (mass/volume) 9.5 8.4 - 10.2 09/20/2017 [facility] Serum or plasma carbon dioxide, total measurement (moles/volume) Serum or plasma carbon dioxide, total measurement (moles/volume) 20 22 - 29 09/20/2017 [facility] Serum or plasma chloride measurement (moles/volume) Serum or plasma chloride measurement (moles/volume) 103 98 - 107 09/20/2017 [facility] Serum or plasma creatine kinase MB measurement (mass/volume) Serum or plasma creatine kinase MB measurement (mass/volume) 2.00 0 - 5.0 09/20/2017 [facility] Serum or plasma creatine kinase measurement (enzymatic activity/volume) Serum or plasma creatine kinase measurement (enzymatic activity/volume) 127 29 - 168 09/20/2017 [facility] Serum or plasma creatinine measurement (mass/volume) Serum or plasma creatinine measurement (mass/volume) 0.94 0.57 - 1.11 09/20/2017 [facility] Serum or plasma potassium measurement (moles/volume) Serum or plasma potassium measurement (moles/volume) 3.5 3.5 - 5.1 09/20/2017 [facility] Serum or plasma protein measurement (mass/volume) Serum or plasma protein measurement (mass/volume) 7.9 6.5 - 8.1 09/20/2017 [facility] Serum or plasma sodium measurement (moles/volume) Serum or plasma sodium measurement (moles/volume) 139 136 - 145 09/20/2017 [facility] Serum or plasma total bilirubin measurement (mass/volume) Serum or plasma total bilirubin measurement (mass/volume) 0.7 0.2 - 1.2 09/20/2017 [facility] Serum or plasma urea nitrogen measurement (mass/volume) Serum or plasma urea nitrogen measurement (mass/volume) 12 7 - 26 09/20/2017 [facility] Serum or plasma urea nitrogen/creatinine mass ratio Serum or plasma urea nitrogen/creatinine mass ratio 13 6 - 25 09/20/2017 [facility] Troponin I measurement by highly sensitive enzyme immunoassay Troponin I measurement by highly sensitive enzyme immunoassay 0.006 0 - 0.300 09/20/2017 [facility] Red Cell Distribution Width 15.5 11.7 - 14.4 09/20/2017 [facility] IM GRANULOCYTES % 0.3 0.0 - 1.0 09/20/2017 [facility] Absolute Immature Granulocyte (auto 0.03 0 - 0.1 09/20/2017 [facility] Differential Total Cells Counted 100 09/20/2017 [facility] Aspartate Amino Transf (AST/SGOT) 81 5 - 34 09/20/2017 [facility] B-Type Natriuretic Peptide 48.4 0 - 100 09/20/2017 [facility] DIABETIC FOOT EXAM <p>Loren Gregg NP :14 [...] are normal,left foot appearance is normal. 05/29/2017 [facility] DIABETIC FOOT EXAM <p>Loren Gregg NP [...] are normal,left foot appearance is normal. 05/28/2017 [facility] POC RAPID FLU Rapid Flu A POC Neg Neg 05/12/2017 [facility] POC RAPID FLU Rapid Flu B POC Neg Neg 05/12/2017 [facility] POC RAPID FLU Rapid Flu Con POC Pass Pass 05/12/2017 [facility] POC RAPID FLU Lab Interpretation Normal 05/12/2017 [facility] POC GROUP A STREP SCREEN Group A Strep POC Neg Neg 05/12/2017 [facility] POC GROUP A STREP SCREEN GAS (Contr) Pass Pass 05/12/2017 [facility] POC GROUP A STREP SCREEN Lab Interpretation Normal 05/12/2017 [facility] POC RAPID FLU Rapid Flu A POC Neg Neg 05/12/2017 [facility] POC RAPID FLU Rapid Flu B POC Neg Neg 05/12/2017 [facility] POC RAPID FLU Rapid Flu Con POC Pass Pass 05/12/2017 [facility] POC RAPID FLU Lab Interpretation Normal 05/12/2017 [facility] POC GROUP A STREP SCREEN Group A Strep POC Neg Neg 05/12/2017 [facility] POC GROUP A STREP SCREEN GAS (Contr) Pass Pass 05/12/2017 [facility] POC GROUP A STREP SCREEN Lab Interpretation Normal 05/12/2017 [facility] TREADMILL STRESS-TRACING ONLY Stress Test [facility] Test Date:2017-04-27 Pat Name: NIKKO SULLIVAN Department: : Gender: Female Hotel 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 Electronically Signed On 04-27-17 18:18:36 FIXED INCOME ANALYST by Sonu Miller 04/28/2017 [facility] TREADMILL STRESS-TRACING ONLY 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 Electronically Signed On 04-27-17 18:18:36 FIXED INCOME ANALYST by Sonu Miller 04/27/2017 [facility] TTE FOLLOW UP ECHO HEART XTHORACIC,LIMITED Transthoracic Echo Report NIKKO SULLIVAN Age:51 Gender: F :1965 Exam Date: 04/15/2017 10:51 Exam Location: [facility] Echo Ordering Phys: EKERUO AMARILIS A Referring Phys:EKERUO AMARILIS Bryson Reading Phys:Luis M Goodson MD Fellow Phys: Fellow Phys: System Validation Engineer: Michelle Barreto Reason For Exam: Indications:dyspnea ICD-9 Codes: Exam Type: TTE FOLLOW UP Procedure CPT:59171 Addtional CPT: Ht (in): 63 BSA: 2.38HR: [...] 22 - 52 cm DOPPLER AV Peak Lqyadpqk416 cm/s AV Peak Gradient8.6 mmHg AV Mean Ueyzvkbc01.3 cm/s AV Mean Gradient4.2 mmHg AV Velocity Time Integral 30.7 cm LVOT Peak Gnbzpdbe423 cm/s LVOT Peak Gradient5.5 mmHg LVOT Mean Xqcjxopw67.3 cm/s LVOT Mean Gradient2.9 mmHg LVOT Velocity Time Integral 26.3 cm LVOT Stroke Hnitdn59.1 cm AV Area Cont Eq vti 2.9 cm AV Area Cont Eq pk2.7 cm Mitral E Point Velocity 94.1 cm/s Mitral A Point Velocity 116 cm/s Mitral E to A Ratio 0.81 MV Deceleration Norman 399 cm/s MV Deceleration Mzpi398 ms TR Peak Vedqvjlw442 cm/s TR Peak Iqrvtbth00.8 mmHg PV Peak Tmpcazpl58.1 cm/s PV Peak Gradient3.9 mmHg PV Mean Ratualfm93.7 cm/s PV Mean Gradient2.3 mmHg PV Velocity Time Integral 20.6 cm LV E' Lateral Mxxlikzt05.2 cm/s Mitral E to LV E' Lateral [...] 22 - 52 cm DOPPLER AV Peak Ahxzlpls287 cm/s AV Peak Gradient8.6 mmHg AV Mean Eghtdssn84.3 cm/s AV Mean Gradient4.2 mmHg AV Velocity Time Integral 30.7 cm LVOT Peak Tnwbeazf511 cm/s LVOT Peak Gradient5.5 mmHg LVOT Mean Yjluejfe44.3 cm/s LVOT Mean Gradient2.9 mmHg LVOT Velocity Time Integral 26.3 cm LVOT Stroke Numyds22.1 cm AV Area Cont Eq vti 2.9 cm AV Area Cont Eq pk2.7 cm Mitral E Point Velocity 94.1 cm/s Mitral A Point Velocity 116 cm/s Mitral E to A Ratio 0.81 MV Deceleration Norman 399 cm/s MV Deceleration Cxya266 ms TR Peak Hteiyybb314 cm/s TR Peak Hgcfteru90.8 mmHg PV Peak Oomiefnk56.1 cm/s PV Peak Gradient3.9 mmHg PV Mean Phfoceum73.7 cm/s PV Mean Gradient2.3 mmHg PV Velocity Time Integral 20.6 cm LV E' Lateral Opexpmzm50.2 cm/s Mitral E to LV E' Lateral Ratio 6.6 LV E' Septal Velocity 8.1 cm/s Mitral E to LV E' Septal Ratio11.6 04/15/2017 [facility] TTE FOLLOW UP ECHO HEART XTHORACIC,LIMITED Transthoracic Echo Report NIKKO SULLIVAN Age:51 Gender: F :1965 Exam Date: 04/15/2017 10:51 Exam Location: [facility] Echo Ordering Phys: AMARILIS AGGARWAL Referring Phys:AMARILIS AGGARWAL Reading Phys:Luis M Goodson MD Fellow Phys: Fellow Phys: System Validation Engineer: Michelle Barreto Reason For Exam: Indications:dyspnea ICD-9 Codes: Exam Type: TTE FOLLOW UP Procedure CPT:38410 Addtional CPT: Ht (in): 63 BSA: 2.38HR: [...] 22 - 52 cm DOPPLER AV Peak Pubtvpsr034 cm/s AV Peak Gradient8.6 mmHg AV Mean Tdlwnkit26.3 cm/s AV Mean Gradient4.2 mmHg AV Velocity Time Integral 30.7 cm LVOT Peak Yoztyboe498 cm/s LVOT Peak Gradient5.5 mmHg LVOT Mean Xkoxdapg99.3 cm/s LVOT Mean Gradient2.9 mmHg LVOT Velocity Time Integral 26.3 cm LVOT Stroke Gggrvc36.1 cm AV Area Cont Eq vti 2.9 cm AV Area Cont Eq pk2.7 cm Mitral E Point Velocity 94.1 cm/s Mitral A Point Velocity 116 cm/s Mitral E to A Ratio 0.81 MV Deceleration Norman 399 cm/s MV Deceleration Ickr814 ms TR Peak Vmawqums420 cm/s TR Peak Vysfkfrr33.8 mmHg PV Peak Nnvlusrf62.1 cm/s PV Peak Gradient3.9 mmHg PV Mean Srwkfgje27.7 cm/s PV Mean Gradient2.3 mmHg PV Velocity Time Integral 20.6 cm LV E' Lateral Kxwhthjo88.2 cm/s Mitral E to LV E' Lateral [...] 22 - 52 cm DOPPLER AV Peak Kppalfcd790 cm/s AV Peak Gradient8.6 mmHg AV Mean Shgqnaqr35.3 cm/s AV Mean Gradient4.2 mmHg AV Velocity Time Integral 30.7 cm LVOT Peak Ijogflhu726 cm/s LVOT Peak Gradient5.5 mmHg LVOT Mean Xwzfaeaq45.3 cm/s LVOT Mean Gradient2.9 mmHg LVOT Velocity Time Integral 26.3 cm LVOT Stroke Paaiyl03.1 cm AV Area Cont Eq vti 2.9 cm AV Area Cont Eq pk2.7 cm Mitral E Point Velocity 94.1 cm/s Mitral A Point Velocity 116 cm/s Mitral E to A Ratio 0.81 MV Deceleration Norman 399 cm/s MV Deceleration Zkmf139 ms TR Peak Ynzkudtz501 cm/s TR Peak Nbwomaui38.8 mmHg PV Peak Sukifxeu97.1 cm/s PV Peak Gradient3.9 mmHg PV Mean Duzhafmr91.7 cm/s PV Mean Gradient2.3 mmHg PV Velocity Time Integral 20.6 cm LV E' Lateral Wywzbctz98.2 cm/s Mitral E to LV E' Lateral Ratio 6.6 LV E' Septal Velocity 8.1 cm/s Mitral E to LV E' Septal Ratio11.6 04/15/2017 [facility] 12 LEAD EKG 12 LEAD EKG FOR CHP [facility] Test Date:2017-04-05 Pat Name: NIKKO SULLIVAN Department: : Gender: FTechnician: [id number] :1965 Requested By: Order Number:[place] CORTÉS: Sonu Miller Measurements IntervalsAxis Rate: 78 P:10 IL: 154QRS:-13 QRSD: 101T:30 QT: 379 QTc:432 Interpretive Statements SINUS RHYTHM LOW QRS VOLTAGE IN PRECORDIAL LEADS [QRS DEFLECTION < 1.0 mV IN CHEST LEADS] POOR R WAVE PROGRESSION NON SPECIFIC T WAVE ABNORMALITY ABNORMAL ECG Electronically Signed On 04-07-17 14:20:19 FIXED INCOME ANALYST by Sonu Miller 04/07/2017 [facility] COMPREHENSIVE METABOLIC PANEL(DBIL NOT INCLUDED) Albumin 3.8 3.4 - 5 04/05/2017 [facility] COMPREHENSIVE METABOLIC PANEL(DBIL NOT INCLUDED) Calcium 9.1 8.5 - 10.2 04/05/2017 [facility] COMPREHENSIVE METABOLIC PANEL(DBIL NOT INCLUDED) CO2 27 21 - 32 04/05/2017 [facility] COMPREHENSIVE METABOLIC PANEL(DBIL NOT INCLUDED) Chloride 104 98 - 107 04/05/2017 [facility] COMPREHENSIVE METABOLIC PANEL(DBIL NOT INCLUDED) Creatinine 0.59 0.6 - 1.3 04/05/2017 [facility] COMPREHENSIVE METABOLIC PANEL(DBIL NOT INCLUDED) Glucose 97 70 - 99 04/05/2017 [facility] COMPREHENSIVE METABOLIC PANEL(DBIL NOT INCLUDED) Alk Phos 162 45 - 117 04/05/2017 [facility] COMPREHENSIVE METABOLIC PANEL(DBIL NOT INCLUDED) Potassium 4.2 3.5 - 5.1 04/05/2017 [facility] COMPREHENSIVE METABOLIC PANEL(DBIL NOT INCLUDED) Sodium 140 136 - 145 04/05/2017 [facility] COMPREHENSIVE METABOLIC PANEL(DBIL NOT INCLUDED) ALT 37 12 - 78 04/05/2017 [facility] COMPREHENSIVE METABOLIC PANEL(DBIL NOT INCLUDED) AST 40 15 - 37 04/05/2017 [facility] COMPREHENSIVE METABOLIC PANEL(DBIL NOT INCLUDED) Urea Nitrogen 13 7 - 18 04/05/2017 [facility] COMPREHENSIVE METABOLIC PANEL(DBIL NOT INCLUDED) T Bilirubin 0.4 0.2 - 1 04/05/2017 [facility] COMPREHENSIVE METABOLIC PANEL(DBIL NOT INCLUDED) T Protein 7.6 6.4 - 8.2 04/05/2017 [facility] COMPREHENSIVE METABOLIC PANEL(DBIL NOT INCLUDED) GFR, Estimated >60 mL/min/1.73 m2 04/05/2017 [facility] METABOLIC PANEL(DBIL NOT INCLUDED) GFR, Estim, Afr-Am >60 mL/min/1.73 m2 04/05/2017 [facility] COMPREHENSIVE METABOLIC PANEL(DBIL NOT INCLUDED) Anion Gap 9 04/05/2017 [facility] METABOLIC PANEL(DBIL NOT INCLUDED) Lab Interpretation Abnormal 04/05/2017 [facility] CBC/DIFF WBC 10.7 4.5 - 11 04/05/2017 [facility] CBC/DIFF RBC 4.89 4.20 - 5.40 04/05/2017 [facility] CBC/DIFF Hemoglobin 13.3 12 - 16 04/05/2017 [facility] CBC/DIFF Hematocrit 46.0 37 - 47 04/05/2017 [facility] CBC/DIFF MCV 94 82 - 92 04/05/2017 [facility] CBC/DIFF MCH 27.2 27 - 32 04/05/2017 [facility] CBC/DIFF MCHC 28.9 32 - 36 04/05/2017 [facility] CBC/DIFF RDW 46.8 36.4 - 46.3 04/05/2017 [facility] CBC/DIFF Platelet 300 150 - 400 04/05/2017 [facility] CBC/DIFF Mean Platelet Volume 11.3 9.4 - 12.4 04/05/2017 [facility] CBC/DIFF Percent NRBC 0.0 04/05/2017 [facility] CBC/DIFF Absolute NRBC 0.00 04/05/2017 [facility] CBC/DIFF Neutrophil 57.0 34 - 70 04/05/2017 [facility] CBC/DIFF Lymphocyte 34.6 20 - 50 04/05/2017 [facility] CBC/DIFF Monocyte 6.7 5 - 12 04/05/2017 [facility] CBC/DIFF Eosinophil 0.7 0.7 - 5 04/05/2017 [facility] CBC/DIFF Basophil 0.5 0.1 - 1.2 04/05/2017 [facility] CBC/DIFF Pct Immat Gran 0.5 0.0 - 0.5 04/05/2017 [facility] CBC/DIFF Neutrophil, Abs 6.10 1.56 - 6.13 04/05/2017 [facility] CBC/DIFF Lymphocyte, Abs 3.69 1.18 - 3.74 04/05/2017 [facility] CBC/DIFF Monocyte, Abs 0.71 0.24 - 0.36 04/05/2017 [facility] CBC/DIFF Eosinophil, Abs 0.07 0.04 - 0.36 04/05/2017 [facility] CBC/DIFF Basophil, Abs 0.05 0.01 - 0.08 04/05/2017 [facility] CBC/DIFF Absol Immat Gran 0.05 0 - 0.03 04/05/2017 [facility] CBC/DIFF Lab Interpretation Abnormal 04/05/2017 [facility] CBC/DIFF WBC 10.7 4.5 - 11 04/05/2017 [facility] CBC/DIFF RBC 4.89 M/uL 4.20 - 5.40 04/05/2017 [facility] CBC/DIFF Hemoglobin 13.3 12 - 16 04/05/2017 [facility] CBC/DIFF Hematocrit 46.0 37 - 47 04/05/2017 [facility] CBC/DIFF MCV 94 82 - 92 04/05/2017 High [facility] CBC/DIFF MCH 27.2 27 - 32 04/05/2017 [facility] CBC/DIFF MCHC 28.9 32 - 36 04/05/2017 Low [facility] CBC/DIFF RDW 46.8 36.4 - 46.3 04/05/2017 [facility] CBC/DIFF Platelet 300 150 - 400 04/05/2017 [facility] CBC/DIFF Mean Platelet Volume 11.3 9.4 - 12.4 04/05/2017 [facility] CBC/DIFF Percent NRBC 0.0 04/05/2017 [facility] CBC/DIFF Absolute NRBC 0.00 04/05/2017 [facility] CBC/DIFF Neutrophil 57.0 34 - 70 04/05/2017 [facility] CBC/DIFF Lymphocyte 34.6 20 - 50 04/05/2017 [facility] CBC/DIFF Monocyte 6.7 5 - 12 04/05/2017 [facility] CBC/DIFF Eosinophil 0.7 0.7 - 5 04/05/2017 [facility] CBC/DIFF Basophil 0.5 0.1 - 1.2 04/05/2017 [facility] CBC/DIFF Pct Immat Gran 0.5 0.0 - 0.5 04/05/2017 [facility] CBC/DIFF Neutrophil, Abs 6.10 1.56 - 6.13 04/05/2017 [facility] CBC/DIFF Lymphocyte, Abs 3.69 1.18 - 3.74 04/05/2017 [facility] CBC/DIFF Monocyte, Abs 0.71 0.24 - 0.36 04/05/2017 [facility] CBC/DIFF Eosinophil, Abs 0.07 0.04 - 0.36 04/05/2017 [facility] CBC/DIFF Basophil, Abs 0.05 0.01 - 0.08 04/05/2017 [facility] CBC/DIFF Absol Immat Gran 0.05 0 - 0.03 04/05/2017 [facility] CBC/DIFF Lab Interpretation Abnormal 04/05/2017 [facility] COMPREHENSIVE METABOLIC PANEL(DBIL NOT INCLUDED) Albumin 3.8 3.4 - 5 04/05/2017 [facility] COMPREHENSIVE METABOLIC PANEL(DBIL NOT INCLUDED) Calcium 9.1 8.5 - 10.2 04/05/2017 [facility] COMPREHENSIVE METABOLIC PANEL(DBIL NOT INCLUDED) CO2 27 21 - 32 04/05/2017 [facility] COMPREHENSIVE METABOLIC PANEL(DBIL NOT INCLUDED) Chloride 104 98 - 107 04/05/2017 [facility] COMPREHENSIVE METABOLIC PANEL(DBIL NOT INCLUDED) Creatinine 0.59 0.6 - 1.3 04/05/2017 Low [facility] METABOLIC PANEL(DBIL NOT INCLUDED) Glucose 97 70 - 99 04/05/2017 [facility] COMPREHENSIVE METABOLIC PANEL(DBIL NOT INCLUDED) Alk Phos 162 45 - 117 04/05/2017 High [facility] COMPREHENSIVE METABOLIC PANEL(DBIL NOT INCLUDED) Potassium 4.2 3.5 - 5.1 04/05/2017 [facility] COMPREHENSIVE METABOLIC PANEL(DBIL NOT INCLUDED) Sodium 140 136 - 145 04/05/2017 [facility] COMPREHENSIVE METABOLIC PANEL(DBIL NOT INCLUDED) ALT 37 12 - 78 04/05/2017 [facility] COMPREHENSIVE METABOLIC PANEL(DBIL NOT INCLUDED) AST 40 15 - 37 04/05/2017 High [facility] METABOLIC PANEL(DBIL NOT INCLUDED) Urea Nitrogen 13 7 - 18 04/05/2017 [facility] METABOLIC PANEL(DBIL NOT INCLUDED) T Bilirubin 0.4 0.2 - 1 04/05/2017 [facility] COMPREHENSIVE METABOLIC PANEL(DBIL NOT INCLUDED) T Protein 7.6 6.4 - 8.2 04/05/2017 [facility] METABOLIC PANEL(DBIL NOT INCLUDED) GFR, Estimated >60 mL/min/1.73 m2 04/05/2017 [facility] METABOLIC PANEL(DBIL NOT INCLUDED) GFR, Estim, Afr-Am >60 mL/min/1.73 m2 04/05/2017 [facility] METABOLIC PANEL(DBIL NOT INCLUDED) Anion Gap 9 04/05/2017 [facility] COMPREHENSIVE METABOLIC PANEL(DBIL NOT INCLUDED) Lab Interpretation Abnormal 04/05/2017 [facility] 12 LEAD EKG 12 LEAD EKG FOR CHP [facility] Test Date:2017-04-05 Pat Name: NIKKO SULLIVAN Department: : Gender: FTechnician: [id number] :1965 Requested By: Order Number:[place] CORTÉS: Sonu Miller Measurements IntervalsAxis Rate: 78 P:10 IL: 154QRS:-13 QRSD: 101T:30 QT: 379 QTc:432 Interpretive Statements SINUS RHYTHM LOW QRS VOLTAGE IN PRECORDIAL LEADS [QRS DEFLECTION < 1.0 mV IN CHEST LEADS] POOR R WAVE PROGRESSION NON SPECIFIC T WAVE ABNORMALITY ABNORMAL ECG Electronically Signed On 04-07-17 14:20:19 FIXED INCOME ANALYST by Sonu Miller 04/05/2017 [facility] B NATRIURETIC PEPT B Natriuretic Pept 100 0 - 100 01/26/2017 [facility] MAGNESIUM Magnesium 2.1 1.8 - 2.4 01/26/2017 [facility] 12 LEAD EKG 12 LEAD EKG FOR [employer] Test Date:2017-01-25 Pat Name: NIKKO SULLIVAN Department: : Gender: FTechnician: [id number] :1965 Requested By: Order Number:[place] MD: Paola Burden M.D. Measurements IntervalsAxis Rate: 78 P:-3 IL: 138QRS:-8 QRSD: 80 T:16 QT: 368 QTc:419 Interpretive Statements Normal sinus rhythm Normal ECG Electronically Signed On 01-25-17 18:59:32 FIXED INCOME ANALYST by Paola Burden M.D. 01/26/2017 [facility] POC TCO2 POC - 01/25/2017 [facility] POC Chloride POC 106 98 - 107 01/25/2017 [facility] POC Potassium POC 3.4 3.5 - 5.1 01/25/2017 [facility] POC Sodium POC 139 136 - 145 01/25/2017 [facility] POC Glucose POC 138 74 - 106 01/25/2017 [facility] POC Urea Nitrogen POC 11 7 - 18 01/25/2017 [facility] POC Creatinine POC 0.7 0.6 - 1.3 01/25/2017 [facility] POC Ionized Calcium POC 0.99 1.15 - 1.29 01/25/2017 [facility] POC GFR, Estimated >60 mL/min/1.73 m2 01/25/2017 [facility] POC GFR, Estim, Afr-Am >60 mL/min/1.73 m2 01/25/2017 [facility] POC Lab Interpretation Abnormal 01/25/2017 [facility] POC TCO2 POC - 32 01/25/2017 [facility] POC Chloride POC 106 98 - 107 01/25/2017 [facility] POC Potassium POC 3.4 3.5 - 5.1 01/25/2017 Low [facility] POC Sodium POC 139 136 - 145 01/25/2017 [facility] POC Glucose POC 138 74 - 106 01/25/2017 High [facility] POC Urea Nitrogen POC 11 7 - 18 01/25/2017 [facility] POC Creatinine POC 0.7 0.6 - 1.3 01/25/2017 [facility] POC Ionized Calcium POC 0.99 1.15 - 1.29 01/25/2017 Low [facility] POC GFR, Estimated >60 mL/min/1.73 m2 01/25/2017 [facility] POC GFR, Estim, Afr-Am >60 mL/min/1.73 m2 01/25/2017 [facility] POC Lab Interpretation Abnormal 01/25/2017 [facility] B NATRIURETIC PEPT B Natriuretic Pept 100 0 - 100 01/25/2017 [facility] MAGNESIUM Magnesium 2.1 1.8 - 2.4 01/25/2017 [facility] HEP BE AB Hep Be Ab Negative Reference range: Negative 01/01/2017 [facility] 12 LEAD EKG 12 LEAD [facility] Date:2016-12-30 Pat Name: NIKKO SULLIVAN Department: : Gender: FTechnician: [id number] :1965 Requested By: Order Number:[place] MD: Sonu Miller Measurements IntervalsAxis Rate: 69 P:6 IL: 161QRS:-13 QRSD: 99 T:27 QT: 382 QTc:411 Interpretive Statements SINUS RHYTHM LOW QRS VOLTAGE IN PRECORDIAL LEADS [QRS DEFLECTION < 1.0 mV IN CHEST LEADS] PATTERN CONSISTENT WITH PULMONARY DISEASE POOR R WAVE PROGRESSION ABNORMAL ECG Electronically Signed On 12-31-16 19:10:32 CDT by Sonu Miller 01/01/2017 [facility] BASIC METABOLIC PANEL CO2 29 21 - 32 12/31/2016 [facility] BASIC METABOLIC PANEL Chloride 102 98 - 107 12/31/2016 [facility] BASIC METABOLIC PANEL Potassium 4.1 3.5 - 5.1 12/31/2016 [facility] BASIC METABOLIC PANEL Sodium 140 136 - 145 12/31/2016 [facility] BASIC METABOLIC PANEL Glucose 112 70 - 99 12/31/2016 [facility] BASIC METABOLIC PANEL Urea Nitrogen 15 7 - 18 12/31/2016 [facility] [place] METABOLIC PANEL Creatinine 0.63 0.6 - 1.3 12/31/2016 [facility] BASIC METABOLIC PANEL Anion Gap 9 12/31/2016 [facility] BASIC METABOLIC PANEL Calcium 9.0 8.5 - 10.2 12/31/2016 [facility] BASIC METABOLIC PANEL GFR, Estimated >60 mL/min/1.73 m2 12/31/2016 [facility] BASIC METABOLIC PANEL GFR, Estim, Afr-Am >60 mL/min/1.73 m2 12/31/2016 [facility] BASIC METABOLIC PANEL Lab Interpretation Abnormal 12/31/2016 [facility] GLUCOSE POC Glucose POC 140 74 - 106 12/31/2016 [facility] GLUCOSE POC Lab Interpretation Abnormal 12/31/2016 [facility] GLUCOSE POC Glucose POC 140 74 - 106 12/31/2016 High [facility] GLUCOSE POC Lab Interpretation Abnormal 12/31/2016 [facility] BASIC METABOLIC PANEL CO2 29 21 - 32 12/31/2016 [facility] BASIC METABOLIC PANEL Chloride 102 98 - 107 12/31/2016 [facility] BASIC METABOLIC PANEL Potassium 4.1 3.5 - 5.1 12/31/2016 [facility] BASIC METABOLIC PANEL Sodium 140 136 - 145 12/31/2016 [facility] BASIC METABOLIC PANEL Glucose 112 70 - 99 12/31/2016 High [facility] BASIC METABOLIC PANEL Urea Nitrogen 15 7 - 18 12/31/2016 [facility] BASIC METABOLIC PANEL Creatinine 0.63 0.6 - 1.3 12/31/2016 [facility] BASIC METABOLIC PANEL Anion Gap 9 12/31/2016 [facility] BASIC METABOLIC PANEL Calcium 9.0 8.5 - 10.2 12/31/2016 [facility] BASIC METABOLIC PANEL GFR, Estimated >60 mL/min/1.73 m2 12/31/2016 [facility] BASIC METABOLIC PANEL GFR, Estim, Afr-Am >60 mL/min/1.73 m2 12/31/2016 [facility] BASIC METABOLIC PANEL Lab Interpretation Abnormal 12/31/2016 [facility] UA CHEMISTRIES Color Juliette 12/30/2016 [facility] UA CHEMISTRIES Clarity Hazy 12/30/2016 [facility] UA CHEMISTRIES Spec Lejunior 1.028 1.001 - 1.035 12/30/2016 [facility] UA CHEMISTRIES pH 5.0 5 - 8 12/30/2016 [facility] UA CHEMISTRIES Protein 1+ NEG 12/30/2016 [facility] UA CHEMISTRIES Glucose Negative NEG 12/30/2016 [facility] UA CHEMISTRIES Ketone Trace NEG 12/30/2016 [facility] UA CHEMISTRIES Bilirubin Negative NEG 12/30/2016 [facility] UA CHEMISTRIES Nitrate Negative NEG 12/30/2016 [facility] UA CHEMISTRIES Urobilinogen <1.0 0.2 - 1 12/30/2016 [facility] UA CHEMISTRIES Leukocyte Negative NEG 12/30/2016 [facility] UA CHEMISTRIES Blood Negative NEG 12/30/2016 [facility] UA CHEMISTRIES RBC 1 0 - 4 12/30/2016 [facility] UA CHEMISTRIES WBC 2 0 - 5 12/30/2016 [facility] UA CHEMISTRIES Epithelial Cell 8 /HPF 12/30/2016 [facility] UA CHEMISTRIES Mucous Present 12/30/2016 [facility] UA CHEMISTRIES Lab Interpretation Abnormal 12/30/2016 [facility] UA CHEMISTRIES Color Juliette 12/30/2016 [facility] UA CHEMISTRIES Clarity Hazy 12/30/2016 [facility] UA CHEMISTRIES Spec Lejunior 1.028 1.001 - 1.035 12/30/2016 [facility] UA CHEMISTRIES pH 5.0 5 - 8 12/30/2016 [facility] UA CHEMISTRIES Protein 1+ NEG 12/30/2016 Abnormal [facility] UA CHEMISTRIES Glucose Negative NEG 12/30/2016 [facility] UA CHEMISTRIES Ketone Trace NEG 12/30/2016 Abnormal [facility] UA CHEMISTRIES Bilirubin Negative NEG 12/30/2016 [facility] UA CHEMISTRIES Nitrate Negative NEG 12/30/2016 [facility] UA CHEMISTRIES Urobilinogen <1.0 0.2 - 1 12/30/2016 [facility] UA CHEMISTRIES Leukocyte Negative NEG 12/30/2016 [facility] UA CHEMISTRIES Blood Negative NEG 12/30/2016 [facility] UA CHEMISTRIES RBC 1 /HPF 0 - 4 12/30/2016 [facility] UA CHEMISTRIES WBC 2 /HPF 0 - 5 12/30/2016 [facility] UA CHEMISTRIES Epithelial Cell 8 /HPF 12/30/2016 [facility] UA CHEMISTRIES Mucous Present 12/30/2016 [facility] UA CHEMISTRIES Lab Interpretation Abnormal 12/30/2016 [facility] TRANSTHORACIC ECHO (TTE) TRANSTHORACIC ECHO (TTE) Transthoracic Echo Report NIKKO SULLIVAN Age:51 Gender: F :1965 Exam Date: 12/30/2016 08:50 Exam Location: [facility] Echo Ordering Phys: KEIKO ANDERS Referring Phys: Reading Phys:Sarah Carter Fellow Phys: Fellow Phys: System Validation Engineer: Vinh Munoz Reason For Exam: Indications:Chest Pain ICD-9 Codes: R06.89 Exam Type: Transthoracic Echo Procedure CPT:40817 Addtional CPT: Ht (in): 63 BSA: 2.35HR: [...] 22 - 52 cm DOPPLER AV Peak Cqhfwrdh217 cm/s AV Peak Gradient4.3 mmHg AV Mean Eplimxyg24.8 cm/s AV Mean Gradient3 mmHg AV Velocity Time Integral 19.8 cm LVOT Peak Lajgpuor58 cm/s LVOT Peak Gradient3.2 mmHg LVOT Mean Glhlvpqy97.6 cm/s LVOT Mean Gradient2 mmHg LVOT Velocity Time Integral 16 cm LVOT Stroke Yyyvgg20.4 cm AV Area Cont Eq vti 2.8 cm AV Area Cont Eq pk3 cm Mitral E Point Velocity 70.3 cm/s Mitral A Point Velocity 80.5 cm/s Mitral E to A Ratio 0.87 MV Deceleration Norman 260 cm/s MV Pressure Half Time 79 ms MV Area PHT 2.8 cm PV Peak Yowglqmi48.7 cm/s PV Peak Gradient2.2 mmHg RVOT Peak Cbkjxffy09 cm/s RVOT Peak Gradient0.96 mmHg LV E' Lateral Velocity7.8 cm/s Mitral E to LV E' Lateral Ratio 9 LV E' Septal Velocity 6 cm/s Mitral E to LV E' Septal Ratio11.8 12/30/2016 [facility] MYOGLOBIN, SER Myoglobin, Ser 33 14 - 106 12/30/2016 [facility] SYPHILIS SCREEN FOR INFECTION Treponemal Ab Negative 12/30/2016 [facility] SYPHILIS SCREEN FOR INFECTION Final Report Negative 12/30/2016 [facility] HEP A VIR AB IGM HAV, IgM Negative NEG 12/30/2016 [facility] HEP A VIRUS AB IGG Hep A Vir Ab IgG Positive NEG 12/30/2016 [facility] HEP A VIRUS AB IGG Lab Interpretation Abnormal 12/30/2016 [facility] HEP B COR AB TOT Hep B Cor Ab Tot Negative NEG 12/30/2016 [facility] HEP B AB AG HBsAg Negative NEG 12/30/2016 [facility] HEP C VIR AB IGG HCV IgG Negative NEG 12/30/2016 [facility] RAPID INFLUENZA SCREEN Spec Description Nasopharyngeal swab 12/30/2016 [facility] RAPID INFLUENZA SCREEN Order Comments None 12/30/2016 [facility] RAPID INFLUENZA SCREEN Direct Exam Negative for Influenza A and B by EIA 12/30/2016 [facility] RAPID INFLUENZA SCREEN Report Status Final 12/30/2016 12/30/2016 [facility] TRANSTHORACIC ECHO (TTE) TRANSTHORACIC ECHO (TTE) Transthoracic Echo Report NIKKO SULLIVAN Age:51 Gender: F :1965 Exam Date: 12/30/2016 08:50 Exam Location: [facility] Echo Ordering Phys: KEIKO ANDERS Referring Phys: Reading Phys:Sarah Carter Fellow Phys: Fellow Phys: System Validation Engineer: Vinh Munoz Reason For Exam: Indications:Chest Pain ICD-9 Codes: R06.89 Exam Type: Transthoracic Echo Procedure CPT:19428 Addtional CPT: Ht (in): 63 BSA: 2.35HR: [...] 22 - 52 cm DOPPLER AV Peak Zaetaqrb626 cm/s AV Peak Gradient4.3 mmHg AV Mean Qcqyixoc21.8 cm/s AV Mean Gradient3 mmHg AV Velocity Time Integral 19.8 cm LVOT Peak Rsfvkblr00 cm/s LVOT Peak Gradient3.2 mmHg LVOT Mean Inyeunft24.6 cm/s LVOT Mean Gradient2 mmHg LVOT Velocity Time Integral 16 cm LVOT Stroke Lxnpwq80.4 cm AV Area Cont Eq vti 2.8 cm AV Area Cont Eq pk3 cm Mitral E Point Velocity 70.3 cm/s Mitral A Point Velocity 80.5 cm/s Mitral E to A Ratio 0.87 MV Deceleration Norman 260 cm/s MV Pressure Half Time 79 ms MV Area PHT 2.8 cm PV Peak Lbvsdlau65.7 cm/s PV Peak Gradient2.2 mmHg RVOT Peak Nridcqst15 cm/s RVOT Peak Gradient0.96 mmHg LV E' Lateral Velocity7.8 cm/s Mitral E to LV E' Lateral Ratio 9 LV E' Septal Velocity 6 cm/s Mitral E to LV E' Septal Ratio11.8 12/30/2016 [facility] CK, TOTAL CK, Total 84 30 - 200 12/30/2016 CKMB not performed if CK <100, if CKMB is required, please notify laboratory
immediately.

[facility] TROPONIN I Troponin I <0.015 0 - 0.045 12/30/2016 [facility] CKMB, REFLEX CK-MB 1.4 0 - 3.6 12/30/2016 [facility] CKMB, REFLEX CKMB Index 1.4 0 - 2.5 12/30/2016 [facility] DIGOXIN Digoxin 0.9 0.8 - 2 12/30/2016 [facility] RAPID INFLUENZA SCREEN Spec Description Nasopharyngeal swab 12/30/2016 [facility] RAPID INFLUENZA SCREEN Order Comments None 12/30/2016 [facility] RAPID INFLUENZA SCREEN Direct Exam Negative for Influenza A and B by EIA 12/30/2016 [facility] RAPID INFLUENZA SCREEN Report Status Final 12/30/2016 12/30/2016 [facility] URINE DRUG SCREEN Amphetamine Negative NEG 12/30/2016 Calibrated Standard: D-Methamphetamine
Positive if urine level >hk=3681 ng/mL

[facility] URINE DRUG SCREEN Barbiturate Negative NEG 12/30/2016 Calibrated Standard: Secobarbital
Positive if urine level is >kt=967 ng/mL

[facility] URINE DRUG SCREEN Benzodiazepine Negative NEG 12/30/2016 Calibrated Standard: Lormethazepam
Positive if urine level is >zn=604 ng/mL

[facility] URINE DRUG SCREEN Cannabinoid Negative NEG 12/30/2016 Calibrated Standard: 11 nor-delta(9)-THC carboxylic a
Positive if urine level >or=50

[facility] URINE DRUG SCREEN Cocaine Negative NEG 12/30/2016 Calibrated Standard: Benzoylecgonine
Positive if urine level >ku=074

[facility] URINE DRUG SCREEN Opiate, Ur Negative NEG 12/30/2016 Calibrated Standard: Morphine
Positive if urine level >ca=215

[facility] URINE DRUG SCREEN PCP Negative NEG 12/30/2016 Calibrated Standard: Phencyclidine
Positive if urine level >or=25
Urine Toxicology Screen results are to be used only for Medical purposes.

[facility] PT/INR PT 12.8 11.8 - 15.0 12/30/2016 [facility] PT/INR INR 1.0 SUGGESTED THERAPEUTIC RANGES: INR 2.0-3.0 for MODERATE INTENSITY ANTICOAGULATION INR 2.5-3.5 for HIGH INTENSITY ANTICOAGULATION 12/30/2016 [facility] PTT PTT 36.5 23.6 - 36.4 12/30/2016 [facility] PTT Lab Interpretation Abnormal 12/30/2016 [facility] CALCIUM, IONIZED Calcium, Ionized 1.08 1.15 - 1.29 12/30/2016 [facility] CALCIUM, IONIZED Lab Interpretation Abnormal 12/30/2016 [facility] CK, TOTAL CK, Total 84 30 - 200 12/30/2016 CKMB not performed if CK <100, if CKMB is required, please notify laboratory
immediately.

[facility] MYOGLOBIN, SER Myoglobin, Ser 33 14 - 106 12/30/2016 [facility] TROPONIN I Troponin I <0.015 0 - 0.045 12/30/2016 [facility] 12 LEAD EKG 12 [facility]AD [facility] Pat Name: NIKKO SULLIVAN Department: : Gender: FTechnician: :1965 Requested By: Order Number:Reading MD: Sonu Miller Measurements IntervalsAxis Rate: 86 P:14 IL: 159QRS:-27 QRSD: 84 T:37 QT: 345 QTc:413 Interpretive Statements SINUS RHYTHM POSSIBLE LEFT ATRIAL ENLARGEMENT LOW QRS VOLTAGE IN PRECORDIAL LEADS POOR R WAVE PROGRESSION: POSSIBLE ANTERIOR MYOCARDIAL INFARCTION, PROBABLY OLD ABNORMAL ECG Electronically Signed On 12-29-16 18:48:49 CDT by Sonu Miller 12/30/2016 [facility] CALCIUM, IONIZED Calcium, Ionized 1.08 1.15 - 1.29 12/29/2016 Low [facility] CALCIUM, IONIZED Lab Interpretation Abnormal 12/29/2016 [facility] CKMB, REFLEX CK-MB 1.4 0 - 3.6 12/29/2016 [facility] CKMB, REFLEX CKMB Index 1.4 0 - 2.5 12/29/2016 [facility] DIGOXIN Digoxin 0.9 0.8 - 2 12/29/2016 [facility] HEP A VIR AB IGM HAV, IgM Negative NEG 12/29/2016 [facility] HEP A VIRUS AB IGG Hep A Vir Ab IgG Positive NEG 12/29/2016 Abnormal [facility] HEP A VIRUS AB IGG Lab Interpretation Abnormal 12/29/2016 [facility] HEP B COR AB TOT Hep B Cor Ab Tot Negative NEG 12/29/2016 [facility] HEP B AB AG HBsAg Negative NEG 12/29/2016 [facility] HEP BE AB Hep Be Ab Negative Reference range: Negative 12/29/2016 [facility] HEP C VIR AB IGG HCV IgG Negative NEG 12/29/2016 [facility] PT/INR PT 12.8 Seconds 11.8 - 15.0 12/29/2016 [facility] PT/INR INR 1.0 SUGGESTED THERAPEUTIC RANGES: INR 2.0-3.0 for MODERATE INTENSITY ANTICOAGULATION INR 2.5-3.5 for HIGH INTENSITY ANTICOAGULATION 12/29/2016 [facility] PTT PTT 36.5 Seconds 23.6 - 36.4 12/29/2016 High [facility] PTT Lab Interpretation Abnormal 12/29/2016 [facility] SYPHILIS SCREEN FOR INFECTION Treponemal Ab Negative 12/29/2016 [facility] SYPHILIS SCREEN FOR INFECTION Final Report Negative 12/29/2016 [facility] POC CO2 POC 27 21 - 32 12/29/2016 [facility] POC Chloride POC 105 98 - 107 12/29/2016 [facility] POC Potassium POC 5.2 3.5 - 5.1 12/29/2016 [facility] POC Sodium POC 141 136 - 145 12/29/2016 [facility] POC Glucose POC 115 74 - 106 12/29/2016 [facility] POC Urea Nitrogen POC 17 7 - 18 12/29/2016 [facility] POC Creatinine POC 0.8 0.6 - 1.3 12/29/2016 [facility] POC Calcium Ionized POC 1.03 1.15 - 1.29 12/29/2016 [facility] POC Hemoglobin POC 16.7 12 - 16 12/29/2016 [facility] POC Hematocrit POC 49.0 37 - 47 12/29/2016 [facility] POC GFR, Estimated >60 mL/min/1.73 m2 12/29/2016 [facility] POC GFR, Estim, Afr-Am >60 mL/min/1.73 m2 12/29/2016 [facility] POC Lab Interpretation Abnormal 12/29/2016 [facility] TROPONIN I POC Troponin POC 0.00 0 - 0.08 12/29/2016 [facility] URINE DRUG SCREEN Amphetamine Negative NEG 12/29/2016 Calibrated Standard: D-Methamphetamine
Positive if urine level >se=7438 ng/mL

[facility] URINE DRUG SCREEN Barbiturate Negative NEG 12/29/2016 Calibrated Standard: Secobarbital
Positive if urine level is >oy=199 ng/mL

[facility] URINE DRUG SCREEN Benzodiazepine Negative NEG 12/29/2016 Calibrated Standard: Lormethazepam
Positive if urine level is >nq=780 ng/mL

[facility] URINE DRUG SCREEN Cannabinoid Negative NEG 12/29/2016 Calibrated Standard: 11 nor-delta(9)-THC carboxylic a
Positive if urine level >or=50

[facility] URINE DRUG SCREEN Cocaine Negative NEG 12/29/2016 Calibrated Standard: Benzoylecgonine
Positive if urine level >ya=897

[facility] URINE DRUG SCREEN Opiate, Ur Negative NEG 12/29/2016 Calibrated Standard: Morphine
Positive if urine level >wr=243

[facility] URINE DRUG SCREEN PCP Negative NEG 12/29/2016 Calibrated Standard: Phencyclidine
Positive if urine level >or=25
Urine Toxicology Screen results are to be used only for Medical purposes.

[facility] POC CO2 POC 27 21 - 32 12/29/2016 [facility] POC Chloride POC 105 98 - 107 12/29/2016 [facility] POC Potassium POC 5.2 3.5 - 5.1 12/29/2016 High [facility] POC Sodium POC 141 136 - 145 12/29/2016 [facility] POC Glucose POC 115 74 - 106 12/29/2016 [facility] POC Urea Nitrogen POC 17 7 - 18 12/29/2016 [facility] POC Creatinine POC 0.8 0.6 - 1.3 12/29/2016 [facility] POC Calcium Ionized POC 1.03 1.15 - 1.29 12/29/2016 Low [facility] POC Hemoglobin POC 16.7 12 - 16 12/29/2016 High [facility] POC Hematocrit POC 49.0 37 - 47 12/29/2016 High [facility] POC GFR, Estimated >60 mL/min/1.73 m2 12/29/2016 [facility] POC GFR, Estim, Afr-Am >60 mL/min/1.73 m2 12/29/2016 [facility] POC Lab Interpretation Abnormal 12/29/2016 [facility] TROPONIN I POC Troponin POC 0.00 0 - 0.08 12/29/2016 [facility] HEMOGLOBIN A1C Hemoglobin A1c 7.2 4.3 - 6.1 11/28/2016 [facility] HEMOGLOBIN A1C Est Average Gluc 159.9 11/28/2016 [facility] HEMOGLOBIN A1C Lab Interpretation Abnormal 11/28/2016 [facility] LIPID PROFILE Cholesterol 172 <200 11/28/2016 REFERENCE RANGE:
Desirable: <200 mg/dL
Borderline: 200-240 mg/dL
High Risk: >240 mg/dL

[facility] LIPID PROFILE Triglyceride 105 <150 11/28/2016 REFERENCE RANGE:
Normal: <150 mg/dL
Borderline High: 150-199 mg/dL
High: 200-499 mg/dL
Very High: >ub=621 mg/dL

[facility] LIPID PROFILE HDL 65 40 - 60 11/28/2016 Increased CHD risk: <40 mg/dL
Decreased CHD risk: >60 mg/dL

[facility] LIPID PROFILE LDL 86 11/28/2016 REFERENCE RANGE:
Optimal: <100 mg/dL
Near Optimal: 100-129 mg/dL
Borderline High: 130-159 mg/dL
High: 160-189 mg/dL
Very High: >lp=424 mg/dL

[facility] LIPID PROFILE Lab Interpretation Abnormal 11/28/2016 [facility] LIVER PROFILE T Protein 7.2 6.4 - 8.2 11/28/2016 [facility] LIVER PROFILE Albumin 3.8 3.4 - 5 11/28/2016 [facility] LIVER PROFILE T Bilirubin 0.5 0.2 - 1 11/28/2016 [facility] LIVER PROFILE Alk Phos 129 45 - 117 11/28/2016 [facility] LIVER PROFILE AST 57 15 - 37 11/28/2016 [facility] LIVER PROFILE ALT 67 12 - 78 11/28/2016 [facility] LIVER PROFILE D Bilirubin 0.2 0 - 0.2 11/28/2016 [facility] LIVER PROFILE Lab Interpretation Abnormal 11/28/2016 [facility] HEMOGLOBIN A1C Hemoglobin A1c 7.2 4.3 - 6.1 11/27/2016 High [facility] HEMOGLOBIN A1C Est Average Gluc 159.9 11/27/2016 [facility] HEMOGLOBIN A1C Lab Interpretation Abnormal 11/27/2016 [facility] LIPID PROFILE Cholesterol 172 <200 11/27/2016 REFERENCE RANGE:
Desirable: <200 mg/dL
Borderline: 200-240 mg/dL
High Risk: >240 mg/dL

[facility] LIPID PROFILE Triglyceride 105 <150 11/27/2016 REFERENCE RANGE:
Normal: <150 mg/dL
Borderline High: 150-199 mg/dL
High: 200-499 mg/dL
Very High: >yy=524 mg/dL

[facility] LIPID PROFILE HDL 65 40 - 60 11/27/2016 High Increased CHD risk: <40 mg/dL
Decreased CHD risk: >60 mg/dL

[facility] LIPID PROFILE LDL 86 11/27/2016 REFERENCE RANGE:
Optimal: <100 mg/dL
Near Optimal: 100-129 mg/dL
Borderline High: 130-159 mg/dL
High: 160-189 mg/dL
Very High: >wo=313 mg/dL

[facility] LIPID PROFILE Lab Interpretation Abnormal 11/27/2016 [facility] LIVER PROFILE T Protein 7.2 6.4 - 8.2 11/27/2016 [facility] LIVER PROFILE Albumin 3.8 3.4 - 5 11/27/2016 [facility] LIVER PROFILE T Bilirubin 0.5 0.2 - 1 11/27/2016 [facility] LIVER PROFILE Alk Phos 129 45 - 117 11/27/2016 High [facility] LIVER PROFILE AST 57 15 - 37 11/27/2016 High [facility] LIVER PROFILE ALT 67 12 - 78 11/27/2016 [facility] LIVER PROFILE D Bilirubin 0.2 0 - 0.2 11/27/2016 [facility] LIVER PROFILE Lab Interpretation Abnormal 11/27/2016 [facility] Pathology Reports No Data Provided for This Section Diagnostic Reports Report Value Date Source XRAY CHEST 2 VIEWS IMPRESSION: Elevation of the right hemidiaphragm with linear opacity of the rightmidlung suggestive of volume loss and scarring, unchanged.No acute thoracic abnormality. A "PRELIMINARY" report was made available via pocketfungames at the time ofdictation by the resident [...] A "PRELIMINARY" report was made available via pocketfungames at the time of dictation by the resident indicated below. If the report is "FINALIZED" it indicates that the attending/staff radiologist has reviewed the images and agrees with the resident's interpretation. Dictated By: Shabbir Latham DO, 01/25/2017 1:38 PM I have reviewed the study and agree with the findings in this report. Signed By: Tushar Gonzalez MD, 01/25/2017 4:28 PM 01/25/2017 [facility] XRAY CHEST 2 VIEWS IMPRESSION: Elevation of the right hemidiaphragm with linear opacity of the rightmidlung suggestive of volume loss and scarring, unchanged.No acute thoracic abnormality. A "PRELIMINARY" report was made available via pocketfungames at the time ofdictation by the resident [...] A "PRELIMINARY" report was made available via pocketfungames at the time of dictation by the resident indicated below. If the report is "FINALIZED" it indicates that the attending/staff radiologist has reviewed the images and agrees with the resident's interpretation. Dictated By: Shabbir Latham DO, 01/25/2017 1:38 PM I have reviewed the study and agree with the findings in this report. Signed By: Tushar Gonzalez MD, 01/25/2017 4:28 PM 01/25/2017 [facility] Consultation Notes No Data Provided for [...] Assoc Temperature Oral (F) 98.3 F 03/16/2018 [facility] Heart Rate 106 03/16/2018 [facility] Diastolic (mm Hg) 82 03/16/2018 [facility] Systolic (mm Hg) 115 03/16/2018 [facility] Systolic (mm Hg) 116 05/28/2017 [facility] Diastolic (mm Hg) 58 05/28/2017 [facility] Heart Rate 94 05/28/2017 [facility] Temperature Oral (F) 37.17 Lina 05/28/2017 [facility] Respitory Rate 20 05/28/2017 [facility] Height 160 cm 05/28/2017 [facility] Weight 120.203 05/28/2017 [facility] BMI Calculated 46.94 05/28/2017 [facility] Encounters Location Location Details Encounter Type Encounter Number Reason For Visit Attending Provider ADM Date DC Date Status Source Pulmonary [place] Office Visit [id number] Asthmatic bronchitis, severe persistent, with acute exacerbation Asthma exacerbation SOB (shortness of breath) Rib pain on right side Chest wall pain Obstructive sleep apnea syndrome Dario Slater MD 10/01/2016 10/01/2016 [facility] [place] Same Day Same Day [id number] Rib pain on right side Rediate Jake GROUTER HELPER 10/23/2016 10/23/2016 [facility] [place] Office Visit [id number] Asthma exacerbation Sleep-related breathing disorder Obstructive sleep apnea Acute on chronic congestive heart failure, unspecified congestive heart failure type Type 2 diabetes mellitus without complication, without long-term current use of insulin Dario Sabillon MD 10/29/2016 10/29/2016 [facility] Shyla Larsen Same Day Office Visit [id number] Moderate persistent asthma with acute exacerbation Hearing loss of left ear due to cerumen impaction Dysfunction of Eustachian tube, left Deepthi Johns MD 11/13/2016 11/13/2016 [facility] [place] Office Visit [id number] Type 2 diabetes mellitus without complication, without long-term current use of insulin Need for Tdap vaccination Chronic congestive heart failure, unspecified congestive heart failure type Mild intermittent asthma with acute exacerbation Rib pain on right side Dario Sabillon MD 11/23/2016 11/23/2016 [facility] [place] Telephone [id number] Tori Ruiz PURNIMA 11/30/2016 [facility] [id number] Chest pain in adult Chronic congestive heart failure, unspecified congestive heart failure type ASD (atrial septal defect), sinus venosus defect Rosi Duran DO 12/29/2016 12/31/2016 [facility] Visit [id number] 12/31/2016 [facility] Telephone [id number] [place] Caity 01/06/2017 [facility] [place] Office Visit [id number] Chronic congestive heart failure, unspecified congestive heart failure type Flu vaccine need Controlled type 2 diabetes mellitus without complication, without long-term current use of insulin Hospital discharge follow-up Bilateral leg edema Chest pain, unspecified type Ankita Kenny DO 01/25/2017 01/25/2017 [facility] Radiology [place] Ancillary Procedure [id number] Dario Sabillon MD 01/25/2017 01/25/2017 [facility] [place] Refill [id number] Chronic congestive heart failure, unspecified congestive heart failure type Ankita Kenny DO 02/19/2017 [facility] [place] Office Visit [id number] Type 2 diabetes mellitus without complication, without long-term current use of insulin Gastroesophageal reflux disease without esophagitis Chronic congestive heart failure, unspecified congestive heart failure type Mild intermittent asthma with acute exacerbation Acute bronchitis, unspecified organism Sleep apnea, unspecified type Hypokalemia Hyperlipidemia, unspecified hyperlipidemia type Dario Sabillon MD 02/23/2017 02/23/2017 [facility] [place] Clinical Case Mgt [id number] Isrrael Dukes RN 02/24/2017 [facility] [place] Orders Only [id number] Chronic congestive heart failure, unspecified congestive heart failure type Dario Sabillon MD 02/26/2017 [facility] [place] Refill [id number] Mild intermittent asthma with acute exacerbation Dario Sabillon MD 03/26/2017 [facility] [place] Orders Only [id number] Palpitations ASD (atrial septal defect), sinus venosus defect Shortness of breath Amarilis Aggarwal MD 04/05/2017 [facility] [place] [id number] Palpitations ASD (atrial septal defect), sinus venosus defect Shortness of breath Amarilis Aggarwal MD 04/05/2017 04/05/2017 [facility] [place] [facility] En[place] [id number] Palpitations ASD (atrial septal defect), sinus venosus defect Shortness of breath Dario Sabillon MD 04/05/2017 04/06/2017 [facility] C[facility]IOLOGY [facility] Hospital Encounter [id number] Amarilis Aggarwal MD 04/15/2017 04/16/2017 [facility] [place] Refill [id number] Type 2 diabetes mellitus without complication, without long-term current use of insulin Dario Sabillon MD 04/23/2017 [facility]Y [facility] Hospital Encounter [id number] Amarilis Aggarwal MD 04/27/2017 04/28/2017 [facility] [place] Office Visit [id number] 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), sinus venosus defect Pulmonary hypertension Amarilis Aggarwal MD 05/03/2017 05/03/2017 [facility] Same Day Same Day [id number] Acute bronchitis, unspecified organism Cough Type 2 diabetes mellitus without complication, without long-term current use of insulin Loren Cristino GROUTER HELPER 05/12/2017 05/12/2017 [facility] Same Day Same Day [id number] Acute sinusitis, recurrence not specified, unspecified location Bilateral acute serous otitis media, recurrence not specified Cough Type 2 diabetes mellitus without complication, without long-term current use of insulin Loren Cristino GROUTER HELPER 05/28/2017 05/28/2017 [facility] [place] Clinical Case Mgt [id number] Jackeline Aranda 07/02/2017 [facility] [place] Telephone [id number] Faith Giles RN 07/02/2017 [facility] [place] Telephone [id number] Faith Giles RN 07/06/2017 [facility] Departed Emergency Room [id number] ANCELMO MELISSA MD 09/20/2017 09/20/2017 [facility] [place] Refill [id number] Chronic congestive heart failure Dario Sabillon MD 09/21/2017 [facility] [place] Refill [id number] Type 2 diabetes mellitus without complication, without long-term current use of insulin Dario Sabillon MD 11/07/2017 [facility] [place] Refill [id number] Rib pain on right side Alicia Forte HAND NAILER 11/11/2017 [facility] Procedures Procedure Code Date Perfomer Comments Source DIABETIC FOOT EXAM 05/29/2017 [facility] POC RAPID FLU [id number] 05/12/2017 [facility] POC GROUP A STREP SCREEN [id number] 05/12/2017 [facility] [facility] TREADMILL STRESS-TRACING ONLY [id number] 04/27/2017 [facility] TTE FOLLOW UP [id number] 04/15/2017 [facility] COMPREHENSIVE METABOLIC PANEL(DBIL NOT INCLUDED) [id number] 04/05/2017 [facility] CBC/DIFF 78008 04/05/2017 [facility] 12 LEAD EKG 77387 04/05/2017 [facility] BMP POC [id number] 01/25/2017 Count Includes [facility] XRAY CHEST 2 VIEWS 07045 01/25/2017 [facility] B NATRIURETIC PEPT [id number] 01/25/2017 [facility] MAGNESIUM 14235 01/25/2017 [facility] GLUCOSE POC [id number] 12/31/2016 [facility] BASIC METABOLIC PANEL 69907 12/31/2016 [facility] UA CHEMISTRIES 37411 12/30/2016 [facility] TRANSTHORACIC ECHO (TTE) 59851 12/30/2016 [facility] UA CHEMISTRIES 29673 12/30/2016 [facility] RAPID INFLUENZA SCREEN 27946 12/30/2016 [facility] CK, TOTAL 18491 12/30/2016 [facility] TROPONIN I 94431 12/30/2016 [facility] MYOGLOBIN, SER 64357 12/30/2016 [facility] CALCIUM, IONIZED 27197 12/30/2016 [facility] PT/INR 17897 12/30/2016 [facility] PTT 86371 12/30/2016 [facility] HEP A VIR AB IGM 33185 12/30/2016 [facility] HEP A VIRUS AB IGG 12364 12/30/2016 [facility] HEP B COR AB TOT 40834 12/30/2016 [facility] [place] 6[address] 12/30/2016 [facility] [place] [address] 12/30/2016 [facility] HEP C VIR AB IGG 89111 12/30/2016 [facility] SYPHILIS SCREEN FOR INFECTION 31426 12/30/2016 [facility] DIGOXIN 71079 12/30/2016 [facility] CKMB, REFLEX 81680 12/30/2016 [facility] URINE DRUG SCREEN 31074 12/30/2016 [facility] TROPONIN I POC [id number] 12/29/2016 [facility] HEMOGLOBIN A1C 95834 11/27/2016 [facility] LIPID PROFILE 73164 11/27/2016 [facility] LIVER PROFILE 52505 11/27/2016 [facility] THRPY PROPH/DX INJ INTRAMUSCLR 40646 11/13/2016 [facility] Assessment and Plan No Data Provided for This Section Plan of Care Plan of Care Date Source Colonoscopy 10yr 01/12/2026 [facility] Cervical Cancer Scrn (3 Yrs) 08/28/2019 [facility] DM Foot Exam (Yearly) 05/28/2018 [facility] DM Microalbumin Urine Scrn (Yearly) 12/30/2017 [facility] DM HGBA1C (Yearly) 11/27/2017 [facility] Discharge Date 09/20/17 7:28pm Disposition HOME, SELF-CARE Condition at Discharge Improved Instructions/Education Provided Asthma - Adult Forms Provided Work/School Excuse Prescriptions See Medication Section Referrals FAITH ESTEBAN DO Order Date: Call for an appointment Address: [id number] [place] [address] [place] [place] [address] Additional Instructions/Education Take medications as directed: -Duo-neb one neb treatment every 4-6hrs as needed for shortness of breath. -Prednisone 20mg three tabs by mouth x2days, then 2tabs by mouth x2days. Follow up with Primary Care Provider. Return to ER as needed. 09/20/2017 [facility] Breast Cancer Scrn (Yearly) 08/27/2017 [facility] DM Retinal Exam (Yearly) 07/30/2017 [facility] Social History Social History Date Source Smoking Status Start Date Stop Date Never Smoker 09/20/2017 [facility] Tobacco UseTypesPacks/DayYears UsedDate Never Smoker Smokeless Tobacco: Never Used Tobacco Cessation: Counseling Given: No Alcohol UseDrinks/Weekoz/WeekComments No Sex Assigned at BirthDate Recorded Not on file 05/28/2017 [facility] Family History Value Date Source Medical HistoryRelationNameComments Diabetes Maternal Aunt x 7 Diabetes Maternal Grandmother Diabetes Mother Diabetes Sister RelationNameStatusComments Father work accident Maternal Aunt Maternal Grandmother Mother Alive Sister 12/13/2017 [facility] Medical HistoryRelationNameComments Diabetes Maternal Aunt x 7 Diabetes Maternal Grandmother Diabetes Mother Diabetes Sister RelationNameStatusComments Father work accident Maternal Aunt Maternal Grandmother Mother Alive Sister 12/09/2017 [facility] Medical HistoryRelationNameComments Diabetes Maternal Aunt x 7 Diabetes Maternal Grandmother Diabetes Mother Diabetes Sister RelationNameStatusComments Father work accident Maternal Aunt Maternal Grandmother Mother Alive Sister 11/30/2017 [facility] Medical HistoryRelationNameComments Diabetes Maternal Aunt x 7 Diabetes Maternal Grandmother Diabetes Mother Diabetes Sister RelationNameStatusComments Father work accident Maternal Aunt Maternal Grandmother Mother Alive Sister 11/23/2017 [facility] Medical HistoryRelationNameComments Diabetes Maternal Aunt x 7 Diabetes Maternal Grandmother Diabetes Mother Diabetes Sister RelationNameStatusComments Father work accident Maternal Aunt Maternal Grandmother Mother Alive Sister 11/12/2017 [facility] Medical HistoryRelationNameComments Diabetes Maternal Aunt x 7 Diabetes Maternal Grandmother Diabetes Mother Diabetes Sister RelationNameStatusComments Father work accident Maternal Aunt Maternal Grandmother Mother Alive Sister 10/29/2017 [facility] Medical HistoryRelationNameComments Diabetes Maternal Aunt x 7 Diabetes Maternal Grandmother Diabetes Mother Diabetes Sister RelationNameStatusComments Father work accident Maternal Aunt Maternal Grandmother Mother Alive Sister 10/14/2017 [facility] Medical HistoryRelationNameComments Diabetes Maternal Aunt x 7 Diabetes Maternal Grandmother Diabetes Mother Diabetes Sister RelationNameStatusComments Father work accident Maternal Aunt Maternal Grandmother Mother Alive Sister 09/29/2017 [facility] Medical HistoryRelationNameComments Diabetes Maternal Aunt x 7 Diabetes Maternal Grandmother Diabetes Mother Diabetes Sister RelationNameStatusComments Father work accident Maternal Aunt Maternal Grandmother Mother Alive Sister 09/27/2017 [facility] Advance Directives Order Name Results Value Date Source Advance Directives Advance Directives Directive Response Recorded Date/Time Does the patient have an advance directive? No 09/20/17 5:13pm If yes, is advance directive on file with [facility]? No 09/20/17 5:14pm If not on file with [facility] will patient provide a copy? No 09/20/17 5:13pm Do you have a Directive to Physician? No 09/20/17 5:13pm Do you have a Medical Power of Fire Engineer? No 09/20/17 5:13pm Do you have [...] rights and responsibilities? Yes 09/20/17 5:14pm 09/20/2017 [facility] Functional Status No Data Provided for This Section
[2018-10-21] MEDS ORDERED: IBUPROFEN 600 MG TAB PO PRN (12:45)
[2018-10-21] MEDS ORDERED: ALBUTEROL SULF 0.083% NEB SOLN 3 ML NEB NEB PRN (13:45)
--- NOTE | 2018-10-21 14:47 | NUR ---
Received patient via stretcher. AAOX4 to time, person,place, situation. Respirations even and unlabored. O2 2L NC. tele #1 SR 86. Oriented patient to room. Instructed to use call light for assistance. Voiced understanding. Will continue to monitor.
[2018-10-21] MEDS ORDERED: CETIRIZINE HCL10 MG PO (15:16)
[2018-10-21] MEDS ORDERED: jardiance PO (15:16)
[2018-10-21] MEDS ORDERED: LISINOPRIL2.5 MG PO (15:16)
[2018-10-21] MEDS ORDERED: METFORMIN HCL500 MG PO (15:16)
[2018-10-21] MEDS ORDERED: DICYCLOMINE HCL20 MG PO (15:16)
[2018-10-21] MEDS ORDERED: duoneb INH (15:16)
[2018-10-21] MEDS ORDERED: BENZONATATE100 MG PO (15:16)
[2018-10-21] MEDS ORDERED: ASPIR 8181 MG PO (15:16)
[2018-10-21] MEDS ORDERED: ZOFRAN4 MG PO (15:16)
[2018-10-21] MEDS ORDERED: MONTELUKAST SOD10 MG PO (15:16)
[2018-10-21] MEDS ORDERED: BUMETANIDE1 MG PO (15:16)
[2018-10-21] MEDS ORDERED: PANTOPRAZOLE SO40 MG PO (15:16)
[2018-10-21] MEDS ORDERED: ATORVASTATIN CA20 MG PO (15:16)
[2018-10-21] MEDS ORDERED: SYMBICORT 16010.2 GM INH (15:16)
[2018-10-21] MEDS ORDERED: POTASSIUM CHLO10 ME1 PO (15:16)
[2018-10-21] MEDS ORDERED: SPIRIVA18 MCG INH (15:16)
[2018-10-21 15:23] VITALS: BP 102/51
[2018-10-21] MEDS: ALBUTEROL/IPRATROPIUM 3 ML NEB NEB SCH ×2 (15:28→19:00)
[2018-10-21 15:34] VITALS: BP 102/51
[2018-10-21] MEDS ORDERED: SODIUM CHLORIDE 0.9% 250ML 250 ML ONE (15:48)
[2018-10-21] MEDS: FAMOTIDINE 20 MG/2 ML VIAL IV SCH (15:50)
[2018-10-21] MEDS: MORPHINE SULFATE 2 MG/ML SYR 1ML IV PRN ×2 (15:50→21:50)
[2018-10-21] MEDS: AZITHROMYCIN 500MG/NS 250 ML 250 ML IV SCH (15:50)
[2018-10-21] MEDS ORDERED: PNEUMOCOCCAL VACCINE POLYVALENT 23 MCG/0.5 ML VIAL IM SCH (16:00)
[2018-10-21 16:33] VITALS: BP 102/51
--- NOTE | 2018-10-21 17:03 | NUR ---
paged to review home medications. Awaiting for call back
[2018-10-21] MEDS ORDERED: METHYLPREDNISOLONE SOD SUCC 40 MG/ML VIAL 1ML IV SCH (18:00)
--- NOTE | 2018-10-21 19:19 | NUR ---
Report given to oncoming nurse of patient's status. Taken for CT via wheelchair by radiology interventional physician. No s/s of acute distress noted.
--- NOTE | 2018-10-21 19:22 | NUR ---
Patient received lying in bed. AAO x 3. Patient had no complaints of pain. Respirations even and non-labored on 2L NC. Telemetry (#1) records rhythm as SR at a heart rate of 82. Fall precautions implemented. Patient instructed to call for assistance when needed. Call light within reach.
[2018-10-21 19:52] LABS: CREATINE KINASE MB 1.8 ng/mL (0-5.0)
--- NOTE | 2018-10-21 20:37 | NUR ---
Patient complained of cough. Dr. Rey notified. New orders received.
--- NOTE | 2018-10-21 20:39 | NUR ---
Dr. Rey notified of critical lab results of lactic acid of 53.7. No order received. Dr. Rey stated he doesn't want any labs drawn for lactic acid anymore.
[2018-10-21] MEDS ORDERED: BENZONATATE 100 MG CAP PO PRN (20:45)
[2018-10-21 20:57] VITALS: BP 100/78
[2018-10-21 21:00] VITALS: BP 100/78
[2018-10-21] MEDS ORDERED: ZOLPIDEM TARTRATE 5 MG TAB PO PRN (21:00)
--- NOTE | 2018-10-21 21:15 | Consultation ---
DATE OF CONSULTATION: Pulmonary Consultation REASON FOR CONSULT: Shortness of breath and wheezing. HISTORY OF PRESENT ILLNESS: Ms. Devi is a 53-year-old female. She presented to the emergency room with shortness of breath, wheezing, and cough. 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 She denies any complaints of chest pain, nausea, or vomiting. She has been told that she has possible COPD. She follows up with education coordinator at [facility]. She has been started on Symbicort and Spiriva by her education coordinator, but they are not sure if she has COPD or asthma. The patient is a lifelong nonsmoker. REVIEW OF SYSTEMS: GENERAL: Denies any fever or chills. HEAD: Denies any head trauma. ENT: Denies any earache. CVS: Denies any chest pain. RESPIRATORY: Shortness of breath. GI: Denies any nausea or vomiting. The rest of the review of systems are negative except as in HPI. PAST MEDICAL HISTORY: Diabetes and hypertension. PAST SURGICAL HISTORY: The patient has a history of right-sided pneumothorax and chest tube in 2012, and cholecystectomy. PHYSICAL EXAMINATION: VITAL SIGNS: Temperature 97.7, pulse of 85, blood pressure 102/51, respiratory rate of 18, and O2 saturation 97% on 2 liters. HEENT: Head is atraumatic and normocephalic. NECK: Supple. CHEST: Reduced air entry. No wheezing. No crackles. HEART: S1 and S2 audible. ABDOMEN: Soft and nontender. EXTREMITIES: No clubbing, cyanosis, or edema. NEUROLOGIC: Awake and alert. LABORATORY DATA: Sodium 139, potassium 3.2, chloride 101, BUN 9, and creatinine 1.0. BNP 108.3. Lactic acid is high. Chest x-ray, I reviewed the images showing the patient has a history of CABG with wires and showing a scarring in the right lower lobe area, but no focal infiltrates. ASSESSMENT: Ms. Devi is a 53-year-old female with shortness of breath and cough. Chest x-ray is not showing any focal infiltrate. Lactic acid is high. I am unsure if the patient is septic or the lactic acid is due to the albuterol use, which can happen in rare cases. PLAN: 1. I will empirically start the patient on IV Rocephin as well along with azithromycin. Agree with CT of the chest without contrast. 2. We will discontinue the albuterol nebulizer and start the patient on Xopenex nebs. I will also reduce the dose of steroids. Thank you for this consult. MD AJAY Erwin/CAMILLA /[id number]
--- NOTE | 2018-10-21 21:30 | Diagnostic Imaging Report ---
CT CHEST WITHOUT CONTRAST HISTORY: pneumonia COMPARISON: Chest radiograph October 21, 2018. TECHNIQUE: CT scan of the chest WITHOUT intravenous contrast, using standard protocol. The chest was scanned utilizing a multidetector helical scanner from the apex to the level of the adrenal glands. Coronal and sagittal reformats are provided. IV CONTRAST: None, which limits evaluation of the vascular structures, mediastinum and soft tissues. RADIATION DOSE: Total DLP: 477.4 mGy*cm Dose modulation, iterative reconstruction, and/or weight based adjustment of the mA/kV was utilized to reduce the radiation dose to as low as reasonably achievable. COMPLICATIONS: None FINDINGS: Lines/tubes: None. Lungs and Airways: Low lung volumes result in bibasilar vascular crowding, accentuation of the pulmonary interstitial markings, central pulmonary vasculature, and the cardiac silhouette. Allowing for these limitations, the findings are as follows: Right basilar predominance atelectasis versus scarring. No consolidative pneumonia or pulmonary edema. Pleura: No effusion or pneumothorax. Heart and mediastinum: The thyroid gland is normal. The heart and pericardium are within normal limits. Mild enlargement of the central pulmonary arteries. Abdomen: Limited nonenhanced views of the upper abdomen. Cholecystectomy clips. Lymph nodes: No pathologically enlarged lymph node. Vessels: A few scattered atherosclerotic calcifications. Bones: No acute osseous lesion identified. Multiple median sternotomy wires. Soft tissues: Otherwise, unremarkable. IMPRESSION: 1. Mild right greater than left bibasilar atelectasis versus scarring. 2. No consolidative pneumonia. Signed by: Dr. Mj Roman D.O., M.M.M. on 10/21/2018 9:27 PM
[2018-10-21] MEDS: METHYLPREDNISOLONE SOD SUCC 40 MG/ML VIAL 1ML IV SCH (22:00)
[2018-10-22] VITALS (8 sets, daily range): BP systolic 91–114; BP diastolic 50–63
--- NOTE | 2018-10-22 00:05 | History and Physical ---
PRIMARY CARE PHYSICIAN: Faith Zuniga DO SENIOR COMMUNICATIONS SPECIALIST: Frankie Durham MD CHIEF COMPLAINT: Dizziness, fever, cough, not feeling well. HISTORY OF PRESENT ILLNESS: The patient is a 53-year-old female with baseline pulmonary problem. She also has a history of remote valvular repair. The patient has baseline diabetes, obesity, came into the hospital with 3 days complaint of increasing shortness of breath with wheezing associated with also dizziness and not feeling well, cough, and fever. The patient came into the emergency room evaluation pursue and shown that the patient was tachycardic, heart rate in the 120-110 along with low-grade fever. On top of that, her lactic acid level was 53.6, she is in lactic acidosis. The patient's chest x-ray showed possible pneumonia. The patient is admitted, IV antibiotic initiated. The patient is otherwise stable at this time. PAST MEDICAL HISTORY: Valvular heart repair years ago. Pulmonary infection at that time as well. Diabetes type 2, hypertension, dyslipidemia, reflux, congestive heart failure, asthma, COPD, pulmonary hypertension, and pneumothorax in 2012. PAST SURGICAL HISTORY: Childhood valve disease, status post adult valvular repair. Cholecystectomy. SOCIAL HISTORY: The patient does not smoke or use alcohol. No regular drugs. ALLERGIES: SULFA DRUGS, IODINE, AND LATEX. HOME MEDICATIONS: Aspirin, Lipitor, Tessalon Perles, Symbicort, Bumex, Zyrtec, lisinopril, metformin, Singulair, Zofran, Protonix, potassium, Spiriva, DuoNeb, and Jardiance. PHYSICAL EXAMINATION: VITAL SIGNS: Temperature is 99, blood pressure 110/66, pulse rate 122, respirations 24. GENERAL: The patient is more comfortable. HEENT: Normocephalic, atraumatic. Pupils reactive. Anicteric. NECK: Supple grossly. PULMONARY: Diminished breath sounds with some courses more in the right compared to the left. CARDIOVASCULAR: Tachycardia. ABDOMEN: Soft. EXTREMITIES: No cyanosis or edema. NEUROLOGIC: No gross focal deficit. Moving all extremities. LABORATORY DATA: Sodium is 139, potassium 3.2, chloride 101, bicarb 21, BUN 9, creatinine 1.0, glucose 123. WBC 11, hemoglobin is 13.6, hematocrit 43, platelet is 386. Chest x-ray, possible right upper lobe infiltrate. IMPRESSION: 1. Moderate to severe sepsis associated with tachycardia, low-grade fever, and lactic acidosis. 2. Pneumonia, most likely. 3. Multiple chronic baseline problems. PLAN: Start the patient on antibiotics, home medication, insulin sliding scale coverage. Consultation with Dr. Frankie Durham. CT of the chest. We will monitor the patient closely. Repeat lab work. MD MILLER Watson/CAMILLA /[id number]
[2018-10-22] MEDS: LEVALBUTEROL HCL SOLN NEBU 1.25 MG/3 ML NEB INH SCH ×2 (01:00→06:50)
[2018-10-22] MEDS: METHYLPREDNISOLONE SOD SUCC 40 MG/ML VIAL 1ML IV SCH (05:49)
[2018-10-22 06:26] LABS: BASOPHILS % 0.1 % (0.0-1.0); HEMATOCRIT 33.6 % (34.2-44.1); HEMOGLOBIN 10.6 g/dL (12.0-16.0); LYMPHOCYTES # (AUTO) 1.8 (1.0-3.2); LYMPHOCYTES % 11.6 % (18.0-39.1); MEAN CORPUSCULAR HGB CONC 31.5 g/dL (31-35); MEAN CORPUSCULAR VOLUME 82.6 fL (81-99); MONOCYTES # (AUTO) 0.3 (0.2-0.8); NEUTROPHILS # (AUTO) 13.5 (2.1-6.9); NEUTROPHILS % 85.9 % (38.7-80.0); PLATELET COUNT 272 x10e3/uL (140-360); RED BLOOD COUNT 4.07 x10e6/uL (3.6-5.1); RED CELL DISTRIBUTION WIDTH 16.6 % (11.7-14.4)
[2018-10-22 06:52] LABS: CREATINE KINASE MB 1.3 ng/mL (0-5.0)
--- NOTE | 2018-10-22 07:00 | NUR ---
Shift report given to oncoming nurse regarding patient's status.
[2018-10-22 07:06] LABS: ANION GAP 14.5 mmol/L (8-16); BLOOD UREA NITROGEN 13 mg/dL (7-26); BUN/CREATININE RATIO 18 (6-25); CALCIUM 8.7 mg/dL (8.4-10.2); CARBON DIOXIDE 23 mmol/L (22-29); CHLORIDE 107 mmol/L (98-107); CREATININE, SERUM 0.73 mg/dL (0.57-1.11); EST GLOMERULAR FILTRATION RATE > 60 ML/MIN (60-); GLUCOSE 146 mg/dL (74-118); POTASSIUM 3.5 mmol/L (3.5-5.1); SODIUM 141 mmol/L (136-145)
[2018-10-22] MEDS: FAMOTIDINE 20 MG/2 ML VIAL IV SCH (08:56)
[2018-10-22] MEDS ORDERED: ENOXAPARIN SOD INJ 40 MG/0.4 ML SYR SC SCH (09:00)
[2018-10-22] MEDS: DICYCLOMINE HCL 20 MG TAB PO SCH ×3 (12:00→16:47)
[2018-10-22] MEDS: AZITHROMYCIN 500MG/NS 250 ML 250 ML IV SCH (12:08)
[2018-10-22] MEDS: MORPHINE SULFATE 2 MG/ML SYR 1ML IV PRN (12:17)
--- NOTE | 2018-10-22 14:31 | NUR ---
IMM EXPLAINED TO PT, SIGNED BY PT AND PLACED IN CHART COPY TO PT IN CARE TRANSITIONS FOLDER
[2018-10-22] MEDS ORDERED: METFORMIN HCL 500 MG TAB PO SCH (17:00)
[2018-10-22] MEDS: BUDESONIDE/FORMOTEROL 160/4.5MCG INHALER INH SCH ×2 (17:08→19:00)
--- NOTE | 2018-10-22 19:25 | NUR ---
Patient received asleep in bed with CPAP machine on. No signs of pain or respiratory distress. Responsive to touch. Fall/safety measures implemented. Call light within reach.
[2018-10-22] MEDS: ATORVASTATIN 20 MG TAB PO SCH (20:56)
[2018-10-23] VITALS (8 sets, daily range): BP systolic 95–114; BP diastolic 51–67
[2018-10-23] MEDS: DICYCLOMINE HCL 20 MG TAB PO SCH ×4 (00:19→17:24)
[2018-10-23] MEDS: BUDESONIDE/FORMOTEROL 160/4.5MCG INHALER INH SCH ×2 (06:42→19:20)
--- NOTE | 2018-10-23 07:00 | NUR ---
RCD PT AT BED PT IS ALERT AND ORIENTED PT RESTING ON BED NO SIGNS OF ANY DISTRESS NOTED IV PATENT BY SALINE FLUSH BED LOW AND LOCKED CALL LIGHT IN REACH
--- NOTE | 2018-10-23 07:09 | NUR ---
Patient resting comfortably. Shift report given to oncoming nurse regarding patient's status.
[2018-10-23] MEDS: PANTOPRAZOLE SOD 40 MG TABEC PO SCH (09:00)
[2018-10-23] MEDS: LISINOPRIL 2.5 MG TAB PO SCH (09:00)
[2018-10-23] MEDS: LORATADINE 10 MG TAB PO SCH (09:00)
[2018-10-23] MEDS: ASPIRIN 81 MG CHEW TAB PO SCH (09:00)
[2018-10-23] MEDS ORDERED: PREDNISONE 20 MG TAB PO SCH (09:00)
[2018-10-23] MEDS: MONTELUKAST SODIUM 10 MG TAB PO SCH (09:00)
[2018-10-23] MEDS: JARDIANCE 10 MG PO SCH (09:00)
[2018-10-23] MEDS: AZITHROMYCIN 500MG/NS 250 ML 250 ML IV SCH (13:00)
--- NOTE | 2018-10-23 15:30 | NUR ---
PT C/O CONSTIPATION PAGED DR ROSA TO NOTIFY THAT AND LEFT THE MESSAGE
--- NOTE | 2018-10-23 18:39 | NUR ---
PT RESTING ON BED BED SIDE REPORT GIVEN TO ONCOMING NURSE
--- NOTE | 2018-10-23 19:15 | NUR ---
Patient received lying in bed. AAO x 3. No complaints of pain. No signs of respiratory distress. Bed low and in lowest position. Bed rails up x 2. Call light within reach.
[2018-10-23] MEDS: ATORVASTATIN 20 MG TAB PO SCH (20:51)
[2018-10-24] VITALS (8 sets, daily range): BP systolic 88–117; BP diastolic 44–74
[2018-10-24] MEDS: DICYCLOMINE HCL 20 MG TAB PO SCH ×4 (00:13→17:22)
--- NOTE | 2018-10-24 07:00 | NUR ---
received am report from nurse, morning rounds done. pt is sleeping, no s/s of distress. call light within reach, side rails up. daughter is at the bedside.
--- NOTE | 2018-10-24 07:00 | NUR ---
Walking rounds done. Report given to oncoming nurse.
[2018-10-24] MEDS: BUDESONIDE/FORMOTEROL 160/4.5MCG INHALER INH SCH ×2 (07:15→19:25)
[2018-10-24] MEDS: LISINOPRIL 2.5 MG TAB PO SCH (07:59)
[2018-10-24] MEDS ORDERED: PREDNISONE 20 MG TAB PO SCH (09:00)
[2018-10-24] MEDS: JARDIANCE 10 MG PO SCH (09:00)
[2018-10-24] MEDS: LORATADINE 10 MG TAB PO SCH (09:20)
[2018-10-24] MEDS: ASPIRIN 81 MG CHEW TAB PO SCH (09:20)
[2018-10-24] MEDS: PANTOPRAZOLE SOD 40 MG TABEC PO SCH (09:21)
[2018-10-24] MEDS: PREDNISONE 10 MG TAB PO SCH (09:21)
[2018-10-24] MEDS: MONTELUKAST SODIUM 10 MG TAB PO SCH (09:21)
[2018-10-24 09:53] LABS: ANION GAP 14.1 mmol/L (8-16); BLOOD UREA NITROGEN 11 mg/dL (7-26); BUN/CREATININE RATIO 15 (6-25); CALCIUM 9.3 mg/dL (8.4-10.2); CARBON DIOXIDE 23 mmol/L (22-29); CHLORIDE 104 mmol/L (98-107); CREATININE, SERUM 0.74 mg/dL (0.57-1.11); EST GLOMERULAR FILTRATION RATE > 60 ML/MIN (60-); GLUCOSE 133 mg/dL (74-118); POTASSIUM 3.1 mmol/L (3.5-5.1); SODIUM 138 mmol/L (136-145)
--- NOTE | 2018-10-24 11:24 | NUR ---
EDUCATED ABOUT IMM, SIGNED, FILED IN CHART, WITH COPY LEFT WITH FAMILY AT BEDSIDE.
--- NOTE | 2018-10-24 13:01 | NUR ---
Received order for shower chair. Spoke to pt at bedside. She states that her insurance has previously told her to use [facility]. Signed choice letter placed in chart. Copy to pt. CM left business card with pt for any questions/concerns. Referral was faxed to [facility]. Yifan, liaison, was notified.
[2018-10-24 13:14] LABS: LYMPHOCYTES % (MANUAL) 37 % (19-48); MONOCYTES % (MANUAL) 12 % (3.4-9.0); NEUTROPHILS % (MANUAL) 51 % (40-74); POLYCHROMASIA FEW
[2018-10-24 13:15] LABS: RBC MORPHOLOGY COMMENT ABNORMAL
[2018-10-24 13:16] LABS: BASOPHILS # (AUTO) 0.1 (0.0-0.1); BASOPHILS % 0.5 % (0.0-1.0); EOSINOPHILS # (AUTO) 0.1 (0.0-0.4); EOSINOPHILS % 0.7 % (0.0-6.0); HEMATOCRIT 40.5 % (34.2-44.1); HEMOGLOBIN 12.4 g/dL (12.0-16.0); LYMPHOCYTES # (AUTO) 5.3 (1.0-3.2); LYMPHOCYTES % 49.1 % (18.0-39.1); MEAN CORPUSCULAR HEMOGLOBIN 26.3 pg (28-32); MEAN CORPUSCULAR HGB CONC 30.6 g/dL (31-35); MEAN CORPUSCULAR VOLUME 85.8 fL (81-99); MONOCYTES # (AUTO) 0.8 (0.2-0.8); MONOCYTES % 7.1 % (4.4-11.3); NEUTROPHILS # (AUTO) 4.5 (2.1-6.9); NEUTROPHILS % 42.3 % (38.7-80.0); PLATELET COUNT 294 x10e3/uL (140-360); RED BLOOD COUNT 4.72 x10e6/uL (3.6-5.1); RED CELL DISTRIBUTION WIDTH 17.1 % (11.7-14.4)
[2018-10-24 13:20] LABS: POIKILOCYTOSIS SLIGHT
[2018-10-24 13:21] LABS: ANISOCYTOSIS SLIGHT; PLATELET ESTIMATE ADEQUATE; PLATELET MORPHOLOGY COMMENT NORMAL
[2018-10-24] MEDS ORDERED: ONDANSETRON HCL 4 MG ORAL DISINTEGRATING TAB PO PRN (17:15)
--- NOTE | 2018-10-24 19:32 | NUR ---
Patient received in recliner chair. AAO x 3. No acute distress noted. Call light with reach.
[2018-10-24] MEDS: ATORVASTATIN 20 MG TAB PO SCH (21:30)
[2018-10-25] MEDS: DICYCLOMINE HCL 20 MG TAB PO SCH ×3 (00:19→12:11)
[2018-10-25 00:31] VITALS: BP 114/56
[2018-10-25 05:40] VITALS: BP 118/59
[2018-10-25] MEDS: BUDESONIDE/FORMOTEROL 160/4.5MCG INHALER INH SCH (06:52)
--- NOTE | 2018-10-25 07:15 | NUR ---
Walking rounds done. Shift report given to oncoming nurse.
[2018-10-25 07:45] VITALS: BP 109/64
[2018-10-25] MEDS: JARDIANCE 10 MG PO SCH (08:27)
[2018-10-25] MEDS: PREDNISONE 10 MG TAB PO SCH (08:41)
[2018-10-25] MEDS: PANTOPRAZOLE SOD 40 MG TABEC PO SCH (08:41)
[2018-10-25] MEDS: MONTELUKAST SODIUM 10 MG TAB PO SCH (08:41)
[2018-10-25] MEDS: ASPIRIN 81 MG CHEW TAB PO SCH (08:41)
[2018-10-25] MEDS: LORATADINE 10 MG TAB PO SCH (08:41)
[2018-10-25] MEDS ORDERED: POTASSIUM CHLORIDE 10MEQ EA PO ONE (10:00)
--- NOTE | 2018-10-25 13:33 | Discharge Summary ---
PRIMARY CARE PHYSICIAN: Faith Zuniga DO HARDBOARD GRINDER: Frankie Durham MD FINAL DIAGNOSES: 1. Community-acquired pneumonia. 2. Acute exacerbation of chronic obstructive pulmonary disease. 3. Pulmonary hypertension baseline due to chronic obstructive pulmonary disease, obesity, sleep apnea. 4. Left atrial enlargement, trace mitral regurgitation on echocardiogram with ejection fraction of 60%. SUMMARY: A 53 years old female, came in with acute exacerbation of COPD, wheezing, hoarseness, shortness of breath, hypoxic. The patient was placed on steroids. She was quite insane due to steroids, but she has tolerated well. Steroid has now titrated. The patient doing much better. Electrolyte disorder corrected. CT scan showed no obvious consolidation but does have some bibasilar atelectasis. The patient does require CPAP. She is much better now. She does have baseline obstructive sleep apnea. Echocardiogram showed possible pulmonary hypertension. The patient does have mess cook and billing services manager as an outpatient. At this time, she is stable. Her COPD exacerbation resolved. Her community-acquired pneumonia is resolving. The patient is stable. Discharged home with Medrol Dosepak and doxycycline monohydrate. Because her blood pressure is low, we will hold off the lisinopril but resume all her other home medication. Discussed with the patient at length. Follow up closely. MD MILLER Watson/EVANL /[id number]
== END 2018-10-25 12:13 | disposition home or self-care (01) | DRG 871 ==
LOC: ER 09:53 → ERHOLD 12:19 → MED/SURG2 14:49 → OBSVTOIN 16:13
PROVIDERS: ADMIT Internal Medicine; ATTEND Internal Medicine
DX: A41.9 Sepsis, unspecified organism (principal); J18.9 Pneumonia, unspecified organism; J44.0 Chronic obstructive pulmonary disease with (acute) lower respiratory infection; E87.2 Acidosis; J44.1 Chronic obstructive pulmonary disease with (acute) exacerbation; I27.20 Pulmonary hypertension, unspecified; I51.7 Cardiomegaly; I34.0 Nonrheumatic mitral (valve) insufficiency; G47.33 Obstructive sleep apnea (adult) (pediatric); E87.8 Other disorders of electrolyte and fluid balance, not elsewhere classified; I25.10 Atherosclerotic heart disease of native coronary artery without angina pectoris; Z95.1 Presence of aortocoronary bypass graft; I11.0 Hypertensive heart disease with heart failure; I50.9 Heart failure, unspecified
CPT/HCPCS: 36415; 71045; 71250; 80048; 80053; 82550; 82553; 82948; 83605; 83880; 84484; 85025; 85379; 87040; 90732; 93005; 93306; 94640; 94660; 94664; 99285; J0456; J1650; J2270; J2920; J7050; J7512

== ENCOUNTER → 2018-10-21 | Emergency (ER) | payer MEDICARE ==
[~2018-10-21] MED LIST: ALBUTEROL SULF 0.083% NEB SOLN 3 ML NEB NEB STA; ASPIR 8181 MG PO; ATORVASTATIN CA20 MG PO; BENZONATATE100 MG PO; BUMETANIDE1 MG PO; CETIRIZINE HCL10 MG PO; DICYCLOMINE HCL20 MG PO; FAMOTIDINE 20 MG/2 ML VIAL IV ONE; IPRATROPIUM BROMIDE 0.02% 2.5 ML NEB NEB STA; KETOROLAC TROMETHAMINE 30 MG/ML VIAL IV ONE; LISINOPRIL2.5 MG PO; METFORMIN HCL500 MG PO; METHYLPREDNISOLONE SOD SUCC 125 MG/2ML VIAL IV ONE; MONTELUKAST SOD10 MG PO; MORPHINE SULFATE INJ 4 MG/ML INJ 1ML IV ONE; PANTOPRAZOLE SO40 MG PO; POTASSIUM CHLO10 ME1 PO; PROMETHAZINE 12.5MG/ NACL 0.9% 12.5 MG/50 ML BAG IV ONE; SODIUM CHLORIDE 0.9% 1000ML 1,000 ML IV SCH; SODIUM CHLORIDE 0.9% 1000ML 1,000 ML IV STA; SPIRIVA18 MCG INH; SYMBICORT 16010.2 GM INH; ZOFRAN4 MG PO; duoneb INH; jardiance PO
--- OUTSIDE RECORDS SUMMARY | 2018-10-21 10:02 | XMS REPORT | Continuity of Care Document ---
Author Author [employer] Address Unknown Phone Unavailable Care Team Providers Care Hat Designer Name Role Phone [employer] Unavailable Unavailable Problems Problem Status Onset Date Classification Date Reported Comments Source Morbid obesity with BMI of 45.0-49.9, adult Active 11/13/2016 Problem 12/13/2017 [facility] Asthma, severe persistent Active 11/13/2016 Problem 12/13/2017 [facility] STEPHEN on CPAP Active 11/13/2016 Problem 12/13/2017 [facility] Controlled type 2 diabetes mellitus without complication, without long-term current use of insulin Active 11/13/2016 Problem 12/13/2017 [facility] Diverticulosis of large intestine without hemorrhage Active 01/23/2016 Problem 11/30/2017 [facility] Diverticulosis of large intestine without hemorrhage Active 01/23/2016 Problem 12/13/2017 [facility] H. 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 Active 08/15/2012 Problem 12/13/2017 [facility] Pulmonary hypertension Active 08/15/2012 Problem 12/13/2017 [facility] CHF Active 08/14/2012 Problem 12/13/2017 [facility] Cardiomyopathy Active 05/27/2012 Problem 12/13/2017 [facility] S/P laparoscopic cholecystectomy Active 10/05/2008 Problem 12/13/2017 [facility] Bronchopulmonary aspergillosis Active Problem 12/13/2017 [facility] Other cirrhosis of liver Active Problem [...] Orally every 12 hrs PRN David 06/20/2018 [facility] Dicyclomine HCl not defined Oral Active 10 MG Oral [place] 06/17/2018 [facility] PredniSONE TK 2 T PO DAILY Oral Active 20 MG Oral David 06/17/[address] [facility] Keflex 1 capsule Orally Active 500 mg Orally every 12 hrs [place] 06/01/[address] [facility] Medrol (Ruy) as directed Orally Active 4 mg Orally as directed [place] 04/19/[address] [facility] Benzonatate 1 capsule Orally Active 200 MG Orally Q8 PRN [place] 04/19/[address] [facility] Diflucan 1 tablet Orally Active 150 MG Orally [place] 03/25/[address] [facility] Macrobid 1 capsule with food Orally Active 100 mg Orally every 12 hrs [place] 03/22/[address] [facility] Ondansetron 1 tablet on the tongue and allow to dissolve Orally Active 8 MG Orally every 8 hrs PRN Gladf 03/16/[address] [facility] Fluticasone Propionate 2 spray in each nostril Nasally Active 50 MCG/ACT Nasally Once a day 12/29/[address] [facility] Metformin 500 Mg Tablet Take 1 tablet by mouth 2 times daily (with meals) Please see PCP for further refills. Oral Active 11/09/2017 [facility] Accu-Chek SmartView as directed In Vitro Active - In Vitro use TID dx: E11.65 10/27/[address] [facility] Accu-Chek FastClix Lancets DRUM in vitro Active - in vitro use tid dx: E11.65 10/27/[address] [facility] Accu-Chek Julia SmartView as directed in vitro Active w/Device in vitro use TID dx: E11.65 10/27/[address] [facility] Novofine 31 as directed SQ, E11.2 Active 31G X 6 MM SQ, E11.2 three times a day (tid) df10/20/[address] [facility] NovoLog Flexpen up to 12 units( per sliding scale), max 36 units a day Subcutaneous Active 100 UNIT/ML Subcutaneous three times a day (tid) Gladf 10/19/[address] [facility] Lisinopril 1 tablet by mouth Active 5 MG by mouth Once a day [place] 09/23/[address] [facility] Jardiance 1 tablet Orally Active 10 mg Orally Once a day David 09/23/[address] [facility] Lisinopril 1 tablet Orally Active 2.5 MG Orally Once a day David 09/23/[address] [facility] Digox 125 McG Tablet TAKE 1 TABLET BY MOUTH EVERY DAY FOR HEART Active 09/22/2017 [facility] Amoxicillin 875 Mg-Potassium Clavulanate 125 Mg Tablet Augmentin 875 Mg-125 Mg Tablet Take 1 tablet by mouth 2 times daily for 10 days. Oral No Longer Active 05/28/2017 [facility] Cetirizine 10 Mg Tablet Zyrtec 10 Mg Tablet Take 1 tablet by mouth daily. Oral Active 05/28/2017 [facility] Fluticasone 50 McG/Actuation Nasal [place],Suspension Use 1 [place] in each nostril daily. Active 05/28/2017 [facility] Benzonatate 100 Mg Capsule Tessalon Perles 100 Mg Capsule Take 2 capsules by mouth 3 times daily as needed for up to 7 days for Cough. Oral No Longer Active 05/28/2017 [facility] Ofloxacin 0.3 % Eye Drops Ocuflox 0.3 % Eye Drops Instill 5 drops to each ear daily for 10 days. Ok for pharmacist to dispense eye solution for ear treatment.. Active 05/28/2017 [facility] methylPREDNISolone sodium succinate (SOLU-MEDROL) injection 80 mg IV Push Inactive 05/12/2017 [facility] Albuterol Sulfate 2.5 Mg/3 Ml (0.083 %) Solution For Nebulization Inhalation Inactive 05/12/2017 [facility] Albuterol Sulfate Hfa 90 McG/Actuation Aerosol Inhaler Inhale 2 Puffs by mouth 4 times daily as needed for Wheezing or Shortness of Breath. Inhalation Active 05/12/2017 [facility] Codeine 10 Mg-Guaifenesin 100 Mg/5 Ml Oral Liquid Cheratussin Ac 10 Mg-100 Mg/5 Ml Oral Liquid Take 5 mL by mouth 3 times daily as needed for Cough. Oral Active 05/12/2017 [facility] Montelukast 10 Mg Tablet Singulair 10 Mg Tablet Take 1 tablet by mouth at bedtime nightly. Oral Active 05/12/2017 [facility] Levofloxacin 500 Mg Tablet Levaquin 500 Mg Tablet Take 1 tablet by mouth daily for 10 days. Oral No Longer Active 05/12/2017 [facility] Metformin 500 Mg Tablet TAKE 1 TABLET BY MOUTH TWICE DAILY Active 04/23/2017 [facility] Montelukast 10 Mg Tablet TAKE 1 TABLET BY MOUTH EVERY DAY Active 03/26/2017 [facility] Miscellaneous Medical Supply Misc by [facility].(Non-Drug; Combo Route) route Hospital bed. No Longer Active 02/26/2017 [facility] Furosemide 20 Mg Tablet TAKE 2 TABLETS BY MOUTH DAILY Oral Active 02/24/2017 [facility] Albuterol Sulfate Hfa 90 McG/Actuation Aerosol Inhaler Inhale 2 Puffs by mouth 4 times daily as needed for Wheezing. Inhalation Active 02/23/2017 [facility] Amoxicillin 500 Mg-Potassium Clavulanate 125 Mg Tablet Augmentin 500 Mg-125 Mg Tablet Take 1 tablet by mouth 3 times daily for 10 days. Oral No Longer Active 02/23/2017 [facility] Potassium Chloride Er 10 Meq Tablet,Extended Release(Part/Cryst) Klor-Con M10 Meq Tablet,Extended Release Take 1 tablet by mouth daily. Oral Active 02/23/2017 [facility] Furosemide 20 Mg Tablet Lasix 20 Mg Tablet Take 2 tablets by mouth daily. Oral No Longer Active 01/25/2017 [facility] Clotrimazole 1 % Topical Cream Apply to affected area 2 times daily. Topical Inactive 12/31/2016 [facility] Atorvastatin 40 Mg Tablet Lipitor 40 Mg Tablet Take tablet (20mg) by mouth at bedtime nightly. Oral Inactive 12/31/2016 [facility] Furosemide 20 Mg Tablet Lasix 20 Mg Tablet Take 2 tablets by mouth daily. Oral No Longer Active 12/31/2016 [facility] Metformin 500 Mg Tablet Glucophage 500 Mg Tablet Take 1 tablet by mouth 2 times daily (with meals) For diabetes. Oral No Longer Active 11/23/2016 [facility] Furosemide 20 Mg Tablet Lasix 20 Mg Tablet Take 1 tablet by mouth daily. Oral No Longer Active 11/23/2016 [facility] Digoxin 125 McG Tablet Lanoxin 125 McG Tablet Take 1 tablet by mouth daily For heart. Oral No Longer Active 11/23/2016 [facility] Montelukast 10 Mg Tablet Take 1 tablet by mouth daily (autosubstitute from accolate). Oral No Longer Active 11/23/2016 [facility] Advair Diskus 500 McG-50 McG/Dose Powder For Inhalation Inhale 1 Puff by mouth 2 times daily. Inhalation Active 11/23/2016 [facility] Lancets by MISCELLANEOUS route 2 times weekly USE TO CHECK BLOOD SUGARS. Active 11/23/2016 [facility] Blood Sugar Diagnostic Strips Precision Xtra Test Strips use 2 times weekly USE TO CHECK BLOOD SUGARS. Active 11/23/2016 [facility] Tramadol 50 Mg Tablet Ultram 50 Mg Tablet Take 1 tablet by mouth every 8 hours as needed for Pain (MAY CAUSE DROWSINESS). Oral Active 11/23/2016 [facility] Ipratropium [place] 0.02 % Solution For Inhalation Inhalation Inactive 11/13/2016 [facility] methylPREDNISolone sodium succinate (SOLU-MEDROL) injection 125 mg Intramuscular Inactive 11/13/2016 [facility] Albuterol Sulfate 2.5 Mg/3 Ml (0.083 %) Solution For Nebulization Inhalation Inactive 11/13/2016 [facility] Prednisone 20 Mg Tablet One tablet twice daily ( 8 am and 3 pm) x 5 days, then one tablet daily x 5 days. No Longer Active 11/13/2016 [facility] Albuterol Sulfate 2.5 Mg/3 Ml (0.083 %) Solution For Nebulization Inhalation Inactive 10/29/2016 [facility] Prednisone 50 Mg Tablet Take 1 tablet by mouth daily. Oral No Longer Active 10/29/2016 [facility] Benzonatate 100 Mg Capsule Tessalon Perles 100 Mg Capsule Take 1 capsule by mouth 3 times daily as needed for Cough. Oral No Longer Active 10/29/2016 [facility] Miscellaneous Medical Supply Misc by [facility].(Non-Drug; Combo Route) route Sleep studyDx. Obstructive sleep apnea. No Longer Active 10/29/2016 [facility] Ketorolac 30 Mg/Ml (1 Ml) Injection Solution Intramuscular Inactive 10/23/2016 [facility] Tramadol 50 Mg Tablet Ultram 50 Mg Tablet Take 1 tablet by mouth every 8 hours as needed for Pain (MAY CAUSE DROWSINESS). Oral No Longer Active 10/23/2016 [facility] triamcinolone acetonide (KENALOG-40) injection 80 mg Intramuscular Inactive 10/01/2016 [facility] Ketorolac 60 Mg/2 Ml Intramuscular Solution Intramuscular Inactive 10/01/2016 [facility] Nebulizer And Compressor 1 Device by [facility].(Non-Drug; Combo Route) route 4 times daily. Active 10/01/2016 [facility] Albuterol Sulfate 2.5 Mg/3 Ml (0.083 %) Solution For Nebulization Inhale 3 mL by mouth every 4 hours as needed for Wheezing or Shortness of Breath. Inhalation Active 10/01/2016 [facility] Triamcinolone Acetonide 0.1 % Topical Cream Triderm 0.1 % Topical Cream Apply to affected area 2 times daily. Topical Active 08/27/2016 [facility] Fluconazole 150 Mg Tablet Diflucan 150 Mg Tablet 1 tab po weekly x 3 weeks. No Longer Active 08/27/2016 [facility] Pantoprazole 40 Mg Tablet,Delayed Release Protonix 40 Mg Tablet,Delayed Release Take 1 tablet by mouth daily. Oral Active 07/31/2016 [facility] Blood Sugar Diagnostic Strips Precision Xtra Test Strips use 2 times weekly USE TO CHECK BLOOD SUGARS. No Longer Active 07/30/2016 [facility] Lancets by MISCELLANEOUS route 2 times weekly USE TO CHECK BLOOD SUGARS. No Longer Active 07/30/2016 [facility] Metformin 500 Mg Tablet Glucophage 500 Mg Tablet Take 1 tablet by mouth 2 times daily (with meals) For diabetes. Oral No Longer Active 07/30/2016 [facility] Furosemide 20 Mg Tablet Lasix 20 Mg Tablet Take 1 tablet by mouth daily. Oral No Longer Active 07/30/2016 [facility] Digoxin 125 McG Tablet Lanoxin 125 McG Tablet Take 1 tablet by mouth daily For heart. Oral No Longer Active 07/30/2016 [facility] Montelukast 10 Mg Tablet Take 1 tablet by mouth daily (autosubstitute from accolate). Oral No Longer Active 07/30/2016 [facility] Albuterol Sulfate Hfa 90 McG/Actuation Aerosol Inhaler Inhale 2 Puffs by mouth 4 times daily as needed for Wheezing. Inhalation No Longer Active 07/30/2016 [facility] Advair Diskus 500 McG-50 McG/Dose Powder For Inhalation Inhale 1 Puff by mouth 2 times daily. Inhalation No Longer Active 07/30/2016 [facility] Ipratropium [place] 0.02 % Solution For Inhalation Inhale 2.5 mL by mouth 4 times daily. Inhalation Active 07/30/2016 [facility] Benzonatate 100 Mg Capsule Tessalon Perles 100 Mg Capsule Take 1 capsule by mouth 3 times daily as needed for Cough. Oral No Longer Active 07/20/2016 [facility] Azelastine 0.05 % Eye Drops Instill 1 Drop in each eye 2 times daily. No Longer Active 10/28/2015 [facility] Blood-Glucose Meter Precision Xtra Glucometer Use as directed.. No Longer Active 06/10/2015 [facility] Lancets 28 Gauge 2 times weekly. No Longer Active 06/10/2015 [facility] Nebulizer And Compressor 1 Device by [facility].(Non-Drug; Combo Route) route 4 times daily NEEDING NEBULIZER DEVICE FOR REFRACTORY ASTHMA AND EXACERBATION. No Longer Active 04/25/2015 [facility] Polyethylene Glycol 17 grams by mouth Active 1000 by mouth as needed (prn) Trista [facility] Aspirin 1 tablet Orally Active 81 MG Orally [facility] Furosemide 2 tablets po qd NA Active 20 [facility] Atorvastatin Calcium tk 1/2 t po qhs Oral Active 40 mg Oral daily [facility] Potassium Chloride [place] [facility] 3 tabs by mouth Active 20 MEQ by mouth Once a day [facility] Cetirizine HCl tk 1 t po qd Oral Active 10 mg Oral [facility] Montelukast Sodium 1 tablet Oral Active 10 mg Oral once a day [facility] Spiriva HandiHaler 1 capsule Inhalation Active 18 MCG Inhalation Once a day [facility] Ventolin HFA INHALE 2 PUFFS PO QID PRN FOR WHEEZING OR SOB Inhalation Active 108 (90 Base) MCG/ACT Inhalation [facility] Metolazone not defined Oral Active 5 MG Oral David [facility] Metformin HCl 2 tablets Oral Active 500 mg Oral bid with meals Trista [facility] Albuterol Sulfate 3 ml as needed Inhalation Active (2.5 MG/3ML) 0.083% Inhalation Three times a day [facility] Pantoprazole Sodium 1 tablet orally Active 40 mg orally twice a day (bid) Nathenpatt [facility] Nasonex 2 sprays in each nostril Nasally Active 50 MCG/ACT Nasally Once a day David [facility] Furosemide TK 2 TS PO QD Oral Active 20 MG Oral David [facility] Montelukast Sodium TK 1 T PO QD Oral Active 10 MG Oral Jacob [facility] Ondansetron 1 tablet on the tongue and allow to dissolve as needed Orally Active 4 mg Orally three times a day (tid) Jacob [facility] Potassium Chloride [place] TK 2 TS PO D Oral Active 20 MEQ Oral David [facility] Jardiance 1 tablet Orally Active 10 Orally Once a day Trista [facility] Bumetanide as directed Orally Active 1 MG Orally Trista [facility] PredniSONE 1 tablet Orally Active 10 MG Orally Once a day Trista [facility] Ceftin 1 tablet Orally Active 250 MG Orally every [address] [facility] Allergies, Adverse Reactions, Alerts Substance Category Reaction Severity Reaction type Status Date Reported Comments Source Latex Rash Propensity to adverse reactions to drug Active 10/03/2008 [facility] Sulfa (Sulfonamide Antibiotics) Rash Propensity to adverse reactions to drug Active 10/03/2008 [facility] Iodine Adverse Reaction anaphylaxis Adverse Reaction Active 10/03/[address] [facility] cipro Adverse Reaction rash Adverse Reaction Active 10/03/[address] [facility] sulfa Adverse Reaction rash Adverse Reaction Active 10/03/[address] [facility] Immunizations Immunization Date Given Site Status Last Updated Comments Source Influenza, Seasonal, Injectable 05/28/2017 Not Given Deferred: Other - cold symptoms [facility] Influenza Vaccine, Seasonal, Injectable 01/25/2017 Not Given Deferred: Patient already had this immunization [facility] TDap (Tetanus Toxoid, Reduced Diphtheria Toxoid And Acellular Pertussis, Absorbed) 11/23/2016 completed [facility] PNEUMOCOCCAL 23-VALPS VACCINE 25 MCG/0.5 ML INJECTION 07/20/2016 Not Given Deferred: Patient Refused [facility] Influenza Vaccine 05/15/2015 Not Given Deferred: Other - Patient ill in clinic [facility] Pneumococcal 7-valent conj 0.5 mL injection 08/16/2011 completed [facility] Hepatitis B Vaccine 07/21/2011 completed [facility] Results Order Name Results Value Reference Range Date Interpretation Comments Source Activated partial thromboplastin time (aPTT) in platelet poor plasma bycoagulation assay Activated partial thromboplastin time (aPTT) in platelet poor plasma bycoagulation assay 33.5 23.8 - 35.5 09/20/2017 [facility] Automated blood basophil count (count/volume) Automated blood basophil count (count/volume) 0.1 0.0 - 0.1 09/20/2017 [facility] Automated blood basophil count as percentage of total leukocytes Automated blood basophil count as percentage of total leukocytes 0.6 0.0 - 1.0 09/20/2017 [facility] Automated blood eosinophil count Automated blood eosinophil count 0.1 0.0 - 0.4 09/20/2017 [facility] Automated blood eosinophil count as percentage of total leukocytes Automated blood eosinophil count as percentage of total leukocytes 1.0 0.0 - 6.0 09/20/2017 [facility] Automated blood hematocrit (volume fraction) Automated blood hematocrit (volume fraction) 42.7 34.2 - 44.1 09/20/2017 [facility] Automated blood lymphocyte count as percentage ot total leukocytes Automated blood lymphocyte count as percentage ot total leukocytes 44.5 18.0 - 39.1 09/20/2017 [facility] Automated blood monocyte count as percentage of total leukocytes Automated blood monocyte count as percentage of total leukocytes 7.8 4.4 - 11.3 09/20/2017 [facility] Automated blood neutrophil count Automated blood neutrophil count 5.3 2.1 - 6.9 09/20/2017 [facility] Automated blood platelet count (count/volume) Automated blood platelet count (count/volume) 332 140 - 360 09/20/2017 [facility] Automated blood segmented neutrophil count as percentage of total leukocytes Automated blood segmented neutrophil count as percentage of total leukocytes 45.8 38.7 - 80.0 09/20/2017 [facility] Automated erythrocyte mean corpuscular hemoglobin (mass per erythrocyte) Automated erythrocyte mean corpuscular hemoglobin (mass per erythrocyte) 26.7 28 - 32 09/20/2017 [facility] Automated erythrocyte mean corpuscular hemoglobin concentration measurement (mass/volume) Automated erythrocyte mean corpuscular hemoglobin concentration measurement (mass/volume) 31.9 31 - 35 09/20/2017 [facility] Automated erythrocyte mean corpuscular volume Automated erythrocyte mean corpuscular volume 83.7 81 - 99 09/20/2017 [facility] Blood anisocytosis detection by light microscopy Blood anisocytosis detection by light microscopy SLIGHT 09/20/2017 [facility] Blood erythrocytes automated count (number/volume) Blood erythrocytes automated count (number/volume) 5.10 3.6 - 5.1 09/20/2017 [facility] Blood hemoglobin measurement (moles/volume) Blood hemoglobin measurement (moles/volume) 13.6 12.0 - 16.0 09/20/2017 [facility] Blood leukocytes automated count (number/volume) Blood leukocytes automated count (number/volume) 11.44 4.8 - 10.8 09/20/2017 [facility] Blood lymphocytes count (number/volume) Blood lymphocytes count (number/volume) 5.1 1.0 - 3.2 09/20/2017 [facility] Blood lymphocytes variant count (number/volume) Blood lymphocytes variant count (number/volume) 4 09/20/2017 [facility] Blood monocytes automated count (number/volume) Blood monocytes automated count (number/volume) 0.9 0.2 - 0.8 09/20/2017 [facility] Blood platelets count by estimate (number/volume) Blood platelets count by estimate (number/volume) ADEQUATE 09/20/2017 [facility] Blood poikilocytosis detection by light microscopy Blood poikilocytosis detection by light microscopy SLIGHT 09/20/2017 [facility] Blood stomatocytes detection by light microscopy Blood stomatocytes detection by light microscopy SLIGHT 09/20/2017 [facility] Estimated glomerular filtration rate (GFR) determination Estimated glomerular filtration rate (GFR) determination >60 60 09/20/2017 [facility] Glucose measurement Glucose measurement 208 74 - 118 09/20/2017 [facility] INR in Platelet poor plasma by Coagulation assay INR in Platelet poor plasma by Coagulation assay 1.02 09/20/2017 [facility] Manual blood eosinophil count as percentage of total leukocytes Manual blood eosinophil count as percentage of total leukocytes 1 0 - 7 09/20/2017 [facility] Manual blood lymphocytes/100 leukocytes Manual blood lymphocytes/100 leukocytes 37 19 - 48 09/20/2017 [facility] Manual blood monocytes/100 leukocytes Manual blood monocytes/100 leukocytes 7 3.4 - 9.0 09/20/2017 [facility] Manual blood neutrophils/100 leukocytes Manual blood neutrophils/100 leukocytes 51 40 - 74 09/20/2017 [facility] Plasma globulin measurement (mass/volume) Plasma globulin measurement (mass/volume) 4.1 2.3 - 3.5 09/20/2017 [facility] [facility] Platelet morphology Platelet morphology NORMAL 09/20/2017 [facility] Prothrombin time (PT) in platelet poor plasma by coagulation assay Prothrombin time (PT) in platelet poor plasma by coagulation assay 12.6 11.9 - 14.5 09/20/2017 [facility] RBC morphology RBC morphology NORMAL 09/20/2017 [facility] Serum or plasma alanine aminotransferase measurement (enzymatic activity/volume) Serum or plasma alanine aminotransferase measurement (enzymatic activity/volume) 72 0 - 55 09/20/2017 [facility] Serum or plasma albumin measurement (mass/volume) Serum or plasma albumin measurement (mass/volume) 3.8 3.5 - 5.0 09/20/2017 [facility] Serum or plasma albumin/globulin mass ratio Serum or plasma albumin/globulin mass ratio 0.9 0.8 - 2.0 09/20/2017 [facility] Serum or plasma alkaline phosphatase measurement (enzymatic activity/volume) Serum or plasma alkaline phosphatase measurement (enzymatic activity/volume) 172 40 - 150 09/20/2017 [facility] Serum or plasma anion gap Serum or plasma anion gap 19.5 8 - 16 09/20/2017 [facility] Serum or plasma calcium measurement (mass/volume) Serum or plasma calcium measurement (mass/volume) 9.5 8.4 - 10.2 09/20/2017 [facility] Serum or plasma carbon dioxide, total measurement (moles/volume) Serum or plasma carbon dioxide, total measurement (moles/volume) 20 22 - 29 09/20/2017 [facility] Serum or plasma chloride measurement (moles/volume) Serum or plasma chloride measurement (moles/volume) 103 98 - 107 09/20/2017 [facility] Serum or plasma creatine kinase MB measurement (mass/volume) Serum or plasma creatine kinase MB measurement (mass/volume) 2.00 0 - 5.0 09/20/2017 [facility] Serum or plasma creatine kinase measurement (enzymatic activity/volume) Serum or plasma creatine kinase measurement (enzymatic activity/volume) 127 29 - 168 09/20/2017 [facility] Serum or plasma creatinine measurement (mass/volume) Serum or plasma creatinine measurement (mass/volume) 0.94 0.57 - 1.11 09/20/2017 [facility] Serum or plasma potassium measurement (moles/volume) Serum or plasma potassium measurement (moles/volume) 3.5 3.5 - 5.1 09/20/2017 [facility] Serum or plasma protein measurement (mass/volume) Serum or plasma protein measurement (mass/volume) 7.9 6.5 - 8.1 09/20/2017 [facility] Serum or plasma sodium measurement (moles/volume) Serum or plasma sodium measurement (moles/volume) 139 136 - 145 09/20/2017 [facility] Serum or plasma total bilirubin measurement (mass/volume) Serum or plasma total bilirubin measurement (mass/volume) 0.7 0.2 - 1.2 09/20/2017 [facility] Serum or plasma urea nitrogen measurement (mass/volume) Serum or plasma urea nitrogen measurement (mass/volume) 12 7 - 26 09/20/2017 [facility] Serum or plasma urea nitrogen/creatinine mass ratio Serum or plasma urea nitrogen/creatinine mass ratio 13 6 - 25 09/20/2017 [facility] Troponin I measurement by highly sensitive enzyme immunoassay Troponin I measurement by highly sensitive enzyme immunoassay 0.006 0 - 0.300 09/20/2017 [facility] Red Cell Distribution Width 15.5 11.7 - 14.4 09/20/2017 [facility] IM GRANULOCYTES % 0.3 0.0 - 1.0 09/20/2017 [facility] Absolute Immature Granulocyte (auto 0.03 0 - 0.1 09/20/2017 [facility] Differential Total Cells Counted 100 09/20/2017 [facility] Aspartate Amino Transf (AST/SGOT) 81 5 - 34 09/20/2017 [facility] B-Type Natriuretic Peptide 48.4 0 - 100 09/20/2017 [facility] DIABETIC FOOT EXAM <p>Loren Gregg NP :14 [...] are normal,left foot appearance is normal. 05/29/2017 [facility] DIABETIC FOOT EXAM <p>Loren Gregg NP [...] are normal,left foot appearance is normal. 05/28/2017 [facility] POC RAPID FLU Rapid Flu A POC Neg Neg 05/12/2017 [facility] POC RAPID FLU Rapid Flu B POC Neg Neg 05/12/2017 [facility] POC RAPID FLU Rapid Flu Con POC Pass Pass 05/12/2017 [facility] POC RAPID FLU Lab Interpretation Normal 05/12/2017 [facility] POC GROUP A STREP SCREEN Group A Strep POC Neg Neg 05/12/2017 [facility] POC GROUP A STREP SCREEN GAS (Contr) Pass Pass 05/12/2017 [facility] POC GROUP A STREP SCREEN Lab Interpretation Normal 05/12/2017 [facility] POC RAPID FLU Rapid Flu A POC Neg Neg 05/12/2017 [facility] POC RAPID FLU Rapid Flu B POC Neg Neg 05/12/2017 [facility] POC RAPID FLU Rapid Flu Con POC Pass Pass 05/12/2017 [facility] POC RAPID FLU Lab Interpretation Normal 05/12/2017 [facility] POC GROUP A STREP SCREEN Group A Strep POC Neg Neg 05/12/2017 [facility] POC GROUP A STREP SCREEN GAS (Contr) Pass Pass 05/12/2017 [facility] POC GROUP A STREP SCREEN Lab Interpretation Normal 05/12/2017 [facility] TREADMILL STRESS-TRACING ONLY Stress Test [facility] Test Date:2017-04-27 Pat Name: NIKKO SULLIVAN Department: : Gender: Female 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 Electronically Signed On 04-27-17 18:18:36 HOT SAW HELPER by Sonu Miller 04/28/2017 [facility] TREADMILL STRESS-TRACING ONLY Stress Test [facility] Test Date:2017-04-27 Pat Name: NIKKO SULLIVAN Department: : Gender: Female Special Services Agent: XANDER :1965 Requested By: Order Number:[place] MD: [...] myocardial ischemia. Electronically Signed On 04-27-17 18:18:36 HOT SAW HELPER by Sonu Miller 04/27/2017 [facility] TTE FOLLOW UP ECHO HEART XTHORACIC,LIMITED Transthoracic Echo Report NIKKO SULLIVAN Age:51 Gender: F :1965 Exam Date: 04/15/2017 10:51 Exam Location: [facility] Echo Ordering Phys: EKERUO AMARILIS A Referring Phys:EKERUO AMARILIS Bryson Reading Phys:Luis M Goodson MD Fellow Phys: Fellow Phys: Waste Treatment Operator: Michelle Barreto Reason For Exam: Indications:dyspnea ICD-9 Codes: Exam Type: TTE FOLLOW UP Procedure CPT:17536 Addtional CPT: Ht (in): 63 BSA: 2.38HR: [...] 22 - 52 cm DOPPLER AV Peak Jcsueggq407 cm/s AV Peak Gradient8.6 mmHg AV Mean Pynuvkov80.3 cm/s AV Mean Gradient4.2 mmHg AV Velocity Time Integral 30.7 cm LVOT Peak Becdihqx486 cm/s LVOT Peak Gradient5.5 mmHg LVOT Mean Vweaajfl97.3 cm/s LVOT Mean Gradient2.9 mmHg LVOT Velocity Time Integral 26.3 cm LVOT Stroke Daisce09.1 cm AV Area Cont Eq vti 2.9 cm AV Area Cont Eq pk2.7 cm Mitral E Point Velocity 94.1 cm/s Mitral A Point Velocity 116 cm/s Mitral E to A Ratio 0.81 MV Deceleration Knott 399 cm/s MV Deceleration Ostj090 ms TR Peak Cnpkywjr813 cm/s TR Peak Jfursurc92.8 mmHg PV Peak Uifjkjxl59.1 cm/s PV Peak Gradient3.9 mmHg PV Mean Mbzlknut02.7 cm/s PV Mean Gradient2.3 mmHg PV Velocity Time Integral 20.6 cm LV E' Lateral Wvkulfnl71.2 cm/s Mitral E to LV E' Lateral [...] 22 - 52 cm DOPPLER AV Peak Fgwzipyc743 cm/s AV Peak Gradient8.6 mmHg AV Mean Yeetgetc65.3 cm/s AV Mean Gradient4.2 mmHg AV Velocity Time Integral 30.7 cm LVOT Peak Xwmrygld885 cm/s LVOT Peak Gradient5.5 mmHg LVOT Mean Yxfhfkxf77.3 cm/s LVOT Mean Gradient2.9 mmHg LVOT Velocity Time Integral 26.3 cm LVOT Stroke Osmati30.1 cm AV Area Cont Eq vti 2.9 cm AV Area Cont Eq pk2.7 cm Mitral E Point Velocity 94.1 cm/s Mitral A Point Velocity 116 cm/s Mitral E to A Ratio 0.81 MV Deceleration Knott 399 cm/s MV Deceleration Qvmu973 ms TR Peak Fxqxyoex792 cm/s TR Peak Nfofzotb04.8 mmHg PV Peak Nygspfre50.1 cm/s PV Peak Gradient3.9 mmHg PV Mean Qnjyiaow75.7 cm/s PV Mean Gradient2.3 mmHg PV Velocity Time Integral 20.6 cm LV E' Lateral Xiparlfm60.2 cm/s Mitral E to LV E' Lateral Ratio 6.6 LV E' Septal Velocity 8.1 cm/s Mitral E to LV E' Septal Ratio11.6 04/15/2017 [facility] TTE FOLLOW UP ECHO HEART XTHORACIC,LIMITED Transthoracic Echo Report NIKKO SULLIVAN Age:51 Gender: F :1965 Exam Date: 04/15/2017 10:51 Exam Location: [facility] Echo Ordering Phys: AMARILIS AGGARWAL Referring Phys:AMARILIS AGGARWAL Reading Phys:Luis M Goodson MD Fellow Phys: Fellow Phys: Waste Treatment Operator: Michelle Barreto Reason For Exam: Indications:dyspnea ICD-9 Codes: Exam Type: TTE FOLLOW UP Procedure CPT:46063 Addtional CPT: Ht (in): 63 BSA: 2.38HR: [...] 22 - 52 cm DOPPLER AV Peak Qwbxeqnb733 cm/s AV Peak Gradient8.6 mmHg AV Mean Egnjnpcz17.3 cm/s AV Mean Gradient4.2 mmHg AV Velocity Time Integral 30.7 cm LVOT Peak Baodxkzh456 cm/s LVOT Peak Gradient5.5 mmHg LVOT Mean Knploqnj83.3 cm/s LVOT Mean Gradient2.9 mmHg LVOT Velocity Time Integral 26.3 cm LVOT Stroke Psrqsd83.1 cm AV Area Cont Eq vti 2.9 cm AV Area Cont Eq pk2.7 cm Mitral E Point Velocity 94.1 cm/s Mitral A Point Velocity 116 cm/s Mitral E to A Ratio 0.81 MV Deceleration Knott 399 cm/s MV Deceleration Zqfb373 ms TR Peak Oadmkuja374 cm/s TR Peak Gqxvwbek21.8 mmHg PV Peak Sapfgtrd25.1 cm/s PV Peak Gradient3.9 mmHg PV Mean Kkspiwrg74.7 cm/s PV Mean Gradient2.3 mmHg PV Velocity Time Integral 20.6 cm LV E' Lateral Xnsqlvyy56.2 cm/s Mitral E to LV E' Lateral [...] 22 - 52 cm DOPPLER AV Peak Txraomyj065 cm/s AV Peak Gradient8.6 mmHg AV Mean Fcjnujdu34.3 cm/s AV Mean Gradient4.2 mmHg AV Velocity Time Integral 30.7 cm LVOT Peak Fvqkbgiy555 cm/s LVOT Peak Gradient5.5 mmHg LVOT Mean Qqvlkxsl91.3 cm/s LVOT Mean Gradient2.9 mmHg LVOT Velocity Time Integral 26.3 cm LVOT Stroke Lgaxny09.1 cm AV Area Cont Eq vti 2.9 cm AV Area Cont Eq pk2.7 cm Mitral E Point Velocity 94.1 cm/s Mitral A Point Velocity 116 cm/s Mitral E to A Ratio 0.81 MV Deceleration Knott 399 cm/s MV Deceleration Rgqi817 ms TR Peak Oookynzo306 cm/s TR Peak Czhuqafa87.8 mmHg PV Peak Npbozlha82.1 cm/s PV Peak Gradient3.9 mmHg PV Mean Frqugrxx57.7 cm/s PV Mean Gradient2.3 mmHg PV Velocity Time Integral 20.6 cm LV E' Lateral Cjwduzcs37.2 cm/s Mitral E to LV E' Lateral Ratio 6.6 LV E' Septal Velocity 8.1 cm/s Mitral E to LV E' Septal Ratio11.6 04/15/2017 [facility] 12 LEAD EKG 12 LEAD EKG FOR [facility] Test Date:2017-04-05 Pat Name: NIKKO SULLIVAN Department: : Gender: FTechnician: [id number] :1965 Requested By: Order Number:[place] CORTÉS: Sonu Miller Measurements IntervalsAxis Rate: 78 P:10 NV: 154QRS:-13 QRSD: 101T:30 QT: 379 QTc:432 Interpretive Statements SINUS RHYTHM LOW QRS VOLTAGE IN PRECORDIAL LEADS [QRS DEFLECTION < 1.0 mV IN CHEST LEADS] POOR R WAVE PROGRESSION NON SPECIFIC T WAVE ABNORMALITY ABNORMAL ECG Electronically Signed On 04-07-17 14:20:19 HOT SAW HELPER by Sonu Miller 04/07/2017 [facility] COMPREHENSIVE METABOLIC PANEL(DBIL NOT INCLUDED) Albumin 3.8 3.4 - 5 04/05/2017 [facility] COMPREHENSIVE METABOLIC PANEL(DBIL NOT INCLUDED) Calcium 9.1 8.5 - 10.2 04/05/2017 [facility] COMPREHENSIVE METABOLIC PANEL(DBIL NOT INCLUDED) CO2 27 21 - 32 04/05/2017 [facility] COMPREHENSIVE METABOLIC PANEL(DBIL NOT INCLUDED) Chloride 104 98 - 107 04/05/2017 [facility] COMPREHENSIVE METABOLIC PANEL(DBIL NOT INCLUDED) Creatinine 0.59 0.6 - 1.3 04/05/2017 [facility] COMPREHENSIVE METABOLIC PANEL(DBIL NOT INCLUDED) Glucose 97 70 - 99 04/05/2017 [facility] COMPREHENSIVE METABOLIC PANEL(DBIL NOT INCLUDED) Alk Phos 162 45 - 117 04/05/2017 [facility] COMPREHENSIVE METABOLIC PANEL(DBIL NOT INCLUDED) Potassium 4.2 3.5 - 5.1 04/05/2017 [facility] COMPREHENSIVE METABOLIC PANEL(DBIL NOT INCLUDED) Sodium 140 136 - 145 04/05/2017 [facility] COMPREHENSIVE METABOLIC PANEL(DBIL NOT INCLUDED) ALT 37 12 - 78 04/05/2017 [facility] COMPREHENSIVE METABOLIC PANEL(DBIL NOT INCLUDED) AST 40 15 - 37 04/05/2017 [facility] COMPREHENSIVE METABOLIC PANEL(DBIL NOT INCLUDED) Urea Nitrogen 13 7 - 18 04/05/2017 [facility] COMPREHENSIVE METABOLIC PANEL(DBIL NOT INCLUDED) T Bilirubin 0.4 0.2 - 1 04/05/2017 [facility] COMPREHENSIVE METABOLIC PANEL(DBIL NOT INCLUDED) T Protein 7.6 6.4 - 8.2 04/05/2017 [facility] COMPREHENSIVE METABOLIC PANEL(DBIL NOT INCLUDED) GFR, Estimated >60 mL/min/1.73 m2 04/05/2017 [facility] METABOLIC PANEL(DBIL NOT INCLUDED) GFR, Estim, Afr-Am >60 mL/min/1.73 m2 04/05/2017 [facility] COMPREHENSIVE METABOLIC PANEL(DBIL NOT INCLUDED) Anion Gap 9 04/05/2017 [facility] METABOLIC PANEL(DBIL NOT INCLUDED) Lab Interpretation Abnormal 04/05/2017 [facility] CBC/DIFF WBC 10.7 4.5 - 11 04/05/2017 [facility] CBC/DIFF RBC 4.89 4.20 - 5.40 04/05/2017 [facility] CBC/DIFF Hemoglobin 13.3 12 - 16 04/05/2017 [facility] CBC/DIFF Hematocrit 46.0 37 - 47 04/05/2017 [facility] CBC/DIFF MCV 94 82 - 92 04/05/2017 [facility] CBC/DIFF MCH 27.2 27 - 32 04/05/2017 [facility] CBC/DIFF MCHC 28.9 32 - 36 04/05/2017 [facility] CBC/DIFF RDW 46.8 36.4 - 46.3 04/05/2017 [facility] CBC/DIFF Platelet 300 150 - 400 04/05/2017 [facility] CBC/DIFF Mean Platelet Volume 11.3 9.4 - 12.4 04/05/2017 [facility] CBC/DIFF Percent NRBC 0.0 04/05/2017 [facility] CBC/DIFF Absolute NRBC 0.00 04/05/2017 [facility] CBC/DIFF Neutrophil 57.0 34 - 70 04/05/2017 [facility] CBC/DIFF Lymphocyte 34.6 20 - 50 04/05/2017 [facility] CBC/DIFF Monocyte 6.7 5 - 12 04/05/2017 [facility] CBC/DIFF Eosinophil 0.7 0.7 - 5 04/05/2017 [facility] CBC/DIFF Basophil 0.5 0.1 - 1.2 04/05/2017 [facility] CBC/DIFF Pct Immat Gran 0.5 0.0 - 0.5 04/05/2017 [facility] CBC/DIFF Neutrophil, Abs 6.10 1.56 - 6.13 04/05/2017 [facility] CBC/DIFF Lymphocyte, Abs 3.69 1.18 - 3.74 04/05/2017 [facility] CBC/DIFF Monocyte, Abs 0.71 0.24 - 0.36 04/05/2017 [facility] CBC/DIFF Eosinophil, Abs 0.07 0.04 - 0.36 04/05/2017 [facility] CBC/DIFF Basophil, Abs 0.05 0.01 - 0.08 04/05/2017 [facility] CBC/DIFF Absol Immat Gran 0.05 0 - 0.03 04/05/2017 [facility] CBC/DIFF Lab Interpretation Abnormal 04/05/2017 [facility] CBC/DIFF WBC 10.7 4.5 - 11 04/05/2017 [facility] CBC/DIFF RBC 4.89 M/uL 4.20 - 5.40 04/05/2017 [facility] CBC/DIFF Hemoglobin 13.3 12 - 16 04/05/2017 [facility] CBC/DIFF Hematocrit 46.0 37 - 47 04/05/2017 [facility] CBC/DIFF MCV 94 82 - 92 04/05/2017 High [facility] CBC/DIFF MCH 27.2 27 - 32 04/05/2017 [facility] CBC/DIFF MCHC 28.9 32 - 36 04/05/2017 Low [facility] CBC/DIFF RDW 46.8 36.4 - 46.3 04/05/2017 [facility] CBC/DIFF Platelet 300 150 - 400 04/05/2017 [facility] CBC/DIFF Mean Platelet Volume 11.3 9.4 - 12.4 04/05/2017 [facility] CBC/DIFF Percent NRBC 0.0 04/05/2017 [facility] CBC/DIFF Absolute NRBC 0.00 04/05/2017 [facility] CBC/DIFF Neutrophil 57.0 34 - 70 04/05/2017 [facility] CBC/DIFF Lymphocyte 34.6 20 - 50 04/05/2017 [facility] CBC/DIFF Monocyte 6.7 5 - 12 04/05/2017 [facility] CBC/DIFF Eosinophil 0.7 0.7 - 5 04/05/2017 [facility] CBC/DIFF Basophil 0.5 0.1 - 1.2 04/05/2017 [facility] CBC/DIFF Pct Immat Gran 0.5 0.0 - 0.5 04/05/2017 [facility] CBC/DIFF Neutrophil, Abs 6.10 1.56 - 6.13 04/05/2017 [facility] CBC/DIFF Lymphocyte, Abs 3.69 1.18 - 3.74 04/05/2017 [facility] CBC/DIFF Monocyte, Abs 0.71 0.24 - 0.36 04/05/2017 [facility] CBC/DIFF Eosinophil, Abs 0.07 0.04 - 0.36 04/05/2017 [facility] CBC/DIFF Basophil, Abs 0.05 0.01 - 0.08 04/05/2017 [facility] CBC/DIFF Absol Immat Gran 0.05 0 - 0.03 04/05/2017 [facility] CBC/DIFF Lab Interpretation Abnormal 04/05/2017 [facility] COMPREHENSIVE METABOLIC PANEL(DBIL NOT INCLUDED) Albumin 3.8 3.4 - 5 04/05/2017 [facility] COMPREHENSIVE METABOLIC PANEL(DBIL NOT INCLUDED) Calcium 9.1 8.5 - 10.2 04/05/2017 [facility] COMPREHENSIVE METABOLIC PANEL(DBIL NOT INCLUDED) CO2 27 21 - 32 04/05/2017 [facility] COMPREHENSIVE METABOLIC PANEL(DBIL NOT INCLUDED) Chloride 104 98 - 107 04/05/2017 [facility] COMPREHENSIVE METABOLIC PANEL(DBIL NOT INCLUDED) Creatinine 0.59 0.6 - 1.3 04/05/2017 Low [facility] METABOLIC PANEL(DBIL NOT INCLUDED) Glucose 97 70 - 99 04/05/2017 [facility] COMPREHENSIVE METABOLIC PANEL(DBIL NOT INCLUDED) Alk Phos 162 45 - 117 04/05/2017 High [facility] COMPREHENSIVE METABOLIC PANEL(DBIL NOT INCLUDED) Potassium 4.2 3.5 - 5.1 04/05/2017 [facility] COMPREHENSIVE METABOLIC PANEL(DBIL NOT INCLUDED) Sodium 140 136 - 145 04/05/2017 [facility] COMPREHENSIVE METABOLIC PANEL(DBIL NOT INCLUDED) ALT 37 12 - 78 04/05/2017 [facility] COMPREHENSIVE METABOLIC PANEL(DBIL NOT INCLUDED) AST 40 15 - 37 04/05/2017 High [facility] METABOLIC PANEL(DBIL NOT INCLUDED) Urea Nitrogen 13 7 - 18 04/05/2017 [facility] METABOLIC PANEL(DBIL NOT INCLUDED) T Bilirubin 0.4 0.2 - 1 04/05/2017 [facility] COMPREHENSIVE METABOLIC PANEL(DBIL NOT INCLUDED) T Protein 7.6 6.4 - 8.2 04/05/2017 [facility] METABOLIC PANEL(DBIL NOT INCLUDED) GFR, Estimated >60 mL/min/1.73 m2 04/05/2017 [facility] METABOLIC PANEL(DBIL NOT INCLUDED) GFR, Estim, Afr-Am >60 mL/min/1.73 m2 04/05/2017 [facility] METABOLIC PANEL(DBIL NOT INCLUDED) Anion Gap 9 04/05/2017 [facility] COMPREHENSIVE METABOLIC PANEL(DBIL NOT INCLUDED) Lab Interpretation Abnormal 04/05/2017 [facility] 12 LEAD EKG 12 LEAD EKG FOR [facility] Test Date:2017-04-05 Pat Name: NIKKO SULLIVAN Department: : Gender: FTechnician: [id number] :1965 Requested By: Order Number:[place] CORTÉS: Sonu Miller Measurements IntervalsAxis Rate: 78 P:10 NV: 154QRS:-13 QRSD: 101T:30 QT: 379 QTc:432 Interpretive Statements SINUS RHYTHM LOW QRS VOLTAGE IN PRECORDIAL LEADS [QRS DEFLECTION < 1.0 mV IN CHEST LEADS] POOR R WAVE PROGRESSION NON SPECIFIC T WAVE ABNORMALITY ABNORMAL ECG Electronically Signed On 04-07-17 14:20:19 HOT SAW HELPER by Sonu Miller 04/05/2017 [facility] B NATRIURETIC PEPT B Natriuretic Pept 100 0 - 100 01/26/2017 [facility] MAGNESIUM Magnesium 2.1 1.8 - 2.4 01/26/2017 [facility] 12 LEAD EKG 12 LEAD EKG FOR [facility] Test Date:2017-01-25 Pat Name: NIKKO SULLIVAN Department: : Gender: FTechnician: [id number] :1965 Requested By: Order Number:[place] MD: Paola Burden M.D. Measurements IntervalsAxis Rate: 78 P:-3 NV: 138QRS:-8 QRSD: 80 T:16 QT: 368 QTc:419 Interpretive Statements Normal sinus rhythm Normal ECG Electronically Signed On 01-25-17 18:59:32 HOT SAW HELPER by Paola Burden M.D. 01/26/2017 [facility] POC TCO2 POC - 01/25/2017 [facility] POC Chloride POC 106 98 - 107 01/25/2017 [facility] POC Potassium POC 3.4 3.5 - 5.1 01/25/2017 [facility] POC Sodium POC 139 136 - 145 01/25/2017 [facility] POC Glucose POC 138 74 - 106 01/25/2017 [facility] POC Urea Nitrogen POC 11 7 - 18 01/25/2017 [facility] POC Creatinine POC 0.7 0.6 - 1.3 01/25/2017 [facility] POC Ionized Calcium POC 0.99 1.15 - 1.29 01/25/2017 [facility] POC GFR, Estimated >60 mL/min/1.73 m2 01/25/2017 [facility] POC GFR, Estim, Afr-Am >60 mL/min/1.73 m2 01/25/2017 [facility] POC Lab Interpretation Abnormal 01/25/2017 [facility] POC TCO2 POC - 32 01/25/2017 [facility] POC Chloride POC 106 98 - 107 01/25/2017 [facility] POC Potassium POC 3.4 3.5 - 5.1 01/25/2017 Low [facility] POC Sodium POC 139 136 - 145 01/25/2017 [facility] POC Glucose POC 138 74 - 106 01/25/2017 High [facility] POC Urea Nitrogen POC 11 7 - 18 01/25/2017 [facility] POC Creatinine POC 0.7 0.6 - 1.3 01/25/2017 [facility] POC Ionized Calcium POC 0.99 1.15 - 1.29 01/25/2017 Low [facility] POC GFR, Estimated >60 mL/min/1.73 m2 01/25/2017 [facility] POC GFR, Estim, Afr-Am >60 mL/min/1.73 m2 01/25/2017 [facility] POC Lab Interpretation Abnormal 01/25/2017 [facility] B NATRIURETIC PEPT B Natriuretic Pept 100 0 - 100 01/25/2017 [facility] MAGNESIUM Magnesium 2.1 1.8 - 2.4 01/25/2017 [facility] HEP BE AB Hep Be Ab Negative Reference range: Negative 01/01/2017 [facility] 12 LEAD EKG [facility] Test Date:2016-12-30 Pat Name: NIKKO SULLIVAN Department: : Gender: FTechnician: [id number] :1965 Requested By: Order Number:[place] MD: Sonu Miller Measurements IntervalsAxis Rate: 69 P:6 NV: 161QRS:-13 QRSD: 99 T:27 QT: 382 QTc:411 Interpretive Statements SINUS RHYTHM LOW QRS VOLTAGE IN PRECORDIAL LEADS [QRS DEFLECTION < 1.0 mV IN CHEST LEADS] PATTERN CONSISTENT WITH PULMONARY DISEASE POOR R WAVE PROGRESSION ABNORMAL ECG Electronically Signed On 12-31-16 19:10:32 CDT by Sonu Miller 01/01/2017 [facility] BASIC METABOLIC PANEL CO2 29 21 - 32 12/31/2016 [facility] BASIC METABOLIC PANEL Chloride 102 98 - 107 12/31/2016 [facility] BASIC METABOLIC PANEL Potassium 4.1 3.5 - 5.1 12/31/2016 [facility] BASIC METABOLIC PANEL Sodium 140 136 - 145 12/31/2016 [facility] BASIC METABOLIC PANEL Glucose 112 70 - 99 12/31/2016 [facility] BASIC METABOLIC PANEL Urea Nitrogen 15 7 - 18 12/31/2016 [facility] [employer] METABOLIC PANEL Creatinine 0.63 0.6 - 1.3 12/31/2016 [facility] BASIC METABOLIC PANEL Anion Gap 9 12/31/2016 [facility] BASIC METABOLIC PANEL Calcium 9.0 8.5 - 10.2 12/31/2016 [facility] BASIC METABOLIC PANEL GFR, Estimated >60 mL/min/1.73 m2 12/31/2016 [facility] BASIC METABOLIC PANEL GFR, Estim, Afr-Am >60 mL/min/1.73 m2 12/31/2016 [facility] BASIC METABOLIC PANEL Lab Interpretation Abnormal 12/31/2016 [facility] GLUCOSE POC Glucose POC 140 74 - 106 12/31/2016 [facility] GLUCOSE POC Lab Interpretation Abnormal 12/31/2016 [facility] GLUCOSE POC Glucose POC 140 74 - 106 12/31/2016 High [facility] GLUCOSE POC Lab Interpretation Abnormal 12/31/2016 [facility] BASIC METABOLIC PANEL CO2 29 21 - 32 12/31/2016 [facility] BASIC METABOLIC PANEL Chloride 102 98 - 107 12/31/2016 [facility] BASIC METABOLIC PANEL Potassium 4.1 3.5 - 5.1 12/31/2016 [facility] BASIC METABOLIC PANEL Sodium 140 136 - 145 12/31/2016 [facility] BASIC METABOLIC PANEL Glucose 112 70 - 99 12/31/2016 High [facility] BASIC METABOLIC PANEL Urea Nitrogen 15 7 - 18 12/31/2016 [facility] BASIC METABOLIC PANEL Creatinine 0.63 0.6 - 1.3 12/31/2016 [facility] BASIC METABOLIC PANEL Anion Gap 9 12/31/2016 [facility] BASIC METABOLIC PANEL Calcium 9.0 8.5 - 10.2 12/31/2016 [facility] BASIC METABOLIC PANEL GFR, Estimated >60 mL/min/1.73 m2 12/31/2016 [facility] BASIC METABOLIC PANEL GFR, Estim, Afr-Am >60 mL/min/1.73 m2 12/31/2016 [facility] BASIC METABOLIC PANEL Lab Interpretation Abnormal 12/31/2016 [facility] UA CHEMISTRIES Color Juliette 12/30/2016 [facility] UA CHEMISTRIES Clarity Hazy 12/30/2016 [facility] UA CHEMISTRIES Spec Laurens 1.028 1.001 - 1.035 12/30/2016 [facility] UA CHEMISTRIES pH 5.0 5 - 8 12/30/2016 [facility] UA CHEMISTRIES Protein 1+ NEG 12/30/2016 [facility] UA CHEMISTRIES Glucose Negative NEG 12/30/2016 [facility] UA CHEMISTRIES Ketone Trace NEG 12/30/2016 [facility] UA CHEMISTRIES Bilirubin Negative NEG 12/30/2016 [facility] UA CHEMISTRIES Nitrate Negative NEG 12/30/2016 [facility] UA CHEMISTRIES Urobilinogen <1.0 0.2 - 1 12/30/2016 [facility] UA CHEMISTRIES Leukocyte Negative NEG 12/30/2016 [facility] UA CHEMISTRIES Blood Negative NEG 12/30/2016 [facility] UA CHEMISTRIES RBC 1 0 - 4 12/30/2016 [facility] UA CHEMISTRIES WBC 2 0 - 5 12/30/2016 [facility] UA CHEMISTRIES Epithelial Cell 8 /HPF 12/30/2016 [facility] UA CHEMISTRIES Mucous Present 12/30/2016 [facility] UA CHEMISTRIES Lab Interpretation Abnormal 12/30/2016 [facility] UA CHEMISTRIES Color Juliette 12/30/2016 [facility] UA CHEMISTRIES Clarity Hazy 12/30/2016 [facility] UA CHEMISTRIES Spec [place] 1.028 1.001 - 1.035 12/30/2016 [facility] UA CHEMISTRIES pH 5.0 5 - 8 12/30/2016 [facility] UA CHEMISTRIES Protein 1+ NEG 12/30/2016 Abnormal [facility] UA CHEMISTRIES Glucose Negative NEG 12/30/2016 [facility] UA CHEMISTRIES Ketone Trace NEG 12/30/2016 Abnormal [facility] UA CHEMISTRIES Bilirubin Negative NEG 12/30/2016 [facility] UA CHEMISTRIES Nitrate Negative NEG 12/30/2016 [facility] UA CHEMISTRIES Urobilinogen <1.0 0.2 - 1 12/30/2016 [facility] UA CHEMISTRIES Leukocyte Negative NEG 12/30/2016 [facility] UA CHEMISTRIES Blood Negative NEG 12/30/2016 [facility] UA CHEMISTRIES RBC 1 /HPF 0 - 4 12/30/2016 [facility] UA CHEMISTRIES WBC 2 /HPF 0 - 5 12/30/2016 [facility] UA CHEMISTRIES Epithelial Cell 8 /HPF 12/30/2016 [facility] UA CHEMISTRIES Mucous Present 12/30/2016 [facility] UA CHEMISTRIES Lab Interpretation Abnormal 12/30/2016 [facility] TRANSTHORACIC ECHO (TTE) TRANSTHORACIC ECHO (TTE) Transthoracic Echo Report NIKKO SULLIVAN Age:51 Gender: F :1965 Exam Date: 12/30/2016 08:50 Exam Location: [facility] Echo Ordering Phys: KEIKO ANDERS Referring Phys: Reading Phys:Sarah Carter Fellow Phys: Fellow Phys: Waste Treatment Operator: Vinh Munoz Reason For Exam: Indications:Chest Pain ICD-9 Codes: R06.89 Exam Type: Transthoracic Echo Procedure CPT:10319 Addtional CPT: Ht (in): 63 BSA: 2.35HR: [...] 22 - 52 cm DOPPLER AV Peak Rtinkymr483 cm/s AV Peak Gradient4.3 mmHg AV Mean Mlwmxqkd01.8 cm/s AV Mean Gradient3 mmHg AV Velocity Time Integral 19.8 cm LVOT Peak Jbyoapcr09 cm/s LVOT Peak Gradient3.2 mmHg LVOT Mean Shcdparp70.6 cm/s LVOT Mean Gradient2 mmHg LVOT Velocity Time Integral 16 cm LVOT Stroke Shsahi35.4 cm AV Area Cont Eq vti 2.8 cm AV Area Cont Eq pk3 cm Mitral E Point Velocity 70.3 cm/s Mitral A Point Velocity 80.5 cm/s Mitral E to A Ratio 0.87 MV Deceleration Knott 260 cm/s MV Pressure Half Time 79 ms MV Area PHT 2.8 cm PV Peak Kfjmykyh07.7 cm/s PV Peak Gradient2.2 mmHg RVOT Peak Sqcpqznl62 cm/s RVOT Peak Gradient0.96 mmHg LV E' Lateral Velocity7.8 cm/s Mitral E to LV E' Lateral Ratio 9 LV E' Septal Velocity 6 cm/s Mitral E to LV E' Septal Ratio11.8 12/30/2016 [facility] MYOGLOBIN, SER Myoglobin, Ser 33 14 - 106 12/30/2016 [facility] SYPHILIS SCREEN FOR INFECTION Treponemal Ab Negative 12/30/2016 [facility] SYPHILIS SCREEN FOR INFECTION Final Report Negative 12/30/2016 [facility] HEP A VIR AB IGM HAV, IgM Negative NEG 12/30/2016 [facility] HEP A VIRUS AB IGG Hep A Vir Ab IgG Positive NEG 12/30/2016 [facility] HEP A VIRUS AB IGG Lab Interpretation Abnormal 12/30/2016 [facility] HEP B COR AB TOT Hep B Cor Ab Tot Negative NEG 12/30/2016 [facility] HEP B AB AG HBsAg Negative NEG 12/30/2016 [facility] HEP C VIR AB IGG HCV IgG Negative NEG 12/30/2016 [facility] RAPID INFLUENZA SCREEN Spec Description Nasopharyngeal swab 12/30/2016 [facility] RAPID INFLUENZA SCREEN Order Comments None 12/30/2016 [facility] RAPID INFLUENZA SCREEN Direct Exam Negative for Influenza A and B by EIA 12/30/2016 [facility] RAPID INFLUENZA SCREEN Report Status Final 12/30/2016 12/30/2016 [facility] TRANSTHORACIC ECHO (TTE) TRANSTHORACIC ECHO (TTE) Transthoracic Echo Report NIKKO SULLIVAN Age:51 Gender: F :1965 Exam Date: 12/30/2016 08:50 Exam Location: [facility] Echo Ordering Phys: KEIKO ANDERS Referring Phys: Reading Phys:Sarah Carter Fellow Phys: Fellow Phys: Waste Treatment Operator: Vinh Munoz Reason For Exam: Indications:Chest Pain ICD-9 Codes: R06.89 Exam Type: Transthoracic Echo Procedure CPT:09909 Addtional CPT: Ht (in): 63 BSA: 2.35HR: [...] 22 - 52 cm DOPPLER AV Peak Svyomvhj267 cm/s AV Peak Gradient4.3 mmHg AV Mean Vxlxalxa33.8 cm/s AV Mean Gradient3 mmHg AV Velocity Time Integral 19.8 cm LVOT Peak Fchwjwaq21 cm/s LVOT Peak Gradient3.2 mmHg LVOT Mean Xubbrlik44.6 cm/s LVOT Mean Gradient2 mmHg LVOT Velocity Time Integral 16 cm LVOT Stroke Hzpjhz64.4 cm AV Area Cont Eq vti 2.8 cm AV Area Cont Eq pk3 cm Mitral E Point Velocity 70.3 cm/s Mitral A Point Velocity 80.5 cm/s Mitral E to A Ratio 0.87 MV Deceleration Knott 260 cm/s MV Pressure Half Time 79 ms MV Area PHT 2.8 cm PV Peak Oaklzqnw58.7 cm/s PV Peak Gradient2.2 mmHg RVOT Peak Snaeufxy92 cm/s RVOT Peak Gradient0.96 mmHg LV E' Lateral Velocity7.8 cm/s Mitral E to LV E' Lateral Ratio 9 LV E' Septal Velocity 6 cm/s Mitral E to LV E' Septal Ratio11.8 12/30/2016 [facility] CK, TOTAL CK, Total 84 30 - 200 12/30/2016 CKMB not performed if CK <100, if CKMB is required, please notify laboratory
immediately.

[facility] TROPONIN I Troponin I <0.015 0 - 0.045 12/30/2016 [facility] CKMB, REFLEX CK-MB 1.4 0 - 3.6 12/30/2016 [facility] CKMB, REFLEX CKMB Index 1.4 0 - 2.5 12/30/2016 [facility] DIGOXIN Digoxin 0.9 0.8 - 2 12/30/2016 [facility] RAPID INFLUENZA SCREEN Spec Description Nasopharyngeal swab 12/30/2016 [facility] RAPID INFLUENZA SCREEN Order Comments None 12/30/2016 [facility] RAPID INFLUENZA SCREEN Direct Exam Negative for Influenza A and B by EIA 12/30/2016 [facility] RAPID INFLUENZA SCREEN Report Status Final 12/30/2016 12/30/2016 [facility] URINE DRUG SCREEN Amphetamine Negative NEG 12/30/2016 Calibrated Standard: D-Methamphetamine
Positive if urine level >dv=4410 ng/mL

[facility] URINE DRUG SCREEN Barbiturate Negative NEG 12/30/2016 Calibrated Standard: Secobarbital
Positive if urine level is >ui=537 ng/mL

[facility] URINE DRUG SCREEN Benzodiazepine Negative NEG 12/30/2016 Calibrated Standard: Lormethazepam
Positive if urine level is >kf=126 ng/mL

[facility] URINE DRUG SCREEN Cannabinoid Negative NEG 12/30/2016 Calibrated Standard: 11 nor-delta(9)-THC carboxylic a
Positive if urine level >or=50

[facility] URINE DRUG SCREEN Cocaine Negative NEG 12/30/2016 Calibrated Standard: Benzoylecgonine
Positive if urine level >gz=493

[facility] URINE DRUG SCREEN Opiate, Ur Negative NEG 12/30/2016 Calibrated Standard: Morphine
Positive if urine level >iu=123

[facility] URINE DRUG SCREEN PCP Negative NEG 12/30/2016 Calibrated Standard: Phencyclidine
Positive if urine level >or=25
Urine Toxicology Screen results are to be used only for Medical purposes.

[facility] PT/INR PT 12.8 11.8 - 15.0 12/30/2016 [facility] PT/INR INR 1.0 SUGGESTED THERAPEUTIC RANGES: INR 2.0-3.0 for MODERATE INTENSITY ANTICOAGULATION INR 2.5-3.5 for HIGH INTENSITY ANTICOAGULATION 12/30/2016 [facility] PTT PTT 36.5 23.6 - 36.4 12/30/2016 [facility] PTT Lab Interpretation Abnormal 12/30/2016 [facility] CALCIUM, IONIZED Calcium, Ionized 1.08 1.15 - 1.29 12/30/2016 [facility] CALCIUM, IONIZED Lab Interpretation Abnormal 12/30/2016 [facility] CK, TOTAL CK, Total 84 30 - 200 12/30/2016 CKMB not performed if CK <100, if CKMB is required, please notify laboratory
immediately.

[facility] MYOGLOBIN, SER Myoglobin, Ser 33 14 - 106 12/30/2016 [facility] TROPONIN I Troponin I <0.015 0 - 0.045 12/30/2016 [facility] 12 LEAD EKG 12 [facility]AD [facility]:2016[facility] Pat Name: NIKKO SULLIVAN Department: : Gender: FTechnician: :1965 Requested By: Order Number:Reading MD: Sonu Miller Measurements IntervalsAxis Rate: 86 P:14 NV: 159QRS:-27 QRSD: 84 T:37 QT: 345 QTc:413 Interpretive Statements SINUS RHYTHM POSSIBLE LEFT ATRIAL ENLARGEMENT LOW QRS VOLTAGE IN PRECORDIAL LEADS POOR R WAVE PROGRESSION: POSSIBLE ANTERIOR MYOCARDIAL INFARCTION, PROBABLY OLD ABNORMAL ECG Electronically Signed On 12-29-16 18:48:49 CDT by Sonu Miller 12/30/2016 [facility] CALCIUM, IONIZED Calcium, Ionized 1.08 1.15 - 1.29 12/29/2016 Low [facility] CALCIUM, IONIZED Lab Interpretation Abnormal 12/29/2016 [facility] CKMB, REFLEX CK-MB 1.4 0 - 3.6 12/29/2016 [facility] CKMB, REFLEX CKMB Index 1.4 0 - 2.5 12/29/2016 [facility] DIGOXIN Digoxin 0.9 0.8 - 2 12/29/2016 [facility] HEP A VIR AB IGM HAV, IgM Negative NEG 12/29/2016 [facility] HEP A VIRUS AB IGG Hep A Vir Ab IgG Positive NEG 12/29/2016 Abnormal [facility] HEP A VIRUS AB IGG Lab Interpretation Abnormal 12/29/2016 [facility] HEP B COR AB TOT Hep B Cor Ab Tot Negative NEG 12/29/2016 [facility] HEP B AB AG HBsAg Negative NEG 12/29/2016 [facility] HEP BE AB Hep Be Ab Negative Reference range: Negative 12/29/2016 [facility] HEP C VIR AB IGG HCV IgG Negative NEG 12/29/2016 [facility] PT/INR PT 12.8 Seconds 11.8 - 15.0 12/29/2016 [facility] PT/INR INR 1.0 SUGGESTED THERAPEUTIC RANGES: INR 2.0-3.0 for MODERATE INTENSITY ANTICOAGULATION INR 2.5-3.5 for HIGH INTENSITY ANTICOAGULATION 12/29/2016 [facility] PTT PTT 36.5 Seconds 23.6 - 36.4 12/29/2016 High [facility] PTT Lab Interpretation Abnormal 12/29/2016 [facility] SYPHILIS SCREEN FOR INFECTION Treponemal Ab Negative 12/29/2016 [facility] SYPHILIS SCREEN FOR INFECTION Final Report Negative 12/29/2016 [facility] POC CO2 POC 27 21 - 32 12/29/2016 [facility] POC Chloride POC 105 98 - 107 12/29/2016 [facility] POC Potassium POC 5.2 3.5 - 5.1 12/29/2016 [facility] POC Sodium POC 141 136 - 145 12/29/2016 [facility] POC Glucose POC 115 74 - 106 12/29/2016 [facility] POC Urea Nitrogen POC 17 7 - 18 12/29/2016 [facility] POC Creatinine POC 0.8 0.6 - 1.3 12/29/2016 [facility] POC Calcium Ionized POC 1.03 1.15 - 1.29 12/29/2016 [facility] POC Hemoglobin POC 16.7 12 - 16 12/29/2016 [facility] POC Hematocrit POC 49.0 37 - 47 12/29/2016 [facility] POC GFR, Estimated >60 mL/min/1.73 m2 12/29/2016 [facility] POC GFR, Estim, Afr-Am >60 mL/min/1.73 m2 12/29/2016 [facility] POC Lab Interpretation Abnormal 12/29/2016 [facility] TROPONIN I POC Troponin POC 0.00 0 - 0.08 12/29/2016 [facility] URINE DRUG SCREEN Amphetamine Negative NEG 12/29/2016 Calibrated Standard: D-Methamphetamine
Positive if urine level >xo=8562 ng/mL

[facility] URINE DRUG SCREEN Barbiturate Negative NEG 12/29/2016 Calibrated Standard: Secobarbital
Positive if urine level is >bq=446 ng/mL

[facility] URINE DRUG SCREEN Benzodiazepine Negative NEG 12/29/2016 Calibrated Standard: Lormethazepam
Positive if urine level is >ep=625 ng/mL

[facility] URINE DRUG SCREEN Cannabinoid Negative NEG 12/29/2016 Calibrated Standard: 11 nor-delta(9)-THC carboxylic a
Positive if urine level >or=50

[facility] URINE DRUG SCREEN Cocaine Negative NEG 12/29/2016 Calibrated Standard: Benzoylecgonine
Positive if urine level >qb=509

[facility] URINE DRUG SCREEN Opiate, Ur Negative NEG 12/29/2016 Calibrated Standard: Morphine
Positive if urine level >ju=324

[facility] URINE DRUG SCREEN PCP Negative NEG 12/29/2016 Calibrated Standard: Phencyclidine
Positive if urine level >or=25
Urine Toxicology Screen results are to be used only for Medical purposes.

formerly [facility] POC CO2 POC 27 21 - 32 12/29/2016 [facility] POC Chloride POC 105 98 - 107 12/29/2016 [facility] POC Potassium POC 5.2 3.5 - 5.1 12/29/2016 High [facility] POC Sodium POC 141 136 - 145 12/29/2016 [facility] POC Glucose POC 115 74 - 106 12/29/[address] [facility] POC Urea Nitrogen POC 17 7 - 18 12/29/2016 [facility] POC Creatinine POC 0.8 0.6 - 1.3 12/29/2016 [facility] POC Calcium Ionized POC 1.03 1.15 - 1.29 12/29/2016 Low formerly [facility] POC Hemoglobin POC 16.7 12 - 16 12/29/2016 High [facility] POC Hematocrit POC 49.0 37 - 47 12/29/2016 High [facility] POC GFR, Estimated >60 mL/min/1.73 m2 12/29/2016 [facility] POC GFR, Estim, Afr-Am >60 mL/min/1.73 m2 12/29/2016 [facility] POC Lab Interpretation Abnormal 12/29/2016 [facility] TROPONIN I POC Troponin POC 0.00 0 - 0.08 12/29/2016 [facility] HEMOGLOBIN A1C Hemoglobin A1c 7.2 4.3 - 6.1 11/28/2016 [facility] HEMOGLOBIN A1C Est Average Gluc 159.9 11/28/2016 [facility] HEMOGLOBIN A1C Lab Interpretation Abnormal 11/28/2016 [facility] LIPID PROFILE Cholesterol 172 <200 11/28/2016 REFERENCE RANGE:
Desirable: <200 mg/dL
Borderline: 200-240 mg/dL
High Risk: >240 mg/dL

[facility] LIPID PROFILE Triglyceride 105 <150 11/28/2016 REFERENCE RANGE:
Normal: <150 mg/dL
Borderline High: 150-199 mg/dL
High: 200-499 mg/dL
Very High: >kp=198 mg/dL

[facility] LIPID PROFILE HDL 65 40 - 60 11/28/2016 Increased CHD risk: <40 mg/dL
Decreased CHD risk: >60 mg/dL

[facility] LIPID PROFILE LDL 86 11/28/2016 REFERENCE RANGE:
Optimal: <100 mg/dL
Near Optimal: 100-129 mg/dL
Borderline High: 130-159 mg/dL
High: 160-189 mg/dL
Very High: >jn=313 mg/dL

[facility] LIPID PROFILE Lab Interpretation Abnormal 11/28/2016 [facility] LIVER PROFILE T Protein 7.2 6.4 - 8.2 11/28/2016 [facility] LIVER PROFILE Albumin 3.8 3.4 - 5 11/28/2016 [facility] LIVER PROFILE T Bilirubin 0.5 0.2 - 1 11/28/2016 [facility] LIVER PROFILE Alk Phos 129 45 - 117 11/28/2016 [facility] LIVER PROFILE AST 57 15 - 37 11/28/2016 [facility] LIVER PROFILE ALT 67 12 - 78 11/28/2016 [facility] LIVER PROFILE D Bilirubin 0.2 0 - 0.2 11/28/2016 [facility] LIVER PROFILE Lab Interpretation Abnormal 11/28/2016 [facility] HEMOGLOBIN A1C Hemoglobin A1c 7.2 4.3 - 6.1 11/27/2016 High [facility] HEMOGLOBIN A1C Est Average Gluc 159.9 11/27/2016 [facility] HEMOGLOBIN A1C Lab Interpretation Abnormal 11/27/2016 [facility] LIPID PROFILE Cholesterol 172 <200 11/27/2016 REFERENCE RANGE:
Desirable: <200 mg/dL
Borderline: 200-240 mg/dL
High Risk: >240 mg/dL

[facility] LIPID PROFILE Triglyceride 105 <150 11/27/2016 REFERENCE RANGE:
Normal: <150 mg/dL
Borderline High: 150-199 mg/dL
High: 200-499 mg/dL
Very High: >ij=069 mg/dL

[facility] LIPID PROFILE HDL 65 40 - 60 11/27/2016 High Increased CHD risk: <40 mg/dL
Decreased CHD risk: >60 mg/dL

[facility] LIPID PROFILE LDL 86 11/27/2016 REFERENCE RANGE:
Optimal: <100 mg/dL
Near Optimal: 100-129 mg/dL
Borderline High: 130-159 mg/dL
High: 160-189 mg/dL
Very High: >pj=671 mg/dL

[facility] LIPID PROFILE Lab Interpretation Abnormal 11/27/2016 [facility] LIVER PROFILE T Protein 7.2 6.4 - 8.2 11/27/2016 [facility] LIVER PROFILE Albumin 3.8 3.4 - 5 11/27/2016 [facility] LIVER PROFILE T Bilirubin 0.5 0.2 - 1 11/27/2016 [facility] LIVER PROFILE Alk Phos 129 45 - 117 11/27/2016 High [facility] LIVER PROFILE AST 57 15 - 37 11/27/2016 High [facility] LIVER PROFILE ALT 67 12 - 78 11/27/2016 [facility] LIVER PROFILE D Bilirubin 0.2 0 - 0.2 11/27/2016 [facility] LIVER PROFILE Lab Interpretation Abnormal 11/27/2016 [facility] Pathology Reports No Data Provided for This Section Diagnostic Reports Report Value Date Source XRAY CHEST 2 VIEWS IMPRESSION: Elevation of the right hemidiaphragm with linear opacity of the rightmidlung suggestive of volume loss and scarring, unchanged.No acute thoracic abnormality. A "PRELIMINARY" report was made available via [employer] at the time ofdictation by the resident [...] A "PRELIMINARY" report was made available via [employer] at the time of dictation by the resident indicated below. If the report is "FINALIZED" it indicates that the attending/staff radiologist has reviewed the images and agrees with the resident's interpretation. Dictated By: Shabbir Latham DO, 01/25/2017 1:38 PM I have reviewed the study and agree with the findings in this report. Signed By: Tushar Gonzalez MD, 01/25/2017 4:28 PM 01/25/2017 [facility] XRAY CHEST 2 VIEWS IMPRESSION: Elevation of the right hemidiaphragm with linear opacity of the rightmidlung suggestive of volume loss and scarring, unchanged.No acute thoracic abnormality. A "PRELIMINARY" report was made available via [employer] at the time ofdictation by the resident [...] A "PRELIMINARY" report was made available via [employer] at the time of dictation by the resident indicated below. If the report is "FINALIZED" it indicates that the attending/staff radiologist has reviewed the images and agrees with the resident's interpretation. Dictated By: Shabbir Latham DO, 01/25/2017 1:38 PM I have reviewed the study and agree with the findings in this report. Signed By: Tushar Gonzalez MD, 01/25/2017 4:28 PM 01/25/2017 [facility] Consultation Notes No Data Provided for [...] Assoc Temperature Oral (F) 98.3 F 03/16/2018 [facility] Heart Rate 106 03/16/2018 [facility] Diastolic (mm Hg) 82 03/16/2018 [facility] Systolic (mm Hg) 115 03/16/2018 [facility] Systolic (mm Hg) 116 05/28/2017 [facility] Diastolic (mm Hg) 58 05/28/2017 [facility] Heart Rate 94 05/28/2017 [facility] Temperature Oral (F) 37.17 Lina 05/28/2017 [facility] Respitory Rate 20 05/28/2017 [facility] Height 160 cm 05/28/2017 [facility] Weight 120.203 05/28/2017 [facility] BMI Calculated 46.94 05/28/2017 [facility] Encounters Location Location Details Encounter Type Encounter Number Reason For Visit Attending Provider ADM Date DC Date Status Source Pulmonary [place] Office Visit [id number] Asthmatic bronchitis, severe persistent, with acute exacerbation Asthma exacerbation SOB (shortness of breath) Rib pain on right side Chest wall pain Obstructive sleep apnea syndrome Dario Slater MD 10/01/2016 10/01/2016 [facility] Same Day Same Day [id number] Rib pain on right side Rediate Jake TRANSFORMATION ARCHITECT 10/23/2016 10/23/2016 [facility] [place] Office Visit [id number] Asthma exacerbation Sleep-related breathing disorder Obstructive sleep apnea Acute on chronic congestive heart failure, unspecified congestive heart failure type Type 2 diabetes mellitus without complication, without long-term current use of insulin Dario Sabillon MD 10/29/2016 10/29/2016 [facility] Shyla Larsen Same Day Office Visit [id number] Moderate persistent asthma with acute exacerbation Hearing loss of left ear due to cerumen impaction Dysfunction of Eustachian tube, left Deepthi Johns MD 11/13/2016 11/13/2016 [facility] [place] Office Visit [id number] Type 2 diabetes mellitus without complication, without long-term current use of insulin Need for Tdap vaccination Chronic congestive heart failure, unspecified congestive heart failure type Mild intermittent asthma with acute exacerbation Rib pain on right side Dario Sabillon MD 11/23/2016 11/23/2016 [facility] [place] Telephone [id number] Tori Ruiz PURNIMA 11/30/2016 [facility] Observation [facility] [id number] Chest pain in adult Chronic congestive heart failure, unspecified congestive heart failure type ASD (atrial septal defect), sinus venosus defect Rosi Duran DO 12/29/2016 12/31/2016 [facility] [id number] 12/31/2016 [facility] [place] Telephone [phone] [place] Caity 01/06/2017 [facility] [place] Office Visit [id number] Chronic congestive heart failure, unspecified congestive heart failure type Flu vaccine need Controlled type 2 diabetes mellitus without complication, without long-term current use of insulin Hospital discharge follow-up Bilateral leg edema Chest pain, unspecified type Ankita Kenny DO 01/25/2017 01/25/2017 [facility] [place] Ancillary Procedure [id number] Dario Sabillon MD 01/25/2017 01/25/2017 [facility] [place] Refill [id number] Chronic congestive heart failure, unspecified congestive heart failure type Ankita Kenny DO 02/19/2017 [facility] [place] Office Visit [id number] Type 2 diabetes mellitus without complication, without long-term current use of insulin Gastroesophageal reflux disease without esophagitis Chronic congestive heart failure, unspecified congestive heart failure type Mild intermittent asthma with acute exacerbation Acute bronchitis, unspecified organism Sleep apnea, unspecified type Hypokalemia Hyperlipidemia, unspecified hyperlipidemia type Dario Sabillon MD 02/23/2017 02/23/2017 [facility] [place] Clinical Case Mgt [id number] Isrrael Dukes RN 02/24/2017 [facility] [place] Orders Only [id number] Chronic congestive heart failure, unspecified congestive heart failure type Dario Sabillon MD 02/26/2017 [facility] [place] Refill [id number] Mild intermittent asthma with acute exacerbation Dario Sabillon MD 03/26/2017 [facility] [place] Orders Only [id number] Palpitations ASD (atrial septal defect), sinus venosus defect Shortness of breath Amarilis Aggarwal MD 04/05/2017 [facility] [place] Visit [id number] Palpitations ASD (atrial septal defect), sinus venosus defect Shortness of breath Amarilis Aggarwal MD 04/05/2017 04/05/2017 [facility] [place] Hospital Encounter [id number] Palpitations ASD (atrial septal defect), sinus venosus defect Shortness of breath Dario Sabillon MD 04/05/2017 04/06/2017 [facility] CARDIOLOGY [facility] Hospital Encounter [id number] Amarilis Aggarwal MD 04/15/2017 04/16/2017 [facility] [place] Refill [id number] Type 2 diabetes mellitus without complication, without long-term current use of insulin Dario Sabillon MD 04/23/2017 [facility] CARDIOLOGY 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), sinus venosus defect Pulmonary hypertension Amarilis Aggarwal MD 05/03/2017 05/03/2017 [facility] Same Day Same Day [id number] Acute bronchitis, unspecified organism Cough Type 2 diabetes mellitus without complication, without long-term current use of insulin Loren Cristino TRANSFORMATION ARCHITECT 05/12/2017 05/12/2017 [facility] Same Day Same Day [id number] Acute sinusitis, recurrence not specified, unspecified location Bilateral acute serous otitis media, recurrence not specified Cough Type 2 diabetes mellitus without complication, without long-term current use of insulin Loren Cristino TRANSFORMATION ARCHITECT 05/28/2017 05/28/[address] [facility] [place] Clinical Case Mgt [id number] Jackeline Aranda 07/02/2017 [facility] [place] Telephone [id number] Faith Giles RN 07/02/2017 [facility] [place] Telephone [id number] Faith Giles RN 07/06/2017 [facility] Departed Emergency Room [id number] ANCELMO MELISSA MD 09/20/2017 09/20/2017 [facility] [place] Refill [id number] Chronic congestive heart failure Dario Sabillon MD 09/21/2017 [facility] [place] Refill [id number] Type 2 diabetes mellitus without complication, without long-term current use of insulin Dario Sabillon MD 11/07/2017 [facility] [place] Refill [id number] Rib pain on right side Alicia Forte 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 POC RAPID FLU 65076 05/12/2017 [facility] POC GROUP A STREP SCREEN 12307 05/12/2017 [facility] TREADMILL STRESS-TRACING ONLY 23245 04/27/2017 [facility] TTE FOLLOW UP 35203 04/15/2017 [facility] COMPREHENSIVE METABOLIC PANEL(DBIL NOT INCLUDED) 25572 04/05/2017 [facility] CBC/DIFF 89282 04/05/2017 [facility] 12 LEAD EKG 49613 04/05/2017 [facility] BMP POC 18759 01/25/2017 [facility] XRAY CHEST 2 VIEWS 00399 01/25/2017 [facility] B NATRIURETIC PEPT 74376 01/25/2017 [facility] MAGNESIUM 58324 01/25/2017 [facility] GLUCOSE POC 09134 12/31/2016 [facility] BASIC METABOLIC PANEL 57524 12/31/[address] [facility] UA CHEMISTRIES 68846 12/30/2016 [facility] TRANSTHORACIC ECHO (TTE) 18966 12/30/2016 [facility] UA CHEMISTRIES 71777 12/30/2016 [facility] RAPID INFLUENZA SCREEN 83421 12/30/2016 [facility] CK, TOTAL 16994 12/30/2016 [facility] TROPONIN I 45069 12/30/2016 [facility] MYOGLOBIN, SER 87954 12/30/2016 [facility] CALCIUM, IONIZED 93666 12/30/2016 [facility] PT/INR 95981 12/30/2016 [facility] PTT 43906 12/30/2016 [facility] HEP A VIR AB IGM 37514 12/30/2016 [facility] HEP A VIRUS AB IGG 19480 12/30/2016 [facility] HEP B COR AB TOT 59770 12/30/2016 [facility] HEP B AB AG 10596 12/30/2016 [facility] [place] [address] 12/30/2016 [facility] HEP C VIR AB IGG 49885 12/30/2016 [facility] SYPHILIS SCREEN FOR INFECTION 43410 12/30/2016 [facility] DIGOXIN 51930 12/30/2016 [facility] CKMB, REFLEX 98653 12/30/2016 [facility] URINE DRUG SCREEN 48784 12/30/2016 [facility] TROPONIN I POC 05630 12/29/2016 [facility] HEMOGLOBIN A1C 13504 11/27/2016 [facility] LIPID PROFILE 27831 11/27/2016 [facility] LIVER PROFILE 23912 11/27/2016 [facility] THRPY PROPH/DX INJ INTRAMUSCLR 70437 11/13/2016 [facility] Assessment and Plan No Data Provided for This Section Plan of Care Plan of Care Date Source Colonoscopy 10yr 01/12/2026 [facility] Cervical Cancer Scrn (3 Yrs) 08/28/2019 [facility] DM Foot Exam (Yearly) 05/28/2018 [facility] DM Microalbumin Urine Scrn (Yearly) 12/30/2017 [facility] DM HGBA1C (Yearly) 11/27/2017 [facility] Discharge Date 09/20/17 7:28pm Disposition HOME, SELF-CARE Condition at Discharge Improved Instructions/Education Provided Asthma - Adult Forms Provided Work/School Excuse Prescriptions See Medication Section Referrals FAITH ESTEBAN DO Order Date: Call for an appointment Address: [id number] [place] [address] [place] [address] Additional Instructions/Education Take medications as directed: -Duo-neb one neb treatment every 4-6hrs as needed for shortness of breath. -Prednisone 20mg three tabs by mouth x2days, then 2tabs by mouth x2days. Follow up with Primary Care Provider. Return to ER as needed. 09/20/2017 [facility] Breast Cancer Scrn (Yearly) 08/27/2017 [facility] DM Retinal Exam (Yearly) 07/30/2017 [facility] Social History Social History Date Source Smoking Status Start Date Stop Date Never Smoker 09/20/2017 [facility] Tobacco UseTypesPacks/DayYears UsedDate Never Smoker Smokeless Tobacco: Never Used Tobacco Cessation: Counseling Given: No Alcohol UseDrinks/Weekoz/WeekComments No Sex Assigned at BirthDate Recorded Not on file 05/28/2017 [facility] Family History Value Date Source Medical HistoryRelationNameComments Diabetes Maternal Aunt x 7 Diabetes Maternal Grandmother Diabetes Mother Diabetes Sister RelationNameStatusComments Father work accident Maternal Aunt Maternal Grandmother Mother Alive Sister 12/13/2017 [facility] Medical HistoryRelationNameComments Diabetes Maternal Aunt x 7 Diabetes Maternal Grandmother Diabetes Mother Diabetes Sister RelationNameStatusComments Father work accident Maternal Aunt Maternal Grandmother Mother Alive Sister 12/09/2017 [facility] Medical HistoryRelationNameComments Diabetes Maternal Aunt x 7 Diabetes Maternal Grandmother Diabetes Mother Diabetes Sister RelationNameStatusComments Father work accident Maternal Aunt Maternal Grandmother Mother Alive Sister 11/30/2017 [facility] Medical HistoryRelationNameComments Diabetes Maternal Aunt x 7 Diabetes Maternal Grandmother Diabetes Mother Diabetes Sister RelationNameStatusComments Father work accident Maternal Aunt Maternal Grandmother Mother Alive Sister 11/23/2017 [facility] Medical HistoryRelationNameComments Diabetes Maternal Aunt x 7 Diabetes Maternal Grandmother Diabetes Mother Diabetes Sister RelationNameStatusComments Father work accident Maternal Aunt Maternal Grandmother Mother Alive Sister 11/12/2017 [facility] Medical HistoryRelationNameComments Diabetes Maternal Aunt x 7 Diabetes Maternal Grandmother Diabetes Mother Diabetes Sister RelationNameStatusComments Father work accident Maternal Aunt Maternal Grandmother Mother Alive Sister 10/29/2017 [facility] Medical HistoryRelationNameComments Diabetes Maternal Aunt x 7 Diabetes Maternal Grandmother Diabetes Mother Diabetes Sister RelationNameStatusComments Father work accident Maternal Aunt Maternal Grandmother Mother Alive Sister 10/14/2017 [facility] Medical HistoryRelationNameComments Diabetes Maternal Aunt x 7 Diabetes Maternal Grandmother Diabetes Mother Diabetes Sister RelationNameStatusComments Father work accident Maternal Aunt Maternal Grandmother Mother Alive Sister 09/29/2017 [facility] Medical HistoryRelationNameComments Diabetes Maternal Aunt x 7 Diabetes Maternal Grandmother Diabetes Mother Diabetes Sister RelationNameStatusComments Father work accident Maternal Aunt Maternal Grandmother Mother Alive Sister 09/27/2017 [facility] Advance Directives Order Name Results Value Date Source Advance Directives Advance Directives Directive Response Recorded Date/Time Does the patient have an advance directive? No 09/20/17 5:13pm If yes, is advance directive on file with [facility]? No 09/20/17 5:14pm If not on file with [facility] will patient provide a copy? No 09/20/17 5:13pm Do you have a Directive to Physician? No 09/20/17 5:13pm Do you have a Medical Power of Basketball Assembler? No 09/20/17 5:13pm Do you have an [...] rights and responsibilities? Yes 09/20/17 5:14pm 09/20/2017 [facility] Functional Status No Data Provided for This Section
== END | disposition left against medical advice (07) ==
LOC: ER 09:49
DX: R06.02 Shortness of breath (principal)
CPT/HCPCS: J1885; J2930; J7030

== ENCOUNTER 2019-01-14 12:05 | Emergency (ER) | payer MEDICARE ==
[~2019-01-14] VITALS: Ht 154.9 cm; Wt 106.1 kg
[~2019-01-14 12:05] MED LIST changes: -ALBUTEROL SULF 0.083% NEB SOLN 3 ML NEB NEB STA; -FAMOTIDINE 20 MG/2 ML VIAL IV ONE; -IPRATROPIUM BROMIDE 0.02% 2.5 ML NEB NEB STA; -KETOROLAC TROMETHAMINE 30 MG/ML VIAL IV ONE; -METHYLPREDNISOLONE SOD SUCC 125 MG/2ML VIAL IV ONE; -MORPHINE SULFATE INJ 4 MG/ML INJ 1ML IV ONE; -PROMETHAZINE 12.5MG/ NACL 0.9% 12.5 MG/50 ML BAG IV ONE; -SODIUM CHLORIDE 0.9% 1000ML 1,000 ML IV SCH; -SODIUM CHLORIDE 0.9% 1000ML 1,000 ML IV STA
[2019-01-14] MEDS ORDERED: ALBUTEROL SULF 0.083% NEB SOLN 3 ML NEB NEB STA (12:07)
[2019-01-14] MEDS ORDERED: IPRATROPIUM BROMIDE 0.02% 2.5 ML NEB NEB STA (12:07)
[2019-01-14 12:37] LABS: BASOPHILS # (AUTO) 0.1 (0.0-0.1); BASOPHILS % 0.5 % (0.0-1.0); EOSINOPHILS # (AUTO) 0.1 (0.0-0.4); EOSINOPHILS % 0.6 % (0.0-6.0); HEMATOCRIT 48.4 % (34.2-44.1); HEMOGLOBIN 14.9 g/dL (12.0-16.0); LYMPHOCYTES # (AUTO) 4.5 (1.0-3.2); LYMPHOCYTES % 32.4 % (18.0-39.1); MEAN CORPUSCULAR HGB CONC 30.8 g/dL (31-35); MEAN CORPUSCULAR VOLUME 81.1 fL (81-99); MONOCYTES % 7.1 % (4.4-11.3); NEUTROPHILS # (AUTO) 8.2 (2.1-6.9); PLATELET COUNT 457 x10e3/uL (140-360); RED BLOOD COUNT 5.97 x10e6/uL (3.6-5.1); RED CELL DISTRIBUTION WIDTH 15.6 % (11.7-14.4)
[2019-01-14 12:57] LABS: ALANINE AMINOTRANSFERASE 31 IU/L (0-55); ALBUMIN 4.5 g/dL (3.5-5.0); ALKALINE PHOSPHATASE 193 IU/L (40-150); BLOOD UREA NITROGEN 22 mg/dL (7-26); BUN/CREATININE RATIO 18 (6-25); CALCIUM 10.4 mg/dL (8.4-10.2); CARBON DIOXIDE 26 mmol/L (22-29); CHLORIDE 93 mmol/L (98-107); CREATINE KINASE 169 IU/L (29-168); CREATININE, SERUM 1.22 mg/dL (0.57-1.11); EST GLOMERULAR FILTRATION RATE 46 ML/MIN (60-); GLUCOSE 124 mg/dL (74-118); SODIUM 138 mmol/L (136-145)
[2019-01-14] MEDS ORDERED: METHYLPREDNISOLONE SOD SUCC 125 MG/2ML VIAL IV ONE (13:00)
[2019-01-14] MEDS ORDERED: FAMOTIDINE 20 MG/2 ML VIAL IV ONE (13:00)
[2019-01-14] MEDS ORDERED: DEXAMETHASONE SOD PHOS 10 MG/1 ML VIAL IV ONE (13:00)
--- NOTE | 2019-01-14 13:04 | Diagnostic Imaging Report ---
EXAMINATION: CHEST SINGLE (PORTABLE) INDICATION: Shortness of breath and chest tightness. ^ERMD ORDER ^[id number] ^1229 ^Y COMPARISON: 09/20/2017 FINDINGS: AP view TUBES and LINES: None. LUNGS: Limited by body habitus and low lung volumes. There is no evidence of pneumonia or pulmonary edema. Minimal right mid to lower lung field subsegmental atelectasis. PLEURA: No pleural effusion or pneumothorax. HEART AND MEDIASTINUM: The cardiomediastinal silhouette is unremarkable. Median sternotomy wires BONES AND SOFT TISSUES: No acute osseous lesion. Soft tissues are unremarkable. UPPER ABDOMEN: No free air under the diaphragm. IMPRESSION: No definite focal consolidation, considering limitations of the study. Signed by: Dr. Tushar Gonzalez MD on 01/14/2019 1:00 PM
[2019-01-14 13:41] VITALS: BP 104/60
[2019-01-14] MEDS ORDERED: POTASSIUM CHLORIDE 20 MEQ TAB CR PO ONE (14:00)
== END 2019-01-14 13:49 | disposition home or self-care (01) ==
LOC: ER 12:05
DX: R06.09 Other forms of dyspnea (principal); T61.784A Other shellfish poisoning, undetermined, initial encounter; R05 Cough; J44.9 Chronic obstructive pulmonary disease, unspecified; I50.9 Heart failure, unspecified; J45.909 Unspecified asthma, uncomplicated
CPT/HCPCS: 36415; 71045; 80048; 80053; 82550; 82553; 84484; 85025; 99284; J1100; J2930

== ENCOUNTER 2020-08-08 15:32 | Emergency (ER) | payer OTHER ==
[~2020-08-08] VITALS: Ht 154.9 cm; Wt 106.1 kg
[2020-08-08] MEDS ORDERED: DEXAMETHASONE SOD PHOS 10 MG/1 ML VIAL ONE (15:47)
[2020-08-08] MEDS ORDERED: ALBUTEROL/IPRATROPIUM 3 ML NEB ONE ×2 (15:50)
[2020-08-08] MEDS ORDERED: ALBUTEROL/IPRATROPIUM 3 ML NEB NEB ONE (16:00)
[2020-08-08 16:11] LABS: BASOPHILS # (AUTO) 0.1 (0.0-0.1); BASOPHILS % 0.7 % (0.0-1.0); EOSINOPHILS # (AUTO) 0.1 (0.0-0.4); EOSINOPHILS % 1.1 % (0.0-6.0); HEMATOCRIT 38.1 % (34.2-44.1); HEMOGLOBIN 11.2 g/dL (12.0-16.0); LYMPHOCYTES % 35.7 % (18.0-39.1); MEAN CORPUSCULAR HEMOGLOBIN 21.9 pg (28-32); MEAN CORPUSCULAR HGB CONC 29.4 g/dL (31-35); MEAN CORPUSCULAR VOLUME 74.6 fL (81-99); MONOCYTES % 8.7 % (4.4-11.3); NEUTROPHILS % 53.5 % (38.7-80.0); PLATELET COUNT 442 x10e3/uL (140-360); RED BLOOD COUNT 5.11 x10e6/uL (3.6-5.1)
[2020-08-08] MEDS ORDERED: DEXAMETHASONE SOD PHOS 10 MG/1 ML VIAL IV NR (16:15)
[2020-08-08 16:29] LABS: ALBUMIN/GLOBULIN RATIO 0.9 (0.8-2.0); CALCIUM 9.2 mg/dL (8.4-10.2); CREATININE, SERUM 1.08 mg/dL (0.57-1.11)
[2020-08-08] MEDS ORDERED: AZITHROMYCIN250 MG PO ×2 (16:41→18:03)
[2020-08-08] MEDS ORDERED: PREDNISONE20 MG PO (18:03)
[2020-08-08] MEDS ORDERED: VENTOLIN HFA18 GM INH (18:03)
== END 2020-08-08 18:11 | disposition home or self-care (01) ==
LOC: ER 15:53
DX: R06.02 Shortness of breath (principal); J44.1 Chronic obstructive pulmonary disease with (acute) exacerbation; E11.65 Type 2 diabetes mellitus with hyperglycemia; I50.9 Heart failure, unspecified
CPT/HCPCS: 36415; 71045; 80053; 83880; 84484; 85025; 93005; 94640; 99284; J1100

== ENCOUNTER 2021-11-05 11:17 | Emergency (ER) | payer MEDICARE ==
[~2021-11-05] VITALS: Ht 154.9 cm; Wt 106.1 kg
[~2021-11-05 11:17] MED LIST changes: +AZITHROMYCIN250 MG PO; +PREDNISONE20 MG PO; +VENTOLIN HFA18 GM INH
[2021-11-05] MEDS ORDERED: SODIUM CHLORIDE 0.9% 1000ML 1,000 ML IV ONE (12:15)
[2021-11-05] MEDS ORDERED: ONDANSETRON HCL INJ 2MG/ML 2ML 2 MG/ML VIAL IV PRN (12:15)
[2021-11-05] MEDS ORDERED: FENTANYL CITRATE/PF 100MCG/2 ML INJ IV ONE (12:30)
[2021-11-05 12:56] LABS: ALBUMIN/GLOBULIN RATIO 1.1 (0.8-2.0); CALCIUM 9.3 mg/dL (8.4-10.2); CREATININE, SERUM 1.37 mg/dL (0.57-1.11)
[2021-11-05 13:38] LABS: BASOPHILS # (AUTO) 0.1 (0.0-0.1); BASOPHILS % 0.6 % (0.0-1.0); EOSINOPHILS # (AUTO) 0.1 (0.0-0.4); EOSINOPHILS % 0.6 % (0.0-6.0); HEMATOCRIT 43.7 % (34.2-44.1); HEMOGLOBIN 12.7 g/dL (12.0-16.0); LYMPHOCYTES # (AUTO) 3.6 (1.0-3.2); LYMPHOCYTES % 34.8 % (18.0-39.1); MEAN CORPUSCULAR HEMOGLOBIN 21.3 pg (28-32); MEAN CORPUSCULAR HGB CONC 29.1 g/dL (31-35); MEAN CORPUSCULAR VOLUME 73.3 fL (81-99); MONOCYTES # (AUTO) 0.9 (0.2-0.8); NEUTROPHILS # (AUTO) 5.6 (2.1-6.9); NEUTROPHILS % 54.8 % (38.7-80.0); PLATELET COUNT 509 x10e3/uL (140-360); RED BLOOD COUNT 5.96 x10e6/uL (3.6-5.1)
[2021-11-05 14:46] LABS: CLARITY,URINE CLOUDY (CLEAR); COLOR,URINE YELLOW (YELLOW); LEUKOCYTE ESTERASE ,URINE NEGATIVE (NEGATIVE); NITRITE,URINE NEGATIVE (NEGATIVE); PROTEIN,URINE DIPSTICK NEGATIVE (NEGATIVE)
[2021-11-05 14:47] LABS: KETONES,URINE NEGATIVE (NEGATIVE); URINE UROBILINOGEN 0.2 mg/dL (0.2 - 1)
[2021-11-05 14:58] LABS: BACTERIA,URINE MODERATE /HPF; EPITHELIAL CELLS,URINE MODERATE /LPF; RBC,URINE 0-5 /HPF (0-5); WBC,URINE (MAN) 0-5 /HPF (0-5)
[2021-11-05 14:59] LABS: YEAST,URINE FEW
[2021-11-05] MEDS ORDERED: ACETAMINOPHEN-1 EAC4 PO (15:54)
[2021-11-05] MEDS ORDERED: ONDANSETRON ODT4 MG PO (15:54)
[2021-11-05 16:08] VITALS: BP 139/81
== END 2021-11-05 16:13 | disposition home or self-care (01) ==
LOC: ER 11:26
DX: R10.13 Epigastric pain (principal); K85.90 Acute pancreatitis without necrosis or infection, unspecified; N17.9 Acute kidney failure, unspecified; E11.65 Type 2 diabetes mellitus with hyperglycemia; I45.10 Unspecified right bundle-branch block; R11.0 Nausea; R05.9 Cough, unspecified; J44.9 Chronic obstructive pulmonary disease, unspecified; J45.909 Unspecified asthma, uncomplicated
CPT/HCPCS: 36415; 71045; 80053; 81001; 83690; 84484; 85025; 93005; 99283; J2405; J3010; J7030